=== PATIENT | female | born 1950 | race Caucasian/White ===

== ENCOUNTER 2023-08-11 07:42 | Inpatient (IN) ==
--- NOTE | 2023-07-20 14:11 | PAT Medication Instructions ---
Medication Instructions Date of Service July 20, 2023 Home Medications Medication Instructions Recorded oxycodone-acetaminophen 5 mg-325 1 tab PO Q8H PRN pain #14 tabs // mg tablet (Percocet) diclofenac sodium 1 % topical gel (Voltaren) 2 g topical QID PRN Pain losartan 50 mg-hydrochlorothiazide 12.5 mg tablet 1 tab PO HS meloxicam 15 mg tablet 15 mg PO QAM oxycodone-acetaminophen 5 mg-325 mg tablet (Percocet) 1 tab PO Q8H PRN pain acetaminophen 500 mg tablet 1,000 mg PO TID PRN taken w/pregabalin allopurinol 300 mg tablet 300 mg PO HS atorvastatin 10 mg tablet 10 mg PO HS azithromycin 500 mg tablet 500 mg PO UD berberine-herbal comb no.18 capsule 1 cap PO UD pregabalin 75 mg capsule 75 mg PO BID Continue as directed azithromycin 500 mg tablet 500 mg PO UD ASK your surgeon for instructions diclofenac sodium 1 % topical gel (Voltaren) 2 g topical QID PRN Pain meloxicam 15 mg tablet 15 mg PO QAM STOP taking 2 weeks before surgery (or as soon as possible if surgery is within 2 weeks) berberine-herbal comb no.18 capsule 1 cap PO UD Take morning of surgery With a small sip of water, OTHERWISE NOTHING TO EAT OR DRINK AFTER MIDNIGHT: oxycodone-acetaminophen 5 mg-325 mg tablet (Percocet) 1 tab PO Q8H PRN pain (if needed) acetaminophen 500 mg tablet 1,000 mg PO TID PRN taken w/pregabalin (if needed) pregabalin 75 mg capsule 75 mg PO BID Take evening before surgery losartan 50 mg-hydrochlorothiazide 12.5 mg tablet 1 tab PO HS oxycodone-acetaminophen 5 mg-325 mg tablet (Percocet) 1 tab PO Q8H PRN pain (if needed) acetaminophen 500 mg tablet 1,000 mg PO TID PRN taken w/pregabalin (if needed) allopurinol 300 mg tablet 300 mg PO HS atorvastatin 10 mg tablet 10 mg PO HS pregabalin 75 mg capsule 75 mg PO BID Other Notes If you have any questions please call us at [phone] or [phone] or [phone] or [phone]
--- NOTE | 2023-07-22 08:32 | Communication Note ---
Date of Service: July 22, 2023 - Patient contacted PAT clinic regarding errors on medication list. She states is no longer taking oxycodone-acetaminophen (Percocet) or diclofenac (Voltaren gel), I adjusted these in the EMR and will complete an updated medication instruction list. She contacted her surgeon's office regarding meloxicam. She states would also like to see an anesthesiologist at her PAT appointment. I advised an anesthesiologist can be contacted day of her PAT appointment regarding coming over from the OR and she expressed interest in that. She also wanted to clarify that she was diagnosed with diabetes, not prediabetes, several years ago and she has elected to manage this with diet. This was adjusted on her PMHx. She also inquired as to scheduling surgery and I advised that is coordinated between the surgeon's office and OR, I did relay that it is marked on her booking sheet that she has requested not being the first case. I did discuss with her that her diabetic condition can impact being one of the earlier cases and she advised that is fine from this standpoint. She plans to further discuss scheduling options with the surgeon's office at her upcoming appointment next week. She verbalized understanding and agreement, expressed appreciation for our discussion and denied additional questions or concerns.
--- NOTE | 2023-07-22 08:55 | PAT Medication Instructions ---
Medication Instructions Date of Service July 22, 2023 Home Medications losartan 50 mg-hydrochlorothiazide 12.5 mg tablet 1 tab PO HS meloxicam 15 mg tablet 15 mg PO QAM acetaminophen 500 mg tablet 1,000 mg PO TID PRN allopurinol 300 mg tablet 300 mg PO HS atorvastatin 10 mg tablet 10 mg PO HS azithromycin 500 mg tablet 500 mg PO UD berberine-herbal comb no.18 capsule 1 cap PO UD pregabalin 75 mg capsule 75 mg PO BID Continue as directed azithromycin 500 mg tablet 500 mg PO UD ASK your surgeon for instructions meloxicam 15 mg tablet 15 mg PO QAM STOP taking 2 weeks before surgery (or as soon as possible if surgery is within 2 weeks) berberine-herbal comb no.18 capsule 1 cap PO UD Take morning of surgery With a small sip of water, OTHERWISE NOTHING TO EAT OR DRINK AFTER MIDNIGHT: acetaminophen 500 mg tablet 1,000 mg PO TID PRN(if needed) pregabalin 75 mg capsule 75 mg PO BID Take evening before surgery losartan 50 mg-hydrochlorothiazide 12.5 mg tablet 1 tab PO HS acetaminophen 500 mg tablet 1,000 mg PO TID PRN(if needed) allopurinol 300 mg tablet 300 mg PO HS atorvastatin 10 mg tablet 10 mg PO HS pregabalin 75 mg capsule 75 mg PO BID Other Notes If you have any questions please call us at [phone] or [phone] or [phone] or [phone]
--- NOTE | 2023-07-28 14:39 | Anesthesiology Consultation ---
Date of Service July 28, 2023 Assessment & Plan (1) Encounter for pre-operative examination: Chart Review Chart Review: Acceptable Risk for Surgery (pending PCP clearance ) and Patient seen in Pre Admission Testing - Awaiting PCP clearance scheduled 08/03/23 (Dr Dann Salvador- SANDEE Babcock) (please send preop testing to PCP) - Check BSG AM DOS - Pt goes by [facility] - Dr. Sorto present during part of PAT appt to discuss previous anesthesia issues. Questions addressed. Per PAT appt on 07/28/23, no recent illness/disease exposures, illness related symptoms, or recent illness/disease positive tests. Will leave to surgeon's discretion if preop Covid testing needed Teaching & Discussion Pre-Anesthesia Teaching/Discussion Notes: Instructed NPO after midnight before surgery,except medications with 15 cc of water. Medication instructions provided according to the [facility] guidelines. History Surgery Operation Date: 08/11/23 07:45 Proposed Procedures p L2-L5 Decompression and Fusion, Spinal Cord Monitoring - Brian Lala, Height/Weight Height: 5 ft 3 in Weight: 107.5 kg Allergies Allergy/AdvReac Type Severity Reaction Status Date / Time red dye Allergy SWELLING Verified 07/20/23 11:11 AND ITCHING Medications Home Medications Medication Instructions Recorded Confirmed Last Taken losartan 50 mg-hydrochlorothiazide 1 tab PO HS 01/11/19 07/20/23 02/02/19 12.5 mg tablet meloxicam 15 mg tablet 15 mg PO QAM 02/17/23 07/20/23 Unknown acetaminophen 500 mg tablet 1,000 mg PO TID PRN taken 07/20/23 07/20/23 Unknown w/pregabalin allopurinol 300 mg tablet 300 mg PO HS 07/20/23 07/20/23 Unknown atorvastatin 10 mg tablet 10 mg PO HS 07/20/23 07/20/23 Unknown azithromycin 500 mg tablet 500 mg PO UD 07/20/23 07/20/23 Unknown berberine-herbal comb no.18 capsule 1 cap PO UD 07/20/23 07/20/23 Unknown pregabalin 75 mg capsule 75 mg PO BID 07/20/23 07/20/23 Unknown Past Medical History Medical History (Updated 07/29/23 @ 09:54 by OLIVER TeixeiraC) Diabetes diet controlled Per patient at PAT appt 07/28/23- did have steroid injections to bilateral knees recently History of anesthesia reaction s/p bilateral ROBYN in 2012- questionable ileus post op- resulted in longer hospital stay- no issues since History of kidney stones allopurinol currently to prevent no recent issues Hyperlipidemia Hypertension Lumbar pain with radiation down both legs Morbid obesity Exercise / Class Metabolic Activity III < 4 Walking/Shop/Light housework (no chest pain or SOB with flat surface ambulation- uses cane for support ) Past Family History Family History Father Family history of diabetes mellitus Past Surgical History Surgical History History of cataract surgery RT, LT Hx of bilateral hip replacements 07/08/12 Hx of cystoscopy FOR STONE BASKET REMOVAL Hx of foot surgery LEFT - X3 Hx of lithotripsy x3 Hx of tooth extraction S/P cystoscopy with ureteral stent placement w/laser lithotripsy S/P epidural steroid injection x2 Past Anesthesia History No Hx of Anesthesia Complications (with exception to questionable ileus in 2012 s/p bilateral ROBYN ) and No Family Hx of Anesthesia Complications (with exception to brother - disoriented/hallucinations post op (has cardiac and renal issues)) History of PONV No Hx of PONV and No Hx of Motion Sickness Social History Smoking Status: Never smoker Do You Dip or Chew Tobacco: No Hx Alcohol Use: Yes Alcohol type: wine alcohol intake frequency: holidays/special occasions only Hx Substance Use: No substance use type: does not use Review of Systems - MILLS- mild/chronic - stable - Hx of snoring - no hx of sleep study Patient denies chest pain, shortness of breath, reflux, cough, wheezing, palpitations. No hx of seizures, stroke, [place]. No hx of blood clots or blood transfusions Physical Exam Vital Signs VITALS BP 124/78 P 59 TEMP 97.8 SP02 93% RESP 16 Constitutional no acute distress ENMT Mouth: no TMJ clicking Thyromental Distance: < 3.5 Finger Breadths (3.0) Mallampati Class: III Missing molars Neck + short neck and + limited neck extension Respiratory normal respiratory effort; no respiratory distress Auscultation: lungs clear to auscultation bilaterally; no wheezes Cardiovascular Rate/Rhythm: regular rate and regular rhythm Heart Sounds: no murmur Vessels: no carotid bruit Musculoskeletal Spine: no pain with cervical ROM Extremities: extremities normal to inspection Psychiatric Orientation: alert Lab Results Anesthesia Preop Results Results Anesthesia Widget: WBC 12.70 K/ul (4.8-10.8) H 07/28/23 Hgb 12.2 g/dl (12.0-16.0) 07/28/23 Hct 38.5 % (37.0-47.0) 07/28/23 Plt 232 K/uL (130-400) 07/28/23 Na 139 mmol/L (136-145) 07/28/23 K 4.2 mmol/L (3.5-5.1) 07/28/23 Cl 106 mmol/L (98-107) 07/28/23 CO2 26 mmol/L (21-32) 07/28/23 BUN 21 mg/dl (6-23) 07/28/23 Creat 0.76 mg/dl (0.6-1.2) 07/28/23 Glucose Level 156 mg/dl (70-99(Fasting)) H 07/28/23 PT 10.3 Seconds (9.0-12.0) 07/28/23 PTT 27.4 Seconds (21.0-31.0) 07/28/23 INR 0.9 (0.9-1.1) 07/28/23 HA1c 7.3 % (4.5-5.6) H 07/28/23 Urine Color Yellow 07/28/23 Urine Appearance Clear (Clear) 07/28/23 Urine pH 5.0 (4.5-7.5) 07/28/23 Urine Specific [place] 1.023 (1.000-1.030) 07/28/23 Urine Protein Trace (Negative) H 07/28/23 Urine Glucose (UA) 1+ (Negative) H 07/28/23 Urine Ketones Negative (Negative) 07/28/23 Urine Blood Negative (Negative) 07/28/23 Urine Nitrite Negative (Negative) 07/28/23 Urine Bilirubin Negative (Negative) 07/28/23 Urine Urobilinogen Negative (Negative) 07/28/23 Urine Leukocyte Esterase 1+ (Negative) H 07/28/23 Urine WBC (Auto) 10-30 /hpf (0-5) H 07/28/23 Urine RBC (Auto) 0-4 /hpf (0-4) 07/28/23 Urine Hyaline Casts (Auto) 1-5 /lpf (0-5) 07/28/23 Urine Epithelial Cells (Auto) >30 /lpf (0-5) H 07/28/23 Urine Bacteria (Auto) Negative (Negative) 07/28/23 Blood Type O Negative 07/28/23 Antibody Screen NEGATIVE 07/28/23 Testing Laboratory Results Mild leukocytosis- no signs or symptoms of infection on exam- will send testing to PCP for review Electrocardiogram Date: 07/28/23 Sinus bradycardia with sinus arrhythmia at 56 bpm Otherwise normal EKG per cardio Chest X-Ray Date: 07/28/23 Findings: + NAD FINDINGS: The cardiac silhouette is top normal in size. There is a tortuous thoracic aorta. Mild S-shaped scoliosis of the thoracolumbar spine. No focal lung consolidations to suggest a pneumonia. No evidence for pulmonary edema. No acute fractures. Degenerative changes within the thoracic spine. Echocardiogram Date: 02/03/23 EF: 55-60% LV Function: normal RWMA: + none Other Findings: + LVH (mild/concentric ) and + diastolic dysfunction (Type I ) Mild MR. Mild AR
[~2023-08-11 07:42] MED LIST: ACETAMINOPHEN 500 MG TAB PO SCH; CeleBREX 200 MG CAP PO SCH; GABAPENTIN 300 MG CAP PO SCH; LR 15ML/HR IV SCH; LR 60ML/HR IV SCH; ceFAZolin 2000MG 2,000 MG/15 ML SYR IV SCH
[2023-08-11] MEDS ORDERED: ONDANSETRON INJ 2 MG/ML 2 ML VIAL ONE (08:38)
[2023-08-11] MEDS ORDERED: ROCURONIUM BROMIDE 10 MG/ML 5 ML VIAL IV ONE (08:38)
[2023-08-11] MEDS ORDERED: DEXAMETHASONE SOD INJ 4 MG/ML VIAL ONE ×2 (08:38→10:01)
[2023-08-11] MEDS ORDERED: LIDOCAINE 2% 2 ML VIAL/AMP(20MG/ML) INFIL ONE (08:38)
[2023-08-11] MEDS ORDERED: MIDAZOLAM HCL 1 MG/ML 2ML VIAL ONE (08:38)
[2023-08-11] MEDS ORDERED: PROPOFOL IV EMULSION 10 MG/ML 20 ML VIAL IV ONE (08:38)
[2023-08-11] MEDS ORDERED: fentaNYL citrate PF 100 MCG/2 ML VIAL ONE ×2 (08:39→11:02)
[2023-08-11] MEDS ORDERED: FLUMAZENIL 0.1 MG/1 ML 10 ML VIAL IV PRN (09:01)
[2023-08-11] MEDS ORDERED: PROMETHAZINE HCL 12.5 MG in SODIUM CHLORIDE 0.9% 50 ML IV PRN ×2 (09:01→14:06)
[2023-08-11] MEDS ORDERED: ONDANSETRON INJ 2 MG/ML 2 ML VIAL IV PRN ×2 (09:01→14:06)
[2023-08-11] MEDS ORDERED: LABETALOL HCL IV 5 MG/ML 20ML IV PRN (09:01)
[2023-08-11] MEDS ORDERED: NALOXONE HCL 0.4 MG/1 ML VIAL/CARP IV PRN ×2 (09:01→14:06)
[2023-08-11] MEDS ORDERED: ATROPINE SULFATE 0.1 MG/ML 10ML SYR IV PRN (09:01)
[2023-08-11] MEDS ORDERED: ePHEDrine sulfate 50 MG/ML AMP IV PRN (09:01)
--- NOTE | 2023-08-11 09:09 | History & Physical Bridge Note ---
Date of Service August 11, 2023 History & Physical Bridge Note I have examined the patient, reviewed the History & Physical and in the interval since the performance of the History & Physical I have noted the following changes of clinical significance: no changes noted
--- NOTE | 2023-08-11 09:10 | History & Physical Report ---
Date of Service August 11, 2023 Assessment & Plan (1) Degenerative spondylolisthesis: Plan: L2-L5 decompression and fusion History of Present Illness Chief Complaint: Back and bilateral knee pain Primary Care Provider: Dann Salvador This is a 72-year-old female who presents for chronic persistent back and leg pain and failing since course of nonoperative care is here for surgical invention. Allergies Allergy/AdvReac Type Severity Reaction Status Date / Time red dye Allergy SWELLING Verified 08/11/23 08:09 AND ITCHING Home Medications Medication Instructions Recorded Confirmed Type losartan 50 mg-hydrochlorothiazide 1 tab PO HS 01/11/19 08/11/23 History 12.5 mg tablet meloxicam 15 mg tablet 15 mg PO QAM 02/17/23 08/11/23 History acetaminophen 500 mg tablet 1,000 mg PO TID PRN taken 07/20/23 08/11/23 History w/pregabalin allopurinol 300 mg tablet 300 mg PO HS 07/20/23 08/11/23 History atorvastatin 10 mg tablet 10 mg PO HS 07/20/23 08/11/23 History azithromycin 500 mg tablet 500 mg PO UD 07/20/23 08/11/23 History berberine-herbal comb no.18 capsule 1 cap PO UD 07/20/23 08/11/23 History Past Med/Surg History Medical History (Updated 07/29/23 @ 09:54 by Zayda Stauffer PA-C) Diabetes diet controlled Per patient at PAT appt 07/28/23- did have steroid injections to bilateral knees recently History of anesthesia reaction s/p bilateral ROBYN in 2011- questionable ileus post op- resulted in longer hospital stay- no issues since Morbid obesity Lumbar pain with radiation down both legs History of kidney stones allopurinol currently to prevent no recent issues Hypertension Hyperlipidemia Surgical History S/P epidural steroid injection x2 S/P cystoscopy with ureteral stent placement w/laser lithotripsy Hx of tooth extraction History of cataract surgery RT, LT Hx of cystoscopy FOR STONE BASKET REMOVAL Hx of lithotripsy x3 Hx of foot surgery LEFT - X3 Hx of bilateral hip replacements 07/08/12 Family History Father Family history of diabetes mellitus Social History Smoking Status: Never smoker Tobacco Type: Cigarettes Smoking End Date: back in the 60's for 5 years; Second Hand Exposure: No; Do You Dip or Chew Tobacco: No; Tobacco Cessation Education Requested by Patient: No Hx Alcohol Use: Yes Alcohol type: wine Hx Substance Use: No Preferred Language: Divehi Communication Ability: Effective Child Support Specialist Required: No Beliefs That Will Affect Care: None Current Living Situation: Alone Other Information That Helps Us Care for You: No Feels Safe at Home: Yes Safety Concerns: Feels Safe At This Time Assistive Devices: Glasses and Walker Assistive Devices Comment: walker prn; reading glasses Physical Exam Physical Exam: Patient is alert and oriented Heart regular rhythm Lungs clear Results & Data Results & Data Vital Signs (Past 12 Hours) Vital Signs Temp Pulse Resp BP Pulse Ox O2 Del Method 08/11/23 08:14 36.9 C 80 18 138/102 H 96 Room Air
[2023-08-11] MEDS ORDERED: BUPIVACAINE/EPINEPHRINE 0.25% 1:200,000 30 ML VIAL ONE (09:21)
[2023-08-11] MEDS: ceFAZolin 330 MG/ML 1 GM VIAL ONE ×2 (09:45→12:20)
[2023-08-11] MEDS ORDERED: ePHEDrine sulfate 50 MG/5 ML SYR ONE (10:36)
[2023-08-11] MEDS ORDERED: SUGAMMADEX SODIUM 200 MG/2 ML VIAL IV ONE (11:36)
[2023-08-11] MEDS ORDERED: PHENYLEPHRINE HCL 10 MG/ML VIAL ONE (12:14)
[2023-08-11] MEDS ORDERED: FLOSEAL HEMOSTATIC MATRIX 10ML TOP ONE (12:17)
--- NOTE | 2023-08-11 12:30 | Fluoroscopy Report ---
FL lumbar spine 2-3V CLINICAL HISTORY: L2-5 DECOMP AND FUSION COMPARISON STUDY: Lumbar spine MRI June 21, 2023. FLUOROSCOPY TIME: 30 seconds. Ka, r: 29.76 mGy FLUOROSCOPIC IMAGES: 4 FINDINGS: Fluoroscopy was provided during posterior decompression with L2-L3, L3-L4 and L4-L5 discect omies with interbody spacer placement. There are bilateral pedicle screws at the L2-L5 levels with in terconnecting rods. Hardware is intact. IMPRESSION: Fluoroscopy during L2-L5 posterior decompression, discectomy and fusion. ACT 112: Negative or not required by law. Electronically signed by: Gilberto Dennison M.D. 08/11/2023 12:29 PM
--- NOTE | 2023-08-11 12:33 | Operative Report ---
Post Operative Report Pre & Post Diagnosis Operation Date: 08/11/23 09:15 Pre-Op Diagnosis: Lumbar Disc Herniation with Radiculopathy Lumbar spinal stenosis with neurogenic claudication Spondylolisthesis lumbar spine Morbid obesity Post-Op Diagnosis: Same I identified the patient and participated in the time-out.: Yes Procedure Operation Date: 08/11/23 09:15 Actual Procedures #1 lumbar decompression bilaterally facetectomies and foraminotomies L1-L2, L2- 3, L3-L4 and L4-5. #2 posterior spinal fusion L2-5. #3 placed posterior segmental instrumentation L2-5. #4 interbody fusion L2-3, L3-L4 L4-5. #5 placement spiral 9 x 26 mm at L2-L3, 12 x 26 mm L3-L4 and 13 x 26 mm at L4-5. #6 placement locally harvested morselized autograft and posterior gutters. #7 placement of I factor interbody space and infuse collagen sponge, mass graft in the posterior lateral gutters. Surgeon Brian Lala, DO Channel Layer Carmela Monroy Estimated Blood Loss 1,250 Findings See Below The patient is 5 foot 4 weighing over 104 kg with a BMI in excess of 39. This combined with an EBL of greater than 1000 cc created significant technical difficulty. This at least 50% increased operative time. Specimens None Indications This is a 72-year-old female who presents above-mentioned diagnosis after failing course of nonoperative care she is here for surgical invention. Description of Procedure Patient was met with identified informed consent obtained. Patient was then taken to the operative suite underwent patient placed in a prone position the [place] table top Mao frame. All bony promises well-padded I suspected to ensure no external precipice spine. This point the lumbar spine was prepped and draped in a sterile fashion. Sharp dissection with the assistance of Bovie cautery form down to and exposing the lamina transverse processes of L to L3-L4-L5 bilaterally. From caudal cephalad fashion complete laminectomy of L4 L3 L2 and partial laminectomy of L1 was performed including bilateral medial facetectomies and foraminotomies addressing severe spinal stenosis. Pedicle screws were then placed in L2-L5 bilaterally with assistance of fluoroscopy and appropriate size bruno placed. By way of transforaminal approach on the right complete discectomy of L4-5 was performed endplates guarded to subcortical bleeding bone and a 13 x 26 mm Spira cage with I factor tapped in position. Then proceeded to L3-L4 and again by way of a transforaminal approach on the right complete discectomy performed endplates guarded to subcortical bleeding bone and a 12 x 26 mm Spira cage with I factor tapped in position. Lastly proceeded L2-L3 and again by way of a transforaminal approach on the right complete discectomy performed endplates guarded to subcortical bleeding bone and a 9 x 26 mm Spira cage with I factor tapped in position. The rods were then compressed locked in final position bilaterally. Transverse processes of L2-L3 L4-5 #2 subcortical bleeding bone. Infuse collagen sponge, mass graft locally harvested morselized graft placed in the posterior gutters. 15 round DARUIS drain inserted. The incision was then closed with 1 Vicryl fascia 2-0 Vicryl subcutaneously and 4 Monocryl for final skin closure. Steri-Strips sterile dressing placed. Patient waken taken to PACU stable condition. Please note spinal cord monitoring was utilized at the procedure no changes noted. Lastly Carmela Monroy was present at the entire surgery and while the patient positioning complex portion of the surgery and final skin closure. I attest to the content of the Intraoperative Record and any orders documented therein. Any exceptions are noted below.
[2023-08-11] MEDS: fentaNYL citrate PF 100 MCG/2 ML VIAL IV PRN ×5 (12:56→13:17)
[2023-08-11] MEDS: HYDROmorphone INJ 1 MG/ML SYRINGE IV PRN ×4 (13:22→13:37)
--- NOTE | 2023-08-11 13:49 | Anesthesiology Progress Note ---
Date of Service August 11, 2023 Anesthesia Post Procedure Vital Signs Vital Signs: Temp Pulse Pulse Resp BP Pulse Ox O2 Del Method 08/11/23 13:35 74 14 94/55 L 97 Nasal Cannula 08/11/23 13:25 85 19 97/67 L 97 Nasal Cannula 08/11/23 13:15 72 11 L 92/61 L 08/11/23 13:05 72 9 L 92/62 L 98 Oxymask 08/11/23 12:55 77 14 103/64 98 Oxymask 08/11/23 12:45 36.0 C L 82 18 141/86 H 98 Oxymask 08/11/23 08:14 36.9 C 80 18 138/102 H 96 Room Air O2 Flow Rate 08/11/23 13:35 2 08/11/23 13:25 2 08/11/23 13:15 08/11/23 13:05 6 08/11/23 12:55 6 08/11/23 12:45 6 08/11/23 08:14 Pain Intensity Lower Back: Pain Intensity: 7 Transfer of Care Handoff Completed per policy Notes Mental Status: alert / awake / arousable Patient Amnestic to Procedure: Yes Nausea / Vomiting: adequately controlled Pain: adequately controlled Airway Patency, RR, SpO2: stable & adequate BP & HR: stable & adequate Hydration State: stable & adequate Anesthetic Complications: no major complications apparent
[2023-08-11] MEDS ORDERED: ACETAMINOPHEN 1,000 MG/100 ML VIAL IV PRN (14:06)
[2023-08-11] MEDS ORDERED: ALUMINUM/MAGNESIUM SUSP 30 ML UDC PO PRN (14:06)
[2023-08-11] MEDS ORDERED: HYDROmorphone INJ 1 MG/ML SYRINGE IV PRN (14:06)
[2023-08-11] MEDS ORDERED: HYDROmorphone INJ 0.5 MG/0.5 ML SYR IV PRN (14:06)
[2023-08-11] MEDS ORDERED: METOCLOPRAMIDE HCL INJ 5 MG/ML 2 ML VIAL IV PRN (14:06)
[2023-08-11] MEDS ORDERED: SOD PHOSPHATE/SOD BIPHOSPHATE ENEMA 132 ML BTL PR PRN (14:06)
[2023-08-11] MEDS ORDERED: DO NOT ADMINISTER FLU VACCINE PRN (14:06)
[2023-08-11] MEDS ORDERED: LORazepam 0.5 MG TAB PO PRN (14:06)
[2023-08-11] MEDS ORDERED: bisacodyL 10 MG SUPP PR PRN (14:06)
[2023-08-11] MEDS ORDERED: DO NOT ADMINISTER PNEUMOCOCCAL VACCINE PRN (14:06)
[2023-08-11] MEDS ORDERED: diphenhydrAMINE Capsule 25 MG CAP PO PRN (14:06)
[2023-08-11] MEDS ORDERED: LORazepam 0.5 MG in SYRINGE 0.25 ML IV PRN (14:06)
[2023-08-11] MEDS ORDERED: ACETAMINOPHEN 500 MG TAB PO PRN (14:06)
[2023-08-11] MEDS ORDERED: MAGNESIUM HYDROXIDE SUSP 30 ML UDC PO PRN (14:06)
[2023-08-11] MEDS ORDERED: oxyCODONE HCL IR 5 MG TAB (IMMEDIATE RELEASE) PO PRN (14:06)
[2023-08-11] MEDS ORDERED: FAMOTIDINE 20 MG TAB PO PRN (14:06)
[2023-08-11] MEDS ORDERED: hydrOXYzine HCl 25 MG TAB PO PRN (14:06)
[2023-08-11] MEDS ORDERED: ONDANSETRON 4 MG OD TAB PO PRN (14:06)
[2023-08-11] MEDS: LACTATED RINGER'S 1,000 ML IV SCH ×2 (15:02→20:27)
[2023-08-11] MEDS: traMADol HCL 50 MG TABLET PO PRN ×2 (15:12→20:38)
--- NOTE | 2023-08-11 15:28 | Consultation ---
Date of Consultation August 11, 2023 Assessment & Plan (1) Lumbar stenosis with neurogenic claudication: (2) Hypertension: (3) Hyperlipidemia: (4) Diabetes: (5) History of kidney stones: Plan Ms. Gross is a 72-year-old female that presented to the [facility] for an elective decompression and fusion surgery L2-L5 under the care of Dr. Lala after failed conservative management as an outpatient. Patient had an uneventful surgery.Patient is doing well post operatively, she had an intraoperative blood loss of 1,200 ml. She is AAOx4 and able to answer all questions appropriately. She has two friends visiting her at bedside. Additional past medical history includes gnk-khnzapm-fntozlywt diabetes type 2, HTN, history of kidney stones, and HLD. Patient denies headache, dizziness, peripheral neuropathy, visual or auditory changes, abdominal pain or tenderness, recent falls or trauma. We discussed her plan of care in coordination with Dr. Lala. She was able to demonstrate appropriate use of ISB. She is on 2LNC post operative. Nursing is providing spot check; no apparent distress. She has taken two Ultram postoperatively. She has not passed gas since her surgery. Patient has a history of a questionable ileus status post ROBYN 2011; discussed importance of ensuring passing gas and bowel movements postop with narcotic use. Lumbar stenosis with neurogenic claudication: Lumbar Disc Herniation with Radiculopathy Spondylolisthesis lumbar spine POD# 0 s/p decompression and fusion L2-L5 under the care of Dr. Lala. EBL: 1,200. Recheck CBC this evening. Monitor H&H, preop Hgb 12.2 on 07/28/2023; trend tonight and in a.m. Per ortho for pain control, wound care, anticoagulation and activities. continue incentive spirometry PT/OT when appropriate HTN: Chronic stable Takes losartan/hydrochlorothiazide; continue HLD: Chronic stable Takes atorvastatin; continue Dlb-sephqsp-ankaberho diabetes: Chronic stable Diet controlled History of kidney stones: Chronic stable Takes allopurinol for prevention daily; continue Disposition: PCP: Dr. Salvador CODE STATUS: Full code VTE prophylaxis: Per admitting team I spent a total of 60 minutes coordinating, documenting, and providing care for this patient excluding time spent in the performance of separately billed services. All of the aforementioned completed while collaborating with the assigned attending physician for a full treatment plan. Please see their addendum for further details. Supervising Physician Co-Signing Physician Notes I have seen and examined the patient and have discussed the case with the provider above. I agree with the assessment and plan as stated. She is having increased pain in her lower back without radiation. Tramadol is helping but oxycodone is not. She reports it makes her feel dopey. SBP is 98. Patient states she wants to stack the tramadol and the oxycodone, which is not recommended. She verbalized understanding. We decided to switch to Tramadol q4h PRN and schedule oral Tylenol 1000mg every 8 hours. She is otherwise doing well. Meds/labs/imaging reviewed. My physical exam is as noted above. Thank you for this consultation. DO Yobany History of Present Illness Requesting Physician: Dr. Lala Reason for Consultation: Postop medical management Attending Physician: Brian Lala DO History of Present Illness Ms. Gross is a 72-year-old female that presented to the [facility] for an elective decompression and fusion surgery L2-L5 under the care of Dr. Lala after failed conservative management as an outpatient. Patient had an uneventful surgery.Patient is doing well post operatively, she had an intraoperative blood loss of 1,200 ml. She is AAOx4 and able to answer all questions appropriately. She has two friends visiting her at bedside. Additional past medical history includes mhz-rafdmox-xcfutycdz diabetes type 2, HTN, history of kidney stones, and HLD. Patient denies headache, dizziness, peripheral neuropathy, visual or auditory changes, abdominal pain or tenderness, recent falls or trauma. We discussed her plan of care in coordination with Dr. Lala. She was able to demonstrate appropriate use of ISB. She is on 2LNC post operative. Nursing is providing spot check; no apparent distress. She has taken two Ultram postoperatively. She has not passed gas since her surgery. Patient has a history of a questionable ileus status post ROBYN 2011; discussed importance of ensuring passing gas and bowel movements postop with narcotic use. [facility] hospitalist service was consulted for postoperative medical management. We are available via Gist text 20/04 for any questions or concerns. Thank you kindly for this consultation. Allergies Allergy/AdvReac Type Severity Reaction Status Date / Time red dye Allergy SWELLING Verified 08/11/23 08:09 AND ITCHING Home Medications Medication Instructions Recorded Confirmed Type losartan 50 mg-hydrochlorothiazide 1 tab PO HS 01/11/19 08/11/23 History 12.5 mg tablet meloxicam 15 mg tablet 15 mg PO QAM 02/17/23 08/11/23 History acetaminophen 500 mg tablet 1,000 mg PO TID PRN taken 07/20/23 08/11/23 History w/pregabalin allopurinol 300 mg tablet 300 mg PO HS 07/20/23 08/11/23 History atorvastatin 10 mg tablet 10 mg PO HS 07/20/23 08/11/23 History azithromycin 500 mg tablet 500 mg PO UD 07/20/23 08/11/23 History berberine-herbal comb no.18 capsule 1 cap PO UD 07/20/23 08/11/23 History oxycodone 5 mg tablet 5 mg PO Q6H PRN pain #30 tabs 08/11/23 Rx tramadol 50 mg tablet 50 mg PO Q6H PRN pain, moderate 08/11/23 Rx #30 tabs Patient History Medical History Diabetes diet controlled Per patient at PAT appt 07/28/23- did have steroid injections to bilateral knees recently History of anesthesia reaction s/p bilateral ROBYN in 2011- questionable ileus post op- resulted in longer hospital stay- no issues since Morbid obesity Lumbar pain with radiation down both legs History of kidney stones allopurinol currently to prevent no recent issues Hypertension Hyperlipidemia Surgical History S/P epidural steroid injection x2 S/P cystoscopy with ureteral stent placement w/laser lithotripsy Hx of tooth extraction History of cataract surgery RT, LT Hx of cystoscopy FOR STONE BASKET REMOVAL Hx of lithotripsy x3 Hx of foot surgery LEFT - X3 Hx of bilateral hip replacements 07/08/12 Family History Father Family history of diabetes mellitus Social History Smoking Status: Never smoker Tobacco Type: Cigarettes Smoking End Date: back in the 60's for 5 years; Second Hand Exposure: No; Do You Dip or Chew Tobacco: No; Tobacco Cessation Education Requested by Patient: No Hx Alcohol Use: Yes Alcohol type: wine Hx Substance Use: No Preferred Language: Turkish Communication Ability: Effective Financial Services Specialist Required: No Beliefs That Will Affect Care: None Current Living Situation: Alone Other Information That Helps Us Care for You: No Feels Safe at Home: Yes Safety Concerns: Feels Safe At This Time Assistive Devices: Cane and Walker Assistive Devices Comment: walker prn; reading glasses Review of Systems Review of Systems: Neuro: (-) Falls, trauma, slurred speech HEENT: (-) SANDHU, dizziness, dysphagia, visual or auditory changes CV: (-) CP, palpitations, swelling Resp: (-) SOB GI: (-) appetite changes, N/V/D, bowel changes : (-) urinary changes Skin: (-) rashes Psych: (-) anxiety, depression Physical Exam Physical Exam: Neuro: AAOx4, PERRLA, no aphagia, memory changes, CNII-XII grossly intact HEENT: head normocephalic, moist mucus membranes CV: S1/S2, (-) M/G/R, (-) edema, cap refill < 3 seconds DARIUS drain x1 with angie red bloody output Resp: Lungs CTA in all woods. On RA GI: Abdomen S/NT/ND, Ax4 bowel sounds, (-) CVA tenderness Musculoskeletal: 5/5 B/L UE strength, 5/5 B/L LE strength. No gait disturbance Skin: (-) rashes , (-) erythema. Psych: euthymic mood Results & Data Vital Signs (Past 12 Hours) Vital Signs Temp Pulse Pulse Resp BP Pulse Ox O2 Del Method 08/11/23 14:45 36.3 C L 81 18 90/58 L 98 Nasal Cannula 08/11/23 14:15 36.4 C L 77 18 99/61 L 96 Nasal Cannula 08/11/23 14:06 Nasal Cannula 08/11/23 13:55 78 19 98/57 L 96 Nasal Cannula 08/11/23 13:45 36.6 C 78 16 96/52 L 93 Nasal Cannula 08/11/23 13:35 74 14 94/55 L 97 Nasal Cannula 08/11/23 13:25 85 19 97/67 L 97 Nasal Cannula 08/11/23 13:15 72 11 L 92/61 L 08/11/23 13:05 72 9 L 92/62 L 98 Oxymask 08/11/23 12:55 77 14 103/64 98 Oxymask 08/11/23 12:45 36.0 C L 82 18 141/86 H 98 Oxymask 08/11/23 08:14 36.9 C 80 18 138/102 H 96 Room Air O2 Flow Rate 08/11/23 14:45 2 08/11/23 14:15 2 08/11/23 14:06 2 08/11/23 13:55 2 08/11/23 13:45 2 08/11/23 13:35 2 08/11/23 13:25 2 08/11/23 13:15 08/11/23 13:05 6 08/11/23 12:55 6 08/11/23 12:45 6 08/11/23 08:14 Diagnostic Findings Lumbar Spine X-Ray 08/11/23 09:15 FL lumbar spine 2-3V CLINICAL HISTORY: L2-5 DECOMP AND FUSION COMPARISON STUDY: Lumbar spine MRI June 21, 2023. FLUOROSCOPY TIME: 30 seconds. Ka, r: 29.76 mGy FLUOROSCOPIC IMAGES: 4 FINDINGS: Fluoroscopy was provided during posterior decompression with L2-L3, L3-L4 and L4-L5 discectomies with interbody spacer placement. There are bilateral pedicle screws at the L2-L5 levels with interconnecting rods. Hardware is intact. IMPRESSION: Fluoroscopy during L2-L5 posterior decompression, discectomy and fusion. ACT 112: Negative or not required by law. Electronically signed by: Gilberto Dennison M.D. 08/11/2023 12:29 PM
[2023-08-11] MEDS: ceFAZolin 2000MG 2,000 MG/15 ML SYR IV SCH (18:19)
[2023-08-11 19:46] LABS: Hematocrit (blood only) 30.1 % (37.0-47.0); Mean Corpuscular Hemoglobin 27.5 pg (25.0-34.0); Mean Corpuscular Hgb Conc 33.2 g/dL (32.0-36.0); Mean Corpuscular Volume 82.7 fL (80.0-100.0); Mean Platelet Volume 9.4 fL (9.4-12.4); Platelet Count 196 K/uL (130-400); Platelet Estimate Normal (Normal); RDW Coefficient of Variation 15.6 % (11.5-14.5); RDW Standard Deviation 46.9 fL (36.4-46.3); Red Blood Count 3.64 M/uL (4.20-5.40); White Blood Count 15.17 K/ul (4.8-10.8)
[2023-08-11] MEDS: allopurinoL 300 MG TAB PO SCH (20:38)
[2023-08-11] MEDS: ATORVASTATIN 10 MG TAB PO SCH (20:38)
[2023-08-11] MEDS: DOCUSATE SODIUM/SENNA 50/8.6MG TAB PO SCH (20:38)
[2023-08-11] MEDS ORDERED: LOSARTAN/HCTZ 50/12.5MG TAB PO SCH (21:00)
[2023-08-11] MEDS: ACETAMINOPHEN 500 MG TAB PO SCH (21:54)
[2023-08-12] MEDS: ceFAZolin 2000MG 2,000 MG/15 ML SYR IV SCH (02:30)
[2023-08-12] MEDS: traMADol HCL 50 MG TABLET PO PRN ×3 (02:39→22:30)
[2023-08-12] MEDS: LACTATED RINGER'S 1,000 ML IV SCH ×4 (02:41→22:30)
[2023-08-12] MEDS: ACETAMINOPHEN 500 MG TAB PO SCH ×3 (05:57→20:41)
[2023-08-12] MEDS: POLYETHYLENE (MIRALAX) 17 GM PACK PO SCH ×4 (05:57→23:24)
[2023-08-12 06:37] LABS: Basophils # (auto) 0.02 K/uL (0.00-0.20); Basophils % (auto) 0.1 %; Hematocrit (blood only) 27.7 % (37.0-47.0); Immature Granulocytes % (auto) 0.7 %; Lymphocytes % (auto) 7.9 %; Mean Corpuscular Hemoglobin 27.5 pg (25.0-34.0); Mean Corpuscular Hgb Conc 32.5 g/dL (32.0-36.0); Mean Corpuscular Volume 84.7 fL (80.0-100.0); Mean Platelet Volume 9.1 fL (9.4-12.4); Monocytes # (auto) 0.85 K/uL (0.11-0.59); Monocytes % (auto) 5.6 %; Neutrophils % (auto) 85.7 %; Platelet Count 196 K/uL (130-400); RDW Coefficient of Variation 15.8 % (11.5-14.5); Red Blood Count 3.27 M/uL (4.20-5.40); White Blood Count 15.27 K/ul (4.8-10.8)
[2023-08-12 06:55] LABS: BUN Creatinine Ratio 22.7 (10-20); Calcium 8.7 mg/dl (8.6-10.3); Creatinine Clr Calc Pharmacy 78.6 ml/min; Est GFR (African American) 91.7 ml/min; Est GFR (Non-African American) 79.1 ml/min; Potassium 4.4 mmol/L (3.5-5.1)
[2023-08-12] MEDS: dexAMETHasone 6 MG in SYRINGE 0 ML IV SCH (08:23)
--- NOTE | 2023-08-12 08:50 | Orthopedic Progress Note ---
Date of Service August 12, 2023 Assessment & Plan (1) Lumbar stenosis with neurogenic claudication: Plan: Sarina is postoperative day 1 status post L2-5 decompression and fusion. Will check H&H tomorrow. Currently asymptomatic. Maintain DARIUS drain. DVT prophy laxis is in the form of teds and SCDs. Continue with pain control. We will start physical therapy today. Admission and Anticipated Discharge Date Admission Date: August 11, 2023 Subjective Sarina is postoperative day 1 status post L2-5 decompression and fusion. She had some back pain which she states is her chronic pain. DARIUS drain output last shift was 90 cc. H&H this morning are 9.0 and 27.7 respectively. Radicular leg pain greatly improved. Review of Systems Review of Systems: All systems reviewed & are unremarkable except as noted in HPI & below Physical Exam Physical Exam: Alert and oriented x3 no acute distress Lumbar dressing is clean dry intact with functioning DARIUS drain Strength intact bilateral lower extremities Calf soft and nontender bilaterally Results & Data Vital Signs (Past 12 Hours) Vital Signs Temp Pulse Resp BP BP Pulse Ox O2 Del Method 08/12/23 07:06 36.5 C 82 18 92/52 L 93 Room Air 08/12/23 05:55 36.8 C 91 H 18 100/63 96 Nasal Cannula 08/12/23 03:54 36.7 C 89 18 93/59 L 95 Nasal Cannula 08/12/23 00:08 36.6 C 91 H 18 102/68 97 Nasal Cannula O2 Flow Rate 08/12/23 07:06 08/12/23 05:55 2 08/12/23 03:54 1.0 08/12/23 00:08 2.0
[2023-08-12] MEDS ORDERED: GLUCAGON FOR INJ 1 MG VIAL IM PRN (13:15)
[2023-08-12] MEDS ORDERED: CARBOHYDRATES FOR HYPOGLYCEMIA PO PRN (13:15)
[2023-08-12] MEDS ORDERED: GLUCOSE 40% GEL 15 GM TUBE PO PRN (13:15)
[2023-08-12] MEDS ORDERED: GLUCOSE 10 TAB/TUBE PO PRN (13:15)
[2023-08-12] MEDS ORDERED: DEXTROSE 50% 50 ML SYRINGE IV PRN (13:15)
[2023-08-12] MEDS: INSULIN ASPART PER UNIT CHARGE SC SCH ×2 (16:58→21:06)
--- NOTE | 2023-08-12 18:11 | Hospitalist Progress Note ---
Date of Service August 12, 2023 Assessment & Plan (1) Lumbar stenosis with neurogenic claudication: (2) Hypertension: (3) Hyperlipidemia: (4) Diabetes: (5) History of kidney stones: Plan Ms. Gross is a 72-year-old female that presented to the [facility] for an elective decompression and fusion surgery L2-L5 under the care of Dr. Lala after failed conservative management as an outpatient. Patient had an uneventful surgery.Patient is doing well post operatively, she had an intraoperative blood loss of 1,200 ml. She is AAOx4 and able to answer all questions appropriately. She has two friends visiting her at bedside. Additional past medical history includes rne-fdwasfj-mdfahmrzo diabetes type 2, HTN, history of kidney stones, and HLD. Patient denies headache, dizziness, peripheral neuropathy, visual or auditory changes, abdominal pain or tenderness, recent falls or trauma. We discussed her plan of care in coordination with Dr. Lala. She was able to demonstrate appropriate use of ISB. She is on 2LNC post operative. Nursing is providing spot check; no apparent distress. She has taken two Ultram postoperatively. She has not passed gas since her surgery. Patient has a history of a questionable ileus status post ROBYN 2011; discussed importance of ensuring passing gas and bowel movements postop with narcotic use. Lumbar stenosis with neurogenic claudication: Lumbar Disc Herniation with Radiculopathy Spondylolisthesis lumbar spine POD# 1 s/p decompression and fusion L2-L5 under the care of Dr. Lala. EBL: 1,200. Recheck CBC this evening. Monitor H&H, preop Hgb 12.2 on 07/28/2023; trend tonight and in a.m. Per ortho for pain control, wound care, anticoagulation and activities. continue incentive spirometry PT/OT when appropriate HTN: Chronic stable Takes losartan/hydrochlorothiazide; hold due to concern of low normal blood pressure secondary to pain meds. Resume when able. HLD: Chronic stable Takes atorvastatin; continue Pgi-akknkmp-jxhipmgfv diabetes: Chronic stable Diet controlled History of kidney stones: Chronic stable Takes allopurinol for prevention daily; continue Disposition: PCP: Dr. Salvador CODE STATUS: Full code VTE prophylaxis: Per admitting team Admission and Anticipated Discharge Date Admission Date: August 11, 2023 Subjective Sarina is postoperative day 1 status post L2-5 decompression and fusion. Reports not being able to sleep overnight due to pain. Currently reports improvement in her radicular symptoms, he states operative pain under control at bedside exam. Reports eating okay, is moving gas. Physical Exam Physical Exam: Neuro: AAOx4, PERRLA, no aphagia, memory changes, CNII-XII grossly intact HEENT: head normocephalic, moist mucus membranes CV: S1/S2, (-) M/G/R, (-) edema, cap refill < 3 seconds DARIUS drain x1 with angie red bloody output Resp: Lungs CTA in all woods. On RA GI: Abdomen S/NT/ND, Ax4 bowel sounds, (-) CVA tenderness Musculoskeletal: 5/5 B/L UE strength, 5/5 B/L LE strength. No gait disturbance Skin: (-) rashes , (-) erythema. Psych: euthymic mood Results & Data Results & Data Vital Signs (Past 12 Hours) Vital Signs Temp Pulse Resp BP Pulse Ox O2 Del Method 08/12/23 15:31 36.8 C 82 18 106/54 L 90 Room Air 08/12/23 10:48 36.8 C 78 16 100/62 93 Room Air 08/12/23 07:06 36.5 C 82 18 92/52 L 93 Room Air
[2023-08-12] MEDS: DOCUSATE SODIUM/SENNA 50/8.6MG TAB PO SCH (20:41)
[2023-08-12] MEDS: ATORVASTATIN 10 MG TAB PO SCH (20:42)
[2023-08-12] MEDS: allopurinoL 300 MG TAB PO SCH (20:42)
--- OUTSIDE RECORDS SUMMARY | 2023-08-13 02:31 | External Medical Summary | Continuity of Care Document ---
Author Name SHARAN KIM MD Address [address], [place] [address] Phone [phone] [facility] Address [address], [place] [address] Phone [phone] Problems Active Problems Provider Date Essential hypertension Dann Salvador DO Onset: 04/06/2017 Localized, primary osteoarthritis Dann Salvador DO Onset: 04/06/2017 History of calculus of kidney Dann Salvador DO Onset: 04/06/2017 Note: Uric acid stones Mixed hyperlipidemia Dann Salvador DO Onset: 0 04/06/2017 Type 2 diabetes mellitus Dann Salvador DO Onse t: 03/04/2018 Social History Type Date Description Comments Sex Unknown Tobacco Use Start: Unknown End: Unknown Former Cigarette Smoker Quit age 24 Smoking Status Reviewed: 08/03/23 Former Cigarette Smo ker Quit age 24 Tobacco Use Reviewed: 08/03/23 Never Smoked Cigars Tobacco Use Reviewed: 08/03/23 Never Smoked A Pipe Smokeless Tobacco 08/03/2023 Never Used Smo keless Tobacco Recreational Drug Use Never Used Drugs Allergies and adverse reactions Active Allergies Criticality Reaction | Severity Comments Date Dye, Red Unable to assess criticality 12/23/2022 Inactive Allergies NKDA Unable to assess criticality 04/06/2017 Medications Active Medications SIG Qnty Indications Ordering Provider Date [id number] Capsules 1 by mouth twice a day 60caps E11.42 Dann Salvador DO 06/30/2023 M51.16 M54.16 Contour NextStrip(MCR) Test Blood Sugar Once Daily. DX:E11.9 100units E11.9 Dann Salvador DO 11/18/2021 Losartan Potassium/Hydrochlorothi -92.5mg Tablets Take 1 Tablet By Mouth Every Day 90tabs I10 Bernabe Grazyna Rosales JR, DO 10/07/2021 Trueplus Lancets [id number] Misc Test Blood Sugar Daily (DX:E11.9) 100units Dann Salvador, DO 09/12/2021 [id number] Misc test blood sugar daily (dx:e11.9) 100units E11.9 Dann Corey Salvador, DO 07/18/2020 Atorvastatin [id number] Tablets take one (1) tablet by mouth daily 90tabs E78.2 Dann Salvador, DO 08/22/2019 Contour Next One Blood Glucose StripsStrips test blood sugar once daily. dx:e11.9 100units E11.9 Dann Corey Salvador, DO 10/25/2018 [id number] Tablets Take One (1) Tablet (300 MG Total) By Mouth Daily. 90tabs Dann Nicole Madeleine, DO [id number] Tablets 1 by mouth once daily 90tabs Dann FaustoJc Madeleine, DO Berberine ES-5200mg Capsules 300 mg Unknown Medications Administered in Office Medication SIG Qnty Indications Ordering Provider Date Injection Methylprednisolone Acetate 20 MGInjection Dann Salvador, DO 01/17/2022 Injection Methylprednisolone Acetate 20 MGInjection Funmi cao MD, PhD 09/11/2018 Rocephin Inj 250 MGInjection Funmi Shaw MD, PhD 09/11/2018 Immunizations CPT Code Status Date Vaccine Lot # [id number] Given 07/23/2022 Influenza Vaccine High Do se 0.5ML Age 65 & > [id number] 80750 Given 07/27/2021 Moderna Sars-Co v-2 (Cov-19) vacc,100 mcg/ 0.5 mL 12Y+EMR Doc Only 36749 Given 07/16/2021 Influenza Vaccine High Do se 0.5ML Age 65 & > [id number] 75046 Given 11/23/2020 Moderna Sars-Co v-2 (Cov-19) vacc,100 mcg/ 0.5 mL 12Y+EMR Doc Only 79445 Given 10/25/2020 Moderna Sars-Co v-2 (Cov-19) vacc,100 mcg/ 0.5 mL 12Y+EMR Doc Only 97860 Given 08/22/2019 Influenza Vacci ne, Inactivated, Subunit, Adjuvanted, For Intrmus [id number] U-FLU Given 07/29/2018 Influenza,Unspecified 87802 Given 06/30/2018 Pneumococcal Vaccine/Pneu movax 23 [id number] 53980 Given 05/29/2017 Influenza Vacci ne-Administered at another facility 14432 Given 07/22/2016 Influenza Vacci ne-Administered at another facility 26150 Given 07/02/2015 VFC Prevnar PCV13/Pneumoc occal <5 Age 30167 Given 09/27/2010 Tdap (Tetanus, diphtheria & acel. pertussis) Adacel or Boostrix 35457 Given 09/27/2010 Zostavax Vaccine 46735 Refused 12/03/2022 Moderna Sars-Co v-2 (Covid-19) Vaccine, BiValent Booster [id number] Refused 07/23/2022 Shingrix 39816 Refused 05/22/2021 Shingrix 13685 Refused 09/08/2018 Shingrix 11393 Refused 12/21/2017 Pneumococcal Vaccine/Pneu movax 23 Vital Signs Date Vital Result Comment 08/03/2023 1:53pm BP Systolic 106 mmHg BP Diastolic 68 mmHg Body Temperature 97.9 F Heart Rate 72 /min Respiratory Rate 18 /min Weight 231.00 lb Weight 104.782 kg 04/15/2023 4:18pm BP Systolic 120 mmHg BP Diastolic 76 mmHg Body Temperature 97.6 F Heart Rate 82 /min Respiratory Rate 16 /min Weight 248.19 lb Weight 112.578 kg Results Test Acquired Date Facility Test Result H/L Range N ote Comp. Met 04/07/2023 [facility] [address] [place] [address] [phone] Glucose 138 mg/dL High 70-110 BUN 25 mg/dL 6-25 Creatinine 0.8 mg/dL 0.5-1.2 Sodium 143 mEq/L 135-145 Potassium 4.2 mEq/L 3.5-5.0 Chloride 106 mEq/L 95-107 Co-2 26 mEq/L 24-31 Alk Phos 78 IU/L 43-122 Alt(SGPT) 12 IU/L 10-40 Ast(Sgot) 13 IU/L 3-42 T.Bilirubin 0.8 mg/dL 0.1-1.3 Calcium 9.6 mg/dL 8.5-10.6 Tot.Protein 5.9 g/dL 5.8-8.0 Albumin 3.9 g/dL 3.0-5.2 Globulin 2.0 g/dL 2.0-3.4 GFR 75 ML/MIN/1.73SQM >60 Hba1c 04/07/2023 [facility] [address] [place] [address] [phone] A1c 7.50 % High 4.70-6.50 1 1 MEAN GLUCOSE IN mg/d L/A1c% POOR CONTROL FAIR CONTROL GOOD CONTROL EXCELLENT CONTROL 360-14 210-9 180-8 120-6 330-13 150-7 90-5 300-12 270-11 240-10 Procedures Date Code Description Status 06/30/2023 3051F Most Recent HG A1c > Equal T o 7.0% & <8.0% Completed 04/15/2023 3078F PVRP Diastolic BP <80 mmHg C ompleted 04/15/2023 3074F PVRP Systolic BP <130 mmHg C ompleted 04/15/2023 3051F Most Recent HG A1c > Equal T o 7.0% & <8.0% Completed 04/07/2023 95322 Venipuncture Routine Complet ed 08/29/2022 [id number] Mammogram Completed Medical Devices Description No Information Available Encounters Type Date Location Provider Dx Diagnosis Office Visit 08/03/2023 2:00p Sadiq Kim MD Z01.818 Encounter for ot her preprocedural examination M43.16 Spondylolisthesis, l umbar region M53.80 Other specified dors opathies, site unspecified M54.50 Low back pain, unspe cified Office Visit 06/30/2023 11:00a Sadiq Salvador DO M54.16 Radiculopathy, lumbar region E11.42 Type 2 diabetes elvira itus with diabetic polyneuropathy M51.16 Intervertebral disc disorders w radiculopathy, lumbar region M54.50 Low back pain, unspe cified Office Visit 04/15/2023 4:30p [place] Dann A. Marko luis, DO E11.9 Type 2 diabetes mellitus without complications E78.2 Mixed hyperlipidemia I10 Essential (primary) hypertension M15.0 Primary generalized (osteo)arthritis Assessments Date Code Description Provider 08/03/2023 Z01.818 Encounter for other preproce dural examination Sharan Kim MD 08/03/2023 M43.16 Lumbar spondylolisthesis Luis Kim MD 08/03/2023 M53.80 Herniation of nucleus pulpos us Sharan Kim MD 08/03/2023 M54.50 Acute low back pain Sharan bell MD 06/30/2023 M54.16 Radiculopathy, lumbar region Dann Salvador, 06/30/2023 E11.42 Type 2 diabetes mellitus with diabetic polyneuropathy Dann Salvador DO 06/30/2023 M51.16 Intervertebral d isc disorders with radiculopathy, lumbar region Dann Salvador, 06/30/2023 M54.50 Low back pain, unspecified T shyla Salvador, 04/15/2023 E11.9 Type 2 diabetes mellitus wit hout complications Dann Salvador, DO 04/15/2023 E78.2 Mixed hyperlipidemia Dann Salvador, 04/15/2023 I10 Essential (primary) hyperten lesley Dann Salvador, 04/15/2023 M15.0 Primary generalized (osteo)a rthritis Dann Salvador DO 04/07/2023 E11.9 Type 2 diabetes mellitus wit hout complications Dann Salvador DO 04/07/2023 E11.9 Type 2 diabetes mellitus wit hout complications Lab - [place] 04/07/2023 E78.2 Mixed hyperlipidemia Dann Salvador, 04/07/2023 E78.2 Mixed hyperlipidemia [facility] Plan of Treatment 08/03/2023 - Sharan Kim MD* Z01.818 Encounter for other preprocedural examination* Comments:* Milagro's results were reviewed and her physical exam was done today. I have examined this patient, checked all appropriate lab work and tests and feel that to the best of my knowledge, thereis not a medical contraindication for undergoing elective surgery with a general and/or regional anesthesia. From a primary care perspective, she is optimized for surgery. However, if there are any medical specialty concerns, it is recommended the patient be seen by those specialty providers. * M43.16 Lumbar spondylolisthesis * M53.80 Herniation of nucleus pulposus * M54.50 Acute low back pain Functional Status Description No Information Available Mental Status Description No Information Available Referrals Description No Information Available"
--- OUTSIDE RECORDS SUMMARY | 2023-08-13 02:31 | External Medical Summary | Continuity of Care Document ---
Author Name SHARAN KIM MD Address [address], [place] [address] Phone [phone] [facility] Address [address], [place] [address] Phone [phone] Problems Active Problems Provider Date Essential hypertension [...] Medications SIG Qnty Indications Ordering Provider Date Dtnsfzgdah50yx Capsules 1 by mouth twice a day 60caps E11.42 Dann Salvador DO 06/30/2023 M51.16 M54.16 Contour NextStrip(MCR) Test Blood Sugar Once Daily. DX:E11.9 100units E11.9 Dann Salvador DO 11/18/2021 Losartan Potassium/Hydrochlorothi lotcs63-28.5mg Tablets Take 1 Tablet By Mouth Every Day 90tabs I10 Bernabe Grazyna Rosales JR, DO 10/07/2021 Trueplus Lancets 33G33G Misc Test Blood Sugar Daily (DX:E11.9) 100units Dann Salvador, DO 09/12/2021 Clzctsz60K Misc test blood sugar daily (dx:e11.9) 100units E11.9 Dann Corey Salvador, DO 07/18/2020 Atorvastatin Jffyocu21sm Tablets take one (1) tablet by mouth daily 90tabs E78.2 Dann Salvador, DO 08/22/2019 Contour Next One Blood Glucose StripsStrips test blood sugar once daily. dx:e11.9 100units E11.9 Dann Corey Salvador, DO 10/25/2018 Iewzjirzmyl693zw Tablets Take One (1) Tablet (300 MG Total) By Mouth Daily. 90tabs Dann Nicole Madeleine, DO Efmoiutjh10xy Tablets 1 by mouth once daily 90tabs [...] CPT Code Status Date Vaccine Lot # [id number] Given 07/23/2022 Influenza Vaccine High Do se 0.5ML Age 65 & > [id number] 91836 Given 07/27/2021 Moderna Sars-Co v-2 (Cov-19) vacc,100 mcg/ 0.5 mL 12Y+EMR Doc Only 03555 Given 07/16/2021 Influenza Vaccine High Do se 0.5ML Age 65 & > 676035 64332 Given 11/23/2020 Moderna Sars-Co v-2 (Cov-19) vacc,100 mcg/ 0.5 mL 12Y+EMR Doc Only 74818 Given 10/25/2020 Moderna Sars-Co v-2 (Cov-19) vacc,100 mcg/ 0.5 mL 12Y+EMR Doc Only 97246 Given 08/22/2019 Influenza Vacci ne, Inactivated, Subunit, Adjuvanted, For Intrmus 863586 U-FLU Given 07/29/2018 Influenza,Unspecified 59814 Given 06/30/2018 Pneumococcal Vaccine/Pneu movax 23 [id number] 94735 Given 05/29/2017 Influenza Vacci ne-Administered at another facility 43307 Given 07/22/2016 Influenza Vacci ne-Administered at another facility 39641 Given 07/02/2015 VFC Prevnar PCV13/Pneumoc occal <5 Age 66422 Given 09/27/2010 Tdap (Tetanus, diphtheria & acel. pertussis) Adacel or Boostrix 32121 Given 09/27/2010 Zostavax Vaccine 55641 Refused 12/03/2022 Moderna Sars-Co v-2 (Covid-19) Vaccine, BiValent Booster 12y+ 28907 Refused 07/23/2022 Shingrix 11113 Refused 05/22/2021 Shingrix 58424 Refused 09/08/2018 Shingrix 76031 Refused 12/21/2017 Pneumococcal Vaccine/Pneu movax 23 Vital [...] H/L Range N ote Comp. Met 04/07/2023 [facility]. [address] [place] [address] [phone] Glucose 138 mg/dL High 70-110 BUN 25 [...] 2.0-3.4 GFR 75 ML/MIN/1.73SQM >60 Hba1c 04/07/2023 [facility]. [address] [place] [address] [phone] A1c 7.50 % High 4.70-6.50 1 1 [...] T o 7.0% & <8.0% Completed 04/07/2023 56880 Venipuncture Routine Complet ed 08/29/2022 [id number] Mammogram Completed Medical Devices Description No Information [...] pain, unspe cified Office Visit 04/15/2023 4:30p [place] Dann A. Marko luis, DO E11.9 Type [...] diabetes mellitus wit hout complications Lab - [place] 04/07/2023 E78.2 Mixed hyperlipidemia Dann Salvador, 04/07/2023 E78.2 [facility] 08/03/2023 - Sharan Kim [...]
--- OUTSIDE RECORDS SUMMARY | 2023-08-13 02:32 | External Medical Summary | Continuity of Care Document ---
Author Name DANN RAYO DO Address [address] [place] [address] Phone [phone] Organization [employer] Address [facility], [place] [address] Phone [phone] Problems Active Problems Provider Date Essential hypertension Dann Rayo DO Onset: 04/06/2017 Localized, primary osteoarthritis Dann Rayo DO Onset: 04/06/2017 History of calculus of kidney Dann Rayo DO Onset: 04/06/2017 Note: Uric acid stones Mixed hyperlipidemia Dann Rayo DO Onset: 0 04/06/2017 Type 2 diabetes mellitus Dann Rayo DO Onse t: 03/04/2018 Social History Type Date Description Comments Sex Unknown Tobacco Use Start: Unknown End: Unknown Former Cigarette Smoker Quit age 24 Smoking Status Reviewed: 06/30/23 Former Cigarette Smo ker Quit age 24 Tobacco Use Reviewed: 06/30/23 Never Smoked Cigars Tobacco Use Reviewed: 06/30/23 Never Smoked A Pipe Smokeless Tobacco 06/30/2023 Never Used Smo keless Tobacco Recreational Drug Use Never Used Drugs Allergies and adverse reactions Active Allergies Criticality Reaction | Severity Comments Date Dye, Red Unable to assess criticality 12/23/2022 Inactive Allergies NKDA Unable to assess criticality 04/06/2017 Medications Active Medications SIG Qnty Indications Ordering Provider Date Lbtfwhdgqy29bn Capsules 1 by mouth twice a day 60caps E11.42 Dann Rayo DO 06/30/2023 M51.16 M54.16 Contour NextStrip(MCR) Test Blood Sugar Once Daily. DX:E11.9 100units E11.9 Dann Rayo DO 11/18/2021 Losartan Potassium/Hydrochlorothi enqcw52-92.5mg Tablets Take 1 Tablet By Mouth Every Day 90tabs I10 Bernabe Grazyna Rosales JR, DO 10/07/2021 Trueplus Lancets 33G33G Misc Test Blood Sugar Daily (DX:E11.9) 100units Dann Corey Rayo, DO 09/12/2021 Fkicisf61W Misc test blood sugar daily (dx:e11.9) 100units E11.9 Dann FaustoJc Madeleine, DO 07/18/2020 Atorvastatin Pebauxn89fx Tablets take one (1) tablet by mouth daily 90tabs E78.2 Dann Corey Rayo, DO 08/22/2019 Contour Next One Blood Glucose StripsStrips test blood sugar once daily. dx:e11.9 100units E11.9 Dann FaustoJc Madeleine, DO 10/25/2018 Urllreemqye889rz Tablets Take One (1) Tablet (300 MG Total) By Mouth Daily. 90tabs Dann Rayo, DO Xajxenpai30mb Tablets 1 by mouth once daily 90tabs Dann Rayo, DO Berberine ES-5200mg Capsules 300 mg Unknown Medications Administered in Office Medication SIG Qnty Indications Ordering Provider Date Injection Methylprednisolone Acetate 20 MGInjection Dann FaustoJc Madeleine, DO 01/17/2022 Injection Methylprednisolone Acetate 20 MGInjection Funmi cao MD, PhD 09/11/2018 Rocephin Inj 250 MGInjection Funmi Shaw MD, PhD 09/11/2018 Immunizations CPT Code Status Date Vaccine Lot # [id number] Given 07/23/2022 Influenza Vaccine High Do se 0.5ML Age 65 & > [id number] 84299 Given 07/27/2021 Moderna Sars-Co v-2 (Cov-19) vacc,100 mcg/ 0.5 mL 12Y+EMR Doc Only 18956 Given 07/16/2021 Influenza Vaccine High Do se 0.5ML Age 65 & > 214634 78251 Given 11/23/2020 Moderna Sars-Co v-2 (Cov-19) vacc,100 mcg/ 0.5 mL 12Y+EMR Doc Only 51006 Given 10/25/2020 Moderna Sars-Co v-2 (Cov-19) vacc,100 mcg/ 0.5 mL 12Y+EMR Doc Only 46464 Given 08/22/2019 Influenza Vacci ne, Inactivated, Subunit, Adjuvanted, For Intrmus 650083 U-FLU Given 07/29/2018 Influenza,Unspecified 32624 Given 06/30/2018 Pneumococcal Vaccine/Pneu movax 23 [id number] 41372 Given 05/29/2017 Influenza Vacci ne-Administered at another facility 26724 Given 07/22/2016 Influenza Vacci ne-Administered at another facility 69488 Given 07/02/2015 VFC Prevnar PCV13/Pneumoc occal <5 Age 81656 Given 09/27/2010 Tdap (Tetanus, diphtheria & acel. pertussis) Adacel or Boostrix 84214 Given 09/27/2010 Zostavax Vaccine 07915 Refused 12/03/2022 Moderna Sars-Co v-2 (Covid-19) Vaccine, BiValent Booster 12y+ 01528 Refused 07/23/2022 Shingrix 86603 Refused 05/22/2021 Shingrix 44574 Refused 09/08/2018 Shingrix 27813 Refused 12/21/2017 Pneumococcal Vaccine/Pneu movax 23 Vital Signs Date Vital Result Comment 04/15/2023 4:18pm BP Systolic 120 mmHg BP Diastolic 76 mmHg Body Temperature 97.6 F Heart Rate 82 /min Respiratory Rate 16 /min Weight 248.19 lb Weight 112.578 kg 12/23/2022 10:00am BP Systolic 124 mmHg BP Diastolic 80 mmHg Body Temperature 98.9 F Heart Rate 78 /min Respiratory Rate 18 /min Weight 240.12 lb Weight 108.921 kg Results Test Acquired Date Facility Test Result H/L Range N ote Comp. Met 04/07/2023 [facility]. [address] [place] [address] [phone] Glucose 138 mg/dL High 70-110 BUN 25 [...] 2.0-3.4 GFR 75 ML/MIN/1.73SQM >60 Hba1c 04/07/2023 [facility]. [address] [place] [address] [phone] A1c 7.50 % High 4.70-6.50 1 1 [...] T o 7.0% & <8.0% Completed 04/07/2023 40188 Venipuncture Routine Complet ed 08/29/2022 [id number] Mammogram Completed Medical Devices Description No Information Available Encounters Type Date Location Provider Dx Diagnosis Office Visit 06/30/2023 11:00a Sadiq Rayo DO M54.16 Radiculopathy , lumbar region E11.42 Type 2 diabetes elvira itus with diabetic polyneuropathy M51.16 Intervertebral disc disorders w radiculopathy, lumbar region M54.50 Low back pain, unspe cified Office Visit 04/15/2023 4:30p Sadiq smith DO E11.9 Type 2 diabetes mellitus without complications E78.2 Mixed hyperlipidemia I10 Essential (primary) hypertension M15.0 Primary generalized (osteo)arthritis Assessments Date Code Description Provider 06/30/2023 M54.16 Radiculopathy, lumbar region Dann Rayo DO 06/30/2023 E11.42 Type 2 diabetes mellitus with diabetic polyneuropathy Dann Rayo, DO 06/30/2023 M51.16 Intervertebral d isc disorders with radiculopathy, lumbar region Dann Rayo, DO 06/30/2023 M54.50 Low back pain, unspecified T shyla Rayo, DO 04/15/2023 E11.9 Type 2 diabetes mellitus wit hout complications Dann Rayo, DO 04/15/2023 E78.2 Mixed hyperlipidemia Dann Rayo, DO 04/15/2023 I10 Essential (primary) hyperten lesley Dann Rayo, DO 04/15/2023 M15.0 Primary generalized (osteo)a rthritis Dann Rayo, DO 04/07/2023 E11.9 Type 2 diabetes mellitus wit hout complications Dann Rayo, DO 04/07/2023 E11.9 Type 2 diabetes mellitus wit hout complications Lab - [facility] [employer] 04/07/2023 E78.2 Mixed hyperlipidemia Dann Rayo, 04/07/2023 E78.2 Mixed hyperlipidemia Lab - [facility] Plan of Treatment Future Appointment(s):* 08/19/2023 2:30 pm - Dann Rayo DO at [facility] [employer] * 08/12/2023 10:15 am - Lab - [facility] at [facility] Functional Status Description No Information Available Mental Status Description No Information Available Referrals Description No Information Available"
--- OUTSIDE RECORDS SUMMARY | 2023-08-13 02:32 | External Medical Summary | Continuity of Care Document ---
Author Name DANN RAYO DO Address [address] [place] [address] Phone [phone] Organization [facility] Address [facility], [place] [address] Phone [phone] Problems Active Problems Provider Date Essential hypertension [...] Smoker Quit age 24 Smoking Status Reviewed: 04/15/23 Former Cigarette Smo ker Quit age 24 Tobacco Use Reviewed: 12/03/22 Never Smoked Cigars Tobacco Use Reviewed: 12/03/22 Never Smoked A Pipe Smokeless Tobacco 12/03/2022 Never Used Smo keless Tobacco Recreational Drug Use Never Used Drugs Allergies and adverse reactions Active Allergies Criticality Reaction | Severity Comments Date Dye, Red Unable to assess criticality 12/23/2022 Inactive Allergies NKDA Unable to assess criticality 04/06/2017 Medications Active Medications SIG Qnty Indications Order ing Provider Date Contour NextStrip(MCR) Test Blood Sugar Once Daily. DX:E11.9 100units E11.9 Dann Rayo DO 11/18/2021 Losartan Potassium/Hydrochlor rowdodtcj81-38.5mg Tablets Take 1 Tablet By Mouth Every Day 90tabs I10 eBrnabe Rosales JR, DO 10/07/2021 Trueplus Lancets 33G33G Misc Test Blood Sugar Daily (DX:E11.9) 100units Dann Rayo, DO 09/12/2021 Usekuyk59H Misc test blood sugar daily (dx:e11.9) 100units E11.9 Dann Rayo, DO 07/18/2020 Atorvastatin Qdxblgj23dz Tablets take one (1) tablet by mouth daily 90tabs E78.2 Dann Rayo, DO 08/22/2019 Hznqytrcuzcr706zb Tablets 1 tablet before dental procedures 4tabs Dann Rayo, DO 08/22/2019 Contour Next One Blood Glucose StripsStrips test blood sugar once daily. dx:e11.9 100units E11.9 Dann Rayo, DO 10/25/2018 Ctvitnnpaos766ke Tablets Take One (1) Tablet (300 MG Total) By Mouth Daily. 90tabs Dann Rayo, DO Wlvdrgnui61zf Tablets 1 by mouth once daily 90tabs Dann Rayo, DO Pijggfmhcc088tj Capsules take 1 capsule by mouth two times a day Unknown Berberine ES-5200mg Capsules 300 mg Unknown Voltaren Arthritis Pain1% Gel apply to affected area 2-4 g up to 3 x/day. Unknown History Medications Cazggpnnmw16os Tablets Take 1/2 tablet in the Am if needed for feet swelling 10tabs R60.0 Funmi Shaw MD, PhD 12/23/2022 - 04/15/2023 Medications Administered in Office Medication SIG Qnty Indications Ordering Provider Date Injection Methylprednisolone Acetate 20 MGInjection Dann Rayo, DO 01/17/2022 Injection Methylprednisolone Acetate 20 MGInjection Funmi cao MD, PhD 09/11/2018 Rocephin Inj 250 MGInjection Funmi Shaw MD, PhD 09/11/2018 Immunizations CPT Code Status Date Vaccine Lot # 80026 Given 07/23/2022 Influenza Vaccine High Do se 0.5ML [id number] 49744 Given 07/27/2021 Moderna Sars-Co v-2 (Covid-19) vaccine, 100 mcg/ 0.5 mL 12Y+ 21747 Given 07/16/2021 Influenza Vaccine High Do se 0.5ML 109790 04184 Given 11/23/2020 Moderna Sars-Co v-2 (Covid-19) vaccine, 100 mcg/ 0.5 mL 12Y+ 04658 Given 10/25/2020 Moderna Sars-Co v-2 (Covid-19) vaccine, 100 mcg/ 0.5 mL 12Y+ 70310 Given 08/22/2019 Influenza Vacci ne, Inactivated, Subunit, Adjuvanted, For Intrmus 074951 U-FLU Given 07/29/2018 Influenza,Unspecified 14068 Given 06/30/2018 Pneumococcal Vaccine/Pneu movax 23 [id number] 96767 Given 05/29/2017 Influenza Vacci ne-Administered at another facility 81912 Given 07/22/2016 Influenza Vacci ne-Administered at another facility 45078 Given 07/02/2015 VFC Prevnar PCV13/Pneumoc occal <5 Age 07203 Given 09/27/2010 Tdap (Tetanus, diphtheria & acel. pertussis) Adacel or Boostrix 17243 Given 09/27/2010 Zostavax Vaccine 21453 Refused 12/03/2022 Moderna Sars-Co v-2 (Covid-19) Vaccine, BiValent Booster 12y+ 02659 Refused 07/23/2022 Shingrix 16415 Refused 05/22/2021 Shingrix 12151 Refused 09/08/2018 Shingrix 46962 Refused 12/21/2017 Pneumococcal Vaccine/Pneu movax 23 Vital [...] H/L Range N ote Comp. Met 04/07/2023 [facility]. [address] [place], [place] [id number] [phone] Glucose 138 mg/dL High 70-110 BUN 25 [...] 2.0-3.4 GFR 75 ML/MIN/1.73SQM >60 Hba1c 04/07/2023 [facility]. [address] [place], [place] [id number] [phone] A1c 7.50 % High 4.70-6.50 1 Comp. Met 11/24/2022 [facility]. [address] [place] [address] [phone] Glucose 132 mg/dL High 70-110 BUN 21 mg/dL 6-25 Creatinine 0.8 mg/dL 0.5-1.2 Sodium 140 mEq/L 135-145 Potassium 4.0 mEq/L 3.5-5.0 Chloride 105 mEq/L 95-107 Co-2 27 mEq/L 24-31 Alk Phos 75 IU/L 43-122 Alt(SGPT) 14 IU/L 10-40 Ast(Sgot) 13 IU/L 3-42 T.Bilirubin 0.8 mg/dL 0.1-1.3 Calcium 9.6 mg/dL 8.5-10.6 Tot.Protein 6.1 g/dL 5.8-8.0 Albumin 4.1 g/dL 3.0-5.2 Globulin 2.0 g/dL 2.0-3.4 GFR 75 >60 Hba1c 11/24/2022 [facility]. [address] [place] [address] [phone] A1c 6.80 % High 4.70-6.50 2 Lipid 11/24/2022 [facility]. [address] [place] [address] [phone] Cholesterol 167 mg/dL 0-200 3 Triglyceride 174 mg/dL High 0-150 4 HDLD 61 mg/dL See Comment 5 Measured LDL 75 mg/dL 0-130 6 Calc VLDL 34.8 mg/dL See Comment 7 Chol/HDL 2.7 RATIO See Comment 8 Non-HDL 106 mg/dL See Comment 9 Laboratory test finding 11/24/2022 [facility]. [address] [place], [place] [id number] [phone] Uric Acid 4.1 mg/dL 2.5-7.5 1 MEAN GLUCOSE IN mg/d L/A1c% POOR CONTROL FAIR CONTROL GOOD CONTROL EXCELLENT CONTROL 360-14 210-9 180-8 120-6 330-13 150-7 90-5 300-12 270-11 240-10 2 MEAN GLUCOSE IN mg/d L/A1c% POOR CONTROL FAIR CONTROL GOOD CONTROL EXCELLENT CONTROL 360-14 210-9 180-8 120-6 330-13 150-7 90-5 300-12 270-11 240-10 3 CHOLESTEROL Less than 200mg/dl Low risk 201-239 mg/dl Borderline risk Equal to or greater 240mg/dl High risk 4 TRIGLYCERIDES Less than 150mg/dl Normal 150-199mg/dl Borderline 200-499mg/dl High Greater than 500mg/dl Very High 5 HDL <40mg/dl Elevated Risk 41-59mg/dl Risk >=60mg/dl Least Risk 6 LDL <100mg/dl Optimal 100-129mg/dl Near Optimal 130-159mg/dl Borderline High 160-189mg/dl High >=190 Very High 7 VLDL Less than 30mg/dl Normal 8 CHOL/HDL <4.0 Optimal 4.0-5.0 Borderline >6.0 High Risk 9 NON-HDL 30mg/dl higher than LDL Target Procedures Date Code Description Status 04/15/2023 3078F PVRP Diastolic BP <80 mmHg C ompleted 04/15/2023 3074F PVRP Systolic BP <130 mmHg C ompleted 04/15/2023 3051F Most Recent HG A1c > Equal T o 7.0% & <8.0% Completed 04/07/2023 59766 Venipuncture Routine Complet ed 12/03/2022 3079F PVRP Diastolic BP 80-89 MMHG Completed 12/03/2022 3074F PVRP Systolic BP <130 mmHg C ompleted 12/03/2022 3044F PVRP HGB-A1c <7.0% Completed 11/24/2022 86216 Venipuncture Routine Complet ed 08/29/2022 [id number] Mammogram Completed Medical Devices Description No Information Available Encounters Type Date Location Provider Dx Diagnosis Office Visit 04/15/2023 4:30p Sadiq Rayo DO E11.9 Type 2 diabet es mellitus without complications E78.2 Mixed hyperlipidemia I10 Essential (primary) hypertension M15.0 Primary generalized (osteo)arthritis Office Visit 12/23/2022 10:00a Sadiq Kim MD R6 0.0 Localized edema Office Visit 12/03/2022 4:30p Sadiq smith DO E11.9 Type 2 diabetes mellitus without complications I10 Essential (primary) hypertension E78.2 Mixed hyperlipidemia M15.0 Primary generalized (osteo)arthritis Assessments Date Code Description Provider 04/15/2023 E11.9 Type 2 diabetes mellitus wit hout complications Dann Rayo, 04/15/2023 E78.2 Mixed hyperlipidemia Dann Rayo DO 04/15/2023 I10 Essential (primary) hyperten lesley Rayo DO 04/15/2023 M15.0 Primary generalized (osteo)a rthritis Dann Rayo DO 04/07/2023 E11.9 Type 2 diabetes mellitus wit hout complications Dann Ryao DO 04/07/2023 E11.9 Type 2 diabetes mellitus wit hout complications Lab - [facility] 04/07/2023 E78.2 Mixed hyperlipidemia Dann Rayo DO 04/07/2023 E78.2 Mixed hyperlipidemia Lab - [facility] 12/23/2022 R60.0 Bilateral feet edema Simi roper MD 12/03/2022 E11.9 Type 2 diabetes mellitus wit hout complications Dann Rayo DO 12/03/2022 I10 Essential (primary) hyperten lesley Rayo DO 12/03/2022 E78.2 Mixed hyperlipidemia Dann Rayo DO 12/03/2022 M15.0 Primary generalized (osteo)a rthritis Dann Rayo DO 11/24/2022 E11.9 Type 2 diabetes mellitus wit hout complications Dann Rayo, 11/24/2022 E11.9 Type 2 diabetes mellitus wit hout complications Lab - [facility] 11/24/2022 I10 Essential (primary) hyperten lesley Dann Rayo, DO 11/24/2022 I10 Essential (primary) hyperten lesley Lab - [facility] 11/24/2022 E78.2 Mixed hyperlipidemia Dann Rayo, DO 11/24/2022 E78.2 Mixed hyperlipidemia Lab - [facility] 11/24/2022 M54.2 Cervicalgia Dann Rayo, DO 11/24/2022 M54.2 Cervicalgia Lab - [facility] 11/24/2022 M15.0 Primary generalized (osteo)a rthritis Dann Rayo, 11/24/2022 M15.0 Primary generalized (osteo)a rthritis Lab - [facility] Plan of Treatment Future Appointment(s):* 08/19/2023 2:30 pm - Dann Rayo DO at [facility] * 08/12/2023 10:15 am - [facility] Functional Status Description No Information Available Mental Status Description No Information Available Referrals Description No Information Available"
--- OUTSIDE RECORDS SUMMARY | 2023-08-13 02:32 | External Medical Summary | Continuity of Care Document ---
Author Name DANN RAYO DO Address [address] [place] [address] Phone [phone] Organization [facility] Address [facility] [facility], [place] [address] Phone [phone] Problems Active Problems Provider Date Essential hypertension [...] Medications SIG Qnty Indications Ordering Provider Date Pudwpbpdml56sj Capsules 1 by mouth twice a day 60caps E11.42 Dann Rayo DO 06/30/2023 M51.16 M54.16 Contour NextStrip(MCR) Test Blood Sugar Once Daily. DX:E11.9 100units E11.9 Dann Rayo DO 11/18/2021 Losartan Potassium/Hydrochlorothi becuu39-09.5mg Tablets Take 1 Tablet By Mouth Every Day 90tabs I10 Bernabe Grazyna Rosales JR, DO 10/07/2021 Trueplus Lancets 33G33G Misc Test Blood Sugar Daily (DX:E11.9) 100units Dann Corey Rayo, DO 09/12/2021 Fthqegz58E Misc test blood sugar daily (dx:e11.9) 100units E11.9 Dann FaustoJc Madeleine, DO 07/18/2020 Atorvastatin Pzcyyls52mb Tablets take one (1) tablet by mouth daily 90tabs E78.2 Dann Corey Rayo, DO 08/22/2019 Contour Next One Blood Glucose StripsStrips test blood sugar once daily. dx:e11.9 100units E11.9 Dann FaustoJc Madeleine, DO 10/25/2018 Okkfrndetvd561ac Tablets Take One (1) Tablet (300 MG Total) By Mouth Daily. 90tabs Dann Rayo, DO Mhcpxzkfd13jy Tablets 1 by mouth once daily 90tabs [...] CPT Code Status Date Vaccine Lot # 48840 Given 07/23/2022 Influenza Vaccine High Do se 0.5ML Age 65 & > [id number] 61211 Given 07/27/2021 Moderna Sars-Co v-2 (Cov-19) vacc,100 mcg/ 0.5 mL 12Y+EMR Doc Only 15415 Given 07/16/2021 Influenza Vaccine High Do se 0.5ML Age 65 & > 689620 60067 Given 11/23/2020 Moderna Sars-Co v-2 (Cov-19) vacc,100 mcg/ 0.5 mL 12Y+EMR Doc Only 31091 Given 10/25/2020 Moderna Sars-Co v-2 (Cov-19) vacc,100 mcg/ 0.5 mL 12Y+EMR Doc Only 34168 Given 08/22/2019 Influenza Vacci ne, Inactivated, Subunit, Adjuvanted, For Intrmus 337013 U-FLU Given 07/29/2018 Influenza,Unspecified 87217 Given 06/30/2018 Pneumococcal Vaccine/Pneu movax 23 [id number] 67191 Given 05/29/2017 Influenza Vacci ne-Administered at another facility 47128 Given 07/22/2016 Influenza Vacci ne-Administered at another facility 05870 Given 07/02/2015 VFC Prevnar PCV13/Pneumoc occal <5 Age 21833 Given 09/27/2010 Tdap (Tetanus, diphtheria & acel. pertussis) Adacel or Boostrix 78404 Given 09/27/2010 Zostavax Vaccine 40440 Refused 12/03/2022 Moderna Sars-Co v-2 (Covid-19) Vaccine, BiValent Booster 12y+ 42055 Refused 07/23/2022 Shingrix 81088 Refused 05/22/2021 Shingrix 32785 Refused 09/08/2018 Shingrix 80245 Refused 12/21/2017 Pneumococcal Vaccine/Pneu movax 23 Vital [...] H/L Range N ote Comp. Met 04/07/2023 [facility]. [address] [place] [address] [phone] Glucose 138 mg/dL High 70-110 BUN 25 [...] 2.0-3.4 GFR 75 ML/MIN/1.73SQM >60 Hba1c 04/07/2023 [facility]. [address] [place] [address] [phone] A1c 7.50 % High 4.70-6.50 1 1 [...] T o 7.0% & <8.0% Completed 04/07/2023 22957 Venipuncture Routine Complet ed 08/29/2022 [id number] Mammogram Completed Medical Devices Description No Information [...] diabetes mellitus wit hout complications Lab - [facility] 04/07/2023 E78.2 Mixed hyperlipidemia Dann Rayo, 04/07/2023 E78.2 Mixed hyperlipidemia Lab - [facility] Plan of Treatment Future Appointment(s):* 08/19/2023 2:30 pm - Dann Rayo DO at [facility] * 08/12/2023 10:15 am - Lab - [facility] Functional Status Description No Information Available Mental Status Description No Information Available Referrals Description No Information Available"
[2023-08-13] MEDS: ACETAMINOPHEN 500 MG TAB PO SCH ×3 (05:07→21:08)
[2023-08-13] MEDS: LACTATED RINGER'S 1,000 ML IV SCH ×3 (05:07→18:15)
[2023-08-13] MEDS: POLYETHYLENE (MIRALAX) 17 GM PACK PO SCH ×4 (05:08→23:10)
[2023-08-13] MEDS: traMADol HCL 50 MG TABLET PO PRN ×3 (05:10→21:08)
[2023-08-13] MEDS: dexAMETHasone 6 MG in SYRINGE 0 ML IV SCH (08:49)
[2023-08-13] MEDS: INSULIN ASPART PER UNIT CHARGE SC SCH ×4 (08:49→21:08)
--- NOTE | 2023-08-13 09:15 | Orthopedic Progress Note ---
Date of Service August 13, 2023 Assessment & Plan (1) Lumbar stenosis with neurogenic claudication: Plan: Sarina is postoperative day 2 status post L2-5 decompression and fusion. We will continue with pain control. Maintain DARIUS drain. DVT prophylaxis is in the form of teds and SCDs. Continue physical therapy and ambulation. She is interested in considering rehab for discharge. We will reassess Admission and Anticipated Discharge Date Admission Date: August 11, 2023 Subjective Sarina is postoperative day 2 status post L2-5 decompression and fusion. Has more back pain this morning. No radicular leg pain. DARIUS drain output last shift was 60 cc. Yesterday in physical therapy ambulating 55 feet. Review of Systems Review of Systems: All systems reviewed & are unremarkable except as noted in HPI & below Physical Exam Physical Exam: She is lying in bed in no acute distress alert and oriented x3 lumbar dressing is clean dry and intact with functioning DARIUS drain Strength intact bilateral lower extremities calf soft nontender bilaterally Results & Data Vital Signs (Past 12 Hours) Vital Signs Temp Pulse Resp BP Pulse Ox O2 Del Method 08/13/23 07:18 36.5 C 63 18 97/65 L 96 Room Air 08/13/23 07:00 Room Air
[2023-08-13 09:21] LABS: Hematocrit (blood only) 26.6 % (37.0-47.0); Hemoglobin 8.8 g/dl (12.0-16.0); Mean Corpuscular Hemoglobin 27.9 pg (25.0-34.0); Mean Corpuscular Hgb Conc 33.1 g/dL (32.0-36.0); Mean Corpuscular Volume 84.4 fL (80.0-100.0); Mean Platelet Volume 9.2 fL (9.4-12.4); Platelet Count 195 K/uL (130-400); RDW Coefficient of Variation 16.1 % (11.5-14.5); RDW Standard Deviation 48.7 fL (36.4-46.3); Red Blood Count 3.15 M/uL (4.20-5.40); White Blood Count 14.36 K/ul (4.8-10.8)
[2023-08-13 09:45] LABS: Calcium 8.9 mg/dl (8.6-10.3); Potassium 4.6 mmol/L (3.5-5.1)
[2023-08-13 09:50] LABS: BUN Creatinine Ratio 28.4 (10-20); Creatinine Clr Calc Pharmacy 79.7 ml/min; Est GFR (African American) 93.2 ml/min; Est GFR (Non-African American) 80.4 ml/min
--- NOTE | 2023-08-13 15:27 | Hospitalist Progress Note ---
Date of Service August 13, 2023 Assessment & Plan (1) Lumbar stenosis with neurogenic claudication: (2) Hypertension: (3) Hyperlipidemia: (4) Diabetes: (5) History of kidney stones: Plan Ms. Gross is a 72-year-old female that presented to the [facility] for an elective decompression and fusion surgery L2-L5 under the care of Dr. Lala after failed conservative management as an outpatient. Patient had an uneventful surgery.Patient is doing well post operatively, she had an intraoperative blood loss of 1,200 ml. She is AAOx4 and able to answer all questions appropriately. She has two friends visiting her at bedside. Additional past medical history includes tll-wikrsgz-qkaucfzka diabetes type 2, HTN, history of kidney stones, and HLD. Patient denies headache, dizziness, peripheral neuropathy, visual or auditory changes, abdominal pain or tenderness, recent falls or trauma. We discussed her plan of care in coordination with Dr. Lala. She was able to demonstrate appropriate use of ISB. She is on 2LNC post operative. Nursing is providing spot check; no apparent distress. She has taken two Ultram postoperatively. She has not passed gas since her surgery. Patient has a history of a questionable ileus status post ROBYN 2011; discussed importance of ensuring passing gas and bowel movements postop with narcotic use. Lumbar stenosis with neurogenic claudication: Lumbar Disc Herniation with Radiculopathy Spondylolisthesis lumbar spine POD# 2 s/p decompression and fusion L2-L5 under the care of Dr. Lala. EBL: 1,200. Recheck CBC this evening. Monitor H&H, preop Hgb 12.2 on 07/28/2023; trend tonight and in a.m. Per ortho for pain control, wound care, anticoagulation and activities. continue incentive spirometry PT/OT when appropriate Acute blood loss anemia: Likely secondary to perioperative blood loss. H&H down to soft 9 from above 12. Patient with no dizziness/chest pain/palpitation. We will continue to monitor. HTN: Chronic stable Takes losartan/hydrochlorothiazide; hold due to concern of low normal blood pressure secondary to pain meds. Resume when able. HLD: Chronic stable Takes atorvastatin; continue Xbx-mxoyzeh-npomhsywc diabetes: Chronic stable Diet controlled History of kidney stones: Chronic stable Takes allopurinol for prevention daily; continue Disposition: PCP: Dr. Salvador CODE STATUS: Full code VTE prophylaxis: Per admitting team Admission and Anticipated Discharge Date Admission Date: August 11, 2023 Subjective Sarina is postoperative day 2 status post L2-5 decompression and fusion. Reports operative site pain not being much controlled but appears happy with pain meds schedule now. Currently reports improvement in her radicular symptoms. Physical Exam Physical Exam: Neuro: AAOx4, PERRLA, no aphagia, memory changes, CNII-XII grossly intact HEENT: head normocephalic, moist mucus membranes CV: S1/S2, (-) M/G/R, (-) edema, cap refill < 3 seconds DARIUS drain x1 with angie red bloody output Resp: Lungs CTA in all woods. On RA GI: Abdomen S/NT/ND, Ax4 bowel sounds, (-) CVA tenderness Musculoskeletal: 5/5 B/L UE strength, 5/5 B/L LE strength. No gait disturbance Skin: (-) rashes , (-) erythema. Psych: euthymic mood Results & Data Results & Data Vital Signs (Past 12 Hours) Vital Signs Temp Pulse Resp BP BP Pulse Ox O2 Del Method 08/13/23 15:06 36.6 C 70 16 112/70 94 Room Air 08/13/23 07:18 36.5 C 63 18 97/65 L 96 Room Air 08/13/23 07:00 Room Air
[2023-08-13] MEDS: ATORVASTATIN 10 MG TAB PO SCH (21:10)
[2023-08-13] MEDS: DOCUSATE SODIUM/SENNA 50/8.6MG TAB PO SCH (21:10)
[2023-08-13] MEDS: allopurinoL 300 MG TAB PO SCH (21:10)
[2023-08-14] MEDS: ACETAMINOPHEN 500 MG TAB PO SCH ×3 (05:46→20:13)
[2023-08-14] MEDS: POLYETHYLENE (MIRALAX) 17 GM PACK PO SCH (05:46)
[2023-08-14 06:50] LABS: Calcium 8.7 mg/dl (8.6-10.3); Potassium 4.4 mmol/L (3.5-5.1)
[2023-08-14 06:56] LABS: Creatinine Clr Calc Pharmacy 78.6 ml/min; Est GFR (African American) 91.7 ml/min; Est GFR (Non-African American) 79.1 ml/min
[2023-08-14] MEDS: traMADol HCL 50 MG TABLET PO PRN ×3 (08:12→20:53)
[2023-08-14] MEDS: dexAMETHasone 6 MG in SYRINGE 0 ML IV SCH (08:14)
[2023-08-14 08:22] LABS: Hematocrit (blood only) 25.2 % (37.0-47.0); Hemoglobin 8.3 g/dl (12.0-16.0); Mean Corpuscular Hemoglobin 27.9 pg (25.0-34.0); Mean Corpuscular Hgb Conc 32.9 g/dL (32.0-36.0); Mean Corpuscular Volume 84.6 fL (80.0-100.0); Mean Platelet Volume 8.9 fL (9.4-12.4); Platelet Count 234 K/uL (130-400); RDW Coefficient of Variation 15.9 % (11.5-14.5); RDW Standard Deviation 49.1 fL (36.4-46.3); Red Blood Count 2.98 M/uL (4.20-5.40); White Blood Count 11.42 K/ul (4.8-10.8)
[2023-08-14] MEDS: INSULIN ASPART PER UNIT CHARGE SC SCH ×4 (08:53→20:48)
--- NOTE | 2023-08-14 10:09 | Orthopedic Progress Note ---
Date of Service August 14, 2023 Assessment & Plan (1) Lumbar stenosis with neurogenic claudication: Plan: At this time we will encourage ambulation with physical therapy as tolerated. This would help stimulate her bowels. We are awaiting placement for a SNF. Admission and Anticipated Discharge Date Admission Date: August 11, 2023 Subjective Patient complaining mostly of abdominal discomfort. She has cramping. She does have positive flatus. She denies any nausea or vomiting. She denies any leg pain. She has been able to ambulate to the bathroom without difficulty. Physical Exam Physical Exam: On exam patient is currently in bed. Her abdomen is distended and somewhat tense. There is nontender however. She is good strength testing lower extremities. Results & Data Vital Signs (Past 12 Hours) Vital Signs Temp Pulse Resp BP BP Pulse Ox O2 Del Method 08/14/23 07:26 36.9 C 82 17 114/71 90 Room Air 08/13/23 23:44 36.6 C 88 18 144/87 H 95 Room Air
[2023-08-14] MEDS ORDERED: DOCUSATE SODIUM/SENNA 50/8.6MG TAB PO PRN (11:52)
[2023-08-14] MEDS ORDERED: POLYETHYLENE (MIRALAX) 17 GM PACK PO PRN (11:52)
[2023-08-14] MEDS: SIMETHICONE 40 MG/0.6 ML 30ML PO PRN ×2 (12:50→18:58)
--- NOTE | 2023-08-14 15:32 | Hospitalist Progress Note ---
Date of Service August 14, 2023 Assessment & Plan (1) Lumbar stenosis with neurogenic claudication: (2) Hypertension: (3) Hyperlipidemia: (4) Diabetes: (5) History of kidney stones: Plan Ms. Gross is a 72-year-old female that presented to the [facility] for an elective decompression and fusion surgery L2-L5 under the care of Dr. Lala after failed conservative management as an outpatient. Patient had an uneventful surgery.Patient is doing well post operatively, she had an intraoperative blood loss of 1,200 ml. She is AAOx4 and able to answer all questions appropriately. She has two friends visiting her at bedside. Additional past medical history includes hto-uxliwmz-mrxzipiaf diabetes type 2, HTN, history of kidney stones, and HLD. Patient denies headache, dizziness, peripheral neuropathy, visual or auditory changes, abdominal pain or tenderness, recent falls or trauma. We discussed her plan of care in coordination with Dr. Lala. She was able to demonstrate appropriate use of ISB. She is on 2LNC post operative. Nursing is providing spot check; no apparent distress. She has taken two Ultram postoperatively. She has not passed gas since her surgery. Patient has a history of a questionable ileus status post ROBYN 2011; discussed importance of ensuring passing gas and bowel movements postop with narcotic use. Lumbar stenosis with neurogenic claudication: Lumbar Disc Herniation with Radiculopathy Spondylolisthesis lumbar spine POD# 3 s/p decompression and fusion L2-L5 under the care of Dr. Lala. EBL: 1,200. Recheck CBC this evening. Monitor H&H, preop Hgb 12.2 on 07/28/2023; trend tonight and in a.m. Per ortho for pain control, wound care, anticoagulation and activities. continue incentive spirometry PT/OT when appropriate Acute blood loss anemia: Likely secondary to perioperative blood loss. H&H down to soft 9 from above 12. Patient with no dizziness/chest pain/palpitation. We will continue to monitor. HTN: Chronic stable Takes losartan/hydrochlorothiazide; hold due to concern of low normal blood pressure secondary to pain meds. Resume when able. HLD: Chronic stable Takes atorvastatin; continue Lfg-jescwjg-qxqitypvx diabetes: Chronic stable Diet controlled History of kidney stones: Chronic stable Takes allopurinol for prevention daily; continue Disposition: PCP: Dr. Salvador CODE STATUS: Full code VTE prophylaxis: Per admitting team Admission and Anticipated Discharge Date Admission Date: August 11, 2023 Subjective Sarina is postoperative day 3 status post L2-5 decompression and fusion. Reports operative site pain under control, has gassy bowel today - will order simethicone. Currently reports improvement in her radicular symptoms. Physical Exam Physical Exam: Neuro: AAOx4, PERRLA, no aphagia, memory changes, CNII-XII grossly intact HEENT: head normocephalic, moist mucus membranes CV: S1/S2, (-) M/G/R, (-) edema, cap refill < 3 seconds DARIUS drain x1 with angie red bloody output Resp: Lungs CTA in all woods. On RA GI: Abdomen S/NT/ND, Ax4 bowel sounds, (-) CVA tenderness Musculoskeletal: 5/5 B/L UE strength, 5/5 B/L LE strength. No gait disturbance Skin: (-) rashes , (-) erythema. Psych: euthymic mood Results & Data Results & Data Vital Signs (Past 12 Hours) Vital Signs Temp Pulse Pulse Resp BP Pulse Ox O2 Del Method 08/14/23 11:50 36.9 C 88 13 142/81 H 96 Room Air 08/14/23 07:26 36.9 C 82 17 114/71 90 Room Air
[2023-08-14] MEDS: allopurinoL 300 MG TAB PO SCH (20:13)
[2023-08-14] MEDS: ATORVASTATIN 10 MG TAB PO SCH (20:13)
[2023-08-15] MEDS: traMADol HCL 50 MG TABLET PO PRN ×2 (05:05→09:59)
[2023-08-15] MEDS: ACETAMINOPHEN 500 MG TAB PO SCH (05:05)
[2023-08-15] MEDS: SIMETHICONE 40 MG/0.6 ML 30ML PO PRN (05:10)
[2023-08-15] MEDS: INSULIN ASPART PER UNIT CHARGE SC SCH (08:28)
--- NOTE | 2023-08-15 08:35 | Discharge Summary ---
Date of Service August 15, 2023 Admission HPI Per Admitting Provider This is a 72-year-old female who presents for chronic persistent back and leg pain and failing since course of nonoperative care is here for surgical invention. Principal Diagnosis Lumbar spinal stenosis with neurogenic claudication Discharge Data Allergies Allergy/AdvReac Type Severity Reaction Status Date / Time red dye Allergy SWELLING Verified 08/11/23 08:09 AND ITCHING Consultations 08/11/23 14:06 Consult Hospitalist Routine Procedures Performed Operation Date: 08/11/23 09:15 Actual Procedures p L2-L5 Decompression and Fusion with Spinal Cord Monitoring, Application of Bone Infuse(Not Applicable) - Brian Lala DO Ordered Studies 08/11/23 09:15 FL lumbar spine 2-3V Routine Hospital Course (1) Lumbar stenosis with neurogenic claudication: Patient underwent multilevel lumbar impression fusion tolerated this well was taken to the orthopedic floor postoperatively. Postoperatively she progressed appropriately. DARIUS drain decreasing probably. Excellent strength testing. Subsequently discharged to rehab. Discharge orders instructions found in chart for further review. Total Time Total Time Spent Total Time Spent (In Minutes): 20 minutes Discharge Plan Discharge Items Patient Disposition: Transfer Custodial Fac Reason For Visit: Lumbar Disc Herniation with Radiculopathy Discharge Diagnosis: Lumbar spinal stenosis with neurogenic claudication Activity: As commented below Non-emergency contact: Primary Care Provider Call non-emergency contact if: you have any medication questions Follow-up/Referrals: Dann Salvador D.O. [Primary Care Provider] - Diet: Regular Addtl Attending Provider Instructions: ACTIVITY RECOMMENDATIONS: SELF CARE INSTRUCTIONS AFTER THORACIC/LUMBAR FUSIONS 1. You may walk to your tolerance. It is good exercise for your legs and back. Expect some back and intermittent leg aches and pains. 2. You may perform "counter-top" level activities (make a sandwich, miguel angel with a project, etc.). 3. No bending or lifting of more than 10 pounds or back twisting of any nature (roll like a log when turning in bed). 4. You may ride in a car for 20-30 minutes at a time. No driving until after your first visit with your doctor. 5. Frequent changes of position and restricting sitting to 30 minutes at a time will help limit the amount of back spasms and stiffness you may experience. 6. You may discontinue the use of ambulatory aids (cane, crutches, etc.) once your strength and confidence allow. 7. You may engineering writer the shower and let water strike your incision when you arrive home at least once daily. Do not take a tub bath, sit in a hot tub or go into a swimming pool until after your first recheck in the office. SPECIAL CARE INSTRUCTIONS: VERY IMPORTANT TO READ AND REVIEW A. Your surgical incision has been closed with a cosmetic suture under the skin that will dissolve in about 6 weeks. In 14 days, you can use a pair of clean scissors and cut the suture that is left outside of the skin at the ends of your incision. 1. The small skin tapes can be removed 7 days after surgery if they have not fallen off by that point. 2. You may keep the wound open to air as much as possible to promote healing after post-op day number 5 unless told otherwise by your doctor. 3. If you think the wound looks like it is becoming infected (redness or worsening drainage) and/or you are experiencing fever, chill or worsening back pain and muscle spasms, contact the office so that we may evaluate you as soon as possible. B. Complications are uncommon, but please contact us if you have any signs or symptoms of: 1. wound infection (fever higher than 102.5 degrees F, redness, separation of wound, drainage, or increasing pain from the incision) 2. blood clots in legs (pain, swelling, redness and warmth in legs) 3. urinary tract infection (fever higher than 102.5 degrees F, burning upon urination or increased frequency of urination) 4. nerve problems (inability to walk on your toes or heels, numbness, loss of bowel or bladder control) 5. any other symptoms that concern you C. Please call the office at if you have any concerns or questions about your operation or recovery. D. No smoking! Smoking drastically decreases the chance of a solid fusion. E. Do not take any anti-inflammatory medications (Indocin, Advil, Motrin, Aspirin, Naprosyn, etc.) as these may inhibit the chance of a solid fusion. Tylenol is okay to take for pain. MANAGING PAIN AFTER SPINAL SURGERY 1. Narcotic medication is intended for short-term use and will be provided for surgical pain. Surgical pain usually lasts for a period of 4-6 weeks. Narcotic medication includes Percocet, Vicodin, Darvocet, Tylenol #3 or Lortab. 2. Longer-term pain is more appropriately treated with non-narcotic medication such as Tylenol ES. 3. Muscle spasm is not appropriately treated with narcotics. Muscle relaxers such as Soma, Flexeril or Skelaxin can be used along with Tylenol ES. 4. Remember that we all live with some "aches and pains". This is not unusual or uncommon after an injury or as we get older. a. Back pain is expected and may include muscle spasms for 4 to 6 weeks after surgery. The pain should gradually improve. If the pain worsens for no apparent reason, please contact the office. b. Intermittent leg pain may also be experienced and should not be concerned about unless it worsens for no apparent reason. If so, please contact the office. 5. We will provide appropriate medication within the normal guidelines of their prescribed use. We will also be very cautious and aware of potential abuse and extended duration of patients' medication needs. a. Pain medications are for your comfort and to assist with sleep and rest so that the tissue can heal. They are not provided in order to return to normal activity and should not be used through the day. To do so or worsening pain at night can result from ongoing tissue damage and development of tolerance to the prescribed medicine. 6. Please allow 2-3 days to process refills. Prescriptions will not be mailed but must be picked up at the office. FOLLOW UP VISIT: Keep your scheduled follow-up appointment. Any questions, please call the office at . Pending Studies at Discharge: No Stand-Alone Forms: [facility] [employer], Smoking Cessation Skilled Items Patient informed of condition?: Yes DNR: No Discharge Level of Care: Skilled Communicable Disease: No Discharge Prognosis: Improving Lines: None Urinary Catheter: No Medications and DC Order Prescriptions: New tramadol 50 mg tablet 50 mg PO Q6H PRN (Reason: pain, moderate) Qty: 30 0RF oxycodone 5 mg tablet 5 mg PO Q6H PRN (Reason: pain) Qty: 30 0RF Continued meloxicam 15 mg tablet 15 mg PO QAM losartan-hydrochlorothiazide 50-12.5 mg Tablet 1 tab PO HS atorvastatin 10 mg tablet 10 mg PO HS acetaminophen 500 mg Tablet 1,000 mg PO TID PRN (Reason: taken w/pregabalin) allopurinol 300 mg tablet 300 mg PO HS azithromycin 500 mg tablet 500 mg PO UD Rx Instructions: 1 hour prior to dental procedures berberine-herbal comb no.18 Capsule 1 cap PO UD Patient Comments: 500mg, 2-3 tablets per day for blood sugar Rx Instructions: w/meals Discharge Orders: Discharge Order (Routine); Ordered 08/15/23 Ordered By: Brian Lala Admission Data Admit Date/Time: 08/11/23 12:37 Attending Provider: Brian Lala Admit Provider: Brian Lala Primary Care Provider: Dann Salvador Other Providers: Alissa Haywood; Jin Grimm; Mono Faith
--- NOTE | 2023-08-15 13:32 | Communication Note ---
Date of Service: August 15, 2023 Chart reviewed. Pt left hospital before i was able to see her, hence no bill will be placed.
== END 2023-08-15 11:34 | DRG 454 ==
LOC: ASU 07:42 → 3W 12:37

== ENCOUNTER 2023-08-16 11:08 | Inpatient (IN) ==
[2023-08-16] MEDS ORDERED: fentaNYL citrate PF 100 MCG/2 ML VIAL IV STA (11:27)
[2023-08-16] MEDS ORDERED: SODIUM CHLORIDE 0.9% 500 ML IV ONE (11:27)
--- NOTE | 2023-08-16 11:29 | Emergency Department Note ---
Impression & Plan Perforated bowel ED Provider Note Name: SASCHA LUDWIG Age: 72 Sex: Female Arrives Via: Ambulance Informant: Patient, EMS ED Provider: Austin Padilla MD Chief Complaint: Abdominal pain Impression: As per impressions above Medical Decision Making: Pleasant 72-year-old female was admitted to the hospital over the last week for lumbar spinal surgery. She was discharged yesterday in good condition. She notes severe onset abdominal pain overnight. She had been quite constipated for some time but notes those severe pain until this evening. This morning arrives quite uncomfortable and anxious. Received multiple rounds of IV pain medications with some improvement. Chest x-ray is highly concerning for free air and she was emergently sent to CT. Patient requesting no contrast via IV thus CT Noncon was obtained. This does confirm diffuse free air. Patient is low-grade fever without white count or evidence of lactic acidosis. I do not feel she is severe septic or septic shock at this time. She was given empiric IV antibiotics for intra-abdominal infection. She was given IV Protonix as CT is concerning for perforated duodenal ulcer. I emergently consulted general surgery who evaluated the patient and feel she needs to go to the operating room. I discussed this with the patient further and she agrees to this. I consulted the hospitalist as well for management postoperatively. I discussed this with the patient multiple times and kept her aware of the findings. Patient was kept comfortable and stable at time of transfer to the OR for further management Triage/Nursing Notes reviewed by Me External Chart Review by me: External chart reviewed by me including recent discharge summary from this facility on August 15, 2023 following her lumbar spine surgery Differential:Abdominal infection, constipation, volvulus, perforation, ischemia, aortic pathology, appendicitis amongst many other pathologies considered Vital Signs: reviewed and remarkable for mild hypoxia on arrival Interventions: Fentanyl IV, Dilaudid IV, Zosyn IV, Protonix IV, normal saline bolus IV Labs:ED labs Reviewed by me and remarkable for no significant abnormalities. Patient is anemic but this is baseline for patient. Initial troponin mildly elevated at 39 Imagin view chest x-ray as per my informal interpretation there is no infiltrate or effusion. Patient has evidence of free air under the diaphragm bilaterally. CT the ab pelvis without contrast as per my informal interpretation there is an extensive amount of free air throughout the abdomen. This was discussed with the radiologist EKG:EKG. Preoperative EKG. As per my interpretation. Sinus tachycardia 110 bpm with P AC noted. There is no ischemia appreciated. QTc 446 Cardiac/Tele Monitoring: Cardiac Monitoring: An Order was placed for continuous cardiac monitoring. The monitor shows a rate of 100 with a normal sinus rhythm. Consults: Dr. Lawson of general surgery will take variation to the OR for further management. Dr. Haywood of [facility] service will manage patient postoperatively. Dr. Lala patient's spinal surgeon made aware of current emergent issues and he is on board with patient needing to go to the OR. Plan: Disposition: Taken emergently to the OR Condition: Guarded History of Present Illness: 72-year-old female arrives for evaluation of abdominal pain. Patient notes she had lumbar back surgery this last week. Since then has had significant constipation issues requiring multiple different attempts of oral and rectal medications. Notes a small bowel movement yesterday. Overnight though significant worsening in abdominal pain. Primarily in the right lower quadrant. Associated with mild nausea. States any movement makes worse. Denies any shortness of breath or chest pain. Denies any back pain, urinary symptoms. Notes mild swelling in her legs not worse than her baseline. States her back has been feeling better. No medications prior to arrival. Denies any falls or trauma. Past Medical History:See Below Home Medications:See Below Allergies:red dye Vitals:Blood Pressure: 140/80, Pulse 90, RR 20, T 37.8C, O2 92% on RA Physical Exam: GENERAL: Patient is very uncomfortable and dehydrated appearing and in moderate distress. RESPIRATORY: No dyspnea. Clear to auscultation and equal bilaterally. CARDIOVASCULAR: Regular rate and rhythm.No murmur appreciated. GASTROINTESTINAL: Significantly distended abdomen with diffuse tenderness palpation and guarding throughout the right lower quadrant. EXTREMITIES: Normal motion all extremities, no cyanosis, mild bilateral lower leg edema. NEUROLOGIC: Alert and oriented. No focal neurologic deficits appreciated SKIN: No rash, no jaundice, no diaphoresis. PSYCH: Appropriate GCS: 15 ED Course: Times/Reassessments: Many repeat evaluation. Patient does have some improvement in her pain though continues to have diffuse peritonitis. Critical Care: I have personally spent 35 minutes of critical care time in the direct management of this patient. Perforated bowel requiring rapid resuscitation/management and transfer to OR. This was a life/limb threatening event. This 35 minutes is in excess of all separately billable procedures. Austin Padilla MD Past Med/Surg History Medical History (Updated 08/16/23 @ 17:01 by Austin Padilla MD) Gout Diabetes diet controlled Per patient at [facility] appt 07/28/23- did have steroid injections to bilateral knees recently History of anesthesia reaction s/p bilateral ROBYN in 2012- questionable ileus post op- resulted in longer hospital stay- no issues since Morbid obesity Lumbar pain with radiation down both legs History of kidney stones allopurinol currently to prevent no recent issues Hypertension Hyperlipidemia Surgical History (Updated 08/16/23 @ 14:36 by Alissa Haywood DO) S/P epidural steroid injection x2 S/P cystoscopy with ureteral stent placement w/laser lithotripsy Hx of tooth extraction History of cataract surgery RT, LT Hx of cystoscopy FOR STONE BASKET REMOVAL Hx of lithotripsy x3 Hx of foot surgery LEFT - X3 Hx of bilateral hip replacements 07/08/12 Family History Father Family history of diabetes mellitus Social History Smoking Status: Former smoker Tobacco Type: Cigarettes Second Hand Exposure: No; Do You Dip or Chew Tobacco: No; Hx Alcohol Use: Yes Alcohol type: wine Hx Substance Use: No Preferred Language: Cymro Communication Ability: Effective Backhaul Driver Required: No Beliefs That Will Affect Care: None Current Living Situation: Alone Feels Safe at Home: Yes Assistive Devices: Cane and Walker Allergies Allergies Allergy/AdvReac Type Severity Reaction Status Date / Time red dye Allergy SWELLING Verified 08/11/23 08:09 AND ITCHING Home Meds Home Medications Medication Instructions Recorded Confirmed losartan 50 mg-hydrochlorothiazide 1 tab PO HS 01/11/19 08/16/23 12.5 mg tablet meloxicam 15 mg tablet 15 mg PO QAM 02/17/23 08/16/23 acetaminophen 500 mg tablet 1,000 mg PO TID PRN taken 07/20/23 08/16/23 w/pregabalin allopurinol 300 mg tablet 300 mg PO HS 07/20/23 08/16/23 atorvastatin 10 mg tablet 10 mg PO HS 07/20/23 08/16/23 azithromycin 500 mg tablet 500 mg PO UD 07/20/23 08/16/23 berberine-herbal comb no.18 capsule 3 cap PO UD 07/20/23 08/16/23 Results & Data (ED) Vital Signs Vital Signs - 24 hr 08/16/23 11:27 08/16/23 13:16 08/16/23 13:20 Temperature 37.8 C H Temperature Source Oral Pulse Rate 96 H 96 H 100 H Pulse Rate from SpO2 Sensor Respiratory Rate 20 22 Respiratory Effort / Characteristics Non-Labored Spontaneous Respiratory Depth Normal Respiratory Pattern Regular Blood Pressure 121/94 133/85 Blood Pressure Mean 103 101 Pulse Oximetry 90 Oxygen Delivery Method Room Air Oxygen Flow Rate Sepsis Recent Fever Within 48 Hours No Sepsis New/Unexplained Change in Mental Status No Sepsis Action Taken by Nursing No Action Required 08/16/23 14:30 08/16/23 15:00 Temperature Temperature Source Pulse Rate 102 H 100 H Pulse Rate from SpO2 Sensor 104 H 100 H Respiratory Rate 18 20 Respiratory Effort / Characteristics Respiratory Depth Respiratory Pattern Blood Pressure 158/82 H Blood Pressure Mean 107 Pulse Oximetry 81 L 100 Oxygen Delivery Method Oxygen Flow Rate 2 4 Sepsis Recent Fever Within 48 Hours Sepsis New/Unexplained Change in Mental Status Sepsis Action Taken by Nursing Laboratory Data 08/16/23 11:45 08/16/23 13:03 Lab Results 08/16/23 08/16/23 08/16/23 Range/Units 11:45 13:03 13:19 WBC 10.06 (4.8-10.8) K/ul RBC 3.06 L (4.20-5.40) M/uL Hgb 8.5 L (12.0-16.0) g/dl Hct 26.7 L (37.0-47.0) % MCV 87.3 (80.0-100.0) fL MCH 27.8 (25.0-34.0) pg MCHC 31.8 L (32.0-36.0) g/dL RDW Std Deviation 50.8 H (36.4-46.3) fL RDW Coeff of Samantha 16.1 H (11.5-14.5) % Plt Count 259 (130-400) K/uL MPV 8.8 L (9.4-12.4) fL Immature Gran % (Auto) 0.6 % Neut % (Auto) 78.1 % Lymph % (Auto) 11.7 % [place] % (Auto) 8.2 % Eos % (Auto) 1.2 % Baso % (Auto) 0.2 % Neut # (Auto) 7.86 H (1.40-6.50) K/uL Lymph # (Auto) 1.18 L (1.20-3.40) K/uL [place] # (Auto) 0.82 H (0.11-0.59) K/uL Eos # (Auto) 0.12 (0.00-0.50) K/uL Baso # (Auto) 0.02 (0.00-0.20) K/uL Immature Gran # (Auto) 0.06 (0.01-0.20) K/uL Absolute Nucleated RBC 0.02 (0.00-0.12) K/uL Nucleated RBC % (auto) 0.2 % Sodium 136 (136-145) mmol/L Potassium TNP 4.7 Chloride 100 (98-107) mmol/L Carbon Dioxide 30 (21-32) mmol/L Anion Gap 6 (3-11) BUN 16 (6-23) mg/dl Creatinine 0.67 (0.6-1.2) mg/dl Est Cr Clr Drug Dosing 91.6 ml/min Est GFR ( Amer) 101.1 ml/min Est GFR (Non-Af Amer) 87.2 ml/min BUN/Creatinine Ratio 23.9 H (10-20) Glucose 158 H (70-99(Fasting)) mg/dl Lactate 1.0 (0.4-2.0) mmol/L Calcium 8.7 (8.6-10.3) mg/dl Magnesium 2.0 (1.7-2.4) mg/dl Total Bilirubin 0.8 (0.2-1.0) mg/dl Direct Bilirubin TNP 0.3 H AST TNP 44 H ALT 38 (7-52) U/L Alkaline Phosphatase 185 H (34-104) U/L Troponin I High Sens 38.8 H (0-14) pg/ml Total Protein 5.8 L (6.0-8.3) gm/dl Albumin 3.0 L (3.4-5.0) gm/dl Lipase 7 L (11-82) U/L Procalcitonin 0.24 (0-0.5) ng/ml SARS-CoV-2 (PCR) NEGATIVE (Negative) Influenza Type A (PCR) Negative (Neg) Influenza Type B (PCR) Negative (Neg) RSV (RT-PCR) Negative (Neg) Blood Type Antibody Screen 08/16/23 Range/Units 14:05 WBC (4.8-10.8) K/ul RBC (4.20-5.40) M/uL Hgb (12.0-16.0) g/dl Hct (37.0-47.0) % MCV (80.0-100.0) fL MCH (25.0-34.0) pg MCHC (32.0-36.0) g/dL RDW Std Deviation (36.4-46.3) fL RDW Coeff of Samantha (11.5-14.5) % Plt Count (130-400) K/uL MPV (9.4-12.4) fL Immature Gran % (Auto) % Neut % (Auto) % Lymph % (Auto) % [place] % (Auto) % Eos % (Auto) % Baso % (Auto) % Neut # (Auto) (1.40-6.50) K/uL Lymph # (Auto) (1.20-3.40) K/uL [place] # (Auto) (0.11-0.59) K/uL Eos # (Auto) (0.00-0.50) K/uL Baso # (Auto) (0.00-0.20) K/uL Immature Gran # (Auto) (0.01-0.20) K/uL Absolute Nucleated RBC (0.00-0.12) K/uL Nucleated RBC % (auto) % Sodium (136-145) mmol/L Potassium Chloride (98-107) mmol/L Carbon Dioxide (21-32) mmol/L Anion Gap (3-11) BUN (6-23) mg/dl Creatinine (0.6-1.2) mg/dl Est Cr Clr Drug Dosing ml/min Est GFR ( Amer) ml/min Est GFR (Non-Af Amer) ml/min BUN/Creatinine Ratio (10-20) Glucose (70-99(Fasting)) mg/dl Lactate (0.4-2.0) mmol/L Calcium (8.6-10.3) mg/dl Magnesium (1.7-2.4) mg/dl Total Bilirubin (0.2-1.0) mg/dl Direct Bilirubin AST ALT (7-52) U/L Alkaline Phosphatase (34-104) U/L Troponin I High Sens 38.0 H (0-14) pg/ml Total Protein (6.0-8.3) gm/dl Albumin (3.4-5.0) gm/dl Lipase (11-82) U/L Procalcitonin (0-0.5) ng/ml SARS-CoV-2 (PCR) (Negative) Influenza Type A (PCR) (Neg) Influenza Type B (PCR) (Neg) RSV (RT-PCR) (Neg) Blood Type O Negative Antibody Screen NEGATIVE Administered Medications Discontinued Medications Fentanyl Citrate (Fentanyl Citrate Pf 100 Mcg/2 Ml Vial) 50 mcg IV NOW STA Stop: 08/16/23 11:28 Last Admin: 08/16/23 12:04 Dose: 50 mcg Documented By: WALDO Hydromorphone HCl (Hydromorphone Inj 1 Mg/Ml Syringe) 1 mg IV NOW STA Stop: 08/16/23 12:38 Last Admin: 08/16/23 13:01 Dose: 1 mg Documented By: MT Sodium Chloride (Nss) 500 mls @ 999 mls/hr IV .Q31M ONE Stop: 08/16/23 11:57 Last Infusion: 08/16/23 14:01 Dose: Infused Documented By: Admin: 08/16/23 12:05 Dose: 999 mls/hr Documented By: MT Piperacillin Sod/Tazobactam Sod (Zosyn) 4.5 gm in 100 mls @ 200 mls/hr IV NOW ONE Stop: 08/16/23 12:58 Last Infusion: 08/16/23 14:01 Dose: Infused Documented By: Admin: 08/16/23 13:01 Dose: 200 mls/hr Documented By: MT Sodium Chloride (Nss) 1,000 mls @ 999 mls/hr IV .Q1H1M ONE Stop: 08/16/23 13:37 Last Infusion: 08/16/23 14:01 Dose: Infused Documented By: Admin: 08/16/23 13:01 Dose: 999 mls/hr Documented By: MT Pantoprazole Sodium 80 mg/ (Dextrose) 120 mls @ 480 mls/hr IV ONE STA Stop: 08/16/23 13:07 Last Admin: 08/16/23 14:14 Dose: 480 mls/hr Documented By: W[place] Imaging Data Radiologist's Impression: Abdomen/Pelvis CT 08/16/23 11:[address] WITHOUT CONTRAST CT DOSE: 1479.25 mGy.cm HISTORY: RLQ pain TECHNIQUE: Multiaxial CT images of the abdomen and pelvis were performed without contrast. A dose lowering technique was utilized adhering to the principles of ALARA. COMPARISON STUDY: None. FINDINGS: Trace right pleural effusion. Mild dependent changes seen at the lung bases. Large amount of pneumoperitoneum resulting in abdominal distention. There are bilateral total hip arthroplasties. Posterior decompression fusion from L2 through L5 with pedicle screws and rods. The hardware appears intact. No acute fractures. Small amount of gas at the laminectomy sites as well as fluid favors the recent postoperative change. Small umbilical hernia containing fat and gas. There is mild body wall edema noted. Cholelithiasis. No gallbladder wall thickening. The unenhanced liver, spleen, adrenal glands, and pancreas unremarkable. Multiple bilateral peripelvic renal cysts are noted. Bilateral nephrolithiasis. No hydronephrosis. Normal caliber abdominal aorta. No retroperitoneal lymphadenopathy. No pelvic lymphadenopathy or pelvic free fluid. The bladder and uterus are not well visualized due to the metallic artifact but appear unremarkable. Extensive colonic diverticulosis. No evidence for acute diverticulitis. [id number] fecal retention most pronounced within the proximal colon. Normal appendix. No dilated loops of bowel to suggest an obstruction. There is mild circumferential thickening and fat stranding within the proximal duodenum best seen on image 123. In conjunction with the extensive pneumoperitoneum this is concerning for a perforated duodenal ulcer. IMPRESSION: 1. Extensive pneumoperitoneum. This is consistent with underlying bowel perforation. The exact location is difficult to confirm but favors a perforated duodenal ulcer as described above. 2. Colonic diverticulosis. No evidence for acute diverticulitis. 3. Bilateral nephrolithiasis. No ureteral stones. No hydronephrosis. 4. Trace right pleural effusion. 5. Cholelithiasis. 6. Additional findings as described above. ACT 112: Negative or not required by law. Electronically signed by: Gunnar Eldridge M.D. 08/16/2023 12:41 PM Chest X-Ray 08/16/23 11:27 XR chest 1V portable HISTORY: hypoxia COMPARISON: Chest 07/28/2023. FINDINGS: No pneumothorax. No pleural effusions. The heart remains enlarged. No focal lung consolidations to suggest a pneumonia. Mild interstitial thickening. This is likely chronic. There is extensive pneumoperitoneum seen within the upper abdomen. Mild scoliosis. Degenerative changes within the shoulders. There is a tortuous thoracic aorta again noted. IMPRESSION: 1. Pneumoperitoneum. This will be better assessed on the same day abdomen and pelvis CT. 2. Cardiomegaly. ACT 112: Negative or not required by law. Electronically signed by: Gunnar Eldridge M.D. 08/16/2023 11:54 AM Discharge Plan Visit Data Chief Complaint: Abdominal Pain ED Provider: Austin Padilla Discharge Problem: Perforated bowel Forms Stand Alone Forms: My [facility] Prescriptions Prescriptions: No Action meloxicam 15 mg tablet 15 mg PO QAM losartan-hydrochlorothiazide 50-12.5 mg Tablet 1 tab PO HS atorvastatin 10 mg tablet 10 mg PO HS acetaminophen 500 mg Tablet 1,000 mg PO TID PRN (Reason: taken w/pregabalin) allopurinol 300 mg tablet 300 mg PO HS azithromycin 500 mg tablet 500 mg PO UD Rx Instructions: 1 hour prior to dental procedures berberine-herbal comb no.18 Capsule 3 cap PO UD Patient Comments: 500mg, 2-3 tablets per day for blood sugar Rx Instructions: w/meals Referrals Referrals: Dann Salvador D.O. [Primary Care Provider] -
--- NOTE | 2023-08-16 11:56 | XRay Report ---
XR chest 1V portable HISTORY: hypoxia COMPARISON: Chest 07/28/2023. FINDINGS: No pneumothorax. No pleural effusions. The heart remains enlarged. No focal lung consolidat ions to suggest a pneumonia. Mild interstitial thickening. This is likely chronic. There is extensive pneumoperitoneum seen within the upper abdomen. Mild scoliosis. Degenerative changes within the shou lders. There is a tortuous thoracic aorta again noted. IMPRESSION: 1. Pneumoperitoneum. This will be better assessed on the same day abdomen and pelvis CT. 2. Cardiomegaly. ACT 112: Negative or not required by law. Electronically signed by: Gunnar Eldridge M.D. 08/16/2023 11:54 AM
[2023-08-16 12:12] LABS: Basophils # (auto) 0.02 K/uL (0.00-0.20); Basophils % (auto) 0.2 %; Eosinophils # (auto) 0.12 K/uL (0.00-0.50); Eosinophils % (auto) 1.2 %; Hematocrit (blood only) 26.7 % (37.0-47.0); Hemoglobin 8.5 g/dl (12.0-16.0); Immature Granulocytes # (auto) 0.06 K/uL (0.01-0.20); Immature Granulocytes % (auto) 0.6 %; Lymphocytes # (auto) 1.18 K/uL (1.20-3.40); Lymphocytes % (auto) 11.7 %; Mean Corpuscular Hemoglobin 27.8 pg (25.0-34.0); Mean Corpuscular Hgb Conc 31.8 g/dL (32.0-36.0); Mean Corpuscular Volume 87.3 fL (80.0-100.0); Mean Platelet Volume 8.8 fL (9.4-12.4); Monocytes # (auto) 0.82 K/uL (0.11-0.59); Monocytes % (auto) 8.2 %; Neutrophils # (auto) 7.86 K/uL (1.40-6.50); Neutrophils % (auto) 78.1 %; Nucleated RBC # (auto) 0.02 K/uL (0.00-0.12); Nucleated RBC % (auto) 0.2 %; Platelet Count 259 K/uL (130-400); RDW Coefficient of Variation 16.1 % (11.5-14.5); RDW Standard Deviation 50.8 fL (36.4-46.3); Red Blood Count 3.06 M/uL (4.20-5.40); White Blood Count 10.06 K/ul (4.8-10.8)
[2023-08-16] MEDS ORDERED: PIPERACILLIN/TAZOBACTAM 4.5 GM/100 ML BAG IV ONE (12:29)
[2023-08-16 12:33] LABS: Alanine Aminotransferase 38 U/L (7-52); Alkaline Phosphatase 185 U/L (34-104); Anion Gap 6 (3-11); BUN Creatinine Ratio 23.9 (10-20); Bilirubin,Total 0.8 mg/dl (0.2-1.0); Blood Urea Nitrogen 16 mg/dl (6-23); Calcium 8.7 mg/dl (8.6-10.3); Carbon Dioxide 30 mmol/L (21-32); Chloride 100 mmol/L (98-107); Creatinine Clr Calc Pharmacy 91.6 ml/min; Est GFR (African American) 101.1 ml/min; Est GFR (Non-African American) 87.2 ml/min; Glucose 158 mg/dl (70-99(Fasting)); Lipase 7 U/L (11-82); Sodium 136 mmol/L (136-145); Total Protein 5.8 gm/dl (6.0-8.3)
[2023-08-16 12:36] LABS: Troponin I High Sensitivity 38.8 pg/ml (0-14)
[2023-08-16] MEDS ORDERED: SODIUM CHLORIDE 0.9% 1,000 ML IV ONE (12:37)
[2023-08-16] MEDS ORDERED: HYDROmorphone INJ 1 MG/ML SYRINGE IV STA (12:37)
--- NOTE | 2023-08-16 12:43 | CT Scan Report ---
ABDOMEN AND PELVIS CT WITHOUT CONTRAST CT DOSE: 1479.25 mGy.cm HISTORY: RLQ pain TECHNIQUE: Multiaxial CT images of the abdomen and pelvis were performed without contrast. A dose lo wering technique was utilized adhering to the principles of ALARA. COMPARISON STUDY: None. FINDINGS: Trace right pleural effusion. Mild dependent changes seen at the lung bases. Large amount o f pneumoperitoneum resulting in abdominal distention. There are bilateral total hip arthroplasties. P osterior decompression fusion from L2 through L5 with pedicle screws and rods. The hardware appears i ntact. No acute fractures. Small amount of gas at the laminectomy sites as well as fluid favors the r ecent postoperative change. Small umbilical hernia containing fat and gas. There is mild body wall ed jose noted. Cholelithiasis. No gallbladder wall thickening. The unenhanced liver, spleen, adrenal glan ds, and pancreas unremarkable. Multiple bilateral peripelvic renal cysts are noted. Bilateral nephrol ithiasis. No hydronephrosis. Normal caliber abdominal aorta. No retroperitoneal lymphadenopathy. No p elvic lymphadenopathy or pelvic free fluid. The bladder and uterus are not well visualized due to the metallic artifact but appear unremarkable. Extensive colonic diverticulosis. No evidence for acute d iverticulitis. Epie-jt-[id number] fecal retention most pronounced within the proximal colon. Normal jemima endix. No dilated loops of bowel to suggest an obstruction. There is mild circumferential thickening and fat stranding within the proximal duodenum best seen on image 123. In conjunction with the extens joy pneumoperitoneum this is concerning for a perforated duodenal ulcer. IMPRESSION: 1. Extensive pneumoperitoneum. This is consistent with underlying bowel perforation. The exact locat ion is difficult to confirm but favors a perforated duodenal ulcer as described above. 2. Colonic diverticulosis. No evidence for acute diverticulitis. 3. Bilateral nephrolithiasis. No ureteral stones. No hydronephrosis. 4. Trace right pleural effusion. 5. Cholelithiasis. 6. Additional findings as described above. ACT 112: Negative or not required by law. Electronically signed by: Gunnar Eldridge M.D. 08/16/2023 12:41 PM
[2023-08-16] MEDS ORDERED: PANTOprazole 80 MG in DEXTROSE 5% 100 ML IV STA (12:53)
--- NOTE | 2023-08-16 13:26 | History & Physical Report ---
Date of Service August 16, 2023 Assessment & Plan (1) SIRS (systemic inflammatory response syndrome): Plan: Meets SIRS criteria with high risk of progressing to sepsis given bowel rupture. See care plan below. Cont hemodynamic monitoring. Lactate 1.0 and pr ocalcitonin negative. New fever. (2) Pneumoperitoneum: Plan: Appears to have ruptured duodenal ulcer on imaging. Patient has a history of long-standing Mobic use for arthritis and regularly gets steroid injections in her knees. She also just had decadron perioperatively in the last week. Minimal ETOH use reported. Avoid NSAIDs. PPI push given in ER. Will cont with PPI IV BID Consult placed to gastroenterology. General surgery planning for OR today. She is on empiric Zosyn and will cont this. Pain control/antiemetics as needed. (3) Duodenal ulcer disease: Plan: per plan above, Cont PPI, avoid NSAIDs. GI consulted. (4) Diabetes: Plan: Diet controlled. Recent A1C was 7.3. Patient is aware of this. Will given basal/bolus coverage with insulin this admission to optimize blood sugar. Will give minimal glargine qHS given she will likely be NPO for a prolonged amount of time. Adjust as needed. (5) Lumbar stenosis with neurogenic claudication: Plan: recent surgery by Dr. Lala on 08/11. No acute issues. Cont wound checks daily once she is more stabilized. (6) Post-operative state: Plan: Cont supportive care efforts as noted above after lumbar surgery (7) Morbid obesity: Plan: lifestyle changes recommended. (8) Hypertension: Plan: chronic, stable. Holding lis/HCTZ at this time. Resume post operatively once stable. (9) Hyperlipidemia: Plan: chronic, stable. Cont atorvastatin per home regimen. DVT proph: SCDs Full Code as confirmed with patient on admission. Her POC is her WHITLEY. Dispo-to PCU post operatively, however, this may change depending on operative course. I spent a total [id number] coordinating, documenting, and providing care for this patient excluding time spent in the performance of separately billed services DO Deandre Orozco Hospitalist History of Present Illness Chief Complaint: abdominal pain Primary Care Provider: Dann Salvador 72-year-old female recently hospitalized at [facility] for elective decompression and fusion surgery of L2-L5 under the care of Dr. Lala. Surgery was uneventful and she was doing well postoperatively. She was sent to rehab in stable condition on 08/15. She reports that on the way to [facility] she began feeling sharp pains in her abdomen that was generalized. She threw up and was up all night with pain. She presented today by ambulance reporting worsening abdominal pain predominantly in the right lower quadrant which then became more generalized. This was associated with mild nausea and any movement made it worse. She was unable to sit up or roll over in the bed without causing significant pain. She denies any issues with her back at this time and reports she did have a bowel movement this morning but was unable to see it given her limited mobility. She denies any falls or trauma. During this interview she is reporting being very upset with this whole situation and has difficulty giving history as a result of that. She is oriented and a good historian, otherwise. She notes taking Mobic for 5 to 6 years and has been off of Mobic preoperatively. She denies any taking of NSAIDs postoperatively. She drinks alcohol approximately 1-2 drinks per week on average. She does take steroid shots in her knees and recently had steroids with her back surgery. Work-up in the ER includes a CT scan revealing pneumoperitoneum from a possible duodenal ulcer with perforation. General surgery was consulted and plans to take her to the operating room today. She is febrile with some tachycardia and is oxygenating 97% on 2 L via nasal cannula. Allergies Allergy/AdvReac Type Severity Reaction Status Date / Time red dye Allergy SWELLING Verified 08/11/23 08:09 AND ITCHING Home Medications Medication Instructions Recorded Confirmed Type losartan 50 mg-hydrochlorothiazide 1 tab PO HS 01/11/19 08/16/23 History 12.5 mg tablet meloxicam 15 mg tablet 15 mg PO QAM 02/17/23 08/16/23 History acetaminophen 500 mg tablet 1,000 mg PO TID PRN taken 07/20/23 08/16/23 History w/pregabalin allopurinol 300 mg tablet 300 mg PO HS 07/20/23 08/16/23 History atorvastatin 10 mg tablet 10 mg PO HS 07/20/23 08/16/23 History azithromycin 500 mg tablet 500 mg PO UD 07/20/23 08/16/23 History berberine-herbal comb no.18 capsule 3 cap PO UD 07/20/23 08/16/23 History Past Med/Surg History Medical History (Updated 08/16/23 @ 14:42 by Alissa Haywood DO) Gout Diabetes diet controlled Per patient at [facility] appt 07/28/23- did have steroid injections to bilateral knees recently History of anesthesia reaction s/p bilateral ROBYN in 2012- questionable ileus post op- resulted in longer hospital stay- no issues since Morbid obesity Lumbar pain with radiation down both legs History of kidney stones allopurinol currently to prevent no recent issues Hypertension Hyperlipidemia Surgical History (Updated 08/16/23 @ 14:36 by Alissa Haywood DO) S/P epidural steroid injection x2 S/P cystoscopy with ureteral stent placement w/laser lithotripsy Hx of tooth extraction History of cataract surgery RT, LT Hx of cystoscopy FOR STONE BASKET REMOVAL Hx of lithotripsy x3 Hx of foot surgery LEFT - X3 Hx of bilateral hip replacements 07/08/12 Family History Father Family history of diabetes mellitus Social History Smoking Status: Former smoker Tobacco Type: Cigarettes Second Hand Exposure: No; Do You Dip or Chew Tobacco: No; Hx Alcohol Use: Yes Alcohol type: wine Hx Substance Use: No Preferred Language: Burundian Communication Ability: Effective Support Service Tech Required: No Beliefs That Will Affect Care: None Current Living Situation: Alone Feels Safe at Home: Yes Assistive Devices: Cane and Walker Physical Exam Physical Exam: CONSTITUTIONAL: morbid obesity, vitals as above, generally in moderate distress with any movement and emotionally overwhelmed. EYES: pupils are round and equal bilaterally, normal conjunctivae, no scleral icterus ENT: external ear and nose normal, MMM NECK: trachea midline RESPIRATORY: clear to auscultation bilaterally, no crackles, rales or wheezes, normal respiratory effort CARDIOVASCULAR: regular rate and rhythm, S1 and 2 heard without murmurs, gallops or rubs, no JVD, no peripheral edema CHEST: inspection of chest was normal GASTROINTESTINAL: severe tenderness and distension with generalized TTP. High pitched bowel sounds in the RLQ MUSCULOSKELETAL: strength 5/5 throughout, but limited movement 2/2 pain, head is normocephalic and atraumatic SKIN: warm and dry, tape over lower back incision which was unable to be visualized 2/2 limited ability to roll 2/2 pain NEUROLOGIC: CN 2-12 grossly intact, no sensory deficit, normal cognition, normal speech, no tremor PSYCHIATRIC: alert cooperative and oriented to person, place and time. Euthymic mood, makes good eye contact, language grossly intact, recent and remote memory grossly intact. Results & Data Results & Data Vital Signs (Past 12 Hours) Vital Signs Temp Pulse Resp BP Pulse Ox O2 Del Method 08/16/23 13:20 100 H 22 133/85 08/16/23 13:16 96 H 08/16/23 11:27 37.8 C H 96 H 20 121/94 90 Room Air Laboratory Results Short CBC 08/16/23 Range/Units 11:45 WBC 10.06 (4.8-10.8) K/ul Hgb 8.5 L (12.0-16.0) g/dl Hct 26.7 L (37.0-47.0) % Plt Count 259 (130-400) K/uL BMP 08/16/23 08/16/23 11:45 13:03 Sodium 136 Potassium TNP 4.7 Chloride 100 Carbon Dioxide 30 BUN 16 Creatinine 0.67 Glucose 158 H Calcium 8.7 Liver Function 08/16/23 08/16/23 Range/Units 11:45 13:03 Total Bilirubin 0.8 (0.2-1.0) mg/dl Direct Bilirubin TNP 0.3 H AST TNP 44 H ALT 38 (7-52) U/L Alkaline Phosphatase 185 H (34-104) U/L Albumin 3.0 L (3.4-5.0) gm/dl Diagnostic Findings Abdomen/Pelvis CT 08/16/23 11:[address] WITHOUT CONTRAST CT DOSE: 1479.25 mGy.cm HISTORY: RLQ pain TECHNIQUE: Multiaxial CT images of the abdomen and pelvis were performed without contrast. A dose lowering technique was utilized adhering to the principles of ALARA. COMPARISON STUDY: None. FINDINGS: Trace right pleural effusion. Mild dependent changes seen at the lung bases. Large amount of pneumoperitoneum resulting in abdominal distention. There are bilateral total hip arthroplasties. Posterior decompression fusion from L2 through L5 with pedicle screws and rods. The hardware appears intact. No acute fractures. Small amount of gas at the laminectomy sites as well as fluid favors the recent postoperative change. Small umbilical hernia containing fat and gas. There is mild body wall edema noted. Cholelithiasis. No gallbladder wall thickening. The unenhanced liver, spleen, adrenal glands, and pancreas unremarkable. Multiple bilateral peripelvic renal cysts are noted. Bilateral nephrolithiasis. No hydronephrosis. Normal caliber abdominal aorta. No retroperitoneal lymphadenopathy. No pelvic lymphadenopathy or pelvic free fluid. The bladder and uterus are not well visualized due to the metallic artifact but appear unremarkable. Extensive colonic diverticulosis. No evidence for acute diverticulitis. [id number] fecal retention most pronounced within the proximal colon. Normal appendix. No dilated loops of bowel to suggest an obstruction. There is mild circumferential thickening and fat stranding within the proximal duodenum best seen on image 123. In conjunction with the extensive pneumoperitoneum this is concerning for a perforated duodenal ulcer. IMPRESSION: 1. Extensive pneumoperitoneum. This is consistent with underlying bowel perforation. The exact location is difficult to confirm but favors a perforated duodenal ulcer as described above. 2. Colonic diverticulosis. No evidence for acute diverticulitis. 3. Bilateral nephrolithiasis. No ureteral stones. No hydronephrosis. 4. Trace right pleural effusion. 5. Cholelithiasis. 6. Additional findings as described above. ACT 112: Negative or not required by law. Electronically signed by: Gunnar Eldridge M.D. 08/16/2023 12:41 PM Chest X-Ray 08/16/23 11:27 XR chest 1V portable HISTORY: hypoxia COMPARISON: Chest 07/28/2023. FINDINGS: No pneumothorax. No pleural effusions. The heart remains enlarged. No focal lung consolidations to suggest a pneumonia. Mild interstitial thickening. This is likely chronic. There is extensive pneumoperitoneum seen within the upper abdomen. Mild scoliosis. Degenerative changes within the shoulders. There is a tortuous thoracic aorta again noted. IMPRESSION: 1. Pneumoperitoneum. This will be better assessed on the same day abdomen and pelvis CT. 2. Cardiomegaly. ACT 112: Negative or not required by law. Electronically signed by: Gunnar Eldridge M.D. 08/16/2023 11:54 AM Code Status & VTE Plan VTE Prophylaxis Plan VTE Prophylaxis will be ordered: Yes
--- NOTE | 2023-08-16 13:31 | Surgery Consultation ---
Date of Consultation August 16, 2023 Assessment & Plan (1) Pneumoperitoneum of unknown etiology: Assessment: Patient is a 72 years old female who presented to ED few days history of abdominal pain. Patient is status spinal surgery where 4 days ago. Patient had a CT diagnosis extensive pneumoperitoneum possible duodenal perforation. Plan: I reviewed the patient history and physical exam labs and CT scan finding with the patient. I recommend to do emergency exploratory laparotomy possible bowel resection and stoma. I did talk to patient about the benefit risk and alternate of the procedure. I indicated the risks may include but not limited such as a bleeding, infection, abscess, sepsis, and the most is a leak, injury or other organs, multiple organ failure, stroke, may effect spinal surgery result, . Patient understood. she agreed with the surgery. She signed informed consent. I answered all questions. Pre-op IV antibiotic. History of Present Illness Reason for Consultation: bowel perforation Requesting Physician: Austin Butt MD History of Present Illness CC: abdominal pain HPI: Patient is a 72 years old female with a past medical history of diabetes, hypertension hyperlipidemia, spinal stenosis and kidney stone. Patient presented to ED with couple day history of abdominal pain. Patient had a spinal surgery by DR Ba 4 days ago. Patient has some constipation, patient had tried multiple stool softener, patient was discharged l to a rehab center yesterday. Last night at the rehab center, patient said the she had the worst abdominal pain. Patient passed 1 small amount of stool yesterday. patient denies any nausea or vomiting. No fever, no chills. No chest pain. Patient had a CT scan done at the ER, finding large pneumoperitoneum possible bowel perforation. Allergies Allergy/AdvReac Type Severity Reaction Status Date / Time red dye Allergy SWELLING Verified 08/11/23 08:09 AND ITCHING Home Medications Medication Instructions Recorded Confirmed Type losartan 50 mg-hydrochlorothiazide 1 tab PO HS 01/11/19 08/11/23 History 12.5 mg tablet meloxicam 15 mg tablet 15 mg PO QAM 02/17/23 08/11/23 History acetaminophen 500 mg tablet 1,000 mg PO TID PRN taken 07/20/23 08/11/23 History w/pregabalin allopurinol 300 mg tablet 300 mg PO HS 07/20/23 08/11/23 History atorvastatin 10 mg tablet 10 mg PO HS 07/20/23 08/11/23 History azithromycin 500 mg tablet 500 mg PO UD 07/20/23 08/11/23 History berberine-herbal comb no.18 capsule 1 cap PO UD 07/20/23 08/11/23 History oxycodone 5 mg tablet 5 mg PO Q6H PRN pain #30 tabs 08/11/23 Rx tramadol 50 mg tablet 50 mg PO Q6H PRN pain, moderate 08/11/23 Rx #30 tabs Patient History Medical History Diabetes diet controlled Per patient at [facility] appt 07/28/23- did have steroid injections to bilateral knees recently History of anesthesia reaction s/p bilateral ROBYN in 2011- questionable ileus post op- resulted in longer hospital stay- no issues since Morbid obesity Lumbar pain with radiation down both legs History of kidney stones allopurinol currently to prevent no recent issues Hypertension Hyperlipidemia Surgical History S/P epidural steroid injection x2 S/P cystoscopy with ureteral stent placement w/laser lithotripsy Hx of tooth extraction History of cataract surgery RT, LT Hx of cystoscopy FOR STONE BASKET REMOVAL Hx of lithotripsy x3 Hx of foot surgery LEFT - X3 Hx of bilateral hip replacements 07/08/12 Family History Father Family history of diabetes mellitus Social History Smoking Status: Former smoker Tobacco Type: Cigarettes Second Hand Exposure: No; Do You Dip or Chew Tobacco: No; Hx Alcohol Use: Yes Alcohol type: wine Hx Substance Use: No Preferred Language: Tongan Communication Ability: Effective Clarifier Required: No Beliefs That Will Affect Care: None Current Living Situation: Alone Feels Safe at Home: Yes Assistive Devices: Cane and Walker Review of Systems Constitutional: as per Subjective / HPI Eyes: as per Subjective / HPI Respiratory: as per Subjective / HPI Cardiovascular: Additional Comments: Hypertension, hyperlipidemia Gastrointestinal: Gallstone Genitourinary: Kidney stone Musculoskeletal: Spinal stenosis, status spinal surgery 4 days ago, Neurologic: as per Subjective / HPI Psychiatric: as per Subjective / HPI Endocrine: as per Subjective / HPI Hematologic / Lymphatic: as per Subjective / HPI Physical Exam Constitutional: Moderate distress Eyes: PERRL, conjunctivae normal, anicteric sclerae Neck: trachea midline, no thyromegaly Respiratory: normal respiratory effort, lungs clear to auscultation Cardiovascular: RRR, no murmur, no edema Gastrointestinal (Abdomen): distend, diffuse tenderness with rebound pain, BS -. Musculoskeletal: back the dressing intact. Neurologic: patellar DTR's 2+ bilat, sensation intact Psychiatric: A+Ox3, euthymic affect Results & Data Vital Signs (Past 12 Hours) Vital Signs Temp Pulse Resp BP Pulse Ox O2 Del Method 08/16/23 13:16 96 H 08/16/23 11:27 37.8 C H 96 H 20 121/94 90 Room Air Laboratory Results Lab Results 08/16/23 Range/Units 11:45 WBC 10.06 (4.8-10.8) K/ul RBC 3.06 L (4.20-5.40) M/uL Hgb 8.5 L (12.0-16.0) g/dl Hct 26.7 L (37.0-47.0) % MCV 87.3 (80.0-100.0) fL MCH 27.8 (25.0-34.0) pg MCHC 31.8 L (32.0-36.0) g/dL RDW Std Deviation 50.8 H (36.4-46.3) fL RDW Coeff of Samantha 16.1 H (11.5-14.5) % Plt Count 259 (130-400) K/uL MPV 8.8 L (9.4-12.4) fL Immature Gran % (Auto) 0.6 % Neut % (Auto) 78.1 % Lymph % (Auto) 11.7 % Elbert % (Auto) 8.2 % Eos % (Auto) 1.2 % Baso % (Auto) 0.2 % Neut # (Auto) 7.86 H (1.40-6.50) K/uL Lymph # (Auto) 1.18 L (1.20-3.40) K/uL Elbert # (Auto) 0.82 H (0.11-0.59) K/uL Eos # (Auto) 0.12 (0.00-0.50) K/uL Baso # (Auto) 0.02 (0.00-0.20) K/uL Immature Gran # (Auto) 0.06 (0.01-0.20) K/uL Absolute Nucleated RBC 0.02 (0.00-0.12) K/uL Nucleated RBC % (auto) 0.2 % Sodium 136 (136-145) mmol/L Potassium TNP Chloride 100 (98-107) mmol/L Carbon Dioxide 30 (21-32) mmol/L Anion Gap 6 (3-11) BUN 16 (6-23) mg/dl Creatinine 0.67 (0.6-1.2) mg/dl Est Cr Clr Drug Dosing 91.6 ml/min Est GFR ( Amer) 101.1 ml/min Est GFR (Non-Af Amer) 87.2 ml/min BUN/Creatinine Ratio 23.9 H (10-20) Glucose 158 H (70-99(Fasting)) mg/dl Lactate 1.0 (0.4-2.0) mmol/L Calcium 8.7 (8.6-10.3) mg/dl Magnesium 2.0 (1.7-2.4) mg/dl Total Bilirubin 0.8 (0.2-1.0) mg/dl Direct Bilirubin TNP AST TNP ALT 38 (7-52) U/L Alkaline Phosphatase 185 H (34-104) U/L Troponin I High Sens 38.8 H (0-14) pg/ml Total Protein 5.8 L (6.0-8.3) gm/dl Albumin 3.0 L (3.4-5.0) gm/dl Lipase 7 L (11-82) U/L Procalcitonin 0.24 (0-0.5) ng/ml Diagnostic Findings ABDOMEN AND PELVIS CT WITHOUT CONTRAST CT DOSE: 1479.25 mGy.cm HISTORY: RLQ pain TECHNIQUE: Multiaxial CT images of the abdomen and pelvis were performed without contrast. A dose lowering technique was utilized adhering to the principles of ALARA. COMPARISON STUDY: None. FINDINGS: Trace right pleural effusion. Mild dependent changes seen at the lung bases. Large amount of pneumoperitoneum resulting in abdominal distention. There are bilateral total hip arthroplasties. Posterior decompression fusion from L2 through L5 with pedicle screws and rods. The hardware appears intact. No acute fractures. Small amount of gas at the laminectomy sites as well as fluid favors the recent postoperative change. Small umbilical hernia containing fat and gas. There is mild body wall edema noted. Cholelithiasis. No gallbladder wall thickening. The unenhanced liver, spleen, adrenal glands, and pancreas unremarkable. Multiple bilateral peripelvic renal cysts are noted. Bilateral nephrolithiasis. No hydronephrosis. Normal caliber abdominal aorta. No retroperitoneal lymphadenopathy. No pelvic lymphadenopathy or pelvic free fluid. The bladder and uterus are not well visualized due to the metallic artifact but appear unremarkable. Extensive colonic diverticulosis. No evidence for acute diverticulitis. [id number] fecal retention most pronounced within the proximal colon. Normal appendix. No dilated loops of bowel to suggest an obstruction. There is mild circumferential thickening and fat stranding within the proximal duodenum best seen on image 123. In conjunction with the extensive pneumoperitoneum this is concerning for a perforated duodenal ulcer. IMPRESSION: 1. Extensive pneumoperitoneum. This is consistent with underlying bowel perforation. The exact location is difficult to confirm but favors a perforated duodenal ulcer as described above. 2. Colonic diverticulosis. No evidence for acute diverticulitis. 3. Bilateral nephrolithiasis. No ureteral stones. No hydronephrosis. 4. Trace right pleural effusion. 5. Cholelithiasis. 6. Additional findings as described above. ACT 112: Negative or not required by law. Electronically signed by: Gunnar Eldridge M.D. 08/16/2023 12:41 PM
--- NOTE | 2023-08-16 13:39 | History & Physical Bridge Note ---
Date of Service August 16, 2023 History & Physical Bridge Note I have examined the patient, reviewed the History & Physical and in the interval since the performance of the History & Physical I have noted the following changes of clinical significance: no changes noted
[2023-08-16] MEDS ORDERED: ONDANSETRON INJ 2 MG/ML 2 ML VIAL IV STA (13:40)
[2023-08-16 13:41] LABS: Bilirubin Direct 0.3 mg/dl (0-0.2); Potassium 4.7 mmol/L (3.5-5.1)
[2023-08-16 14:10] LABS: Influenza A virus by PCR Negative (Neg); Influenza B virus by PCR Negative (Neg); RSV by PCR Negative (Neg); SARS CoV2 RNA(COVID-19) Ceph NEGATIVE (Negative)
[2023-08-16] MEDS ORDERED: PROPOFOL IV EMULSION 10 MG/ML 20 ML VIAL IV ONE (14:20)
[2023-08-16] MEDS ORDERED: fentaNYL citrate PF 100 MCG/2 ML VIAL ONE (14:20)
[2023-08-16] MEDS ORDERED: LIDOCAINE 2% 2 ML VIAL/AMP(20MG/ML) INFIL ONE (14:20)
[2023-08-16] MEDS ORDERED: ROCURONIUM BROMIDE 10 MG/ML 5 ML VIAL IV ONE ×3 (14:20→17:58)
[2023-08-16] MEDS ORDERED: ARTIFICIAL TEARS OP OINT 3.5 GM TUBE ONE (14:24)
[2023-08-16] MEDS ORDERED: PHENYLEPHRINE HCL 10 MG/ML VIAL ONE (14:30)
[2023-08-16] MEDS ORDERED: KETAMINE HCL 10MG/ML SYR ONE (14:31)
[2023-08-16] MEDS ORDERED: BUPIVACAINE 0.5 % 5 MG/1 ML MPF 30ML VIAL ONE (14:38)
[2023-08-16] MEDS ORDERED: LIDOCAINE 1% LOCAL 20 ML VIAL ONE (14:38)
[2023-08-16] MEDS ORDERED: BACITRACIN OINT 14 GM TUBE ONE (14:39)
--- NOTE | 2023-08-16 14:41 | Anesthesiology Consultation ---
Date of Service August 16, 2023 Assessment & Plan Chart Review Chart Review: Acceptable Risk for Surgery emergent Consults Requested none History Surgery Operation Date: 08/16/23 15:30 Proposed Procedures p Exploratory Laparotomy - July Lawson MD Height/Weight Height: 5 ft 3 in Weight: 115.3 kg Allergies Allergy/AdvReac Type Severity Reaction Status Date / Time red dye Allergy SWELLING Verified 08/11/23 08:09 AND ITCHING Medications Home Medications Medication Instructions Recorded Confirmed Last Taken losartan 50 mg-hydrochlorothiazide 1 tab PO HS 01/11/19 08/16/23 02/02/19 12.5 mg tablet meloxicam 15 mg tablet 15 mg PO QAM 02/17/23 08/16/23 Unknown acetaminophen 500 mg tablet 1,000 mg PO TID PRN taken 07/20/23 08/16/23 Unknown w/pregabalin allopurinol 300 mg tablet 300 mg PO HS 07/20/23 08/16/23 Unknown atorvastatin 10 mg tablet 10 mg PO HS 07/20/23 08/16/23 Unknown azithromycin 500 mg tablet 500 mg PO UD 07/20/23 08/16/23 Unknown berberine-herbal comb no.18 capsule 3 cap PO UD 07/20/23 08/16/23 Unknown Past Medical History Medical History (Updated 08/16/23 @ 14:37 by Alissa Haywood DO) Gout Diabetes diet controlled Per patient at [facility] appt 07/28/23- did have steroid injections to bilateral knees recently History of anesthesia reaction s/p bilateral ROBYN in 2011- questionable ileus post op- resulted in longer hospital stay- no issues since Morbid obesity Lumbar pain with radiation down both legs History of kidney stones allopurinol currently to prevent no recent issues Hypertension Hyperlipidemia Past Family History Family History Father Family history of diabetes mellitus Past Surgical History Surgical History (Updated 08/16/23 @ 14:36 by Alissa Haywood DO) S/P epidural steroid injection x2 S/P cystoscopy with ureteral stent placement w/laser lithotripsy Hx of tooth extraction History of cataract surgery RT, LT Hx of cystoscopy FOR STONE BASKET REMOVAL Hx of lithotripsy x3 Hx of foot surgery LEFT - X3 Hx of bilateral hip replacements 07/08/12 Social History Smoking Status: Former smoker Do You Dip or Chew Tobacco: No Hx Alcohol Use: Yes Alcohol type: wine alcohol intake frequency: holidays/special occasions only Hx Substance Use: No substance use type: does not use Review of Systems Constitutional: as per Subjective / HPI Eyes: as per Subjective / HPI Respiratory: as per Subjective / HPI Neurologic: as per Subjective / HPI Psychiatric: as per Subjective / HPI Endocrine: as per Subjective / HPI Hematologic / Lymphatic: as per Subjective / HPI Physical Exam Vital Signs Last Vital Signs Temp 37.8 C H 08/16/23 11:27 Pulse 100 H 08/16/23 13:20 Resp 22 08/16/23 13:20 BP 133/85 08/16/23 13:20 Pulse Ox 90 08/16/23 11:27 O2 Del Method Room Air 08/16/23 11:27 Eyes PERRL, conjunctivae normal, anicteric sclerae Neck trachea midline, no thyromegaly Respiratory normal respiratory effort, lungs clear to auscultation Cardiovascular RRR, no murmur, no edema Neurologic patellar DTR's 2+ bilat, sensation intact Psychiatric A+Ox3, euthymic affect Testing Laboratory Results 08/16/23 11:45 08/16/23 13:03
[2023-08-16] MEDS ORDERED: VASOPRESSIN 20 UNIT/ML VIAL ONE (15:00)
[2023-08-16] MEDS ORDERED: HYDROmorphone INJ 1 MG/ML SYRINGE ONE (16:45)
[2023-08-16] MEDS ORDERED: DEXAMETHASONE SOD INJ 4 MG/ML VIAL ONE (16:46)
[2023-08-16] MEDS ORDERED: SODIUM CHLORIDE 0.9% 250 ML IV PRN (17:12)
[2023-08-16] MEDS ORDERED: VANCOMYCIN HCL 1000MG/20ML VIAL ONE (17:44)
[2023-08-16] MEDS ORDERED: PROPOFOL IV EMULSION 10 MG/ML 100 ML VIAL IV ONE (17:54)
--- NOTE | 2023-08-16 18:58 | Post Operative Brief Note ---
Immediate Post Op Note v1 Date of Surgery August 16, 2023 Pre & Post Diagnosis Operation Date: 08/16/23 15:30 Pre-Op Diagnosis: Pneumoperitoneum Post-Op Diagnosis: Pneumoperitoneum , perforation ascending colon I identified the patient and participated in the time-out.: Yes Procedure Operation Date: 08/16/23 15:30 Actual Procedures p exploratory laparotomy, right hemicolectomy, Creation of ileostomy - July Lawson MD Surgeon July Lawson MD Information Architect ophthalmology surgical technician Estimated Blood Loss 30 Findings Consistent with Post-Op Diagnosis perforation ascending colon, severe contamination Fluids 1000ml, one unit RBC Specimens right colon and cecum Drains Zuleta Catheter and Sunil-Stoddard Drain Anesthesia Type General Complications none Disposition Accompanied Patient To Recovery: Yes
--- NOTE | 2023-08-16 19:32 | Operative Report ---
Post Operative Report Pre & Post Diagnosis Operation Date: 08/16/23 15:30 Pre-Op Diagnosis: Pneumoperitoneum Post-Op Diagnosis: Pneumoperitoneum , perforation ascending colon I identified the patient and participated in the time-out.: Yes Procedure Operation Date: 08/16/23 15:30 Actual Procedures Exploratory laparotomy. Right hemicolectomy, Creation of ileostomy- July Lawson MD Surgeon July Lawson MD Care Services Manager surgical services tech Estimated Blood Loss 30 Findings Consistent with Post-Op Diagnosis Perforation ascending colon Fluids 1000ml one unit RBC Specimens cecum and right colon Drains 10 mm DARIUS X 1 Anesthesia Type General Complications none Disposition Accompanied Patient To Recovery: Yes Indications Patient is a 72 years old female who presented to ED with a couple day history of severe abdominal pain. Patient had a spine surgery for 4 days ago. Patient had a CT diagnosis pneumoperitoneum possible bowel perforation. I recommend to do emergency exploratory laparotomy, possible bowel resection, possible stoma. I did talk to patient about the benefit the risk and alternate of the procedure, I indicated the risks may include but not limited such as a bleeding, infection, abscess, sepsis, multiple organ failure, anastomotic leak, stroke, DVT, incisional hernia, and . Patient understood, she agreed with the surgery, she signed informed consent. I answered all questions. pre-op iv antibiotic. Description of Procedure After we identified patient arrived for the procedure and brought patient to the OR put the patient on the supine position on the OR table. Patient received SCD on bilateral abdomen DVT. Also patient received 4.5 g Zosyn IV for prophylactic antibiotic. Patient received general anesthesia without difficulty. The abdomen was propped and dripped in routine sterile fashion. After timeout. I made a midline incision. Getting inside the abdomen without difficulty. when we opened peritoneal a lot of air come out. Smell was bad. In the exam the stomach small bowel normal finding. In January found the patient had a perforation of the ascending colon and there was leak stool. the cecum was significant dilatation, diameter about 20 cm. Severe contamination, leak stool whole abdomen cavity. Suction all the peritoneal fluid sent to culture. At this moment. I decided to do right hemicolectomy, creat ileostomy. Mobilized the cecum and descending colon uses a endovascular stable. I used 60 Endo ALICIA staple transection on the transverse colon near Hepatic flexure. The use another 616 Endo ALICIA staple transection the small bowel near the cecum. A complete removal of the stent specimen. The specimen included the appendix, cecum and right colon. The use of the warm saline 1 L +1 g vancomycin flash whole abdomen. Suction all fluid out. Up with a 10 mm DARIUS drainage on the pelvic area. 3- 0 nylon fixes DARIUS drainage on the skin. Create the ileostomy on the right side abdomen. The ileostomy prolapse circulation pink. No tension. Recheck the hemostat is obtained. Close to the abdominal fashion thereby using #1 PDS continuous running. Close subcutaneous therapy using 2-0 Vicryl continuous running, close skin by uses stable. No reported ileostomy bag given and dressing on the incision site. Patient tolerated procedure well. all instrument needle sponge count are correct x2 at end of the case. patient transferred to ICU in stable condition. the Specimen sent to pathology. I attest to the content of the Intraoperative Record and any orders documented therein. Any exceptions are noted below.
[2023-08-16] MEDS ORDERED: LACTATED RINGER'S 1,000 ML IV SCH (19:36)
[2023-08-16] MEDS ORDERED: GLUCAGON FOR INJ 1 MG VIAL SQ PRN (19:36)
[2023-08-16] MEDS ORDERED: GLUCOSE 10 TAB/TUBE PO PRN (19:36)
[2023-08-16] MEDS ORDERED: MoRPHine SULFATE 2 MG/ML CARP IV PRN (19:36)
[2023-08-16] MEDS ORDERED: VANCOMYCIN HCL 1,000 MG in SODIUM CHLORIDE 0.9% 250 ML IV SCH (19:36)
[2023-08-16] MEDS ORDERED: PIPERACILLIN/TAZOBACTAM 4.5 GM in DEXTROSE 5% MINI-B 100 ML IV SCH (19:36)
[2023-08-16] MEDS ORDERED: VANCOMYCIN CONSULT ACTIVE PRN (19:36)
[2023-08-16] MEDS ORDERED: GLUCOSE 40% GEL 15 GM TUBE PO PRN (19:36)
[2023-08-16] MEDS ORDERED: DEXTROSE 50% 50 ML SYRINGE IV PRN (19:36)
[2023-08-16] MEDS ORDERED: ACETAMINOPHEN 325 MG TAB PO PRN (19:36)
[2023-08-16] MEDS ORDERED: CARBOHYDRATES FOR HYPOGLYCEMIA PO PRN (19:36)
--- NOTE | 2023-08-16 19:37 | Anesthesiology Progress Note ---
Date of Service August 16, 2023 Anesthesia Post Procedure Vital Signs Vital Signs: Temp Pulse Pulse Resp BP BP Pulse Ox 08/16/23 19:32 101.7 F H 71 20 116/79 100 08/16/23 19:20 97.9 F 69 20 116/70 100 08/16/23 15:00 100 H 20 100 08/16/23 14:30 102 H 18 158/82 H 81 L 08/16/23 13:20 100 H 22 133/85 08/16/23 13:16 96 H 08/16/23 11:27 100.0 F H 96 H 20 121/94 90 O2 Del Method O2 Flow Rate FiO2 08/16/23 19:32 Mechanical Vent 40 08/16/23 19:20 Mechanical Vent 40 08/16/23 15:00 4 08/16/23 14:30 2 08/16/23 13:20 08/16/23 13:16 08/16/23 11:27 Room Air Transfer of Care Handoff Completed per policy Notes Mental Status: see notes below Patient Amnestic to Procedure: Yes Nausea / Vomiting: adequately controlled Pain: adequately controlled Airway Patency, RR, SpO2: stable & adequate BP & HR: stable & adequate Hydration State: stable & adequate Anesthetic Complications: no major complications apparent and Pt Satisfied with anesthetic care Notes: patient remains intubated and sedated, in stable condition in ICU
[2023-08-16] MEDS ORDERED: STAT IV Infusion **Titration per Protocol STA ×2 (20:01→20:46)
[2023-08-16] MEDS ORDERED: PROPOFOL BOLUS FROM BAG IV PRN (20:01)
[2023-08-16] MEDS: propofoL 1,000 MG/100 ML VIAL IV SCH (20:19)
--- NOTE | 2023-08-16 20:20 | Critical Care Consultation ---
Date of Consultation August 16, 2023 Assessment & Plan (1) Perforated bowel: Reason Critically Ill: 72-year-old female presents to the ICU following perforated ascending colon, requiring ex lap with ileostomy and hemicolectomy. Remains mechanically ventilated following surgery. Neuro - Sedation/analgesia: Propofol and fentanyl drips Cardiac - HTNcurrently normotensive without use of vasopressor support. We will hold antihypertensives for now as blood pressures may remain soft on sedation. Res tart when appropriate HLDcontinue statin when taking p.o. Respiratory - Mechanically ventilatedpatient left intubated postop per anesthesia recommendations. No significant hypoxia or hypercapnia on ABG. No history of pulmonary disease. Admitted to ICU for vent management. Expect can likely extubate in a.m. if no acute events overnight. Follow-up morning chest x-ray and ABG. Continuous monitoring on pulse ox and end-tidal CO2. GI - Bowel perforationstatus post ex lap with ileostomy and hemicolectomy. -N.p.o. -Continue PPI - management per general surgery RENAL/LYTES - Creatinine within normal limits. Monitor routine BMPs and replete electrolytes as indicated - Foleystrict I's and O ENDO - DM type IIcurrently euglycemic. Continue basal bolus/sliding scale. ICU hyperglycemic protocol HEME - Hemoglobin stable at baseline. Repeat H&H postop pending. Transfuse for hemoglobin less than 7. Monitor routine CBC ID - Sepsissecondary to bowel perforation. We encouraged her currently pending. Patient remains febrile postop. Continue Zosyn LINES/IV ACCESS - Peripheral IVs DVT PROPHYLAXIS - SCDs, hold anticoagulation following surgery I have personally spent 40 minutes of critical care time in the direct management of this patient. This is a life/limb threatening event. This includes time spent evaluating patient, direct bedside care, chart review, placing orders, interpretation of diagnostic studies, discussion with consultants, patient, and family members, as well as other required patient management activities. This time is exclusive of all separately billable procedures, and teaching time and separate from and in addition to any other critical care service time. Thank you for allowing us to participate in the care of this patient. Please refer to my attending physician's documentation for any further recommendations. (2) Sepsis: (3) PUD (peptic ulcer disease): (4) Pneumoperitoneum: (5) Diabetes: (6) Lumbar stenosis with neurogenic claudication: (7) Hypertension: (8) Hyperlipidemia: (9) On mechanically assisted ventilation: History of Present Illness Attending Physician: Alissa Haywood DO History of Present Illness Patient is 72-year-old female with past medical history of diabetes, HTN, H LD, spinal stenosis with neurogenic claudication with recent L2-L5 decompression and fusion and discharged yesterday. Patient reported onset of abdominal pain overnight and had been constipated. CT abdomen and pelvis showed large pneumoperitoneum with possible bowel perforation. She was taken emergently to the OR and found to have pneumoperitoneum with perforation of the ascending colon. Underwent ex lap with right hemicolectomy and creation of ileostomy with general surgery. Patient was transferred to the ICU postop and remains intubated. On arrival she is mechanically ventilated and sedated with propofol. She is not currently requiring vasopressor support. She is febrile. Plan to remain intubated overnight and further medical management in ICU for now. If patient remains stable can likely trial extubate in the morning. Allergies Allergy/AdvReac Type Severity Reaction Status Date / Time red dye Allergy SWELLING Verified 08/11/23 08:09 AND ITCHING Home Medications Medication Instructions Recorded Confirmed Type losartan 50 mg-hydrochlorothiazide 1 tab PO HS 01/11/19 08/16/23 History 12.5 mg tablet meloxicam 15 mg tablet 15 mg PO QAM 02/17/23 08/16/23 History acetaminophen 500 mg tablet 1,000 mg PO TID PRN taken 07/20/23 08/16/23 History w/pregabalin allopurinol 300 mg tablet 300 mg PO HS 07/20/23 08/16/23 History atorvastatin 10 mg tablet 10 mg PO HS 07/20/23 08/16/23 History azithromycin 500 mg tablet 500 mg PO UD 07/20/23 08/16/23 History berberine-herbal comb no.18 capsule 3 cap PO UD 07/20/23 08/16/23 History Patient History Medical History (Updated 08/16/23 @ 20:32 by IVELISSE Kaminski) Gout Diabetes diet controlled Per patient at [facility] appt 07/28/23- did have steroid injections to bilateral knees recently History of anesthesia reaction s/p bilateral ROBYN in 2011- questionable ileus post op- resulted in longer hospital stay- no issues since Morbid obesity Lumbar pain with radiation down both legs History of kidney stones allopurinol currently to prevent no recent issues Hypertension Hyperlipidemia Surgical History (Updated 08/16/23 @ 14:36 by Alissa Haywood DO) S/P epidural steroid injection x2 S/P cystoscopy with ureteral stent placement w/laser lithotripsy Hx of tooth extraction History of cataract surgery RT, LT Hx of cystoscopy FOR STONE BASKET REMOVAL Hx of lithotripsy x3 Hx of foot surgery LEFT - X3 Hx of bilateral hip replacements 07/08/12 Family History Father Family history of diabetes mellitus Social History Smoking Status: Former smoker Tobacco Type: Cigarettes Second Hand Exposure: No; Do You Dip or Chew Tobacco: No; Hx Alcohol Use: Yes Alcohol type: wine Hx Substance Use: No Preferred Language: [place]an Communication Ability: Effective Rn Gynecology Required: No Beliefs That Will Affect Care: None Current Living Situation: Alone Feels Safe at Home: Yes Assistive Devices: Cane and Walker Review of Systems Review of Systems: All systems reviewed & are unremarkable except as noted in HPI & below Physical Exam Constitutional: comfortable and + mechanically ventilated Eyes: PERRL, conjunctivae normal, anicteric sclerae ENMT: external ear and nose normal, oropharynx normal Neck: trachea midline, no thyromegaly Respiratory: normal respiratory effort, lungs clear to auscultation Cardiovascular: RRR, no murmur, no edema Heart Sounds: normal S1 and normal S2 Extremities: no edema Gastrointestinal (Abdomen): Right upper quadrant ileostomy, midline surgical incision without shadowing on dressing. Bowel sounds auscultated all 4 quadrants Musculoskeletal: No musculoskeletal deformity. Unable to assess ROM Skin: no rashes, warm and dry Neurologic: PERRLA, cough gag corneal intact. Exam limited due to sedation Psychiatric: Unable to assess due to sedation Genitourinary: Zuleta Zuleta catheter present. Urine yellow and clear in tubing Results & Data Results & Data Vital Signs (Past 12 Hours) Vital Signs Temp Pulse Pulse Resp BP BP Pulse Ox 08/16/23 19:46 38.8 C H 75 18 118/81 100 08/16/23 19:32 38.7 C H 71 20 116/79 100 08/16/23 19:20 36.6 C 69 20 116/70 100 08/16/23 15:00 100 H 20 100 08/16/23 14:30 102 H 18 158/82 H 81 L 08/16/23 13:20 100 H 22 133/85 08/16/23 13:16 96 H 08/16/23 11:27 37.8 C H 96 H 20 121/94 90 O2 Del Method O2 Flow Rate FiO2 08/16/23 19:46 Mechanical Vent 40 08/16/23 19:32 Mechanical Vent 40 08/16/23 19:20 Mechanical Vent 40 08/16/23 15:00 4 08/16/23 14:30 2 08/16/23 13:20 08/16/23 13:16 08/16/23 11:27 Room Air Coding Level of Care Code 75115 CRITICAL CARE 1ST 30-74M Diagnoses Perforated bowel K63.1 Sepsis A41.9 PUD (peptic ulcer disease) K27.9 Pneumoperitoneum K66.8 Diabetes E11.9 Lumbar stenosis with neurogenic claudication M48.062 Hypertension I10 Hyperlipidemia E78.5 On mechanically assisted ventilation Z99.11
[2023-08-16 20:28] LABS: Eosinophils # (auto) 0.02 K/uL (0.00-0.50); Eosinophils % (auto) 0.3 %; Hematocrit (blood only) 27.4 % (37.0-47.0); Hemoglobin 8.8 g/dl (12.0-16.0); Immature Granulocytes # (auto) 0.08 K/uL (0.01-0.20); Immature Granulocytes % (auto) 1.2 %; Lymphocytes # (auto) 0.39 K/uL (1.20-3.40); Lymphocytes % (auto) 5.8 %; Mean Corpuscular Hemoglobin 27.3 pg (25.0-34.0); Mean Corpuscular Hgb Conc 32.1 g/dL (32.0-36.0); Mean Corpuscular Volume 85.1 fL (80.0-100.0); Mean Platelet Volume 8.8 fL (9.4-12.4); Monocytes # (auto) 0.44 K/uL (0.11-0.59); Monocytes % (auto) 6.6 %; Neutrophils # (auto) 5.77 K/uL (1.40-6.50); Neutrophils % (auto) 86.1 %; Nucleated RBC # (auto) 0.06 K/uL (0.00-0.12); Nucleated RBC % (auto) 0.9 %; Platelet Count 222 K/uL (130-400); RDW Coefficient of Variation 15.8 % (11.5-14.5); RDW Standard Deviation 48.8 fL (36.4-46.3); Red Blood Count 3.22 M/uL (4.20-5.40)
[2023-08-16] MEDS ORDERED: VANCOMYCIN HCL 2,250 MG in SODIUM CHLORIDE 0.9% 500 ML IV ONE (20:30)
[2023-08-16] MEDS: INSULIN ASPART PER UNIT CHARGE SC SCH ×2 (20:37→21:28)
[2023-08-16] MEDS: PLASMA-LYTE A 1,000 ML IV SCH (20:39)
[2023-08-16] MEDS ORDERED: fentaNYL BOLUS from BAG IV PRN (20:46)
[2023-08-16 20:49] LABS: Albumin Globulin Ratio 1.2 (0.9-2); Albumin Level 2.7 gm/dl (3.4-5.0); BUN Creatinine Ratio 21.9 (10-20); Calcium 8.1 mg/dl (8.6-10.3); Creatinine Clr Calc Pharmacy 95.9 ml/min; Est GFR (African American) 102.6 ml/min; Est GFR (Non-African American) 88.5 ml/min; Globulin 2.3 gm/dl (2.5-4.0); Magnesium 1.8 mg/dl (1.7-2.4); Phosphorus 3.2 mg/dl (2.5-4.9); Potassium 4.2 mmol/L (3.5-5.1)
[2023-08-16 20:50] LABS: Appearance Urine Clear (Clear); Bacteria Urine Automated Negative (Negative); Bilirubin Urine Negative (Negative); Blood Urine Negative (Negative); Color Urine Dark Yellow; Glucose Urine UA 1+ (Negative); Ketones Urine 4+ (Negative); Leukocyte Esterase Urine Negative (Negative); Nitrite Urine Negative (Negative); Protein Urine 1+ (Negative); Specific Gravity Urine 1.022 (1.000-1.030); Urobilinogen Urine Negative (Negative)
[2023-08-16] MEDS: PIPERACILLIN/TAZOBACTAM 4.5 GM in DEXTROSE 5% MINI-B 100 ML IV SCH (20:53)
[2023-08-16] MEDS: ATORVASTATIN 10 MG TAB PO SCH (21:00)
[2023-08-16] MEDS: allopurinoL 300 MG TAB PO SCH (21:00)
[2023-08-16] MEDS ORDERED: fentaNYL citrate 2,500 MCG/250 ML BAG IV SCH (21:00)
[2023-08-16] MEDS: PANTOprazole 40 MG in SYRINGE 0 ML IV SCH (21:15)
[2023-08-16] MEDS: LANTUS PER UNIT CHARGE SQ SCH (21:28)
[2023-08-16] MEDS: ACETAMINOPHEN 1,000 MG/100 ML VIAL IV PRN (21:36)
[2023-08-17] MEDS ORDERED: Nursing to Pharmacy Communication SCH (00:15)
[2023-08-17] MEDS: propofoL 1,000 MG/100 ML VIAL IV SCH ×3 (00:18→07:47)
[2023-08-17] MEDS: PIPERACILLIN/TAZOBACTAM 4.5 GM in DEXTROSE 5% MINI-B 100 ML IV SCH ×3 (03:58→21:37)
[2023-08-17] MEDS: PLASMA-LYTE A 1,000 ML IV SCH ×2 (04:00→18:09)
[2023-08-17 04:42] LABS: Basophils # (auto) 0.01 K/uL (0.00-0.20); Basophils % (auto) 0.1 %; Hematocrit (blood only) 24.9 % (37.0-47.0); Hemoglobin 7.9 g/dl (12.0-16.0); Immature Granulocytes # (auto) 0.06 K/uL (0.01-0.20); Immature Granulocytes % (auto) 0.9 %; Lymphocytes # (auto) 0.53 K/uL (1.20-3.40); Lymphocytes % (auto) 7.6 %; Mean Corpuscular Hemoglobin 27.3 pg (25.0-34.0); Mean Corpuscular Hgb Conc 31.7 g/dL (32.0-36.0); Mean Corpuscular Volume 86.2 fL (80.0-100.0); Mean Platelet Volume 8.6 fL (9.4-12.4); Monocytes # (auto) 0.66 K/uL (0.11-0.59); Monocytes % (auto) 9.5 %; Neutrophils # (auto) 5.72 K/uL (1.40-6.50); Neutrophils % (auto) 81.9 %; Nucleated RBC # (auto) 0.02 K/uL (0.00-0.12); Nucleated RBC % (auto) 0.3 %; Platelet Count 185 K/uL (130-400); RDW Coefficient of Variation 15.9 % (11.5-14.5); RDW Standard Deviation 49.9 fL (36.4-46.3); Red Blood Count 2.89 M/uL (4.20-5.40); White Blood Count 6.98 K/ul (4.8-10.8)
[2023-08-17 05:06] LABS: Albumin Globulin Ratio 1.1 (0.9-2); Albumin Level 2.4 gm/dl (3.4-5.0); BUN Creatinine Ratio 18.8 (10-20); Bilirubin,Total 1.1 mg/dl (0.2-1.0); Calcium 7.6 mg/dl (8.6-10.3); Creatinine Clr Calc Pharmacy 95.9 ml/min; Est GFR (African American) 102.6 ml/min; Est GFR (Non-African American) 88.5 ml/min; Globulin 2.1 gm/dl (2.5-4.0); Magnesium 1.8 mg/dl (1.7-2.4); Phosphorus 3.9 mg/dl (2.5-4.9); Total Protein 4.5 gm/dl (6.0-8.3)
[2023-08-17 05:15] LABS: Anisocytosis Present; Polychromasia 1+
[2023-08-17] MEDS: INSULIN ASPART PER UNIT CHARGE SC SCH ×4 (05:20→23:34)
[2023-08-17] MEDS ORDERED: MAGNESIUM SULFATE / D5W 1 GM/100 ML BAG IV ONE (06:58)
--- NOTE | 2023-08-17 07:49 | Pharmacy Report ---
Pharmacy PK ABX Note - Date of Service August 17, 2023 - Assessment and Plan Assessment 72 year old F receiving vancomycin and zosyn for treatment of sepsis secondary to a perforated bowel. Pertinent microbiologic data includes: abdomen culture pending. Given BMI of 45, will monitor closely for accumulation and toxicity with vancomycin. Day # 2 of antimicrobial therapy. Plan Vancomycin * Loading dose: 2250 mg IV x 1 administered last evening * Maintenance dose: 1000 mg IV every 12 hours * Regimen is predicted to achieve target AUC/EBER of 400-600 mg/L.hr * Trough level ordered for: 08/18/23 @ 0700 Pharmacy will continue to follow and will adjust dose/frequency as necessary. Thank you. Pharmacy has transitioned to AUC monitoring for vancomycin. AUC/EBER is the preferred PK/PD target and is associated with decreased risk of nephrotoxicity compared to traditional trough targets.
--- NOTE | 2023-08-17 08:03 | Critical Care Progress Note ---
Date of Service August 17, 2023 Assessment & Plan (1) On mechanically assisted ventilation: (2) Perforated bowel: (3) Sepsis: (4) Diabetes: (5) Morbid obesity: (6) Hypertension: (7) Hyperlipidemia: Plan Reason Critically Ill: 72-year-old female presents to the ICU following perforated ascending colon, requiring ex lap with ileostomy and hemicolectomy. Remains mechanically ventilated following surgery. 24-hour events: Patient's been hemodynamically stable overnight. She is on minimal vent settings. Sedation was discontinued this morning and we will plan on proceeding with vent liberation. Recommendation Neuro -discontinue sedation. We will address pain control once liberated from mechanical ventilator. She has Dilaudid and morphine written for by the general surgery team. Cardiac -no current issues. Holding antihypertensives until blood pressure necessitates restarting. Holding oral medications until resumption of bowel function. Decrease IV fluids to 50 cc an hour and anticipate discontinuation once taking p.o. Respiratory -left intubated postop per anesthesia. Okay to extubate this morning. Will need aggressive postop pulmonary toilet including incentive spirometry. GI -bowel perforation status post ileostomy and hemicolectomy. Await resumption of bowel function. Monitor drain output. Continue twice daily Protonix. RENAL/LYTES -ICU electrolyte replacement protocol. Kidney function and urine output adequate. -can likely discontinue Zuleta catheter once the patient is up and out of bed ENDO - glycemic control per protocol HEME -mild anemia. Slight decrease from baseline. No signs of active bleeding. Continue to follow at this point time. ID -peritonitis. Continue Zosyn/vancomycin day #2. Cultures pending. Defer antifungal therapy currently. LINES/IV ACCESS -maintain central line until adequate peripheral IV DVT PROPHYLAXIS -start DVT prophylaxis with subcu heparin. Initiate physical therapy and Occupational Therapy. Out of bed to chair as tolerated. Admission and Anticipated Discharge Date Admission Date: August 16, 2023 Subjective Patient is intubated and sedated. Review of Systems Review of Systems: Unobtainable due to endotracheal tube Physical Exam Constitutional: + mechanically ventilated Obese Neck: trachea midline, no thyromegaly Respiratory: normal respiratory effort, lungs clear to auscultation Cardiovascular: RRR, no murmur, no edema Gastrointestinal (Abdomen): Midline incision with DARIUS drain in place. Bowel sounds are absent. Morbidly obese Musculoskeletal: Extremities: extremities normal to inspection Skin: no rashes, warm and dry Neurologic: Sedated on the ventilator Lymphatic: no cervical lymphadenopathy Results & Data Results & Data Vital Signs (Past 12 Hours) Vital Signs Temp Pulse Resp BP Pulse Ox O2 Del Method O2 Flow Rate 08/17/23 07:37 64 14 95 08/17/23 05:45 37.8 C H 66 14 95 08/17/23 05:30 118/78 08/17/23 05:30 37.8 C H 64 14 95 08/17/23 05:15 37.8 C H 65 17 95 08/17/23 05:00 122/79 08/17/23 05:00 37.7 C H 63 17 95 08/17/23 04:45 37.7 C H 65 16 96 08/17/23 04:30 132/75 08/17/23 04:30 37.7 C H 66 16 96 08/17/23 04:15 37.8 C H 64 16 95 08/17/23 04:00 37.8 C H 62 16 95 08/17/23 04:00 120/72 08/17/23 04:00 08/17/23 03:45 37.8 C H 63 16 95 08/17/23 03:30 121/76 08/17/23 03:30 37.8 C H 63 16 95 08/17/23 03:15 37.9 C H 62 16 96 08/17/23 03:00 65 14 95 08/17/23 03:00 114/76 08/17/23 03:00 37.9 C H 61 16 95 08/17/23 02:45 37.9 C H 65 16 96 08/17/23 02:30 119/78 08/17/23 02:30 37.9 C H 64 16 96 08/17/23 02:15 38.0 C H 62 16 96 08/17/23 02:00 116/72 08/17/23 02:00 38.0 C H 63 16 96 08/17/23 01:45 38.0 C H 65 16 96 08/17/23 01:30 38.0 C H 65 16 96 08/17/23 01:30 111/74 08/17/23 01:15 38.1 C H 65 16 96 08/17/23 01:00 38.1 C H 61 16 96 08/17/23 01:00 109/70 08/17/23 00:45 38.2 C H 61 16 96 08/17/23 00:30 117/72 08/17/23 00:30 38.2 C H 66 16 96 08/17/23 00:15 38.2 C H 65 16 96 08/17/23 00:00 110/71 08/17/23 00:00 38.3 C H 67 16 96 08/17/23 00:00 08/16/23 23:45 38.3 C H 67 16 96 08/16/23 23:30 110/72 08/16/23 23:30 38.4 C H 67 16 96 08/16/23 23:15 38.5 C H 69 16 96 08/16/23 23:00 122/78 08/16/23 23:00 38.6 C H 69 16 96 08/16/23 23:00 71 16 96 08/16/23 22:45 38.7 C H 71 16 96 08/16/23 22:30 38.8 C H 71 16 96 08/16/23 22:30 119/73 08/16/23 22:15 38.9 C H 71 16 97 08/16/23 22:00 39.0 C H 75 16 97 08/16/23 22:00 129/75 08/16/23 21:45 139/76 08/16/23 21:45 39.1 C H 75 16 97 08/16/23 21:30 39.2 C H 77 16 96 08/16/23 21:30 131/78 08/16/23 21:15 39.2 C H 75 16 96 08/16/23 21:15 132/82 08/16/23 21:00 130/83 08/16/23 21:00 39.3 C H 75 16 96 08/16/23 20:45 130/88 08/16/23 20:45 39.2 C H 73 14 96 08/16/23 20:30 119/76 08/16/23 20:30 39.2 C H 75 16 96 08/16/23 20:16 124/66 08/16/23 20:16 39.1 C H 75 16 94 08/16/23 20:15 39.1 C H 76 16 96 08/16/23 20:00 Mechanical Vent 30 08/16/23 20:00 08/16/23 20:00 132/79 08/16/23 20:00 38.9 C H 76 16 97 FiO2 08/17/23 07:37 30 08/17/23 05:45 08/17/23 05:30 08/17/23 05:30 08/17/23 05:15 08/17/23 05:00 08/17/23 05:00 08/17/23 04:45 08/17/23 04:30 08/17/23 04:30 08/17/23 04:15 08/17/23 04:00 08/17/23 04:00 08/17/23 04:00 30 08/17/23 03:45 08/17/23 03:30 08/17/23 03:30 08/17/23 03:15 08/17/23 03:00 35 08/17/23 03:00 08/17/23 03:00 08/17/23 02:45 08/17/23 02:30 08/17/23 02:30 08/17/23 02:15 08/17/23 02:00 08/17/23 02:00 08/17/23 01:45 08/17/23 01:30 08/17/23 01:30 08/17/23 01:15 08/17/23 01:00 08/17/23 01:00 08/17/23 00:45 08/17/23 00:30 08/17/23 00:30 08/17/23 00:15 08/17/23 00:00 08/17/23 00:00 08/17/23 00:00 30 08/16/23 23:45 08/16/23 23:30 08/16/23 23:30 08/16/23 23:15 08/16/23 23:00 08/16/23 23:00 08/16/23 23:00 30 08/16/23 22:45 08/16/23 22:30 08/16/23 22:30 08/16/23 22:15 08/16/23 22:00 08/16/23 22:00 08/16/23 21:45 08/16/23 21:45 08/16/23 21:30 08/16/23 21:30 08/16/23 21:15 08/16/23 21:15 08/16/23 21:00 08/16/23 21:00 08/16/23 20:45 08/16/23 20:45 08/16/23 20:30 08/16/23 20:30 08/16/23 20:16 08/16/23 20:16 08/16/23 20:15 08/16/23 20:00 08/16/23 20:00 30 08/16/23 20:00 08/16/23 20:00 Critical Care Results & Data Vital Signs (Past 12 Hours) Vital Signs Temp Pulse Resp BP Pulse Ox O2 Del Method O2 Flow Rate 08/17/23 07:37 64 14 95 08/17/23 05:45 37.8 C H 66 14 95 08/17/23 05:30 118/78 08/17/23 05:30 37.8 C H 64 14 95 08/17/23 05:15 37.8 C H 65 17 95 08/17/23 05:00 122/79 08/17/23 05:00 37.7 C H 63 17 95 08/17/23 04:45 37.7 C H 65 16 96 08/17/23 04:30 132/75 08/17/23 04:30 37.7 C H 66 16 96 08/17/23 04:15 37.8 C H 64 16 95 08/17/23 04:00 37.8 C H 62 16 95 08/17/23 04:00 120/72 08/17/23 04:00 08/17/23 03:45 37.8 C H 63 16 95 08/17/23 03:30 121/76 08/17/23 03:30 37.8 C H 63 16 95 08/17/23 03:15 37.9 C H 62 16 96 08/17/23 03:00 65 14 95 08/17/23 03:00 114/76 08/17/23 03:00 37.9 C H 61 16 95 08/17/23 02:45 37.9 C H 65 16 96 08/17/23 02:30 119/78 08/17/23 02:30 37.9 C H 64 16 96 08/17/23 02:15 38.0 C H 62 16 96 08/17/23 02:00 116/72 08/17/23 02:00 38.0 C H 63 16 96 08/17/23 01:45 38.0 C H 65 16 96 08/17/23 01:30 38.0 C H 65 16 96 08/17/23 01:30 111/74 08/17/23 01:15 38.1 C H 65 16 96 08/17/23 01:00 38.1 C H 61 16 96 08/17/23 01:00 109/70 08/17/23 00:45 38.2 C H 61 16 96 08/17/23 00:30 117/72 08/17/23 00:30 38.2 C H 66 16 96 08/17/23 00:15 38.2 C H 65 16 96 08/17/23 00:00 110/71 08/17/23 00:00 38.3 C H 67 16 96 08/17/23 00:00 08/16/23 23:45 38.3 C H 67 16 96 08/16/23 23:30 110/72 08/16/23 23:30 38.4 C H 67 16 96 08/16/23 23:15 38.5 C H 69 16 96 08/16/23 23:00 122/78 08/16/23 23:00 38.6 C H 69 16 96 08/16/23 23:00 71 16 96 08/16/23 22:45 38.7 C H 71 16 96 08/16/23 22:30 38.8 C H 71 16 96 08/16/23 22:30 119/73 08/16/23 22:15 38.9 C H 71 16 97 08/16/23 22:00 39.0 C H 75 16 97 08/16/23 22:00 129/75 08/16/23 21:45 139/76 08/16/23 21:45 39.1 C H 75 16 97 08/16/23 21:30 39.2 C H 77 16 96 08/16/23 21:30 131/78 08/16/23 21:15 39.2 C H 75 16 96 08/16/23 21:15 132/82 08/16/23 21:00 130/83 08/16/23 21:00 39.3 C H 75 16 96 08/16/23 20:45 130/88 11/19/23 20:45 39.2 C H 73 14 96 08/16/23 20:30 119/76 08/16/23 20:30 39.2 C H 75 16 96 08/16/23 20:16 124/66 08/16/23 20:16 39.1 C H 75 16 94 08/16/23 20:15 39.1 C H 76 16 96 08/16/23 20:00 Mechanical Vent 30 08/16/23 20:00 08/16/23 20:00 132/79 08/16/23 20:00 38.9 C H 76 16 97 FiO2 08/17/23 07:37 30 08/17/23 05:45 08/17/23 05:30 08/17/23 05:30 08/17/23 05:15 08/17/23 05:00 08/17/23 05:00 08/17/23 04:45 08/17/23 04:30 08/17/23 04:30 08/17/23 04:15 08/17/23 04:00 08/17/23 04:00 08/17/23 04:00 30 08/17/23 03:45 08/17/23 03:30 08/17/23 03:30 08/17/23 03:15 08/17/23 03:00 35 08/17/23 03:00 08/17/23 03:00 08/17/23 02:45 08/17/23 02:30 08/17/23 02:30 08/17/23 02:15 08/17/23 02:00 08/17/23 02:00 08/17/23 01:45 08/17/23 01:30 08/17/23 01:30 08/17/23 01:15 08/17/23 01:00 08/17/23 01:00 08/17/23 00:45 08/17/23 00:30 08/17/23 00:30 08/17/23 00:15 08/17/23 00:00 08/17/23 00:00 08/17/23 00:00 30 08/16/23 23:45 08/16/23 23:30 08/16/23 23:30 08/16/23 23:15 08/16/23 23:00 08/16/23 23:00 08/16/23 23:00 30 08/16/23 22:45 08/16/23 22:30 08/16/23 22:30 08/16/23 22:15 08/16/23 22:00 08/16/23 22:00 08/16/23 21:45 08/16/23 21:45 08/16/23 21:30 08/16/23 21:30 08/16/23 21:15 08/16/23 21:15 08/16/23 21:00 08/16/23 21:00 08/16/23 20:45 08/16/23 20:45 08/16/23 20:30 08/16/23 20:30 08/16/23 20:16 08/16/23 20:16 08/16/23 20:15 08/16/23 20:00 08/16/23 20:00 30 08/16/23 20:00 08/16/23 20:00 Lab & Micro Results (Past 24 Hours) RBC 2.89 M/uL (4.20-5.40) L 08/17/23 WBC 6.98 K/ul (4.8-10.8) 08/17/23 Hgb 7.9 g/dl (12.0-16.0) L 08/17/23 Hct 24.9 % (37.0-47.0) L 08/17/23 MCV 86.2 fL (80.0-100.0) 08/17/23 MCH 27.3 pg (25.0-34.0) 08/17/23 MCHC 31.7 g/dL (32.0-36.0) L 08/17/23 RDW Standard Deviation 49.9 fL (36.4-46.3) H 08/17/23 RDW Coefficient of Variation 15.9 % (11.5-14.5) H 08/17/23 Plt Count 185 K/uL (130-400) 08/17/23 MPV 8.6 fL (9.4-12.4) L 08/17/23 Nucleated Red Blood Cells % (auto) 0.3 % 08/17 Nucleated RBC Absolute Count (auto) 0.02 K/uL (0.00-0.12) 1 10/17/22 Neutrophils (%) (Auto) 81.9 % 08/17/23 Lymphocytes (%) (Auto) 7.6 % 08/17/23 Monocytes # (Auto) 0.66 K/uL (0.11-0.59) H 08/17/23 Eosinophils # (Auto) 0.00 K/uL (0.00-0.50) 08/17/23 Immature Granulocyte % (Auto) 0.9 % 08/17/23 Neutrophils # (Auto) 5.72 K/uL (1.40-6.50) 08/17/23 Lymphocytes # (Auto) 0.53 K/uL (1.20-3.40) L 08/17/23 Monocytes # (Auto) 0.66 K/uL (0.11-0.59) H 08/17/23 Eosinophils # (Auto) 0.00 K/uL (0.00-0.50) 08/17/23 Basophils # (Auto) 0.01 K/uL (0.00-0.20) 08/17/23 Immature Granulocyte # (Auto) 0.06 K/uL (0.01-0.20) 3 Polychromasia 1+ 08/17/23 Anisocytosis Present 08/17/23 Na 137 mmol/L (136-145) 08/17/23 K 4.0 mmol/L (3.5-5.1) 08/17/23 Cl 103 mmol/L (98-107) 08/17/23 CO2 29 mmol/L (21-32) 08/17/23 Anion Gap 5 (3-11) 08/17/23 BUN 12 mg/dl (6-23) 08/17/23 Creatinine 0.64 mg/dl (0.6-1.2) 08/17/23 Estimated GFR ( Amer) 102.6 ml/min 08/17/23 Estimated GFR (Non-Af Amer) 88.5 ml/min 08/17/23 BUN/Creatinine Ratio 18.8 (10-20) 08/17/23 Glu 194 mg/dl (70-99(Fasting)) H 08/17/23 Ca 7.6 mg/dl (8.6-10.3) L 08/17/23 Phosphorus Level 3.9 mg/dl (2.5-4.9) 08/17/23 Total Bilirubin 1.1 mg/dl (0.2-1.0) H 08/17/23 Direct Bilirubin 0.3 mg/dl (0-0.2) H 08/16/23 AST 16 U/L (13-39) 08/17/23 ALT 23 U/L (7-52) 08/17/23 Alkaline Phosphatase 131 U/L (34-104) H 08/17/23 TP 4.5 gm/dl (6.0-8.3) L 08/17/23 Albumin 2.4 gm/dl (3.4-5.0) L 08/17/23 Globulin 2.1 gm/dl (2.5-4.0) L 08/17/23 Albumin/Globulin Ratio 1.1 (0.9-2) 08/17/23 Mg 1.8 mg/dl (1.7-2.4) 08/17/23 04:11 Calcium Level 7.6 mg/dl (8.6-10.3) L 08/17/23 04:11 Microbiology 08/16/23 Unknown Gram Stain - Final Abdomen Diagnostic Findings (Past 24 Hours) Abdomen/Pelvis CT 08/16/23 11:[address] WITHOUT CONTRAST CT DOSE: 1479.25 mGy.cm HISTORY: RLQ pain TECHNIQUE: Multiaxial CT images of the abdomen and pelvis were performed without contrast. A dose lowering technique was utilized adhering to the principles of ALARA. COMPARISON STUDY: None. FINDINGS: Trace right pleural effusion. Mild dependent changes seen at the lung bases. Large amount of pneumoperitoneum resulting in abdominal distention. There are bilateral total hip arthroplasties. Posterior decompression fusion from L2 through L5 with pedicle screws and rods. The hardware appears intact. No acute fractures. Small amount of gas at the laminectomy sites as well as fluid favors the recent postoperative change. Small umbilical hernia containing fat and gas. There is mild body wall edema noted. Cholelithiasis. No gallbladder wall thickening. The unenhanced liver, spleen, adrenal glands, and pancreas unremarkable. Multiple bilateral peripelvic renal cysts are noted. Bilateral nephrolithiasis. No hydronephrosis. Normal caliber abdominal aorta. No retroperitoneal lymphadenopathy. No pelvic lymphadenopathy or pelvic free fluid. The bladder and uterus are not well visualized due to the metallic artifact but appear unremarkable. Extensive colonic diverticulosis. No evidence for acute diverticulitis. [id number] fecal retention most pronounced within the proximal colon. Normal appendix. No dilated loops of bowel to suggest an obstruction. There is mild circumferential thickening and fat stranding within the proximal duodenum best seen on image 123. In conjunction with the extensive pneumoperitoneum this is concerning for a perforated duodenal ulcer. IMPRESSION: 1. Extensive pneumoperitoneum. This is consistent with underlying bowel perforation. The exact location is difficult to confirm but favors a perforated duodenal ulcer as described above. 2. Colonic diverticulosis. No evidence for acute diverticulitis. 3. Bilateral nephrolithiasis. No ureteral stones. No hydronephrosis. 4. Trace right pleural effusion. 5. Cholelithiasis. 6. Additional findings as described above. ACT 112: Negative or not required by law. Electronically signed by: Gunnar Eldridge M.D. 08/16/2023 12:41 PM Chest X-Ray 08/16/23 11:27 XR chest 1V portable HISTORY: hypoxia COMPARISON: Chest 07/28/2023. FINDINGS: No pneumothorax. No pleural effusions. The heart remains enlarged. No focal lung consolidations to suggest a pneumonia. Mild interstitial thickening. This is likely chronic. There is extensive pneumoperitoneum seen within the upper abdomen. Mild scoliosis. Degenerative changes within the shoulders. There is a tortuous thoracic aorta again noted. IMPRESSION: 1. Pneumoperitoneum. This will be better assessed on the same day abdomen and pelvis CT. 2. Cardiomegaly. ACT 112: Negative or not required by law. Electronically signed by: Gunnar Eldridge M.D. 08/16/2023 11:54 AM I & O Totals 24 Hours 08/16/23 08/17/23 08/18/23 06:59 06:59 06:59 Intake Total 4583.47 / 4718.423 149.083 / 149.083 Output Total 1025 / 1025 Balance 3558.47 / 3693.423 149.083 / 149.083 Cumulative 08/16/23 10:49 thru 08/17/23 07:31 Intake Total 4732.553 Output Total 1025 Balance 3707.553 RT Ventilator Mngmt (Last Documented) Ventilator Ordered Settings Ventilator Support Mode Assist Control 08/17/23 07:37 Respiratory Rate 14 08/17/23 07:37 Ventilator Tidal Volume 400 08/17/23 07:37 Setting Minute Ventilation 5.6 08/17/23 07:37 Positive End Expiratory 5 08/17/23 07:37 Pressure Fraction of Inspired Oxygen 30 08/17/23 07:37 Peak Inspiratory Flow 30 08/17/23 07:37 Ventilator - PT Measurements Respiratory Rate 14 Exhaled Tidal Volume 400 Minute Ventilation 5.6 Peak Inspiratory Airway 24 Pressure Plateau Pressure 17 Respiratory Cycle Inspiratory: 1:4.4 Expiratory Ratio Inspiratory Phase Time 0.80 End-Tidal CO2 37 Static Lung Compliance 33.33 Dynamic Lung Compliance 21.05 Normal Static Lung Compliance 46.00 Patient Measurements Comment 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
[2023-08-17] MEDS: ACETAMINOPHEN 1,000 MG/100 ML VIAL IV PRN ×2 (08:07→15:11)
[2023-08-17] MEDS: VANCOMYCIN HCL 1,000 MG in SODIUM CHLORIDE 0.9% 250 ML IV SCH ×2 (08:26→20:14)
[2023-08-17] MEDS: HYDROmorphone INJ 1 MG/ML SYRINGE IV PRN ×2 (08:29→18:33)
[2023-08-17] MEDS ORDERED: COUGH DROP (SUGAR FREE) LOZ 24 LOZ/1 BOX BUCCAL PRN (08:32)
--- NOTE | 2023-08-17 08:37 | XRay Report ---
SINGLE VIEW CHEST CLINICAL HISTORY: Respiratory failure. Intubation. FINDINGS: An AP, portable, supine chest radiograph is compared to study dated 08/16/2023. The examina tion is degraded by portable technique and patient rotation. A left internal jugular central venous catheter has been placed. The tip projects over the cavoatrial junction. An enteric tube has been sandi jordan. The tip projects below the diaphragm. An endotracheal tube has been placed. The tip projects 5 c m above the gamaliel. The heart cardiac silhouette is enlarged. There is mild pulmonary vascular conges tion. A small right pleural effusion is suspected with right basilar atelectasis. No pneumothorax is seen. The skeletal structures are osteopenic. The bony thorax is grossly intact. Fusion hardware is p artially visualized and lumbar spine. IMPRESSION: 1. Line and tube placement as above. 2. Enlarged cardiac silhouette with mild pulmonary vascular congestion. 3. Small right pleural effusion. ACT 112: Negative or not required by law. Electronically signed by: Juanito Sharma M.D. 08/17/2023 8:36 AM
[2023-08-17] MEDS: ENOXAPARIN INJ 40 MG/0.4 ML SYR SQ SCH (08:58)
[2023-08-17] MEDS: PANTOprazole 40 MG in SYRINGE 0 ML IV SCH ×2 (10:42→11:30)
--- NOTE | 2023-08-17 12:15 | Surgery Progress Note ---
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 Lawson has seen and examined patient, agrees with above. Admission and Anticipated Discharge Date Admission Date: August 16, 2023 Subjective feeling okay, main complaint is throat pain due to the NGT abdominal pain controlled no n,v no chest pain or shortness of breath no fevers or chills Physical Exam Constitutional: WD/WN, vitals as above + morbidly obese, cooperative and comfortable; no acute distress and not ill appearing Neck: Left internal jugular catheter intact, no ecchymosis or edema or erythema Respiratory: normal respiratory effort; no respiratory distress, no labored breathing, no retractions and no cough Cardiovascular: RRR, no murmur, no edema Gastrointestinal (Abdomen): Inspection/Auscultation: abdomen normal to inspection, + abdomen distended (mild), + abdominal surgical incision (clean/dry/intact , robbin intact) and + hypoactive bowel sounds; + abnormal bowel sounds Percussion/Palpation: + abdomen tender (at midline incision and right abdomen) and abdomen soft; no guarding, abdomen not rigid and abdomen not firm Ileostomy pink without necrosis, some sweat and flatus in bag, no stool Skin: no rashes, warm and dry Psychiatric: Orientation: alert and oriented x 3 Results & Data Vital Signs (Past 12 Hours) Vital Signs Temp Pulse Resp BP Pulse Ox O2 Del Method O2 Flow Rate 08/17/23 09:00 142/115 H 08/17/23 09:00 37.7 C H 70 19 96 Nasal Cannula 2 08/17/23 08:31 148/94 H 08/17/23 08:31 37.7 C H 77 21 94 08/17/23 08:01 144/75 H 08/17/23 08:01 37.7 C H 85 22 95 08/17/23 08:00 Nasal Cannula 2 08/17/23 08:00 37.7 C H 82 17 96 Mechanical Vent 08/17/23 08:00 63 08/17/23 07:37 64 14 95 08/17/23 07:30 37.1 C 61 14 95 08/17/23 07:30 113/73 08/17/23 07:00 129/78 08/17/23 07:00 37.1 C 62 14 96 08/17/23 06:30 114/77 08/17/23 06:30 37.7 C H 63 14 95 08/17/23 06:00 113/72 08/17/23 06:00 37.8 C H 62 14 95 08/17/23 05:45 37.8 C H 66 14 95 08/17/23 05:30 118/78 08/17/23 05:30 37.8 C H 64 14 95 08/17/23 05:15 37.8 C H 65 17 95 08/17/23 05:00 122/79 08/17/23 05:00 37.7 C H 63 17 95 08/17/23 04:45 37.7 C H 65 16 96 08/17/23 04:30 132/75 08/17/23 04:30 37.7 C H 66 16 96 08/17/23 04:15 37.8 C H 64 16 95 08/17/23 04:00 37.8 C H 62 16 95 08/17/23 04:00 120/72 08/17/23 04:00 08/17/23 03:45 37.8 C H 63 16 95 08/17/23 03:30 121/76 08/17/23 03:30 37.8 C H 63 16 95 08/17/23 03:15 37.9 C H 62 16 96 08/17/23 03:00 65 14 95 08/17/23 03:00 114/76 08/17/23 03:00 37.9 C H 61 16 95 08/17/23 02:45 37.9 C H 65 16 96 08/17/23 02:30 119/78 08/17/23 02:30 37.9 C H 64 16 96 08/17/23 02:15 38.0 C H 62 16 96 08/17/23 02:00 116/72 08/17/23 02:00 38.0 C H 63 16 96 08/17/23 01:45 38.0 C H 65 16 96 08/17/23 01:30 38.0 C H 65 16 96 08/17/23 01:30 111/74 08/17/23 01:15 38.1 C H 65 16 96 08/17/23 01:00 38.1 C H 61 16 96 08/17/23 01:00 109/70 08/17/23 00:45 38.2 C H 61 16 96 08/17/23 00:30 117/72 08/17/23 00:30 38.2 C H 66 16 96 08/17/23 00:15 38.2 C H 65 16 96 FiO2 08/17/23 09:00 08/17/23 09:00 08/17/23 08:31 08/17/23 08:31 08/17/23 08:01 08/17/23 08:01 08/17/23 08:00 08/17/23 08:00 08/17/23 08:00 08/17/23 07:37 30 08/17/23 07:30 08/17/23 07:30 08/17/23 07:00 08/17/23 07:00 08/17/23 06:30 08/17/23 06:30 08/17/23 06:00 08/17/23 06:00 08/17/23 05:45 08/17/23 05:30 08/17/23 05:30 08/17/23 05:15 08/17/23 05:00 08/17/23 05:00 08/17/23 04:45 08/17/23 04:30 08/17/23 04:30 08/17/23 04:15 08/17/23 04:00 08/17/23 04:00 08/17/23 04:00 30 08/17/23 03:45 08/17/23 03:30 08/17/23 03:30 08/17/23 03:15 08/17/23 03:00 35 08/17/23 03:00 08/17/23 03:00 08/17/23 02:45 08/17/23 02:30 08/17/23 02:30 08/17/23 02:15 08/17/23 02:00 08/17/23 02:00 08/17/23 01:45 08/17/23 01:30 08/17/23 01:30 08/17/23 01:15 08/17/23 01:00 08/17/23 01:00 08/17/23 00:45 08/17/23 00:30 08/17/23 00:30 08/17/23 00:15 Laboratory Results 08/17/23 08/17/23 08/17/23 Range/Units 11:40 05:13 04:11 WBC (4.8-10.8) K/ul RBC (4.20-5.40) M/uL Hgb (12.0-16.0) g/dl Hct (37.0-47.0) % MCV (80.0-100.0) fL MCH (25.0-34.0) pg MCHC (32.0-36.0) g/dL RDW Std Deviation (36.4-46.3) fL RDW Coeff of Samantha (11.5-14.5) % Plt Count (130-400) K/uL MPV (9.4-12.4) fL Immature Gran % (Auto) % Neut % (Auto) % Lymph % (Auto) % [place] % (Auto) % Eos % (Auto) % Baso % (Auto) % Neut # (Auto) (1.40-6.50) K/uL Lymph # (Auto) (1.20-3.40) K/uL [place] # (Auto) (0.11-0.59) K/uL Eos # (Auto) (0.00-0.50) K/uL Baso # (Auto) (0.00-0.20) K/uL Immature Gran # (Auto) (0.01-0.20) K/uL Absolute Nucleated RBC (0.00-0.12) K/uL Nucleated RBC % (auto) % Polychromasia Anisocytosis Sodium 137 (136-145) mmol/L Potassium 4.0 Chloride 103 (98-107) mmol/L Carbon Dioxide 29 (21-32) mmol/L Anion Gap 5 (3-11) BUN 12 (6-23) mg/dl Creatinine 0.64 (0.6-1.2) mg/dl Est Cr Clr Drug Dosing 95.9 ml/min Est GFR ( Amer) 102.6 ml/min Est GFR (Non-Af Amer) 88.5 ml/min BUN/Creatinine Ratio 18.8 (10-20) Glucose 194 H (70-99(Fasting)) mg/dl POC Glucose 178 H 206 H (70-99) mg/dl Lactate (0.4-2.0) mmol/L Calcium 7.6 L (8.6-10.3) mg/dl Phosphorus 3.9 (2.5-4.9) mg/dl Magnesium 1.8 (1.7-2.4) mg/dl Total Bilirubin 1.1 H (0.2-1.0) mg/dl Direct Bilirubin AST 16 ALT 23 (7-52) U/L Alkaline Phosphatase 131 H (34-104) U/L Troponin I High Sens (0-14) pg/ml Total Protein 4.5 L (6.0-8.3) gm/dl Albumin 2.4 L (3.4-5.0) gm/dl Globulin 2.1 L (2.5-4.0) gm/dl Albumin/Globulin Ratio 1.1 (0.9-2) Lipase (11-82) U/L Procalcitonin (0-0.5) ng/ml Urine Color Urine Appearance (Clear) Urine pH (4.5-7.5) Ur Specific [place] (1.000-1.030) Urine Protein (Negative) Urine Glucose (UA) (Negative) Urine Ketones (Negative) Urine Blood (Negative) Urine Nitrite (Negative) Urine Bilirubin (Negative) Urine Urobilinogen (Negative) Ur Leukocyte Esterase (Negative) Urine WBC (Auto) (0-5) /hpf Urine RBC (Auto) (0-4) /hpf U Hyaline Cast (Auto) (0-5) /lpf U Epithel Cells (Auto) (0-5) /lpf Urine Bacteria (Auto) (Negative) Nasal Screen MRSA (PCR) (Negative) SARS-CoV-2 (PCR) (Negative) Influenza Type A (PCR) (Neg) Influenza Type B (PCR) (Neg) RSV (RT-PCR) (Neg) Blood Type Antibody Screen Crossmatch 08/17/23 08/16/23 08/16/23 Range/Units 04:10 21:19 20:30 WBC 6.98 (4.8-10.8) K/ul RBC 2.89 L (4.20-5.40) M/uL Hgb 7.9 L (12.0-16.0) g/dl Hct 24.9 L (37.0-47.0) % MCV 86.2 (80.0-100.0) fL MCH 27.3 (25.0-34.0) pg MCHC 31.7 L (32.0-36.0) g/dL RDW Std Deviation 49.9 H (36.4-46.3) fL RDW Coeff of Samantha 15.9 H (11.5-14.5) % Plt Count 185 (130-400) K/uL MPV 8.6 L (9.4-12.4) fL Immature Gran % (Auto) 0.9 % Neut % (Auto) 81.9 % Lymph % (Auto) 7.6 % [place] % (Auto) 9.5 % Eos % (Auto) 0.0 % Baso % (Auto) 0.1 % Neut # (Auto) 5.72 (1.40-6.50) K/uL Lymph # (Auto) 0.53 L (1.20-3.40) K/uL [place] # (Auto) 0.66 H (0.11-0.59) K/uL Eos # (Auto) 0.00 (0.00-0.50) K/uL Baso # (Auto) 0.01 (0.00-0.20) K/uL Immature Gran # (Auto) 0.06 (0.01-0.20) K/uL Absolute Nucleated RBC 0.02 (0.00-0.12) K/uL Nucleated RBC % (auto) 0.3 % Polychromasia 1+ Anisocytosis Present Sodium (136-145) mmol/L Potassium Chloride (98-107) mmol/L Carbon Dioxide (21-32) mmol/L Anion Gap (3-11) BUN (6-23) mg/dl Creatinine (0.6-1.2) mg/dl Est Cr Clr Drug Dosing ml/min Est GFR ( Amer) ml/min Est GFR (Non-Af Amer) ml/min BUN/Creatinine Ratio (10-20) Glucose (70-99(Fasting)) mg/dl POC Glucose 218 H (70-99) mg/dl Lactate (0.4-2.0) mmol/L Calcium (8.6-10.3) mg/dl Phosphorus (2.5-4.9) mg/dl Magnesium (1.7-2.4) mg/dl Total Bilirubin (0.2-1.0) mg/dl Direct Bilirubin AST ALT (7-52) U/L Alkaline Phosphatase (34-104) U/L Troponin I High Sens (0-14) pg/ml Total Protein (6.0-8.3) gm/dl Albumin (3.4-5.0) gm/dl Globulin (2.5-4.0) gm/dl Albumin/Globulin Ratio (0.9-2) Lipase (11-82) U/L Procalcitonin (0-0.5) ng/ml Urine Color Dark Yellow Urine Appearance Clear (Clear) Urine pH 5.0 (4.5-7.5) Ur Specific [place] 1.022 (1.000-1.030) Urine Protein 1+ H (Negative) Urine Glucose (UA) 1+ H (Negative) Urine Ketones 4+ H (Negative) Urine Blood Negative (Negative) Urine Nitrite Negative (Negative) Urine Bilirubin Negative (Negative) Urine Urobilinogen Negative (Negative) Ur Leukocyte Esterase Negative (Negative) Urine WBC (Auto) 1-5 (0-5) /hpf Urine RBC (Auto) 5-10 H (0-4) /hpf U Hyaline Cast (Auto) 1-5 (0-5) /lpf U Epithel Cells (Auto) 10-20 H (0-5) /lpf Urine Bacteria (Auto) Negative (Negative) Nasal Screen MRSA (PCR) (Negative) SARS-CoV-2 (PCR) (Negative) Influenza Type A (PCR) (Neg) Influenza Type B (PCR) (Neg) RSV (RT-PCR) (Neg) Blood Type Antibody Screen Crossmatch 08/16/23 08/16/23 08/16/23 Range/Units 20:15 20:05 19:30 WBC 6.70 (4.8-10.8) K/ul RBC 3.22 L (4.20-5.40) M/uL Hgb 8.8 L (12.0-16.0) g/dl Hct 27.4 L (37.0-47.0) % MCV 85.1 (80.0-100.0) fL MCH 27.3 (25.0-34.0) pg MCHC 32.1 (32.0-36.0) g/dL RDW Std Deviation 48.8 H (36.4-46.3) fL RDW Coeff of Samantha 15.8 H (11.5-14.5) % Plt Count 222 (130-400) K/uL MPV 8.8 L (9.4-12.4) fL Immature Gran % (Auto) 1.2 % Neut % (Auto) 86.1 % Lymph % (Auto) 5.8 % [place] % (Auto) 6.6 % Eos % (Auto) 0.3 % Baso % (Auto) 0.0 % Neut # (Auto) 5.77 (1.40-6.50) K/uL Lymph # (Auto) 0.39 L (1.20-3.40) K/uL [place] # (Auto) 0.44 (0.11-0.59) K/uL Eos # (Auto) 0.02 (0.00-0.50) K/uL Baso # (Auto) 0.00 (0.00-0.20) K/uL Immature Gran # (Auto) 0.08 (0.01-0.20) K/uL Absolute Nucleated RBC 0.06 (0.00-0.12) K/uL Nucleated RBC % (auto) 0.9 % Polychromasia Anisocytosis Sodium 136 (136-145) mmol/L Potassium 4.2 Chloride 101 (98-107) mmol/L Carbon Dioxide 28 (21-32) mmol/L Anion Gap 7 (3-11) BUN 14 (6-23) mg/dl Creatinine 0.64 (0.6-1.2) mg/dl Est Cr Clr Drug Dosing 95.9 ml/min Est GFR ( Amer) 102.6 ml/min Est GFR (Non-Af Amer) 88.5 ml/min BUN/Creatinine Ratio 21.9 H (10-20) Glucose 228 H (70-99(Fasting)) mg/dl POC Glucose (70-99) mg/dl Lactate 1.1 (0.4-2.0) mmol/L Calcium 8.1 L (8.6-10.3) mg/dl Phosphorus 3.2 (2.5-4.9) mg/dl Magnesium 1.8 (1.7-2.4) mg/dl Total Bilirubin 2.0 H D (0.2-1.0) mg/dl Direct Bilirubin AST 27 ALT 30 (7-52) U/L Alkaline Phosphatase 168 H (34-104) U/L Troponin I High Sens (0-14) pg/ml Total Protein 5.0 L (6.0-8.3) gm/dl Albumin 2.7 L (3.4-5.0) gm/dl Globulin 2.3 L (2.5-4.0) gm/dl Albumin/Globulin Ratio 1.2 (0.9-2) Lipase (11-82) U/L Procalcitonin (0-0.5) ng/ml Urine Color Urine Appearance (Clear) Urine pH (4.5-7.5) Ur Specific [place] (1.000-1.030) Urine Protein (Negative) Urine Glucose (UA) (Negative) Urine Ketones (Negative) Urine Blood (Negative) Urine Nitrite (Negative) Urine Bilirubin (Negative) Urine Urobilinogen (Negative) Ur Leukocyte Esterase (Negative) Urine WBC (Auto) (0-5) /hpf Urine RBC (Auto) (0-4) /hpf U Hyaline Cast (Auto) (0-5) /lpf U Epithel Cells (Auto) (0-5) /lpf Urine Bacteria (Auto) (Negative) Nasal Screen MRSA (PCR) Negative (Negative) SARS-CoV-2 (PCR) (Negative) Influenza Type A (PCR) (Neg) Influenza Type B (PCR) (Neg) RSV (RT-PCR) (Neg) Blood Type Antibody Screen Crossmatch 08/16/23 08/16/23 08/16/23 Range/Units 14:05 13:19 13:03 WBC (4.8-10.8) K/ul RBC (4.20-5.40) M/uL Hgb (12.0-16.0) g/dl Hct (37.0-47.0) % MCV (80.0-100.0) fL MCH (25.0-34.0) pg MCHC (32.0-36.0) g/dL RDW Std Deviation (36.4-46.3) fL RDW Coeff of Samantha (11.5-14.5) % Plt Count (130-400) K/uL MPV (9.4-12.4) fL Immature Gran % (Auto) % Neut % (Auto) % Lymph % (Auto) % [place] % (Auto) % Eos % (Auto) % Baso % (Auto) % Neut # (Auto) (1.40-6.50) K/uL Lymph # (Auto) (1.20-3.40) K/uL [place] # (Auto) (0.11-0.59) K/uL Eos # (Auto) (0.00-0.50) K/uL Baso # (Auto) (0.00-0.20) K/uL Immature Gran # (Auto) (0.01-0.20) K/uL Absolute Nucleated RBC (0.00-0.12) K/uL Nucleated RBC % (auto) % Polychromasia Anisocytosis Sodium (136-145) mmol/L Potassium 4.7 Chloride (98-107) mmol/L Carbon Dioxide (21-32) mmol/L Anion Gap (3-11) BUN (6-23) mg/dl Creatinine (0.6-1.2) mg/dl Est Cr Clr Drug Dosing ml/min Est GFR ( Amer) ml/min Est GFR (Non-Af Amer) ml/min BUN/Creatinine Ratio (10-20) Glucose (70-99(Fasting)) mg/dl POC Glucose (70-99) mg/dl Lactate (0.4-2.0) mmol/L Calcium (8.6-10.3) mg/dl Phosphorus (2.5-4.9) mg/dl Magnesium (1.7-2.4) mg/dl Total Bilirubin (0.2-1.0) mg/dl Direct Bilirubin 0.3 H AST 44 H ALT (7-52) U/L Alkaline Phosphatase (34-104) U/L Troponin I High Sens 38.0 H (0-14) pg/ml Total Protein (6.0-8.3) gm/dl Albumin (3.4-5.0) gm/dl Globulin (2.5-4.0) gm/dl Albumin/Globulin Ratio (0.9-2) Lipase (11-82) U/L Procalcitonin (0-0.5) ng/ml Urine Color Urine Appearance (Clear) Urine pH (4.5-7.5) Ur Specific [place] (1.000-1.030) Urine Protein (Negative) Urine Glucose (UA) (Negative) Urine Ketones (Negative) Urine Blood (Negative) Urine Nitrite (Negative) Urine Bilirubin (Negative) Urine Urobilinogen (Negative) Ur Leukocyte Esterase (Negative) Urine WBC (Auto) (0-5) /hpf Urine RBC (Auto) (0-4) /hpf U Hyaline Cast (Auto) (0-5) /lpf U Epithel Cells (Auto) (0-5) /lpf Urine Bacteria (Auto) (Negative) Nasal Screen MRSA (PCR) (Negative) SARS-CoV-2 (PCR) NEGATIVE (Negative) Influenza Type A (PCR) Negative (Neg) Influenza Type B (PCR) Negative (Neg) RSV (RT-PCR) Negative (Neg) Blood Type O Negative Antibody Screen NEGATIVE Crossmatch See Detail 08/16/23 Range/Units 11:45 WBC 10.06 (4.8-10.8) K/ul RBC 3.06 L (4.20-5.40) M/uL Hgb 8.5 L (12.0-16.0) g/dl Hct 26.7 L (37.0-47.0) % MCV 87.3 (80.0-100.0) fL MCH 27.8 (25.0-34.0) pg MCHC 31.8 L (32.0-36.0) g/dL RDW Std Deviation 50.8 H (36.4-46.3) fL RDW Coeff of Samantha 16.1 H (11.5-14.5) % Plt Count 259 (130-400) K/uL MPV 8.8 L (9.4-12.4) fL Immature Gran % (Auto) 0.6 % Neut % (Auto) 78.1 % Lymph % (Auto) 11.7 % [place] % (Auto) 8.2 % Eos % (Auto) 1.2 % Baso % (Auto) 0.2 % Neut # (Auto) 7.86 H (1.40-6.50) K/uL Lymph # (Auto) 1.18 L (1.20-3.40) K/uL [place] # (Auto) 0.82 H (0.11-0.59) K/uL Eos # (Auto) 0.12 (0.00-0.50) K/uL Baso # (Auto) 0.02 (0.00-0.20) K/uL Immature Gran # (Auto) 0.06 (0.01-0.20) K/uL Absolute Nucleated RBC 0.02 (0.00-0.12) K/uL Nucleated RBC % (auto) 0.2 % Polychromasia Anisocytosis Sodium 136 (136-145) mmol/L Potassium TNP Chloride 100 (98-107) mmol/L Carbon Dioxide 30 (21-32) mmol/L Anion Gap 6 (3-11) BUN 16 (6-23) mg/dl Creatinine 0.67 (0.6-1.2) mg/dl Est Cr Clr Drug Dosing 91.6 ml/min Est GFR ( Amer) 101.1 ml/min Est GFR (Non-Af Amer) 87.2 ml/min BUN/Creatinine Ratio 23.9 H (10-20) Glucose 158 H (70-99(Fasting)) mg/dl POC Glucose (70-99) mg/dl Lactate (0.4-2.0) mmol/L Calcium 8.7 (8.6-10.3) mg/dl Phosphorus (2.5-4.9) mg/dl Magnesium 2.0 (1.7-2.4) mg/dl Total Bilirubin 0.8 (0.2-1.0) mg/dl Direct Bilirubin TNP AST TNP ALT 38 (7-52) U/L Alkaline Phosphatase 185 H (34-104) U/L Troponin I High Sens 38.8 H (0-14) pg/ml Total Protein 5.8 L (6.0-8.3) gm/dl Albumin 3.0 L (3.4-5.0) gm/dl Globulin (2.5-4.0) gm/dl Albumin/Globulin Ratio (0.9-2) Lipase 7 L (11-82) U/L Procalcitonin 0.24 (0-0.5) ng/ml Urine Color Urine Appearance (Clear) Urine pH (4.5-7.5) Ur Specific [place] (1.000-1.030) Urine Protein (Negative) Urine Glucose (UA) (Negative) Urine Ketones (Negative) Urine Blood (Negative) Urine Nitrite (Negative) Urine Bilirubin (Negative) Urine Urobilinogen (Negative) Ur Leukocyte Esterase (Negative) Urine WBC (Auto) (0-5) /hpf Urine RBC (Auto) (0-4) /hpf U Hyaline Cast (Auto) (0-5) /lpf U Epithel Cells (Auto) (0-5) /lpf Urine Bacteria (Auto) (Negative) Nasal Screen MRSA (PCR) (Negative) SARS-CoV-2 (PCR) (Negative) Influenza Type A (PCR) (Neg) Influenza Type B (PCR) (Neg) RSV (RT-PCR) (Neg) Blood Type Antibody Screen Crossmatch (2) Sepsis Sepsis type: sepsis due to unspecified organism
[2023-08-17 13:46] LABS: iSTAT Creatinine 0.6 mg/dl (0.6-1.3); iSTAT Hemoglobin 8.2 g/dl (12.0-16.0); iSTAT Ionized Calcium 1.06 mmol/l (1.12-1.32)
[2023-08-17 13:55] LABS: iSTAT Allen Test Pass; iSTAT Art Bld Gas pCO2 Correct 35 mmHg (35-46); iSTAT Art Bld Gas pH Corrected 7.441 (7.35-7.45); iSTAT Arterial Blood Gas HCO3 24 meg/L (19-24); iSTAT Arterial Blood Gas pCO2 33 mmHg (35-46); iSTAT Arterial Blood Gas pH 7.47 (7.35-7.45); iSTAT Arterial Blood Gas pO2 76 mmHg (80-95); iSTAT Arterial Blood Gas pO2 C 86; iSTAT Carbon Dioxide 25 mmol/L (24-31); iSTAT FiO2 30 %; iSTAT Hematocrit 25 % (37-47); iSTAT Hemoglobin 8.5 g/dl (12.0-16.0); iSTAT Potassium 4.2 mmol/L (3.3-5.0); iSTAT Site R Radial; iSTAT Sodium 134 mmol/L (135-144)
[2023-08-17 13:55] LABS: iSTAT Allen Test Pass; iSTAT Art Bld Gas pCO2 Correct 37 mmHg (35-46); iSTAT Art Bld Gas pH Corrected 7.473 (7.35-7.45); iSTAT Arterial Blood Gas HCO3 27 meg/L (19-24); iSTAT Arterial Blood Gas pCO2 36 mmHg (35-46); iSTAT Arterial Blood Gas pH 7.49 (7.35-7.45); iSTAT Arterial Blood Gas pO2 80 mmHg (80-95); iSTAT Arterial Blood Gas pO2 C 84; iSTAT Carbon Dioxide 28 mmol/L (24-31); iSTAT FiO2 30 %; iSTAT Hematocrit 23 % (37-47); iSTAT Hemoglobin 7.8 g/dl (12.0-16.0); iSTAT Potassium 3.8 mmol/L (3.3-5.0); iSTAT Site R Radial; iSTAT Sodium 133 mmol/L (135-144)
[2023-08-17] MEDS: ICU ELECTROLYTE REPLACEMENT PROTOCOL SCH ×2 (16:56→22:54)
--- NOTE | 2023-08-17 18:31 | Hospitalist Progress Note ---
Date of Service August 17, 2023 Assessment & Plan (1) Perforated bowel: Plan: 1) Perforated bowel: Pneumoperitoneum: s/p ex lap, right hemicolectomy with ileostomy for perforated ascending colon extubated this am currently hemodynamically stable on gentle fluids on iv vanco and zosyn transferring to tele Sepsis from above on iv abx will monitor. Dm on Lantus and ISS will monitor HTN holding losartan/hctz will monitor Lumbar stenosis with neurogenic claudication s/p surgery by on 08/11 Dvt px scds Disposition transfer to tele Admission and Anticipated Discharge Date Admission Date: August 16, 2023 Subjective resting comfortably off of NG tube has some pain at surgery site and its more with coughing no chest pain no sob afebrile no headache Review of Systems Review of Systems: All systems reviewed & are unremarkable except as noted in HPI & below Physical Exam Physical Exam: General- not in distress Head- atraumatic Neck- supple, no JVD. Lungs- clear to auscultation , no wheezing or crackles. Heart- regular rhythm; no murmur, no gallop. Abdomen- sluggish bowel sounds, s/p ex lap with ileostomy and hemicolectomy Extremities- no pretibial edema, moves extremities Neuro- alert, oriented x 3; no facial palsy; no dysarthria; moves extremities. Skin- warm & dry Results & Data Results & Data Vital Signs (Past 12 Hours) Vital Signs Temp Pulse Resp BP Pulse Ox O2 Del Method O2 Flow Rate 08/17/23 16:31 38.0 C H 78 23 90 08/17/23 16:31 128/73 08/17/23 16:01 149/72 H 08/17/23 16:01 37.9 C H 79 22 08/17/23 16:00 38.0 C H 67 18 91 08/17/23 15:57 71 08/17/23 15:31 38.0 C H 76 19 96 Room Air 08/17/23 15:31 131/69 08/17/23 15:01 38.0 C H 77 14 97 08/17/23 15:01 127/81 08/17/23 15:00 38.0 C H 71 19 98 08/17/23 14:00 152/84 H 08/17/23 14:00 37.9 C H 66 18 97 08/17/23 13:00 152/93 H 08/17/23 13:00 37.7 C H 72 20 100 Nasal Cannula 2 08/17/23 12:30 141/96 H 08/17/23 12:30 37.4 C 71 18 99 08/17/23 12:01 116/61 08/17/23 12:01 37.6 C H 75 20 98 08/17/23 12:00 37.6 C H 69 20 99 08/17/23 11:31 37.8 C H 68 17 97 08/17/23 11:31 150/92 H 08/17/23 11:00 148/94 H 08/17/23 11:00 37.8 C H 71 24 97 08/17/23 10:30 143/103 H 08/17/23 10:30 37.7 C H 72 29 H 96 08/17/23 10:01 37.7 C H 68 19 97 08/17/23 10:01 140/94 08/17/23 10:00 37.7 C H 71 22 97 08/17/23 09:30 140/88 08/17/23 09:30 37.7 C H 71 22 98 08/17/23 09:00 142/115 H 08/17/23 09:00 37.7 C H 70 19 96 Nasal Cannula 2 08/17/23 08:31 148/94 H 08/17/23 08:31 37.7 C H 77 21 94 08/17/23 08:01 144/75 H 08/17/23 08:01 37.7 C H 85 22 95 08/17/23 08:00 Nasal Cannula 2 08/17/23 08:00 37.7 C H 82 17 96 Mechanical Vent 08/17/23 08:00 63 08/17/23 07:37 64 14 95 08/17/23 07:30 37.1 C 61 14 95 08/17/23 07:30 113/73 08/17/23 07:00 129/78 08/17/23 07:00 37.1 C 62 14 96 08/17/23 06:30 114/77 08/17/23 06:30 37.7 C H 63 14 95 FiO2 08/17/23 16:31 08/17/23 16:31 08/17/23 16:01 08/17/23 16:01 08/17/23 16:00 08/17/23 15:57 08/17/23 15:31 08/17/23 15:31 08/17/23 15:01 08/17/23 15:01 08/17/23 15:00 08/17/23 14:00 08/17/23 14:00 08/17/23 13:00 08/17/23 13:00 08/17/23 12:30 08/17/23 12:30 08/17/23 12:01 08/17/23 12:01 08/17/23 12:00 08/17/23 11:31 08/17/23 11:31 08/17/23 11:00 08/17/23 11:00 08/17/23 10:30 08/17/23 10:30 08/17/23 10:01 08/17/23 10:01 08/17/23 10:00 08/17/23 09:30 08/17/23 09:30 08/17/23 09:00 08/17/23 09:00 08/17/23 08:31 08/17/23 08:31 08/17/23 08:01 08/17/23 08:01 08/17/23 08:00 08/17/23 08:00 08/17/23 08:00 08/17/23 07:37 30 08/17/23 07:30 08/17/23 07:30 08/17/23 07:00 08/17/23 07:00 08/17/23 06:30 08/17/23 06:30 Diagnostic Findings Laboratory Results WBC 6.98 K/ul (4.8-10.8) 08/17/23 04:10 RBC 2.89 M/uL (4.20-5.40) L 08/17/23 04:10 Hgb 7.9 g/dl (12.0-16.0) L 08/17/23 04:10 POC Hgb 7.8 g/dl (12.0-16.0) L 08/17/23 04:14 Hct 24.9 % (37.0-47.0) L 08/17/23 04:10 POC Hct 23 % (37-47) L 08/17/23 04:14 MCV 86.2 fL (80.0-100.0) 08/17/23 04:10 MCH 27.3 pg (25.0-34.0) 08/17/23 04:10 MCHC 31.7 g/dL (32.0-36.0) L 08/17/23 04:10 RDW Std Deviation 49.9 fL (36.4-46.3) H 08/17/23 04:10 RDW Coeff of Samantha 15.9 % (11.5-14.5) H 08/17/23 04:10 Plt Count 185 K/uL (130-400) 08/17/23 04:10 MPV 8.6 fL (9.4-12.4) L 08/17/23 04:10 Immature Gran % (Auto) 0.9 % 08/17/23 04:10 Neut % (Auto) 81.9 % 08/17/23 04:10 Lymph % (Auto) 7.6 % 08/17/23 04:10 [place] % (Auto) 9.5 % 08/17/23 04:10 Eos % (Auto) 0.0 % 08/17/23 04:10 Baso % (Auto) 0.1 % 08/17/23 04:10 Neut # (Auto) 5.72 K/uL (1.40-6.50) 08/17/23 04:10 Lymph # (Auto) 0.53 K/uL (1.20-3.40) L 08/17/23 04:10 [place] # (Auto) 0.66 K/uL (0.11-0.59) H 08/17/23 04:10 Eos # (Auto) 0.00 K/uL (0.00-0.50) 08/17/23 04:10 Baso # (Auto) 0.01 K/uL (0.00-0.20) 08/17/23 04:10 Immature Gran # (Auto) 0.06 K/uL (0.01-0.20) 08/17/23 04:10 Absolute Nucleated RBC 0.02 K/uL (0.00-0.12) 08/17/23 04:10 Nucleated RBC % (auto) 0.3 % 08/17/23 04:10 Polychromasia 1+ 08/17/23 04:10 Anisocytosis Present 08/17/23 04:10 Sample Site R Radial 08/17/23 04:14 POC pH 7.49 (7.35-7.45) H 08/17/23 04:14 POC pCO2 36 mmHg (35-46) 08/17/23 04:14 POC pO2 80 mmHg (80-95) 08/17/23 04:14 POC HCO3 27 jania/L (19-24) H 08/17/23 04:14 POC Total CO2 28 mmol/L (24-31) 08/17/23 04:14 POC Base Excess 4.0 jania/L (-9-1.8) H 08/17/23 04:14 ABG pH (Temp Correct) 7.473 (7.35-7.45) H 08/17/23 04:14 ABG pCO2 (Temp Corrct 37 mmHg (35-46) 08/17/23 04:14 POC ABG pO2 at Pt Temp 84 08/17/23 04:14 POC ABG O2 Sat 97.0 % (90-95) H 08/17/23 04:14 Tomer Test Pass 08/17/23 04:14 O2 Delivery Device Ventilator 08/17/23 04:14 POC O2 Rate 16 08/17/23 04:14 POC FiO2 30 % 08/17/23 04:14 Tidal Volume 400 08/17/23 04:14 PEEP 5 08/17/23 04:14 POC Sodium 133 mmol/L (135-144) L 08/17/23 04:14 Sodium 137 mmol/L (136-145) 08/17/23 04:11 POC Potassium 3.8 mmol/L (3.3-5.0) 08/17/23 04:14 Potassium 4.0 mmol/L (3.5-5.1) 08/17/23 04:11 POC Chloride 98 mmol/L (101-112) L 08/16/23 11:51 Chloride 103 mmol/L (98-107) 08/17/23 04:11 Carbon Dioxide 29 mmol/L (21-32) 08/17/23 04:11 POC Total CO2 28 mmol/L (24-31) 08/16/23 11:51 Anion Gap 5 (3-11) 08/17/23 04:11 POC Anion Gap 14.0 mmol/L (16-25) L 08/16/23 11:51 POC BUN 15 mg/dl (7-18) 08/16/23 11:51 BUN 12 mg/dl (6-23) 08/17/23 04:11 Creatinine 0.64 mg/dl (0.6-1.2) 08/17/23 04:11 POC Creatinine 0.6 mg/dl (0.6-1.3) 08/16/23 11:51 Est Cr Clr Drug Dosing 95.9 ml/min 08/17/23 04:11 Est GFR ( Amer) 102.6 ml/min 08/17/23 04:11 Est GFR (Non-Af Amer) 88.5 ml/min 08/17/23 04:11 BUN/Creatinine Ratio 18.8 (10-20) 08/17/23 04:11 Glucose 194 mg/dl (70-99(Fasting)) H 08/17/23 04:11 POC Glucose 143 mg/dl (70-99) H 08/17/23 17:20 POC Glucose (other) 161 mg/dl (70-99) H 08/16/23 11:51 Lactate 1.1 mmol/L (0.4-2.0) 08/16/23 20:15 Calcium 7.6 mg/dl (8.6-10.3) L 08/17/23 04:11 POC Ioniz Calcium Andrey 1.06 mmol/l (1.12-1.32) L 08/16/23 11:51 Phosphorus 3.9 mg/dl (2.5-4.9) 08/17/23 04:11 Magnesium 1.8 mg/dl (1.7-2.4) 08/17/23 04:11 Total Bilirubin 1.1 mg/dl (0.2-1.0) H 08/17/23 04:11 Direct Bilirubin 0.3 mg/dl (0-0.2) H 08/16/23 13:03 AST 16 U/L (13-39) 08/17/23 04:11 ALT 23 U/L (7-52) 08/17/23 04:11 Alkaline Phosphatase 131 U/L (34-104) H 08/17/23 04:11 Troponin I High Sens 38.0 pg/ml (0-14) H 08/16/23 14:05 Total Protein 4.5 gm/dl (6.0-8.3) L 08/17/23 04:11 Albumin 2.4 gm/dl (3.4-5.0) L 08/17/23 04:11 Globulin 2.1 gm/dl (2.5-4.0) L 08/17/23 04:11 Albumin/Globulin Ratio 1.1 (0.9-2) 08/17/23 04:11 Lipase 7 U/L (11-82) L 08/16/23 11:45 Procalcitonin 0.24 ng/ml (0-0.5) 08/16/23 11:45 Urine Color Dark Yellow 08/16/23 20:30 Urine Appearance Clear (Clear) 08/16/23 20:30 Urine pH 5.0 (4.5-7.5) 08/16/23 20:30 Ur Specific [place] 1.022 (1.000-1.030) 08/16/23 20:30 Urine Protein 1+ (Negative) H 08/16/23 20:30 Urine Glucose (UA) 1+ (Negative) H 08/16/23 20:30 Urine Ketones 4+ (Negative) H 08/16/23 20:30 Urine Blood Negative (Negative) 08/16/23 20:30 Urine Nitrite Negative (Negative) 08/16/23 20: Urine Bilirubin Negative (Negative) 08/16/23 20:30 Urine Urobilinogen Negative (Negative) 08/16/23 20:30 Ur Leukocyte Esterase Negative (Negative) 08/16/23 20:30 Urine WBC (Auto) 1-5 /hpf (0-5) 08/16/23 20:30 Urine RBC (Auto) 5-10 /hpf (0-4) H 08/16/23 20:30 U Hyaline Cast (Auto) 1-5 /lpf (0-5) 08/16/23 20:30 U Epithel Cells (Auto) 10-20 /lpf (0-5) H 08/16/23 20:30 Urine Bacteria (Auto) Negative (Negative) 08/16/23 20:30 Nasal Screen MRSA (PCR) Negative (Negative) 08/16/23 19:30 SARS-CoV-2 (PCR) NEGATIVE (Negative) 08/16/23 13:19 Influenza Type A (PCR) Negative (Neg) 08/16/23 13:19 Influenza Type B (PCR) Negative (Neg) 08/16/23 13:19 RSV (RT-PCR) Negative (Neg) 08/16/23 13:19 Blood Type O Negative 08/16/23 14:05 Antibody Screen NEGATIVE 08/16/23 14:05 Crossmatch See Detail 08/16/23 14:05 Impressions Abdomen/Pelvis CT 08/16/23 11:[address] WITHOUT CONTRAST CT DOSE: 1479.25 mGy.cm HISTORY: RLQ pain TECHNIQUE: Multiaxial CT images of the abdomen and pelvis were performed without contrast. A dose lowering technique was utilized adhering to the principles of ALARA. COMPARISON STUDY: None. FINDINGS: Trace right pleural effusion. Mild dependent changes seen at the lung bases. Large amount of pneumoperitoneum resulting in abdominal distention. There are bilateral total hip arthroplasties. Posterior decompression fusion from L2 through L5 with pedicle screws and rods. The hardware appears intact. No acute fractures. Small amount of gas at the laminectomy sites as well as fluid favors the recent postoperative change. Small umbilical hernia containing fat and gas. There is mild body wall edema noted. Cholelithiasis. No gallbladder wall thickening. The unenhanced liver, spleen, adrenal glands, and pancreas unremarkable. Multiple bilateral peripelvic renal cysts are noted. Bilateral nephrolithiasis. No hydronephrosis. Normal caliber abdominal aorta. No retroperitoneal lymphadenopathy. No pelvic lymphadenopathy or pelvic free fluid. The bladder and uterus are not well visualized due to the metallic artifact but appear unremarkable. Extensive colonic diverticulosis. No evidence for acute diverticulitis. [id number] fecal retention most pronounced within the proximal colon. Normal appendix. No dilated loops of bowel to suggest an obstruction. There is mild circumferential thickening and fat stranding within the proximal duodenum best seen on image 123. In conjunction with the extensive pneumoperitoneum this is concerning for a perforated duodenal ulcer. IMPRESSION: 1. Extensive pneumoperitoneum. This is consistent with underlying bowel perforation. The exact location is difficult to confirm but favors a perforated duodenal ulcer as described above. 2. Colonic diverticulosis. No evidence for acute diverticulitis. 3. Bilateral nephrolithiasis. No ureteral stones. No hydronephrosis. 4. Trace right pleural effusion. 5. Cholelithiasis. 6. Additional findings as described above. ACT 112: Negative or not required by law. Electronically signed by: Gunnar Eldridge M.D. 08/16/2023 12:41 PM Chest X-Ray 08/16/23 20:07 SINGLE VIEW CHEST CLINICAL HISTORY: Respiratory failure. Intubation. FINDINGS: An AP, portable, supine chest radiograph is compared to study dated 08/16/2023. The examination is degraded by portable technique and patient rotation. A left internal jugular central venous catheter has been placed. The tip projects over the cavoatrial junction. An enteric tube has been placed. The tip projects below the diaphragm. An endotracheal tube has been placed. The tip projects 5 cm above the gamaliel. The heart cardiac silhouette is enlarged. There is mild pulmonary vascular congestion. A small right pleural effusion is suspected with right basilar atelectasis. No pneumothorax is seen. The skeletal structures are osteopenic. The bony thorax is grossly intact. Fusion hardware is partially visualized and lumbar spine. IMPRESSION: 1. Line and tube placement as above. 2. Enlarged cardiac silhouette with mild pulmonary vascular congestion. 3. Small right pleural effusion. ACT 112: Negative or not required by law. Electronically signed by: Juanito Sharma M.D. 08/17/2023 8:36 AM
[2023-08-17] MEDS: allopurinoL 300 MG TAB PO SCH (20:23)
[2023-08-17] MEDS: LANTUS PER UNIT CHARGE SQ SCH ×2 (20:23→23:33)
[2023-08-17] MEDS: ATORVASTATIN 10 MG TAB PO SCH (20:23)
[2023-08-18] MEDS: HYDROmorphone INJ 1 MG/ML SYRINGE IV PRN ×3 (00:28→14:45)
[2023-08-18] MEDS: PIPERACILLIN/TAZOBACTAM 4.5 GM in DEXTROSE 5% MINI-B 100 ML IV SCH ×3 (04:32→20:20)
[2023-08-18 04:45] LABS: Basophils # (auto) 0.01 K/uL (0.00-0.20); Basophils % (auto) 0.1 %; Eosinophils # (auto) 0.29 K/uL (0.00-0.50); Eosinophils % (auto) 3.3 %; Hematocrit (blood only) 25.3 % (37.0-47.0); Immature Granulocytes # (auto) 0.03 K/uL (0.01-0.20); Immature Granulocytes % (auto) 0.3 %; Lymphocytes # (auto) 0.82 K/uL (1.20-3.40); Lymphocytes % (auto) 9.4 %; Mean Corpuscular Hemoglobin 27.2 pg (25.0-34.0); Mean Corpuscular Hgb Conc 31.6 g/dL (32.0-36.0); Mean Corpuscular Volume 86.1 fL (80.0-100.0); Mean Platelet Volume 8.6 fL (9.4-12.4); Monocytes # (auto) 1.05 K/uL (0.11-0.59); Monocytes % (auto) 12.1 %; Neutrophils % (auto) 74.8 %; Nucleated RBC # (auto) 0.02 K/uL (0.00-0.12); Nucleated RBC % (auto) 0.2 %; Platelet Count 243 K/uL (130-400); RDW Coefficient of Variation 15.9 % (11.5-14.5); RDW Standard Deviation 50.4 fL (36.4-46.3); Red Blood Count 2.94 M/uL (4.20-5.40)
[2023-08-18] MEDS: INSULIN ASPART PER UNIT CHARGE SC SCH ×4 (04:53→21:50)
[2023-08-18 04:55] LABS: Calcium 8.1 mg/dl (8.6-10.3); Magnesium 2.2 mg/dl (1.7-2.4); Potassium 3.8 mmol/L (3.5-5.1)
[2023-08-18 05:01] LABS: BUN Creatinine Ratio 20.7 (10-20); Est GFR (Non-African American) 91.4 ml/min; Phosphorus 3.4 mg/dl (2.5-4.9)
[2023-08-18] MEDS: ACETAMINOPHEN 1,000 MG/100 ML VIAL IV PRN ×2 (06:16→20:41)
[2023-08-18] MEDS ORDERED: VANCOMYCIN LEVEL ONE (07:00)
[2023-08-18] MEDS: VANCOMYCIN HCL 1,000 MG in SODIUM CHLORIDE 0.9% 250 ML IV SCH (09:00)
[2023-08-18] MEDS: ENOXAPARIN INJ 40 MG/0.4 ML SYR SQ SCH (09:01)
--- NOTE | 2023-08-18 09:07 | Hospitalist Progress Note ---
Date of Service August 18, 2023 Assessment & Plan (1) Perforated bowel: Plan: 1) Perforated bowel: Plan: 1) Perforated bowel: Pneumoperitoneum: POD #2 s/p ex lap, right hemicolectomy with ileostomy for perforated ascending colon on gentle fluids on iv vanco and zosyn continue to monitor. Sepsis from above on iv abx seems stable currently.. Dm on Lantus and ISS 143/138/125 will monitor HTN holding losartan/hctz will monitor Hyperlipidemia on statin Lumbar stenosis with neurogenic claudication s/p surgery by on 08/11 Dvt px scds Disposition monitor in tele Admission and Anticipated Discharge Date Admission Date: August 16, 2023 Subjective Says feels exhausted. Did not sleep well last night no nausea no chest pain or sob no feeling of hot or cold no cough Review of Systems Review of Systems: All systems reviewed & are unremarkable except as noted in HPI & below Physical Exam Physical Exam: General- Not in distress. Head- atraumatic Neck- supple, no JVD. Lungs- clear to auscultation, no wheezing or crackles. Heart- regular rhythm; no murmur, no gallop. Abdomen- sluggish bowel sounds, s/p ex lap with ileostomy and hemicolectomy Extremities- no pretibial edema, no erythema seen. Neuro- alert, oriented x 3; no facial palsy; no dysarthria; moves extremities. Skin- warm & dry Results & Data Results & Data Vital Signs (Past 12 Hours) Vital Signs Temp Pulse Pulse Resp BP BP Pulse Ox 08/18/23 08:00 36.8 C 71 19 105/63 97 08/18/23 06:10 08/18/23 04:01 37.5 C 66 18 97 08/18/23 04:01 143/83 H 08/18/23 04:00 37.5 C 64 18 98 08/18/23 03:00 37.5 C 65 17 98 08/18/23 02:00 37.6 C H 65 16 98 08/18/23 01:49 66 08/18/23 01:00 37.7 C H 64 15 97 08/18/23 00:00 160/87 H 08/18/23 00:00 37.7 C H 66 18 98 08/17/23 23:00 37.7 C H 68 19 98 08/17/23 22:30 144/90 H 08/17/23 22:30 37.7 C H 65 19 98 08/17/23 22:01 157/83 H 08/17/23 22:01 37.6 C H 67 20 97 08/17/23 22:00 37.6 C H 63 17 98 08/17/23 21:30 151/96 H 08/17/23 21:30 37.6 C H 64 20 97 O2 Del Method O2 Flow Rate 08/18/23 08:00 Nasal Cannula 1.0 08/18/23 06:10 Room Air 08/18/23 04:01 08/18/23 04:01 08/18/23 04:00 08/18/23 03:00 08/18/23 02:00 08/18/23 01:49 08/18/23 01:00 08/18/23 00:00 08/18/23 00:00 08/17/23 23:00 08/17/23 22:30 08/17/23 22:30 08/17/23 22:01 08/17/23 22:01 08/17/23 22:00 08/17/23 21:30 08/17/23 21:30 Diagnostic Findings Laboratory Results WBC 8.70 K/ul (4.8-10.8) 08/18/23 03:52 RBC 2.94 M/uL (4.20-5.40) L 08/18/23 03:52 Hgb 8.0 g/dl (12.0-16.0) L 08/18/23 03:52 POC Hgb 7.8 g/dl (12.0-16.0) L 08/17/23 04:14 Hct 25.3 % (37.0-47.0) L 08/18/23 03:52 POC Hct 23 % (37-47) L 08/17/23 04:14 MCV 86.1 fL (80.0-100.0) 08/18/23 03:52 MCH 27.2 pg (25.0-34.0) 08/18/23 03:52 MCHC 31.6 g/dL (32.0-36.0) L 08/18/23 03:52 RDW Std Deviation 50.4 fL (36.4-46.3) H 08/18/23 03:52 RDW Coeff of Samantha 15.9 % (11.5-14.5) H 08/18/23 03:52 Plt Count 243 K/uL (130-400) 08/18/23 03:52 MPV 8.6 fL (9.4-12.4) L 08/18/23 03:52 Immature Gran % (Auto) 0.3 % 08/18/23 03:52 Neut % (Auto) 74.8 % 08/18/23 03:52 Lymph % (Auto) 9.4 % 08/18/23 03:52 [place] % (Auto) 12.1 % 08/18/23 03:52 Eos % (Auto) 3.3 % 08/18/23 03:52 Baso % (Auto) 0.1 % 08/18/23 03:52 Neut # (Auto) 6.50 K/uL (1.40-6.50) 08/18/23 03:52 Lymph # (Auto) 0.82 K/uL (1.20-3.40) L 08/18/23 03:52 [place] # (Auto) 1.05 K/uL (0.11-0.59) H 08/18/23 03:52 Eos # (Auto) 0.29 K/uL (0.00-0.50) 08/18/23 03:52 Baso # (Auto) 0.01 K/uL (0.00-0.20) 08/18/23 03:52 Immature Gran # (Auto) 0.03 K/uL (0.01-0.20) 08/18/23 03:52 Absolute Nucleated RBC 0.02 K/uL (0.00-0.12) 08/18/23 03:52 Nucleated RBC % (auto) 0.2 % 08/18/23 03:52 Polychromasia 1+ 08/17/23 04:10 Anisocytosis Present 08/17/23 04:10 Sample Site R Radial 08/17/23 04:14 POC pH 7.49 (7.35-7.45) H 08/17/23 04:14 POC pCO2 36 mmHg (35-46) 08/17/23 04:14 POC pO2 80 mmHg (80-95) 08/17/23 04:14 POC HCO3 27 jania/L (19-24) H 08/17/23 04:14 POC Total CO2 28 mmol/L (24-31) 08/17/23 04:14 POC Base Excess 4.0 jania/L (-9-1.8) H 08/17/23 04:14 ABG pH (Temp Correct) 7.473 (7.35-7.45) H 08/17/23 04:14 ABG pCO2 (Temp Corrct 37 mmHg (35-46) 08/17/23 04:14 POC ABG pO2 at Pt Temp 84 08/17/23 04:14 POC ABG O2 Sat 97.0 % (90-95) H 08/17/23 04:14 Tomer Test Pass 08/17/23 04:14 O2 Delivery Device Ventilator 08/17/23 04:14 POC O2 Rate 16 08/17/23 04:14 POC FiO2 30 % 08/17/23 04:14 Tidal Volume 400 08/17/23 04:14 PEEP 5 08/17/23 04:14 POC Sodium 133 mmol/L (135-144) L 08/17/23 04:14 Sodium 140 mmol/L (136-145) 08/18/23 03:52 POC Potassium 3.8 mmol/L (3.3-5.0) 08/17/23 04:14 Potassium 3.8 mmol/L (3.5-5.1) 08/18/23 03:52 POC Chloride 98 mmol/L (101-112) L 08/16/23 11:51 Chloride 106 mmol/L (98-107) 08/18/23 03:52 Carbon Dioxide 31 mmol/L (21-32) 08/18/23 03:52 POC Total CO2 28 mmol/L (24-31) 08/16/23 11:51 Anion Gap 3 (3-11) 08/18/23 03:52 POC Anion Gap 14.0 mmol/L (16-25) L 08/16/23 11:51 POC BUN 15 mg/dl (7-18) 08/16/23 11:51 BUN 12 mg/dl (6-23) 08/18/23 03:52 Creatinine 0.58 mg/dl (0.6-1.2) L 08/18/23 03:52 POC Creatinine 0.6 mg/dl (0.6-1.3) 08/16/23 11:51 Est Cr Clr Drug Dosing 106.0 ml/min 08/18/23 03:52 Est GFR ( Amer) 106.0 ml/min 08/18/23 03:52 Est GFR (Non-Af Amer) 91.4 ml/min 08/18/23 03:52 BUN/Creatinine Ratio 20.7 (10-20) H 08/18/23 03:52 Glucose 124 mg/dl (70-99(Fasting)) H 08/18/23 03:52 POC Glucose 125 mg/dl (70-99) H 08/18/23 03:56 POC Glucose (other) 161 mg/dl (70-99) H 08/16/23 11:51 Lactate 1.1 mmol/L (0.4-2.0) 08/16/23 20:15 Calcium 8.1 mg/dl (8.6-10.3) L 08/18/23 03:52 POC Ioniz Calcium Andrey 1.06 mmol/l (1.12-1.32) L 08/16/23 11:51 Phosphorus 3.4 mg/dl (2.5-4.9) 08/18/23 03:52 Magnesium 2.2 mg/dl (1.7-2.4) 08/18/23 03:52 Total Bilirubin 1.1 mg/dl (0.2-1.0) H 08/17/23 04:11 Direct Bilirubin 0.3 mg/dl (0-0.2) H 08/16/23 13:03 AST 16 U/L (13-39) 08/17/23 04:11 ALT 23 U/L (7-52) 08/17/23 04:11 Alkaline Phosphatase 131 U/L (34-104) H 08/17/23 04:11 Troponin I High Sens 38.0 pg/ml (0-14) H 08/16/23 14:05 Total Protein 4.5 gm/dl (6.0-8.3) L 08/17/23 04:11 Albumin 2.4 gm/dl (3.4-5.0) L 08/17/23 04:11 Globulin 2.1 gm/dl (2.5-4.0) L 08/17/23 04:11 Albumin/Globulin Ratio 1.1 (0.9-2) 08/17/23 04:11 Lipase 7 U/L (11-82) L 08/16/23 11:45 Procalcitonin 0.24 ng/ml (0-0.5) 08/16/23 11:45 Urine Color Dark Yellow 08/16/23 20:30 Urine Appearance Clear (Clear) 08/16/23 20:30 Urine pH 5.0 (4.5-7.5) 08/16/23 20:30 Ur Specific [place] 1.022 (1.000-1.030) 08/16/23 20:30 Urine Protein 1+ (Negative) H 08/16/23 20:30 Urine Glucose (UA) 1+ (Negative) H 08/16/23 20:30 Urine Ketones 4+ (Negative) H 08/16/23 20:30 Urine Blood Negative (Negative) 08/16/23 20:30 Urine Nitrite Negative (Negative) 08/16/23 20:30 Urine Bilirubin Negative (Negative) 08/16/23 20:30 Urine Urobilinogen Negative (Negative) 08/16/23 20:30 Ur Leukocyte Esterase Negative (Negative) 08/16/23 20:30 Urine WBC (Auto) 1-5 /hpf (0-5) 08/16/23 20:30 Urine RBC (Auto) 5-10 /hpf (0-4) H 08/16/23 20:30 U Hyaline Cast (Auto) 1-5 /lpf (0-5) 08/16/23 20:30 U Epithel Cells (Auto) 10-20 /lpf (0-5) H 08/16/23 20:30 Urine Bacteria (Auto) Negative (Negative) 08/16/23 20:30 Nasal Screen MRSA (PCR) Negative (Negative) 08/16/23 19:30 Random Vancomycin 8.9 mcg/ml (10-20) L 08/18/23 06:56 SARS-CoV-2 (PCR) NEGATIVE (Negative) 08/16/23 13:19 Influenza Type A (PCR) Negative (Neg) 08/16/23 13:19 Influenza Type B (PCR) Negative (Neg) 08/16/23 13:19 RSV (RT-PCR) Negative (Neg) 08/16/23 13:19 Blood Type O Negative 08/16/23 14:05 Antibody Screen NEGATIVE 08/16/23 14:05 Crossmatch See Detail 08/16/23 14:05 Impressions Abdomen/Pelvis CT 08/16/23 11:[address] WITHOUT CONTRAST CT DOSE: 1479.25 mGy.cm HISTORY: RLQ pain TECHNIQUE: Multiaxial CT images of the abdomen and pelvis were performed without contrast. A dose lowering technique was utilized adhering to the principles of ALARA. COMPARISON STUDY: None. FINDINGS: Trace right pleural effusion. Mild dependent changes seen at the lung bases. Large amount of pneumoperitoneum resulting in abdominal distention. There are bilateral total hip arthroplasties. Posterior decompression fusion from L2 through L5 with pedicle screws and rods. The hardware appears intact. No acute fractures. Small amount of gas at the laminectomy sites as well as fluid favors the recent postoperative change. Small umbilical hernia containing fat and gas. There is mild body wall edema noted. Cholelithiasis. No gallbladder wall thickening. The unenhanced liver, spleen, adrenal glands, and pancreas unremarkable. Multiple bilateral peripelvic renal cysts are noted. Bilateral nephrolithiasis. No hydronephrosis. Normal caliber abdominal aorta. No retroperitoneal lymphadenopathy. No pelvic lymphadenopathy or pelvic free fluid. The bladder and uterus are not well visualized due to the metallic artifact but appear unremarkable. Extensive colonic diverticulosis. No evidence for acute diverticulitis. [id number] fecal retention most pronounced within the proximal colon. Normal appendix. No dilated loops of bowel to suggest an obstruction. There is mild circumferential thickening and fat stranding within the proximal duodenum best seen on image 123. In conjunction with the extensive pneumoperitoneum this is concerning for a perforated duodenal ulcer. IMPRESSION: 1. Extensive pneumoperitoneum. This is consistent with underlying bowel perforation. The exact location is difficult to confirm but favors a perforated duodenal ulcer as described above. 2. Colonic diverticulosis. No evidence for acute diverticulitis. 3. Bilateral nephrolithiasis. No ureteral stones. No hydronephrosis. 4. Trace right pleural effusion. 5. Cholelithiasis. 6. Additional findings as described above. ACT 112: Negative or not required by law. Electronically signed by: Gunnar Eldridge M.D. 08/16/2023 12:41 PM Chest X-Ray 08/16/23 20:07 SINGLE VIEW CHEST CLINICAL HISTORY: Respiratory failure. Intubation. FINDINGS: An AP, portable, supine chest radiograph is compared to study dated 08/16/2023. The examination is degraded by portable technique and patient rotation. A left internal jugular central venous catheter has been placed. The tip projects over the cavoatrial junction. An enteric tube has been placed. The tip projects below the diaphragm. An endotracheal tube has been placed. The tip projects 5 cm above the gamaliel. The heart cardiac silhouette is enlarged. There is mild pulmonary vascular congestion. A small right pleural effusion is suspected with right basilar atelectasis. No pneumothorax is seen. The skeletal structures are osteopenic. The bony thorax is grossly intact. Fusion hardware is partially visualized and lumbar spine. IMPRESSION: 1. Line and tube placement as above. 2. Enlarged cardiac silhouette with mild pulmonary vascular congestion. 3. Small right pleural effusion. ACT 112: Negative or not required by law. Electronically signed by: Juanito Sharma M.D. 08/17/2023 8:36 AM
--- NOTE | 2023-08-18 09:14 | Pharmacy Report ---
Pharmacy PK ABX Note - Date of Service August 18, 2023 - Assessment and Plan Assessment 72 year old F receiving vancomycin and zosyn for treatment of sepsis secondary to a perforated bowel. Pertinent microbiologic data includes: abdomen culture- reincubating. Given BMI of 45, will monitor closely for accumulation and toxicity with vancomycin. Day # 3 of antimicrobial therapy. Plan Vancomycin * Current regimen: vanc 1gm IV q12h * Random level this AM (~11h level)- 8.9mcg/mL. Predicted to achieve ssAUC 405mg/L.hr with 55% probability. * Increase maintenance dose: 1250 mg IV every 12 hours * Regimen is predicted to achieve target AUC/EBER of 400-600 mg/L.hr * Repeat level around steady state of new regimen Pharmacy will continue to follow and will adjust dose/frequency as necessary. Thank you. Pharmacy has transitioned to AUC monitoring for vancomycin. AUC/EBER is the preferred PK/PD target and is associated with decreased risk of nephrotoxicity compared to traditional trough targets.
[2023-08-18] MEDS: PANTOprazole 40 MG in SYRINGE 0 ML IV SCH (10:39)
--- NOTE | 2023-08-18 11:23 | Surgery Progress Note ---
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 Wood has seen patient and agrees with above Admission and Anticipated Discharge Date Admission Date: August 16, 2023 Subjective very tired and fatigued, had a rough night only slept for 45 minutes abdominal pain controlled no n,v no chest pain or shortness of breath Physical Exam Constitutional: WD/WN, vitals as above + morbidly obese, cooperative and comfortable; no acute distress and not ill appearing Respiratory: normal respiratory effort; no respiratory distress, no labored breathing and no retractions Cardiovascular: Rate/Rhythm: regular rate and regular rhythm Gastrointestinal (Abdomen): Inspection/Auscultation: abdomen normal to inspection, + abdominal surgical incision (clean/dry/intact with robbin) and + hypoactive bowel sounds; abdomen not distended and + abnormal bowel sounds Percussion/Palpation: + abdomen tender (RUQ and midline incision) and abdomen soft; no guarding, abdomen not rigid and abdomen not firm RLQ ileostomy with pink stoma, liquid stool and gas present in bag Skin: no rashes, warm and dry Psychiatric: Orientation: alert and oriented x 3 Results & Data Vital Signs (Past 12 Hours) Vital Signs Temp Pulse Pulse Resp BP BP Pulse Ox 08/18/23 08:00 36.8 C 71 19 105/63 97 08/18/23 06:10 08/18/23 04:01 37.5 C 66 18 97 08/18/23 04:01 143/83 H 08/18/23 04:00 37.5 C 64 18 98 08/18/23 03:00 37.5 C 65 17 98 08/18/23 02:00 37.6 C H 65 16 98 08/18/23 01:49 66 08/18/23 01:00 37.7 C H 64 15 97 08/18/23 00:00 160/87 H 08/18/23 00:00 37.7 C H 66 18 98 O2 Del Method O2 Flow Rate 08/18/23 08:00 Nasal Cannula 1.0 08/18/23 06:10 Room Air 08/18/23 04:01 08/18/23 04:01 08/18/23 04:00 08/18/23 03:00 08/18/23 02:00 08/18/23 01:49 08/18/23 01:00 08/18/23 00:00 08/18/23 00:00 Laboratory Results 08/18/23 08/18/23 08/18/23 Range/Units 06:56 03:56 03:52 WBC 8.70 (4.8-10.8) K/ul RBC 2.94 L (4.20-5.40) M/uL Hgb 8.0 L (12.0-16.0) g/dl POC Hgb (12.0-16.0) g/dl Hct 25.3 L (37.0-47.0) % POC Hct (37-47) % MCV 86.1 (80.0-100.0) fL MCH 27.2 (25.0-34.0) pg MCHC 31.6 L (32.0-36.0) g/dL RDW Std Deviation 50.4 H (36.4-46.3) fL RDW Coeff of Samantha 15.9 H (11.5-14.5) % Plt Count 243 (130-400) K/uL MPV 8.6 L (9.4-12.4) fL Immature Gran % (Auto) 0.3 % Neut % (Auto) 74.8 % Lymph % (Auto) 9.4 % [place] % (Auto) 12.1 % Eos % (Auto) 3.3 % Baso % (Auto) 0.1 % Neut # (Auto) 6.50 (1.40-6.50) K/uL Lymph # (Auto) 0.82 L (1.20-3.40) K/uL [place] # (Auto) 1.05 H (0.11-0.59) K/uL Eos # (Auto) 0.29 (0.00-0.50) K/uL Baso # (Auto) 0.01 (0.00-0.20) K/uL Immature Gran # (Auto) 0.03 (0.01-0.20) K/uL Absolute Nucleated RBC 0.02 (0.00-0.12) K/uL Nucleated RBC % (auto) 0.2 % Sample Site POC pH (7.35-7.45) POC pCO2 (35-46) mmHg POC pO2 (80-95) mmHg POC HCO3 (19-24) jania/L POC Base Excess (-9-1.8) jania/L ABG pH (Temp Correct) (7.35-7.45) ABG pCO2 (Temp Corrct (35-46) mmHg POC ABG pO2 at Pt Temp POC ABG O2 Sat (90-95) % Tomer Test O2 Delivery Device POC O2 Rate POC FiO2 % Tidal Volume PEEP POC Sodium (135-144) mmol/L Sodium 140 (136-145) mmol/L POC Potassium (3.3-5.0) mmol/L Potassium 3.8 (3.5-5.1) mmol/L POC Chloride (101-112) mmol/L Chloride 106 (98-107) mmol/L Carbon Dioxide 31 (21-32) mmol/L POC Total CO2 (24-31) mmol/L Anion Gap 3 (3-11) POC Anion Gap (16-25) mmol/L POC BUN (7-18) mg/dl BUN 12 (6-23) mg/dl Creatinine 0.58 L (0.6-1.2) mg/dl POC Creatinine (0.6-1.3) mg/dl Est Cr Clr Drug Dosing 106.0 ml/min Est GFR ( Amer) 106.0 ml/min Est GFR (Non-Af Amer) 91.4 ml/min BUN/Creatinine Ratio 20.7 H (10-20) Glucose 124 H (70-99(Fasting)) mg/dl POC Glucose 125 H (70-99) mg/dl POC Glucose (other) (70-99) mg/dl Calcium 8.1 L (8.6-10.3) mg/dl POC Ioniz Calcium Andrey (1.12-1.32) mmol/l Phosphorus 3.4 (2.5-4.9) mg/dl Magnesium 2.2 (1.7-2.4) mg/dl Random Vancomycin 8.9 L (10-20) mcg/ml 08/17/23 08/17/23 08/17/23 Range/Units 23:30 17:20 11:40 WBC (4.8-10.8) K/ul RBC (4.20-5.40) M/uL Hgb (12.0-16.0) g/dl POC Hgb (12.0-16.0) g/dl Hct (37.0-47.0) % POC Hct (37-47) % MCV (80.0-100.0) fL MCH (25.0-34.0) pg MCHC (32.0-36.0) g/dL RDW Std Deviation (36.4-46.3) fL RDW Coeff of Samantha (11.5-14.5) % Plt Count (130-400) K/uL MPV (9.4-12.4) fL Immature Gran % (Auto) % Neut % (Auto) % Lymph % (Auto) % [place] % (Auto) % Eos % (Auto) % Baso % (Auto) % Neut # (Auto) (1.40-6.50) K/uL Lymph # (Auto) (1.20-3.40) K/uL [place] # (Auto) (0.11-0.59) K/uL Eos # (Auto) (0.00-0.50) K/uL Baso # (Auto) (0.00-0.20) K/uL Immature Gran # (Auto) (0.01-0.20) K/uL Absolute Nucleated RBC (0.00-0.12) K/uL Nucleated RBC % (auto) % Sample Site POC pH (7.35-7.45) POC pCO2 (35-46) mmHg POC pO2 (80-95) mmHg POC HCO3 (19-24) jania/L POC Base Excess (-9-1.8) jania/L ABG pH (Temp Correct) (7.35-7.45) ABG pCO2 (Temp Corrct (35-46) mmHg POC ABG pO2 at Pt Temp POC ABG O2 Sat (90-95) % Tomer Test O2 Delivery Device POC O2 Rate POC FiO2 % Tidal Volume PEEP POC Sodium (135-144) mmol/L Sodium (136-145) mmol/L POC Potassium (3.3-5.0) mmol/L Potassium (3.5-5.1) mmol/L POC Chloride (101-112) mmol/L Chloride (98-107) mmol/L Carbon Dioxide (21-32) mmol/L POC Total CO2 (24-31) mmol/L Anion Gap (3-11) POC Anion Gap (16-25) mmol/L POC BUN (7-18) mg/dl BUN (6-23) mg/dl Creatinine (0.6-1.2) mg/dl POC Creatinine (0.6-1.3) mg/dl Est Cr Clr Drug Dosing ml/min Est GFR ( Amer) ml/min Est GFR (Non-Af Amer) ml/min BUN/Creatinine Ratio (10-20) Glucose (70-99(Fasting)) mg/dl POC Glucose 138 H 143 H 178 H (70-99) mg/dl POC Glucose (other) (70-99) mg/dl Calcium (8.6-10.3) mg/dl POC Ioniz Calcium Andrey (1.12-1.32) mmol/l Phosphorus (2.5-4.9) mg/dl Magnesium (1.7-2.4) mg/dl Random Vancomycin (10-20) mcg/ml 08/17/23 08/16/23 08/16/23 Range/Units 04:14 19:49 11:51 WBC (4.8-10.8) K/ul RBC (4.20-5.40) M/uL Hgb (12.0-16.0) g/dl POC Hgb 7.8 L 8.5 L 8.2 L (12.0-16.0) g/dl Hct (37.0-47.0) % POC Hct 23 L 25 L 24 L (37-47) % MCV (80.0-100.0) fL MCH (25.0-34.0) pg MCHC (32.0-36.0) g/dL RDW Std Deviation (36.4-46.3) fL RDW Coeff of Samantha (11.5-14.5) % Plt Count (130-400) K/uL MPV (9.4-12.4) fL Immature Gran % (Auto) % Neut % (Auto) % Lymph % (Auto) % [place] % (Auto) % Eos % (Auto) % Baso % (Auto) % Neut # (Auto) (1.40-6.50) K/uL Lymph # (Auto) (1.20-3.40) K/uL [place] # (Auto) (0.11-0.59) K/uL Eos # (Auto) (0.00-0.50) K/uL Baso # (Auto) (0.00-0.20) K/uL Immature Gran # (Auto) (0.01-0.20) K/uL Absolute Nucleated RBC (0.00-0.12) K/uL Nucleated RBC % (auto) % Sample Site R Radial R Radial POC pH 7.49 H 7.47 H (7.35-7.45) POC pCO2 36 33 L (35-46) mmHg POC pO2 80 76 L (80-95) mmHg POC HCO3 27 H 24 (19-24) jania/L POC Base Excess 4.0 H 0.0 (-9-1.8) jania/L ABG pH (Temp Correct) 7.473 H 7.441 (7.35-7.45) ABG pCO2 (Temp Corrct 37 35 (35-46) mmHg POC ABG pO2 at Pt Temp 84 86 POC ABG O2 Sat 97.0 H 96.0 H (90-95) % Tomer Test Pass Pass O2 Delivery Device Ventilator Ventilator POC O2 Rate 16 28 POC FiO2 30 30 % Tidal Volume 400 400 PEEP 5 5 POC Sodium 133 L 134 L 135 (135-144) mmol/L Sodium (136-145) mmol/L POC Potassium 3.8 4.2 4.0 (3.3-5.0) mmol/L Potassium (3.5-5.1) mmol/L POC Chloride 98 L (101-112) mmol/L Chloride (98-107) mmol/L Carbon Dioxide (21-32) mmol/L POC Total CO2 28 25 28 (24-31) mmol/L Anion Gap (3-11) POC Anion Gap 14.0 L (16-25) mmol/L POC BUN 15 (7-18) mg/dl BUN (6-23) mg/dl Creatinine (0.6-1.2) mg/dl POC Creatinine 0.6 (0.6-1.3) mg/dl Est Cr Clr Drug Dosing ml/min Est GFR ( Amer) ml/min Est GFR (Non-Af Amer) ml/min BUN/Creatinine Ratio (10-20) Glucose (70-99(Fasting)) mg/dl POC Glucose (70-99) mg/dl POC Glucose (other) 161 H (70-99) mg/dl Calcium (8.6-10.3) mg/dl POC Ioniz Calcium Andrey 1.06 L (1.12-1.32) mmol/l Phosphorus (2.5-4.9) mg/dl Magnesium (1.7-2.4) mg/dl Random Vancomycin (10-20) mcg/ml (2) Sepsis Sepsis type: sepsis due to unspecified organism
[2023-08-18] MEDS: PLASMA-LYTE A 1,000 ML IV SCH (14:44)
[2023-08-18] MEDS ORDERED: HYDROmorphone INJ 0.5 MG/0.5 ML SYR IV PRN (15:02)
[2023-08-18] MEDS ORDERED: oxyCODONE/ACETAMINOPHEN 5mg/325mg TAB PO PRN ×4 (15:02→15:20)
[2023-08-18] MEDS ORDERED: HYDROmorphone INJ 1 MG/ML SYRINGE IV PRN (15:03)
[2023-08-18] MEDS ORDERED: Nursing to Pharmacy Communication SCH ×2 (15:45→16:45)
[2023-08-18] MEDS: VANCOMYCIN HCL 1,250 MG in SODIUM CHLORIDE 0.9% 250 ML IV SCH (16:59)
[2023-08-18] MEDS: ATORVASTATIN 10 MG TAB PO SCH (20:32)
[2023-08-18] MEDS: allopurinoL 300 MG TAB PO SCH (20:32)
[2023-08-18] MEDS: LANTUS PER UNIT CHARGE SQ SCH (21:50)
[2023-08-19] MEDS: PIPERACILLIN/TAZOBACTAM 4.5 GM in DEXTROSE 5% MINI-B 100 ML IV SCH ×3 (04:05→20:12)
[2023-08-19] MEDS: VANCOMYCIN HCL 1,250 MG in SODIUM CHLORIDE 0.9% 250 ML IV SCH ×2 (04:06→16:44)
--- NOTE | 2023-08-19 06:18 | Electrocardiogram Report ---
Test Reason : Blood Pressure : / mmHG Vent. Rate : 095 BPM Atrial Rate : 095 BPM P-R Int : 160 ms QRS Dur : 080 ms QT Int : 344 ms P-R-T Axes : 084 007 035 degrees QTc Int : 432 ms Sinus rhythm with Premature supraventricular complexes Otherwise normal ECG When compared with ECG of 28-JUL-2023 15:22, Premature supraventricular complexes are now Present Vent. rate has increased BY 39 BPM Confirmed by Juma Louise ([id number]) on 08/19/2023 6:18:33 AM Referred By: REFERRED SELF Confirmed By:Juma Louise
[2023-08-19] MEDS: PLASMA-LYTE A 1,000 ML IV SCH (06:42)
[2023-08-19 06:54] LABS: Basophils # (auto) 0.01 K/uL (0.00-0.20); Basophils % (auto) 0.1 %; Eosinophils # (auto) 0.42 K/uL (0.00-0.50); Eosinophils % (auto) 5.1 %; Hematocrit (blood only) 23.2 % (37.0-47.0); Hemoglobin 7.3 g/dl (12.0-16.0); Immature Granulocytes # (auto) 0.07 K/uL (0.01-0.20); Immature Granulocytes % (auto) 0.8 %; Lymphocytes # (auto) 0.86 K/uL (1.20-3.40); Lymphocytes % (auto) 10.4 %; Mean Corpuscular Hemoglobin 27.2 pg (25.0-34.0); Mean Corpuscular Hgb Conc 31.5 g/dL (32.0-36.0); Mean Corpuscular Volume 86.6 fL (80.0-100.0); Mean Platelet Volume 8.4 fL (9.4-12.4); Monocytes # (auto) 0.77 K/uL (0.11-0.59); Monocytes % (auto) 9.3 %; Neutrophils # (auto) 6.14 K/uL (1.40-6.50); Neutrophils % (auto) 74.3 %; Platelet Count 230 K/uL (130-400); RDW Coefficient of Variation 15.9 % (11.5-14.5); RDW Standard Deviation 50.5 fL (36.4-46.3); Red Blood Count 2.68 M/uL (4.20-5.40); White Blood Count 8.27 K/ul (4.8-10.8)
[2023-08-19 07:16] LABS: Hypersegmented Neutrophils 1+; Ovalocytes 1+
[2023-08-19 07:19] LABS: BUN Creatinine Ratio 17.5 (10-20); Calcium 7.7 mg/dl (8.6-10.3); Creatinine Clr Calc Pharmacy 109.8 ml/min; Est GFR (African American) 106.6 ml/min; Magnesium 2.1 mg/dl (1.7-2.4); Phosphorus 3.3 mg/dl (2.5-4.9); Potassium 3.7 mmol/L (3.5-5.1)
[2023-08-19] MEDS: ENOXAPARIN INJ 40 MG/0.4 ML SYR SQ SCH (08:33)
[2023-08-19] MEDS: INSULIN ASPART PER UNIT CHARGE SC SCH ×4 (08:40→21:11)
[2023-08-19] MEDS: PANTOprazole 40 MG in SYRINGE 0 ML IV SCH (11:15)
--- NOTE | 2023-08-19 12:55 | Surgery Progress Note ---
Date of Service August 19, 2023 Assessment & Plan (1) Perforated bowel: (2) Sepsis: (3) Pneumoperitoneum: Plan POD # 3 s/p ex lap, right hemicolectomy with ileostomy for perforated ascending colon avss postop pain controlled ileostomy with liquid stool and gas adequate urine output hemodynamically stable Plan: Continue pain management as needed Continue clear liquids for today per patient request, full liquids in am Continue lynne drain to bulb suction continue schofield catheter for today, advised patient would like to try to remove tomorrow incentive spirometry IV Protonix for GI prophylaxis Continue SCDs and lovenox for dvt prophylaxis Continue PT/OT Continue medical management Admission and Anticipated Discharge Date Admission Date: August 16, 2023 Subjective feeling okay pain moderate to severe but controlled tolerating clear liquids hearing a lot of gas coming out of ostomy , has not looked at it, "not ready for that yet" no chest pain or shortness of breath worked with PT/OT yesterday but very difficulty was able to get up and stand at bedside but that is it. A lot of back pressure due to mattress Physical Exam Constitutional: WD/WN, vitals as above + obese, cooperative and comfortable; no acute distress, not ill appearing and not in distress Respiratory: normal respiratory effort; no respiratory distress, no labored breathing and no retractions Gastrointestinal (Abdomen): Inspection/Auscultation: abdomen normal to inspection, + abdominal surgical incision (clean/dry/intact) and + abdominal surgical drain present (serous); abdomen not distended Percussion/Palpation: + abdomen tender (at midline incision and right abdomen, appropriate postop) and abdomen soft; no guarding, abdomen not rigid and abdomen not firm ileostomy with liquid stool and gas present, pink with no necrosis Skin: no rashes, warm and dry Psychiatric: Orientation: alert and oriented x 3 Results & Data Vital Signs (Past 12 Hours) Vital Signs Temp Pulse Resp BP Pulse Ox O2 Del Method 08/19/23 10:57 37.0 C 72 19 122/87 93 Room Air 08/19/23 07:12 36.5 C 60 18 135/88 98 Room Air 08/19/23 03:12 36.9 C 69 18 129/80 99 Room Air Laboratory Results 08/19/23 08/19/23 08/19/23 Range/Units 11:26 07:16 06:09 WBC 8.27 (4.8-10.8) K/ul RBC 2.68 L (4.20-5.40) M/uL Hgb 7.3 L (12.0-16.0) g/dl Hct 23.2 L (37.0-47.0) % MCV 86.6 (80.0-100.0) fL MCH 27.2 (25.0-34.0) pg MCHC 31.5 L (32.0-36.0) g/dL RDW Std Deviation 50.5 H (36.4-46.3) fL RDW Coeff of Samantha 15.9 H (11.5-14.5) % Plt Count 230 (130-400) K/uL MPV 8.4 L (9.4-12.4) fL Immature Gran % (Auto) 0.8 % Neut % (Auto) 74.3 % Lymph % (Auto) 10.4 % [place] % (Auto) 9.3 % Eos % (Auto) 5.1 % Baso % (Auto) 0.1 % Neut # (Auto) 6.14 (1.40-6.50) K/uL Lymph # (Auto) 0.86 L (1.20-3.40) K/uL [place] # (Auto) 0.77 H (0.11-0.59) K/uL Eos # (Auto) 0.42 (0.00-0.50) K/uL Baso # (Auto) 0.01 (0.00-0.20) K/uL Immature Gran # (Auto) 0.07 (0.01-0.20) K/uL Hypersegmented Neuts 1+ Ovalocytes 1+ Sodium 141 (136-145) mmol/L Potassium 3.7 (3.5-5.1) mmol/L Chloride 105 (98-107) mmol/L Carbon Dioxide 30 (21-32) mmol/L Anion Gap 6 (3-11) BUN 10 (6-23) mg/dl Creatinine 0.57 L (0.6-1.2) mg/dl Est Cr Clr Drug Dosing 109.8 ml/min Est GFR ( Amer) 106.6 ml/min Est GFR (Non-Af Amer) 92.0 ml/min BUN/Creatinine Ratio 17.5 (10-20) Glucose 114 H (70-99(Fasting)) mg/dl POC Glucose 136 H 124 H (70-99) mg/dl Calcium 7.7 L (8.6-10.3) mg/dl Phosphorus 3.3 (2.5-4.9) mg/dl Magnesium 2.1 (1.7-2.4) mg/dl Stool H. pylori Ag Crossmatch 08/19/23 08/18/23 08/18/23 Range/Units 02:52 20:37 16:15 WBC (4.8-10.8) K/ul RBC (4.20-5.40) M/uL Hgb (12.0-16.0) g/dl Hct (37.0-47.0) % MCV (80.0-100.0) fL MCH (25.0-34.0) pg MCHC (32.0-36.0) g/dL RDW Std Deviation (36.4-46.3) fL RDW Coeff of Samantha (11.5-14.5) % Plt Count (130-400) K/uL MPV (9.4-12.4) fL Immature Gran % (Auto) % Neut % (Auto) % Lymph % (Auto) % [place] % (Auto) % Eos % (Auto) % Baso % (Auto) % Neut # (Auto) (1.40-6.50) K/uL Lymph # (Auto) (1.20-3.40) K/uL [place] # (Auto) (0.11-0.59) K/uL Eos # (Auto) (0.00-0.50) K/uL Baso # (Auto) (0.00-0.20) K/uL Immature Gran # (Auto) (0.01-0.20) K/uL Hypersegmented Neuts Ovalocytes Sodium (136-145) mmol/L Potassium (3.5-5.1) mmol/L Chloride (98-107) mmol/L Carbon Dioxide (21-32) mmol/L Anion Gap (3-11) BUN (6-23) mg/dl Creatinine (0.6-1.2) mg/dl Est Cr Clr Drug Dosing ml/min Est GFR ( Amer) ml/min Est GFR (Non-Af Amer) ml/min BUN/Creatinine Ratio (10-20) Glucose (70-99(Fasting)) mg/dl POC Glucose 122 H 153 H (70-99) mg/dl Calcium (8.6-10.3) mg/dl Phosphorus (2.5-4.9) mg/dl Magnesium (1.7-2.4) mg/dl Stool H. pylori Ag Pending Crossmatch 08/16/23 Range/Units 14:05 WBC (4.8-10.8) K/ul RBC (4.20-5.40) M/uL Hgb (12.0-16.0) g/dl Hct (37.0-47.0) % MCV (80.0-100.0) fL MCH (25.0-34.0) pg MCHC (32.0-36.0) g/dL RDW Std Deviation (36.4-46.3) fL RDW Coeff of Samantha (11.5-14.5) % Plt Count (130-400) K/uL MPV (9.4-12.4) fL Immature Gran % (Auto) % Neut % (Auto) % Lymph % (Auto) % [place] % (Auto) % Eos % (Auto) % Baso % (Auto) % Neut # (Auto) (1.40-6.50) K/uL Lymph # (Auto) (1.20-3.40) K/uL [place] # (Auto) (0.11-0.59) K/uL Eos # (Auto) (0.00-0.50) K/uL Baso # (Auto) (0.00-0.20) K/uL Immature Gran # (Auto) (0.01-0.20) K/uL Hypersegmented Neuts Ovalocytes Sodium (136-145) mmol/L Potassium (3.5-5.1) mmol/L Chloride (98-107) mmol/L Carbon Dioxide (21-32) mmol/L Anion Gap (3-11) BUN (6-23) mg/dl Creatinine (0.6-1.2) mg/dl Est Cr Clr Drug Dosing ml/min Est GFR ( Amer) ml/min Est GFR (Non-Af Amer) ml/min BUN/Creatinine Ratio (10-20) Glucose (70-99(Fasting)) mg/dl POC Glucose (70-99) mg/dl Calcium (8.6-10.3) mg/dl Phosphorus (2.5-4.9) mg/dl Magnesium (1.7-2.4) mg/dl Stool H. pylori Ag Crossmatch See Detail (2) Sepsis Sepsis type: sepsis due to unspecified organism
--- NOTE | 2023-08-19 13:49 | Hospitalist Progress Note ---
Date of Service August 19, 2023 Assessment & Plan (1) Perforated bowel: Plan: 1) Perforated bowel: Plan: 1) Perforated bowel: Pneumoperitoneum: Patient presented with abdominal pain. Underwent surgery for perforated ascending colon on August 16, 2023. 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 Wound culturelow counts mixed probable skin microbiota On clear liquid diet. Will stop IV fluids. Continue vancomycin and Zosyn for now; plan to continue for 7 days PT OT evaluation Optimize pain control with Tylenol for mild pain, oxycodone for moderate pain and Dilaudid for severe pain. Type 2 diabetes mellitus on Lantus and ISS Continue to monitor. HTN Continue to hold losartan/hctz will monitor Hyperlipidemia on statin Lumbar stenosis with neurogenic claudication s/p surgery by on 08/11 Continue PT OT inpatient. Dvt px Lovenox Disposition Patient continues to be hospitalized as she had recently undergone exploratory laparotomy with right hemicolectomy with ileostomy for perforated ascending colon. Needs IV antibiotics. Possible DC to rehab once resolution of medical issues. Time spent evaluating patient, direct bedside care, chart review, placing orders, interpretation of diagnostic studies, discussion with consultants and patient, as well as other required patient management activities is 50 minutes. Admission and Anticipated Discharge Date Admission Date: August 16, 2023 Subjective Patient seen and examined at bedside. Denies fever, chills, chest pain. Urine output reassuring. Review of Systems Review of Systems: All systems reviewed & are unremarkable except as noted in Subjective Physical Exam Physical Exam: General-alert orient x 3; not in distress. Head- atraumatic Neck- supple, no JVD. Lungs- clear to auscultation, no wheezing or crackles. Heart- regular rhythm; no murmur, no gallop. Abdomen-normal bowel sound, s/p ex lap with ileostomy and hemicolectomy Extremities- no pretibial edema, no erythema seen. Neuro- alert, oriented x 3; no facial palsy; no dysarthria; moves extremities. Skin- warm & dry Results & Data Results & Data Vital Signs (Past 12 Hours) Vital Signs Temp Pulse Resp BP Pulse Ox O2 Del Method 08/19/23 10:57 37.0 C 72 19 122/87 93 Room Air 08/19/23 07:12 36.5 C 60 18 135/88 98 Room Air 08/19/23 03:12 36.9 C 69 18 129/80 99 Room Air Laboratory Results Laboratory Results WBC 8.27 K/ul (4.8-10.8) 08/19/23 06:09 RBC 2.68 M/uL (4.20-5.40) L 08/19/23 06:09 Hgb 7.3 g/dl (12.0-16.0) L 08/19/23 06:09 POC Hgb 7.8 g/dl (12.0-16.0) L 08/17/23 04:14 Hct 23.2 % (37.0-47.0) L 08/19/23 06:09 POC Hct 23 % (37-47) L 08/17/23 04:14 MCV 86.6 fL (80.0-100.0) 08/19/23 06:09 MCH 27.2 pg (25.0-34.0) 08/19/23 06:09 MCHC 31.5 g/dL (32.0-36.0) L 08/19/23 06:09 RDW Std Deviation 50.5 fL (36.4-46.3) H 08/19/23 06:09 RDW Coeff of Samantha 15.9 % (11.5-14.5) H 08/19/23 06:09 Plt Count 230 K/uL (130-400) 08/19/23 06:09 MPV 8.4 fL (9.4-12.4) L 08/19/23 06:09 Immature Gran % (Auto) 0.8 % 08/19/23 06:09 Neut % (Auto) 74.3 % 08/19/23 06:09 Lymph % (Auto) 10.4 % 08/19/23 06:09 Shannon % (Auto) 9.3 % 08/19/23 06:09 Eos % (Auto) 5.1 % 08/19/23 06:09 Baso % (Auto) 0.1 % 08/19/23 06:09 Neut # (Auto) 6.14 K/uL (1.40-6.50) 08/19/23 06:09 Lymph # (Auto) 0.86 K/uL (1.20-3.40) L 08/19/23 06:09 Shannon # (Auto) 0.77 K/uL (0.11-0.59) H 08/19/23 06:09 Eos # (Auto) 0.42 K/uL (0.00-0.50) 08/19/23 06:09 Baso # (Auto) 0.01 K/uL (0.00-0.20) 08/19/23 06:09 Immature Gran # (Auto) 0.07 K/uL (0.01-0.20) 08/19/23 06:09 Absolute Nucleated RBC 0.02 K/uL (0.00-0.12) 08/18/23 03:52 Nucleated RBC % (auto) 0.2 % 08/18/23 03:52 Hypersegmented Neuts 1+ 08/19/23 06:09 Polychromasia 1+ 08/17/23 04:10 Anisocytosis Present 08/17/23 04:10 Ovalocytes 1+ 08/19/23 06:09 Sample Site R Radial 08/17/23 04:14 POC pH 7.49 (7.35-7.45) H 08/17/23 04:14 POC pCO2 36 mmHg (35-46) 08/17/23 04:14 POC pO2 80 mmHg (80-95) 08/17/23 04:14 POC HCO3 27 jania/L (19-24) H 08/17/23 04:14 POC Total CO2 28 mmol/L (24-31) 08/17/23 04:14 POC Base Excess 4.0 jania/L (-9-1.8) H 08/17/23 04:14 ABG pH (Temp Correct) 7.473 (7.35-7.45) H 08/17/23 04:14 ABG pCO2 (Temp Corrct 37 mmHg (35-46) 08/17/23 04:14 POC ABG pO2 at Pt Temp 84 08/17/23 04:14 POC ABG O2 Sat 97.0 % (90-95) H 08/17/23 04:14 Tomer Test Pass 08/17/23 04:14 O2 Delivery Device Ventilator 08/17/23 04:14 POC O2 Rate 16 08/17/23 04:14 POC FiO2 30 % 08/17/23 04:14 Tidal Volume 400 08/17/23 04:14 PEEP 5 08/17/23 04:14 POC Sodium 133 mmol/L (135-144) L 08/17/23 04:14 Sodium 141 mmol/L (136-145) 08/19/23 06:09 POC Potassium 3.8 mmol/L (3.3-5.0) 08/17/23 04:14 Potassium 3.7 mmol/L (3.5-5.1) 08/19/23 06:09 POC Chloride 98 mmol/L (101-112) L 08/16/23 11:51 Chloride 105 mmol/L (98-107) 08/19/23 06:09 Carbon Dioxide 30 mmol/L (21-32) 08/19/23 06:09 POC Total CO2 28 mmol/L (24-31) 08/16/23 11:51 Anion Gap 6 (3-11) 08/19/23 06:09 POC Anion Gap 14.0 mmol/L (16-25) L 08/16/23 11:51 POC BUN 15 mg/dl (7-18) 08/16/23 11:51 BUN 10 mg/dl (6-23) 08/19/23 06:09 Creatinine 0.57 mg/dl (0.6-1.2) L 08/19/23 06:09 POC Creatinine 0.6 mg/dl (0.6-1.3) 08/16/23 11:51 Est Cr Clr Drug Dosing 109.8 ml/min 08/19/23 06:09 Est GFR ( Amer) 106.6 ml/min 08/19/23 06:09 Est GFR (Non-Af Amer) 92.0 ml/min 08/19/23 06:09 BUN/Creatinine Ratio 17.5 (10-20) 08/19/23 06:09 Glucose 114 mg/dl (70-99(Fasting)) H 08/19/23 06:09 POC Glucose 136 mg/dl (70-99) H 08/19/23 11:26 POC Glucose (other) 161 mg/dl (70-99) H 08/16/23 11:51 Lactate 1.1 mmol/L (0.4-2.0) 08/16/23 20:15 Calcium 7.7 mg/dl (8.6-10.3) L 08/19/23 06:09 POC Ioniz Calcium Andrey 1.06 mmol/l (1.12-1.32) L 08/16/23 11:51 Phosphorus 3.3 mg/dl (2.5-4.9) 08/19/23 06:09 Magnesium 2.1 mg/dl (1.7-2.4) 08/19/23 06:09 Total Bilirubin 1.1 mg/dl (0.2-1.0) H 08/17/23 04:11 Direct Bilirubin 0.3 mg/dl (0-0.2) H 08/16/23 13:03 AST 16 U/L (13-39) 08/17/23 04:11 ALT 23 U/L (7-52) 08/17/23 04:11 Alkaline Phosphatase 131 U/L (34-104) H 08/17/23 04:11 Troponin I High Sens 38.0 pg/ml (0-14) H 08/16/23 14:05 Total Protein 4.5 gm/dl (6.0-8.3) L 08/17/23 04:11 Albumin 2.4 gm/dl (3.4-5.0) L 08/17/23 04:11 Globulin 2.1 gm/dl (2.5-4.0) L 08/17/23 04:11 Albumin/Globulin Ratio 1.1 (0.9-2) 08/17/23 04:11 Lipase 7 U/L (11-82) L 08/16/23 11:45 Procalcitonin 0.24 ng/ml (0-0.5) 08/16/23 11:45 Urine Color Dark Yellow 08/16/23 20:30 Urine Appearance Clear (Clear) 08/16/23 20:30 Urine pH 5.0 (4.5-7.5) 08/16/23 20:30 Ur Specific [place] 1.022 (1.000-1.030) 08/16/23 20:30 Urine Protein 1+ (Negative) H 08/16/23 20:30 Urine Glucose (UA) 1+ (Negative) H 08/16/23 20:30 Urine Ketones 4+ (Negative) H 08/16/23 20:30 Urine Blood Negative (Negative) 08/16/23 20:30 Urine Nitrite Negative (Negative) 08/16/23 20:30 Urine Bilirubin Negative (Negative) 08/16/23 20:30 Urine Urobilinogen Negative (Negative) 08/16/23 20:30 Ur Leukocyte Esterase Negative (Negative) 08/16/23 20:30 Urine WBC (Auto) 1-5 /hpf (0-5) 08/16/23 20:30 Urine RBC (Auto) 5-10 /hpf (0-4) H 08/16/23 20:30 U Hyaline Cast (Auto) 1-5 /lpf (0-5) 08/16/23 20:30 U Epithel Cells (Auto) 10-20 /lpf (0-5) H 08/16/23 20:30 Urine Bacteria (Auto) Negative (Negative) 08/16/23 20:30 Nasal Screen MRSA (PCR) Negative (Negative) 08/16/23 19:30 Random Vancomycin 8.9 mcg/ml (10-20) L 08/18/23 06:56 SARS-CoV-2 (PCR) NEGATIVE (Negative) 08/16/23 13:19 Influenza Type A (PCR) Negative (Neg) 08/16/23 13:19 Influenza Type B (PCR) Negative (Neg) 08/16/23 13:19 RSV (RT-PCR) Negative (Neg) 08/16/23 13:19 Blood Type O Negative 08/16/23 14:05 Antibody Screen NEGATIVE 08/16/23 14:05 Crossmatch See Detail 08/16/23 14:05 Impressions Abdomen/Pelvis CT 08/16/23 11:[address] WITHOUT CONTRAST CT DOSE: 1479.25 mGy.cm HISTORY: RLQ pain TECHNIQUE: Multiaxial CT images of the abdomen and pelvis were performed without contrast. A dose lowering technique was utilized adhering to the principles of ALARA. COMPARISON STUDY: None. FINDINGS: Trace right pleural effusion. Mild dependent changes seen at the lung bases. Large amount of pneumoperitoneum resulting in abdominal distention. There are bilateral total hip arthroplasties. Posterior decompression fusion from L2 through L5 with pedicle screws and rods. The hardware appears intact. No acute fractures. Small amount of gas at the laminectomy sites as well as fluid favors the recent postoperative change. Small umbilical hernia containing fat and gas. There is mild body wall edema noted. Cholelithiasis. No gallbladder wall thickening. The unenhanced liver, spleen, adrenal glands, and pancreas unremarkable. Multiple bilateral peripelvic renal cysts are noted. Bilateral nephrolithiasis. No hydronephrosis. Normal caliber abdominal aorta. No retroperitoneal lymphadenopathy. No pelvic lymphadenopathy or pelvic free fluid. The bladder and uterus are not well visualized due to the metallic artifact but appear unremarkable. Extensive colonic diverticulosis. No evidence for acute diverticulitis. [id number] fecal retention most pronounced within the proximal colon. Normal appendix. No dilated loops of bowel to suggest an obstruction. There is mild circumferential thickening and fat stranding within the proximal duodenum best seen on image 123. In conjunction with the extensive pneumoperitoneum this is concerning for a perforated duodenal ulcer. IMPRESSION: 1. Extensive pneumoperitoneum. This is consistent with underlying bowel perforation. The exact location is difficult to confirm but favors a perforated duodenal ulcer as described above. 2. Colonic diverticulosis. No evidence for acute diverticulitis. 3. Bilateral nephrolithiasis. No ureteral stones. No hydronephrosis. 4. Trace right pleural effusion. 5. Cholelithiasis. 6. Additional findings as described above. ACT 112: Negative or not required by law. Electronically signed by: Gunnar Eldridge M.D. 08/16/2023 12:41 PM Chest X-Ray 08/16/23 20:07 SINGLE VIEW CHEST CLINICAL HISTORY: Respiratory failure. Intubation. FINDINGS: An AP, portable, supine chest radiograph is compared to study dated 08/16/2023. The examination is degraded by portable technique and patient rotation. A left internal jugular central venous catheter has been placed. The tip projects over the cavoatrial junction. An enteric tube has been placed. The tip projects below the diaphragm. An endotracheal tube has been placed. The tip projects 5 cm above the gamaliel. The heart cardiac silhouette is enlarged. There is mild pulmonary vascular congestion. A small right pleural effusion is suspected with right basilar atelectasis. No pneumothorax is seen. The skeletal structures are osteopenic. The bony thorax is grossly intact. Fusion hardware is partially visualized and lumbar spine. IMPRESSION: 1. Line and tube placement as above. 2. Enlarged cardiac silhouette with mild pulmonary vascular congestion. 3. Small right pleural effusion. ACT 112: Negative or not required by law. Electronically signed by: Juanito Sharma M.D. 08/17/2023 8:36 AM
[2023-08-19] MEDS: oxyCODONE HCL IR 5 MG TAB (IMMEDIATE RELEASE) PO PRN (16:45)
[2023-08-19] MEDS: allopurinoL 300 MG TAB PO SCH (20:13)
[2023-08-19] MEDS: ATORVASTATIN 10 MG TAB PO SCH (20:13)
[2023-08-19] MEDS: HYDROmorphone INJ 0.5 MG/0.5 ML SYR IV PRN (20:21)
[2023-08-19] MEDS: LANTUS PER UNIT CHARGE SQ SCH (21:11)
--- NOTE | 2023-08-19 22:53 | Electrocardiogram Report ---
Test Reason : Blood Pressure : / mmHG Vent. Rate : 110 BPM Atrial Rate : 110 BPM P-R Int : 160 ms QRS Dur : 080 ms QT Int : 330 ms P-R-T Axes : 000 -11 064 degrees QTc Int : 446 ms Sinus tachycardia with Premature ventricular complexes Premature supraventricular complexes Low voltage QRS Inferior infarct , age undetermined Abnormal ECG When compared with ECG of 16-AUG-2023 13:18, Inferior infarct is now Present Premature ventricular complexes are now Present Confirmed by Juma Louise ([id number]) on 08/19/2023 10:53:12 PM Referred By: REFERRED SELF Confirmed By:Juma Louise
[2023-08-20] MEDS: VANCOMYCIN HCL 1,250 MG in SODIUM CHLORIDE 0.9% 250 ML IV SCH ×2 (04:01→16:24)
[2023-08-20] MEDS: PIPERACILLIN/TAZOBACTAM 4.5 GM in DEXTROSE 5% MINI-B 100 ML IV SCH (04:02)
--- NOTE | 2023-08-20 06:21 | Surgery Progress Note ---
Date of Service August 20, 2023 Assessment & Plan (1) Perforated bowel: Plan: Status post right colectomy with ileostomy on 08/16/2023 (postoperative day #4) Continue current diet Continue analgesics Continue antiemetics Continue DARIUS drain to bulb suction Continue antibiotics in form of vancomycin and Zosyn Continue activity as ablePT and OT has been ordered Continue use of incentive spirometer Check a.m. labs when available Lovenox is in place for DVT prevention Admission and Anticipated Discharge Date Admission Date: August 16, 2023 Supervising Physician Co-Signing Physician Notes Patient seen and examined, labs reviewed, agree with above. Status post right hemicolectomy for perforation with end ileostomy. She is tolerating her liquid diet. She is having difficulty mobilizing due to her other orthopedic issues. On exam she is afebrile with stable vitals, ostomy with succus in bag. Incision without infection, labs unremarkable. Will keep Zuleta in for now given her lack of mobility, potential removal tomorrow. Slowly advance diet as tolerated to low fiber. Subjective Patient is resting comfortably in bed. She notes that she is tolerating full liquids. She denies any nausea or vomiting and notes her pain is presently well-controlled. Patient notes that she feels generally weak and tired and had a great deal of difficulty when trying to get out of bed yesterday. She denies any fevers, shakes, or chills. No shortness of breath. Physical Exam Gastrointestinal (Abdomen): Abdomen is soft and nondistended. DARIUS drain is in place draining serous fluid and has drained approximate 90 cc over the past shift. Patient's ostomy was examined and appeared pink and viable and had some liquid brown stool in the collection bag. Appropriate tenderness noted with palpation of patient's abdomen. Results & Data Vital Signs (Past 12 Hours) Vital Signs Temp Pulse Resp BP Pulse Ox O2 Del Method 08/20/23 05:40 36.9 C 83 18 148/85 H 90 Room Air 08/19/23 23:44 36.7 C 82 18 155/98 H 91 Room Air 08/19/23 20:07 37.2 C 75 16 149/83 H 92 Room Air 08/19/23 19:50 Room Air PG Care Time/CCT Total # of Minutes Spent Total Time Spent with Patient: Total time spent is greater than 50% in coordination of care (as documented) at patient's floor/unit and/or counseling patient: Coding Level of Care Code 28367 Post Operative Follow-Up Diagnoses Perforated bowel K63.1
[2023-08-20 07:45] LABS: Basophils # (auto) 0.02 K/uL (0.00-0.20); Basophils % (auto) 0.2 %; Eosinophils # (auto) 0.37 K/uL (0.00-0.50); Eosinophils % (auto) 4.4 %; Hematocrit (blood only) 26.7 % (37.0-47.0); Hemoglobin 8.2 g/dl (12.0-16.0); Immature Granulocytes # (auto) 0.14 K/uL (0.01-0.20); Immature Granulocytes % (auto) 1.7 %; Lymphocytes # (auto) 0.74 K/uL (1.20-3.40); Lymphocytes % (auto) 8.9 %; Mean Corpuscular Hgb Conc 30.7 g/dL (32.0-36.0); Mean Corpuscular Volume 87.8 fL (80.0-100.0); Mean Platelet Volume 7.9 fL (9.4-12.4); Monocytes # (auto) 0.84 K/uL (0.11-0.59); Monocytes % (auto) 10.1 %; Neutrophils # (auto) 6.24 K/uL (1.40-6.50); Neutrophils % (auto) 74.7 %; Platelet Count 239 K/uL (130-400); RDW Coefficient of Variation 15.9 % (11.5-14.5); RDW Standard Deviation 50.9 fL (36.4-46.3); Red Blood Count 3.04 M/uL (4.20-5.40); White Blood Count 8.35 K/ul (4.8-10.8)
[2023-08-20 08:02] LABS: BUN Creatinine Ratio 13.6 (10-20); Calcium 8.1 mg/dl (8.6-10.3); Creatinine Clr Calc Pharmacy 105.6 ml/min; Est GFR (African American) 105.4 ml/min; Est GFR (Non-African American) 90.9 ml/min; Phosphorus 3.6 mg/dl (2.5-4.9); Potassium 3.7 mmol/L (3.5-5.1)
[2023-08-20] MEDS: oxyCODONE HCL IR 5 MG TAB (IMMEDIATE RELEASE) PO PRN ×2 (08:03→16:25)
[2023-08-20] MEDS: ENOXAPARIN INJ 40 MG/0.4 ML SYR SQ SCH (08:05)
[2023-08-20] MEDS: INSULIN ASPART PER UNIT CHARGE SC SCH ×4 (08:06→20:47)
--- NOTE | 2023-08-20 09:24 | Pharmacy Report ---
Pharmacy PK ABX Note - Date of Service August 20, 2023 - Assessment and Plan Assessment 08/20: POD #4. Abdomen culture growing low counts mixed skin shanti. Continues on vancomycin/zosyn per surgery. Day 5 of antibiotics. Level today predicts therapeutic dosing. Normal WBC, afebrile. 08/18: 72 year old F receiving vancomycin and zosyn for treatment of sepsis secondary to a perforated bowel. Pertinent microbiologic data includes: abdomen culture- reincubating. Given BMI of 45, will monitor closely for accumulation and toxicity with vancomycin. Day # 3 of antimicrobial therapy. Plan Random level this AM 15.2 mcg/mL. Predicted to achieve ssAUC 538 mg/L.hr with 100% probability Continue current regimen 1250 mg IV every 12 hours Repeat level in 2-3 days or sooner with changes in renal function. Vancomycin * Current regimen: vanc 1gm IV q12h * Random level this AM (~11h level)- 8.9mcg/mL. Predicted to achieve ssAUC 405mg/L.hr with 55% probability. * Increase maintenance dose: 1250 mg IV every 12 hours * Regimen is predicted to achieve target AUC/EBER of 400-600 mg/L.hr * Repeat level around steady state of new regimen Pharmacy will continue to follow and will adjust dose/frequency as necessary. Thank you. Pharmacy has transitioned to AUC monitoring for vancomycin. AUC/EBER is the preferred PK/PD target and is associated with decreased risk of nephrotoxicity compared to traditional trough targets.
--- NOTE | 2023-08-20 12:21 | Hospitalist Progress Note ---
Date of Service August 20, 2023 Assessment & Plan (1) Perforated bowel: Plan: 1) Perforated bowel: Plan: 1) Perforated bowel: Pneumoperitoneum: Patient presented with abdominal pain. Underwent surgery for perforated ascending colon on August 16, 2023. 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 Wound culturelow counts mixed probable skin microbiota Continue full liquid diet. Advance as tolerated to low fiber diet as recommended by surgery. Drain is still in place; management as per surgery. Antibiotics switched from Zosyn to ceftriaxone and Flagyl; plan to continue for total of 7 days. Also on vancomycin. PT OT evaluation Optimize pain control with Tylenol for mild pain, oxycodone for moderate pain and Dilaudid for severe pain. Type 2 diabetes mellitus on Lantus and ISS, continue. Continue to monitor. HTN Continue to hold losartan/hctz will monitor Hyperlipidemia on statin Lumbar stenosis with neurogenic claudication s/p surgery by on 08/11 Continue PT OT inpatient. Dvt px Lovenox Disposition Patient continues to be hospitalized as she had recently undergone exploratory laparotomy with right hemicolectomy with ileostomy for perforated ascending colon. Needs IV antibiotics. Possible DC to rehab once resolution of medical issues. Time spent evaluating patient, direct bedside care, chart review, placing orders, interpretation of diagnostic studies, discussion with consultants and patient, as well as other required patient management activities is 50 minutes. Please note the above document was generated using voice recognition software. It may contain grammatical, syntax or spelling errors. Any formal questions or concerns about the content, text or information contained within the body of this dictation should be directly addressed to the provider for clarification Admission and Anticipated Discharge Date Admission Date: August 16, 2023 Subjective Patient seen and examined at bedside. She reports she is feeling slightly better than yesterday. Ileostomy with liquid output. Afebrile and vitals are stable. Review of Systems Review of Systems: All systems reviewed & are unremarkable except as noted in Subjective Physical Exam Physical Exam: General-alert orient x 3; not in distress. Head- atraumatic Neck- supple, no JVD. Lungs- clear to auscultation, no wheezing or crackles. Heart- regular rhythm; no murmur, no gallop. Abdomen-normal bowel sound, s/p ex lap with ileostomy and hemicolectomy Extremities- no pretibial edema, no erythema seen. Neuro- alert, oriented x 3; no facial palsy; no dysarthria; moves extremities. Skin- warm & dry Results & Data Results & Data Vital Signs (Past 12 Hours) Vital Signs Temp Pulse Resp BP Pulse Ox O2 Del Method 08/20/23 11:15 36.3 C L 79 18 138/86 92 Room Air 08/20/23 07:57 37.2 C 84 18 150/91 H 92 Room Air 08/20/23 05:40 36.9 C 83 18 148/85 H 90 Room Air Laboratory Results Laboratory Results WBC 8.35 K/ul (4.8-10.8) 08/20/23 07:21 RBC 3.04 M/uL (4.20-5.40) L 08/20/23 07:21 Hgb 8.2 g/dl (12.0-16.0) L 08/20/23 07:21 POC Hgb 7.8 g/dl (12.0-16.0) L 08/17/23 04:14 Hct 26.7 % (37.0-47.0) L 08/20/23 07:21 POC Hct 23 % (37-47) L 08/17/23 04:14 MCV 87.8 fL (80.0-100.0) 08/20/23 07:21 MCH 27.0 pg (25.0-34.0) 08/20/23 07:21 MCHC 30.7 g/dL (32.0-36.0) L 08/20/23 07:21 RDW Std Deviation 50.9 fL (36.4-46.3) H 08/20/23 07:21 RDW Coeff of Samantha 15.9 % (11.5-14.5) H 08/20/23 07:21 Plt Count 239 K/uL (130-400) 08/20/23 07:21 MPV 7.9 fL (9.4-12.4) L 08/20/23 07:21 Immature Gran % (Auto) 1.7 % 08/20/23 07:21 Neut % (Auto) 74.7 % 08/20/23 07:21 Lymph % (Auto) 8.9 % 08/20/23 07:21 [place] % (Auto) 10.1 % 08/20/23 07:21 Eos % (Auto) 4.4 % 08/20/23 07:21 Baso % (Auto) 0.2 % 08/20/23 07:21 Neut # (Auto) 6.24 K/uL (1.40-6.50) 08/20/23 07:21 Lymph # (Auto) 0.74 K/uL (1.20-3.40) L 08/20/23 07:21 [place] # (Auto) 0.84 K/uL (0.11-0.59) H 08/20/23 07:21 Eos # (Auto) 0.37 K/uL (0.00-0.50) 08/20/23 07:21 Baso # (Auto) 0.02 K/uL (0.00-0.20) 08/20/23 07:21 Immature Gran # (Auto) 0.14 K/uL (0.01-0.20) 08/20/23 07:21 Absolute Nucleated RBC 0.02 K/uL (0.00-0.12) 08/18/23 03:52 Nucleated RBC % (auto) 0.2 % 08/18/23 03:52 Hypersegmented Neuts 1+ 08/19/23 06:09 Polychromasia 1+ 08/17/23 04:10 Anisocytosis Present 08/17/23 04:10 Ovalocytes 1+ 08/19/23 06:09 Sample Site R Radial 08/17/23 04:14 POC pH 7.49 (7.35-7.45) H 08/17/23 04:14 POC pCO2 36 mmHg (35-46) 08/17/23 04:14 POC pO2 80 mmHg (80-95) 08/17/23 04:14 POC HCO3 27 jania/L (19-24) H 08/17/23 04:14 POC Total CO2 28 mmol/L (24-31) 08/17/23 04:14 POC Base Excess 4.0 jania/L (-9-1.8) H 08/17/23 04:14 ABG pH (Temp Correct) 7.473 (7.35-7.45) H 08/17/23 04:14 ABG pCO2 (Temp Corrct 37 mmHg (35-46) 08/17/23 04:14 POC ABG pO2 at Pt Temp 84 08/17/23 04:14 POC ABG O2 Sat 97.0 % (90-95) H 08/17/23 04:14 Tomer Test Pass 08/17/23 04:14 O2 Delivery Device Ventilator 08/17/23 04:14 POC O2 Rate 16 08/17/23 04:14 POC FiO2 30 % 08/17/23 04:14 Tidal Volume 400 08/17/23 04:14 PEEP 5 08/17/23 04:14 POC Sodium 133 mmol/L (135-144) L 08/17/23 04:14 Sodium 140 mmol/L (136-145) 08/20/23 07:21 POC Potassium 3.8 mmol/L (3.3-5.0) 08/17/23 04:14 Potassium 3.7 mmol/L (3.5-5.1) 08/20/23 07:21 POC Chloride 98 mmol/L (101-112) L 08/16/23 11:51 Chloride 105 mmol/L (98-107) 08/20/23 07:21 Carbon Dioxide 32 mmol/L (21-32) 08/20/23 07:21 POC Total CO2 28 mmol/L (24-31) 08/16/23 11:51 Anion Gap 3 (3-11) 08/20/23 07:21 POC Anion Gap 14.0 mmol/L (16-25) L 08/16/23 11:51 POC BUN 15 mg/dl (7-18) 08/16/23 11:51 BUN 8 mg/dl (6-23) 08/20/23 07:21 Creatinine 0.59 mg/dl (0.6-1.2) L 08/20/23 07:21 POC Creatinine 0.6 mg/dl (0.6-1.3) 08/16/23 11:51 Est Cr Clr Drug Dosing 105.6 ml/min 08/20/23 07:21 Est GFR ( Amer) 105.4 ml/min 08/20/23 07:21 Est GFR (Non-Af Amer) 90.9 ml/min 08/20/23 07:21 BUN/Creatinine Ratio 13.6 (10-20) 08/20/23 07:21 Glucose 105 mg/dl (70-99(Fasting)) H 08/20/23 07:21 POC Glucose 139 mg/dl (70-99) H 08/20/23 11:18 POC Glucose (other) 161 mg/dl (70-99) H 08/16/23 11:51 Lactate 1.1 mmol/L (0.4-2.0) 08/16/23 20:15 Calcium 8.1 mg/dl (8.6-10.3) L 08/20/23 07:21 POC Ioniz Calcium Andrey 1.06 mmol/l (1.12-1.32) L 08/16/23 11:51 Phosphorus 3.6 mg/dl (2.5-4.9) 08/20/23 07:21 Magnesium 2.0 mg/dl (1.7-2.4) 08/20/23 07:21 Total Bilirubin 1.1 mg/dl (0.2-1.0) H 08/17/23 04:11 Direct Bilirubin 0.3 mg/dl (0-0.2) H 08/16/23 13:03 AST 16 U/L (13-39) 08/17/23 04:11 ALT 23 U/L (7-52) 08/17/23 04:11 Alkaline Phosphatase 131 U/L (34-104) H 08/17/23 04:11 Troponin I High Sens 38.0 pg/ml (0-14) H 08/16/23 14:05 Total Protein 4.5 gm/dl (6.0-8.3) L 08/17/23 04:11 Albumin 2.4 gm/dl (3.4-5.0) L 08/17/23 04:11 Globulin 2.1 gm/dl (2.5-4.0) L 08/17/23 04:11 Albumin/Globulin Ratio 1.1 (0.9-2) 08/17/23 04:11 Lipase 7 U/L (11-82) L 08/16/23 11:45 Procalcitonin 0.24 ng/ml (0-0.5) 08/16/23 11:45 Urine Color Dark Yellow 08/16/23 20:30 Urine Appearance Clear (Clear) 08/16/23 20:30 Urine pH 5.0 (4.5-7.5) 08/16/23 20:30 Ur Specific [place] 1.022 (1.000-1.030) 08/16/23 20:30 Urine Protein 1+ (Negative) H 08/16/23 20:30 Urine Glucose (UA) 1+ (Negative) H 08/16/23 20:30 Urine Ketones 4+ (Negative) H 08/16/23 20:30 Urine Blood Negative (Negative) 08/16/23 20:30 Urine Nitrite Negative (Negative) 08/16/23 20:30 Urine Bilirubin Negative (Negative) 08/16/23 20:30 Urine Urobilinogen Negative (Negative) 08/16/23 20:30 Ur Leukocyte Esterase Negative (Negative) 08/16/23 20:30 Urine WBC (Auto) 1-5 /hpf (0-5) 08/16/23 20:30 Urine RBC (Auto) 5-10 /hpf (0-4) H 08/16/23 20:30 U Hyaline Cast (Auto) 1-5 /lpf (0-5) 08/16/23 20:30 U Epithel Cells (Auto) 10-20 /lpf (0-5) H 08/16/23 20:30 Urine Bacteria (Auto) Negative (Negative) 08/16/23 20:30 Nasal Screen MRSA (PCR) Negative (Negative) 08/16/23 19: Random Vancomycin 15.2 mcg/ml (10-20) 08/20/23 02:17 SARS-CoV-2 (PCR) NEGATIVE (Negative) 08/16/23 13:19 Influenza Type A (PCR) Negative (Neg) 08/16/23 13:19 Influenza Type B (PCR) Negative (Neg) 08/16/23 13:19 RSV (RT-PCR) Negative (Neg) 08/16/23 13:19 Blood Type O Negative 08/16/23 14:05 Antibody Screen NEGATIVE 08/16/23 14:05 Crossmatch See Detail 08/16/23 14:05 Impressions Abdomen/Pelvis CT 08/16/23 11:[address] WITHOUT CONTRAST CT DOSE: 1479.25 mGy.cm HISTORY: RLQ pain TECHNIQUE: Multiaxial CT images of the abdomen and pelvis were performed without contrast. A dose lowering technique was utilized adhering to the principles of ALARA. COMPARISON STUDY: None. FINDINGS: Trace right pleural effusion. Mild dependent changes seen at the lung bases. Large amount of pneumoperitoneum resulting in abdominal distention. There are bilateral total hip arthroplasties. Posterior decompression fusion from L2 through L5 with pedicle screws and rods. The hardware appears intact. No acute fractures. Small amount of gas at the laminectomy sites as well as fluid favors the recent postoperative change. Small umbilical hernia containing fat and gas. There is mild body wall edema noted. Cholelithiasis. No gallbladder wall thickening. The unenhanced liver, spleen, adrenal glands, and pancreas unremarkable. Multiple bilateral peripelvic renal cysts are noted. Bilateral nephrolithiasis. No hydronephrosis. Normal caliber abdominal aorta. No retroperitoneal lymphadenopathy. No pelvic lymphadenopathy or pelvic free fluid. The bladder and uterus are not well visualized due to the metallic artifact but appear unremarkable. Extensive colonic diverticulosis. No evidence for acute diverticulitis. [id number] fecal retention most pronounced within the proximal colon. Normal appendix. No dilated loops of bowel to suggest an obstruction. There is mild circumferential thickening and fat stranding within the proximal duodenum best seen on image 123. In conjunction with the extensive pneumoperitoneum this is concerning for a perforated duodenal ulcer. IMPRESSION: 1. Extensive pneumoperitoneum. This is consistent with underlying bowel perforation. The exact location is difficult to confirm but favors a perforated duodenal ulcer as described above. 2. Colonic diverticulosis. No evidence for acute diverticulitis. 3. Bilateral nephrolithiasis. No ureteral stones. No hydronephrosis. 4. Trace right pleural effusion. 5. Cholelithiasis. 6. Additional findings as described above. ACT 112: Negative or not required by law. Electronically signed by: Gunnar Eldridge M.D. 08/16/2023 12:41 PM Chest X-Ray 08/16/23 20:07 SINGLE VIEW CHEST CLINICAL HISTORY: Respiratory failure. Intubation. FINDINGS: An AP, portable, supine chest radiograph is compared to study dated 08/16/2023. The examination is degraded by portable technique and patient rotation. A left internal jugular central venous catheter has been placed. The tip projects over the cavoatrial junction. An enteric tube has been placed. The tip projects below the diaphragm. An endotracheal tube has been placed. The tip projects 5 cm above the gamaliel. The heart cardiac silhouette is enlarged. There is mild pulmonary vascular congestion. A small right pleural effusion is suspected with right basilar atelectasis. No pneumothorax is seen. The skeletal structures are osteopenic. The bony thorax is grossly intact. Fusion hardware is partially visualized and lumbar spine. IMPRESSION: 1. Line and tube placement as above. 2. Enlarged cardiac silhouette with mild pulmonary vascular congestion. 3. Small right pleural effusion. ACT 112: Negative or not required by law. Electronically signed by: Juanito Sharma M.D. 08/17/2023 8:36 AM
[2023-08-20] MEDS: cefTRIAXone SODIUM 2,000 MG in DEXTROSE 5 % MINI-B 50 ML IV SCH (12:35)
[2023-08-20] MEDS: PANTOprazole 40 MG in SYRINGE 0 ML IV SCH (12:36)
[2023-08-20] MEDS: HYDROmorphone INJ 0.5 MG/0.5 ML SYR IV PRN ×3 (12:36→22:33)
[2023-08-20] MEDS: metroNIDAZOLE 500 MG TAB PO SCH ×2 (15:05→21:04)
[2023-08-20] MEDS: LANTUS PER UNIT CHARGE SQ SCH (21:04)
[2023-08-20] MEDS: ATORVASTATIN 10 MG TAB PO SCH (21:04)
[2023-08-20] MEDS: allopurinoL 300 MG TAB PO SCH (21:04)
[2023-08-21] MEDS: VANCOMYCIN HCL 1,250 MG in SODIUM CHLORIDE 0.9% 250 ML IV SCH ×2 (03:44→17:46)
[2023-08-21] MEDS: HYDROmorphone INJ 0.5 MG/0.5 ML SYR IV PRN ×2 (03:50→15:05)
[2023-08-21] MEDS: oxyCODONE HCL IR 5 MG TAB (IMMEDIATE RELEASE) PO PRN ×3 (07:44→23:26)
[2023-08-21] MEDS: INSULIN ASPART PER UNIT CHARGE SC SCH ×4 (07:45→20:45)
[2023-08-21] MEDS: metroNIDAZOLE 500 MG TAB PO SCH ×3 (07:46→20:43)
[2023-08-21] MEDS: ENOXAPARIN INJ 40 MG/0.4 ML SYR SQ SCH (07:47)
[2023-08-21 09:57] LABS: Basophils # (auto) 0.02 K/uL (0.00-0.20); Basophils % (auto) 0.2 %; Eosinophils # (auto) 0.24 K/uL (0.00-0.50); Eosinophils % (auto) 2.3 %; Hematocrit (blood only) 26.6 % (37.0-47.0); Hemoglobin 8.3 g/dl (12.0-16.0); Immature Granulocytes # (auto) 0.19 K/uL (0.01-0.20); Immature Granulocytes % (auto) 1.9 %; Lymphocytes # (auto) 0.88 K/uL (1.20-3.40); Lymphocytes % (auto) 8.6 %; Mean Corpuscular Hemoglobin 27.2 pg (25.0-34.0); Mean Corpuscular Hgb Conc 31.2 g/dL (32.0-36.0); Mean Corpuscular Volume 87.2 fL (80.0-100.0); Mean Platelet Volume 8.3 fL (9.4-12.4); Monocytes # (auto) 0.89 K/uL (0.11-0.59); Monocytes % (auto) 8.7 %; Neutrophils % (auto) 78.3 %; Platelet Count 222 K/uL (130-400); RDW Coefficient of Variation 15.9 % (11.5-14.5); RDW Standard Deviation 50.5 fL (36.4-46.3); Red Blood Count 3.05 M/uL (4.20-5.40); White Blood Count 10.22 K/ul (4.8-10.8)
[2023-08-21 10:15] LABS: BUN Creatinine Ratio 12.1 (10-20); Calcium 8.2 mg/dl (8.6-10.3); Creatinine Clr Calc Pharmacy 107.6 ml/min; Est GFR (Non-African American) 91.4 ml/min; Magnesium 1.8 mg/dl (1.7-2.4); Phosphorus 3.4 mg/dl (2.5-4.9); Potassium 3.8 mmol/L (3.5-5.1)
[2023-08-21] MEDS: PANTOprazole 40 MG in SYRINGE 0 ML IV SCH (12:34)
[2023-08-21] MEDS: cefTRIAXone SODIUM 2,000 MG in DEXTROSE 5 % MINI-B 50 ML IV SCH (12:34)
--- NOTE | 2023-08-21 13:17 | Hospitalist Progress Note ---
Date of Service August 21, 2023 Assessment & Plan (1) Perforated bowel: Plan: 1) Perforated bowel: Plan: 1) Perforated bowel: Pneumoperitoneum: Patient presented with abdominal pain. Underwent surgery for perforated ascending colon on August 16, 2023. 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 Wound culturelow counts mixed probable skin microbiota. Bacteroides thetaiotaomicron Advance diet to low fiber. Remove [place] and trial of void today. Drain is still in place; management as per surgery. Antibiotics switched from Zosyn to ceftriaxone and Flagyl; plan to continue for total of 7 days. Also on vancomycin. Antibiotic for 2 more days PT OT evaluation Out of bed Optimize pain control with Tylenol for mild pain, oxycodone for moderate pain and Dilaudid for severe pain. Type 2 diabetes mellitus on Lantus and ISS, continue. Continue to monitor. HTN Continue to hold losartan/hctz will monitor Hyperlipidemia on statin Lumbar stenosis with neurogenic claudication s/p surgery by on 08/11 Continue PT OT inpatient. Dvt px Lovenox Disposition Patient continues to be hospitalized as she had recently undergone exploratory laparotomy with right hemicolectomy with ileostomy for perforated ascending colon. Needs IV antibiotics. Possible DC to rehab once resolution of medical issues. Time spent evaluating patient, direct bedside care, chart review, placing orders, interpretation of diagnostic studies, discussion with consultants and patient, as well as other required patient management activities is 50 minutes. Please note the above document was generated using voice recognition software. It may contain grammatical, syntax or spelling errors. Any formal questions or concerns about the content, text or information contained within the body of this dictation should be directly addressed to the provider for clarification Admission and Anticipated Discharge Date Admission Date: August 16, 2023 Subjective Patient seen and examined at bedside. She is sitting up on the bed comfortably; not in distress. She is tolerating full liquid diet without any difficulty. Review of Systems Review of Systems: All systems reviewed & are unremarkable except as noted in Subjective Physical Exam Physical Exam: General-alert orient x 3; not in distress. Head- atraumatic Neck- supple, no JVD. Lungs- clear to auscultation, no wheezing or crackles. Heart- regular rhythm; no murmur, no gallop. Abdomen-normal bowel sound, s/p ex lap with ileostomy and hemicolectomy. Ileostomy bag with dark output. Drain is still in place with clear output Extremities- no pretibial edema, no erythema seen. Neuro- alert, oriented x 3; no facial palsy; no dysarthria; moves extremities. Skin- warm & dry Results & Data Results & Data Vital Signs (Past 12 Hours) Vital Signs Temp Pulse Resp BP Pulse Ox O2 Del Method 08/21/23 11:35 36.9 C 74 19 115/73 92 Room Air 08/21/23 08:34 37.0 C 95 H 18 124/81 91 Room Air 08/21/23 03:40 36.5 C 94 H 20 121/87 90 Room Air Laboratory Results Laboratory Results WBC 10.22 K/ul (4.8-10.8) 08/21/23 09:38 RBC 3.05 M/uL (4.20-5.40) L 08/21/23 09:38 Hgb 8.3 g/dl (12.0-16.0) L 08/21/23 09:38 POC Hgb 7.8 g/dl (12.0-16.0) L 08/17/23 04:14 Hct 26.6 % (37.0-47.0) L 08/21/23 09:38 POC Hct 23 % (37-47) L 08/17/23 04:14 MCV 87.2 fL (80.0-100.0) 08/21/23 09:38 MCH 27.2 pg (25.0-34.0) 08/21/23 09:38 MCHC 31.2 g/dL (32.0-36.0) L 08/21/23 09:38 RDW Std Deviation 50.5 fL (36.4-46.3) H 08/21/23 09:38 RDW Coeff of Samantha 15.9 % (11.5-14.5) H 08/21/23 09:38 Plt Count 222 K/uL (130-400) 08/21/23 09:38 MPV 8.3 fL (9.4-12.4) L 08/21/23 09:38 Immature Gran % (Auto) 1.9 % 08/21/23 09:38 Neut % (Auto) 78.3 % 08/21/23 09:38 Lymph % (Auto) 8.6 % 08/21/23 09:38 [place] % (Auto) 8.7 % 08/21/23 09:38 Eos % (Auto) 2.3 % 08/21/23 09:38 Baso % (Auto) 0.2 % 08/21/23 09:38 Neut # (Auto) 8.00 K/uL (1.40-6.50) H 08/21/23 09:38 Lymph # (Auto) 0.88 K/uL (1.20-3.40) L 08/21/23 09:38 [place] # (Auto) 0.89 K/uL (0.11-0.59) H 08/21/23 09:38 Eos # (Auto) 0.24 K/uL (0.00-0.50) 08/21/23 09:38 Baso # (Auto) 0.02 K/uL (0.00-0.20) 08/21/23 09:38 Immature Gran # (Auto) 0.19 K/uL (0.01-0.20) 08/21/23 09:38 Absolute Nucleated RBC 0.02 K/uL (0.00-0.12) 08/18/23 03:52 Nucleated RBC % (auto) 0.2 % 08/18/23 03:52 Hypersegmented Neuts 1+ 08/19/23 06:09 Polychromasia 1+ 08/17/23 04:10 Anisocytosis Present 08/17/23 04:10 Ovalocytes 1+ 08/19/23 06:09 Sample Site R Radial 08/17/23 04:14 POC pH 7.49 (7.35-7.45) H 08/17/23 04:14 POC pCO2 36 mmHg (35-46) 08/17/23 04:14 POC pO2 80 mmHg (80-95) 08/17/23 04:14 POC HCO3 27 jania/L (19-24) H 08/17/23 04:14 POC Total CO2 28 mmol/L (24-31) 08/17/23 04:14 POC Base Excess 4.0 jania/L (-9-1.8) H 08/17/23 04:14 ABG pH (Temp Correct) 7.473 (7.35-7.45) H 08/17/23 04:14 ABG pCO2 (Temp Corrct 37 mmHg (35-46) 08/17/23 04:14 POC ABG pO2 at Pt Temp 84 08/17/23 04:14 POC ABG O2 Sat 97.0 % (90-95) H 08/17/23 04:14 Tomer Test Pass 08/17/23 04:14 O2 Delivery Device Ventilator 08/17/23 04:14 POC O2 Rate 16 08/17/23 04:14 POC FiO2 30 % 08/17/23 04:14 Tidal Volume 400 08/17/23 04:14 PEEP 5 08/17/23 04:14 POC Sodium 133 mmol/L (135-144) L 08/17/23 04:14 Sodium 141 mmol/L (136-145) 08/21/23 09:38 POC Potassium 3.8 mmol/L (3.3-5.0) 08/17/23 04:14 Potassium 3.8 mmol/L (3.5-5.1) 08/21/23 09:38 POC Chloride 98 mmol/L (101-112) L 08/16/23 11:51 Chloride 104 mmol/L (98-107) 08/21/23 09:38 Carbon Dioxide 32 mmol/L (21-32) 08/21/23 09:38 POC Total CO2 28 mmol/L (24-31) 08/16/23 11:51 Anion Gap 5 (3-11) 08/21/23 09:38 POC Anion Gap 14.0 mmol/L (16-25) L 08/16/23 11:51 POC BUN 15 mg/dl (7-18) 08/16/23 11:51 BUN 7 mg/dl (6-23) 08/21/23 09:38 Creatinine 0.58 mg/dl (0.6-1.2) L 08/21/23 09:38 POC Creatinine 0.6 mg/dl (0.6-1.3) 08/16/23 11:51 Est Cr Clr Drug Dosing 107.6 ml/min 08/21/23 09:38 Est GFR ( Amer) 106.0 ml/min 08/21/23 09:38 Est GFR (Non-Af Amer) 91.4 ml/min 08/21/23 09:38 BUN/Creatinine Ratio 12.1 (10-20) 08/21/23 09:38 Glucose 184 mg/dl (70-99(Fasting)) H 08/21/23 09:38 POC Glucose 163 mg/dl (70-99) H 08/21/23 11:34 POC Glucose (other) 161 mg/dl (70-99) H 08/16/23 11:51 Lactate 1.1 mmol/L (0.4-2.0) 08/16/23 20:15 Calcium 8.2 mg/dl (8.6-10.3) L 08/21/23 09:38 POC Ioniz Calcium Andrey 1.06 mmol/l (1.12-1.32) L 08/16/23 11:51 Phosphorus 3.4 mg/dl (2.5-4.9) 08/21/23 09:38 Magnesium 1.8 mg/dl (1.7-2.4) 08/21/23 09:38 Total Bilirubin 1.1 mg/dl (0.2-1.0) H 08/17/23 04:11 Direct Bilirubin 0.3 mg/dl (0-0.2) H 08/16/23 13:03 AST 16 U/L (13-39) 08/17/23 04:11 ALT 23 U/L (7-52) 08/17/23 04:11 Alkaline Phosphatase 131 U/L (34-104) H 08/17/23 04:11 Troponin I High Sens 38.0 pg/ml (0-14) H 08/16/23 14:05 Total Protein 4.5 gm/dl (6.0-8.3) L 08/17/23 04:11 Albumin 2.4 gm/dl (3.4-5.0) L 08/17/23 04:11 Globulin 2.1 gm/dl (2.5-4.0) L 08/17/23 04:11 Albumin/Globulin Ratio 1.1 (0.9-2) 08/17/23 04:11 Lipase 7 U/L (11-82) L 08/16/23 11:45 Procalcitonin 0.24 ng/ml (0-0.5) 08/16/23 11:45 Urine Color Dark Yellow 08/16/23 20:30 Urine Appearance Clear (Clear) 08/16/23 20:30 Urine pH 5.0 (4.5-7.5) 08/16/23 20:30 Ur Specific [place] 1.022 (1.000-1.030) 08/16/23 20:30 Urine Protein 1+ (Negative) H 08/16/23 20:30 Urine Glucose (UA) 1+ (Negative) H 08/16/23 20:30 Urine Ketones 4+ (Negative) H 08/16/23 20:30 Urine Blood Negative (Negative) 08/16/23 20:30 Urine Nitrite Negative (Negative) 08/16/23 20:30 Urine Bilirubin Negative (Negative) 08/16/23 20:30 Urine Urobilinogen Negative (Negative) 08/16/23 20:30 Ur Leukocyte Esterase Negative (Negative) 08/16/23 20:30 Urine WBC (Auto) 1-5 /hpf (0-5) 08/16/23 20:30 Urine RBC (Auto) 5-10 /hpf (0-4) H 08/16/23 20:30 U Hyaline Cast (Auto) 1-5 /lpf (0-5) 08/16/23 20:30 U Epithel Cells (Auto) 10-20 /lpf (0-5) H 08/16/23 20:30 Urine Bacteria (Auto) Negative (Negative) 08/16/23 20:30 Nasal Screen MRSA (PCR) Negative (Negative) 08/16/23 19:30 Stool H. pylori Ag SEE NOTE 08/19/23 02:52 Random Vancomycin 15.2 mcg/ml (10-20) 08/20/23 02:17 SARS-CoV-2 (PCR) NEGATIVE (Negative) 08/16/23 13:19 Influenza Type A (PCR) Negative (Neg) 08/16/23 13:19 Influenza Type B (PCR) Negative (Neg) 08/16/23 13:19 RSV (RT-PCR) Negative (Neg) 08/16/23 13:19 Blood Type O Negative 08/16/23 14:05 Antibody Screen NEGATIVE 08/16/23 14:05 Crossmatch See Detail 08/16/23 14:05 Impressions Abdomen/Pelvis CT 08/16/23 11:[address] WITHOUT CONTRAST CT DOSE: 1479.25 mGy.cm HISTORY: RLQ pain TECHNIQUE: Multiaxial CT images of the abdomen and pelvis were performed without contrast. A dose lowering technique was utilized adhering to the principles of ALARA. COMPARISON STUDY: None. FINDINGS: Trace right pleural effusion. Mild dependent changes seen at the lung bases. Large amount of pneumoperitoneum resulting in abdominal distention. There are bilateral total hip arthroplasties. Posterior decompression fusion from L2 through L5 with pedicle screws and rods. The hardware appears intact. No acute fractures. Small amount of gas at the laminectomy sites as well as fluid favors the recent postoperative change. Small umbilical hernia containing fat and gas. There is mild body wall edema noted. Cholelithiasis. No gallbladder wall thickening. The unenhanced liver, spleen, adrenal glands, and pancreas unremarkable. Multiple bilateral peripelvic renal cysts are noted. Bilateral nephrolithiasis. No hydronephrosis. Normal caliber abdominal aorta. No retroperitoneal lymphadenopathy. No pelvic lymphadenopathy or pelvic free fluid. The bladder and uterus are not well visualized due to the metallic artifact but appear unremarkable. Extensive colonic diverticulosis. No evidence for acute diverticulitis. [id number] fecal retention most pronounced within the proximal colon. Normal appendix. No dilated loops of bowel to suggest an obstruction. There is mild circumferential thickening and fat stranding within the proximal duodenum best seen on image 123. In conjunction with the extensive pneumoperitoneum this is concerning for a perforated duodenal ulcer. IMPRESSION: 1. Extensive pneumoperitoneum. This is consistent with underlying bowel perforation. The exact location is difficult to confirm but favors a perforated duodenal ulcer as described above. 2. Colonic diverticulosis. No evidence for acute diverticulitis. 3. Bilateral nephrolithiasis. No ureteral stones. No hydronephrosis. 4. Trace right pleural effusion. 5. Cholelithiasis. 6. Additional findings as described above. ACT 112: Negative or not required by law. Electronically signed by: Gunnar Eldridge M.D. 08/16/2023 12:41 PM Chest X-Ray 08/16/23 20:07 SINGLE VIEW CHEST CLINICAL HISTORY: Respiratory failure. Intubation. FINDINGS: An AP, portable, supine chest radiograph is compared to study dated 08/16/2023. The examination is degraded by portable technique and patient rotation. A left internal jugular central venous catheter has been placed. The tip projects over the cavoatrial junction. An enteric tube has been placed. The tip projects below the diaphragm. An endotracheal tube has been placed. The tip projects 5 cm above the gamaliel. The heart cardiac silhouette is enlarged. There is mild pulmonary vascular congestion. A small right pleural effusion is suspected with right basilar atelectasis. No pneumothorax is seen. The skeletal structures are osteopenic. The bony thorax is grossly intact. Fusion hardware is partially visualized and lumbar spine. IMPRESSION: 1. Line and tube placement as above. 2. Enlarged cardiac silhouette with mild pulmonary vascular congestion. 3. Small right pleural effusion. ACT 112: Negative or not required by law. Electronically signed by: Juanito Sharma M.D. 08/17/2023 8:36 AM
--- NOTE | 2023-08-21 15:51 | Surgery Progress Note ---
Date of Service August 21, 2023 Assessment & Plan (1) Perforated bowel: (2) Sepsis: (3) Pneumoperitoneum: Plan POD # 3 s/p ex lap, right hemicolectomy with ileostomy for perforated ascending colon avss postop pain controlled ileostomy with liquid stool and gas adequate urine output hemodynamically stable Plan: Continue pain management as needed Continue clear liquids for today per patient request, full liquids in am Continue lynne drain to bulb suction continue schofield catheter for today, advised patient would like to try to remove tomorrow incentive spirometry IV Protonix for GI prophylaxis Continue SCDs and lovenox for dvt prophylaxis Continue PT/OT Continue medical management 08/21/2023 3:[address] Lawson POD # 5 s/p ex lap, right hemicolectomy with ileostomy for perforated ascending colon avss postop pain controlled ileostomy with liquid stool and gas adequate urine output hemodynamically stable plan, continue treatment, PT, OP, may remove schofield on Thursday OOB electronics mechanic apprentice surgeon cover pt this weekend, Thanks. Admission and Anticipated Discharge Date Admission Date: August 16, 2023 Subjective doing better, sit on chair for 4 hours, no significant abdominal pain, no nausea, no vomiting, no fever. LYNNE 280 ml cloudy. Physical Exam Eyes: PERRL, conjunctivae normal, anicteric sclerae Neck: trachea midline, no thyromegaly Respiratory: normal respiratory effort, lungs clear to auscultation Cardiovascular: RRR, no murmur, no edema Gastrointestinal (Abdomen): soft, mild tenderness at incision site, no rebound pain, ND, the incision intact, no redness, ileostomy working. Neurologic: patellar DTR's 2+ bilat, sensation intact Psychiatric: A+Ox3, euthymic affect Results & Data Vital Signs (Past 12 Hours) Vital Signs Temp Pulse Resp BP Pulse Ox O2 Del Method 08/21/23 11:35 36.9 C 74 19 115/73 92 Room Air 08/21/23 08:34 37.0 C 95 H 18 124/81 91 Room Air Laboratory Results Abnormal lab results 08/20/23 08/20/23 08/21/23 Range/Units 16:42 20:05 06:59 RBC (4.20-5.40) M/uL Hgb (12.0-16.0) g/dl Hct (37.0-47.0) % MCHC (32.0-36.0) g/dL RDW Std Deviation (36.4-46.3) fL RDW Coeff of Samantha (11.5-14.5) % MPV (9.4-12.4) fL Neut # (Auto) (1.40-6.50) K/uL Lymph # (Auto) (1.20-3.40) K/uL Marion # (Auto) (0.11-0.59) K/uL Creatinine (0.6-1.2) mg/dl Glucose (70-99(Fasting)) mg/dl POC Glucose 137 H 129 H 127 H (70-99) mg/dl Calcium (8.6-10.3) mg/dl 08/21/23 08/21/23 Range/Units 09:38 11:34 RBC 3.05 L (4.20-5.40) M/uL Hgb 8.3 L (12.0-16.0) g/dl Hct 26.6 L (37.0-47.0) % MCHC 31.2 L (32.0-36.0) g/dL RDW Std Deviation 50.5 H (36.4-46.3) fL RDW Coeff of Samantha 15.9 H (11.5-14.5) % MPV 8.3 L (9.4-12.4) fL Neut # (Auto) 8.00 H (1.40-6.50) K/uL Lymph # (Auto) 0.88 L (1.20-3.40) K/uL Marion # (Auto) 0.89 H (0.11-0.59) K/uL Creatinine 0.58 L (0.6-1.2) mg/dl Glucose 184 H (70-99(Fasting)) mg/dl POC Glucose 163 H (70-99) mg/dl Calcium 8.2 L (8.6-10.3) mg/dl (2) Sepsis Sepsis type: sepsis due to unspecified organism
[2023-08-21] MEDS: CETIRIZINE HCL 10 MG TABLET PO SCH (16:41)
[2023-08-21] MEDS: allopurinoL 300 MG TAB PO SCH (20:43)
[2023-08-21] MEDS: ATORVASTATIN 10 MG TAB PO SCH (20:44)
[2023-08-21] MEDS: LANTUS PER UNIT CHARGE SQ SCH (20:46)
[2023-08-22] MEDS: VANCOMYCIN HCL 1,250 MG in SODIUM CHLORIDE 0.9% 250 ML IV SCH ×2 (03:22→18:31)
--- NOTE | 2023-08-22 06:09 | Surgery Progress Note ---
Date of Service August 22, 2023 Assessment & Plan (1) Perforated bowel: Plan: Status post right colectomy with ileostomy on 08/16/2023 (postoperative day #6) Continue diet as tolerated Continue analgesics as needed Continue antiemetics as needed Continue DARIUS drain to bulb suction Operative cultures have grown out Bacteroides Continue antibioticspatient is receiving Rocephin, vancomycin, and Flagyl Continue to work with PT and OT due to deconditioning Continue use of incentive spirometer Check a.m. labs when available Lovenox is in place for DVT prevention Admission and Anticipated Discharge Date Admission Date: August 16, 2023 Supervising Physician Co-Signing Physician Notes Patient seen examined, labs reviewed, agree with above. Status post right hemicolectomy and ostomy, tolerating diet. Still weak, and difficulty sleeping, otherwise no issues. On exam afebrile stable vitals, ostomy functional and healthy. Incision without infection. Labs unremarkable. Continue current management, hopeful to remove the Zuleta either tomorrow or Thursday, however she is still little weak. Subjective Patient is currently resting in bed. Patient notes that she has tolerated solid food without worsening abdominal pain or nausea or vomiting. She says that she has been out of bed to chair. She denies any shortness of breath. She does report feeling exhausted/generally fatigued. I discussed with the scene shifter nurse attending the patient who verified the above information and notes that there were no acute surgical issues overnight. They also note the patient's ostomy is functioning appropriately. Physical Exam Gastrointestinal (Abdomen): Bowel sounds are present. Abdomen is soft and nondistended. Patient's ostomy appears pink and viable and has a large amount of brown stool in the collection bag. Incision is clean, dry, and intact with robbin. DARIUS drain is in place draining serous fluid and is drained approximately 240 cc over the past 24 hours. Results & Data Vital Signs (Past 12 Hours) Vital Signs Temp Pulse Pulse Resp BP Pulse Ox O2 Del Method 08/22/23 03:20 36.9 C 87 18 117/78 91 Room Air 08/21/23 23:17 37.2 C 20 156/96 H 93 Nasal Cannula 08/21/23 22:53 97 H 08/21/23 19:56 37.4 C 93 H 18 130/86 92 Room Air O2 Flow Rate 08/22/23 03:20 08/21/23 23:17 1 08/21/23 22:53 08/21/23 19:56 PG Care Time/CCT Total # of Minutes Spent Total Time Spent with Patient: Total time spent is greater than 50% in coordination of care (as documented) at patient's floor/unit and/or counseling patient: Coding Level of Care Code 24593 Post Operative Follow-Up Diagnoses Perforated bowel K63.1
[2023-08-22 07:38] LABS: Basophils # (auto) 0.02 K/uL (0.00-0.20); Basophils % (auto) 0.2 %; Eosinophils # (auto) 0.23 K/uL (0.00-0.50); Eosinophils % (auto) 2.8 %; Hematocrit (blood only) 25.7 % (37.0-47.0); Hemoglobin 7.8 g/dl (12.0-16.0); Immature Granulocytes # (auto) 0.15 K/uL (0.01-0.20); Immature Granulocytes % (auto) 1.9 %; Lymphocytes # (auto) 1.05 K/uL (1.20-3.40); Mean Corpuscular Hemoglobin 26.7 pg (25.0-34.0); Mean Corpuscular Hgb Conc 30.4 g/dL (32.0-36.0); Mean Platelet Volume 8.4 fL (9.4-12.4); Monocytes % (auto) 8.7 %; Neutrophils # (auto) 5.93 K/uL (1.40-6.50); Neutrophils % (auto) 73.4 %; Platelet Count 251 K/uL (130-400); RDW Standard Deviation 51.7 fL (36.4-46.3); Red Blood Count 2.92 M/uL (4.20-5.40); White Blood Count 8.08 K/ul (4.8-10.8)
[2023-08-22 07:56] LABS: BUN Creatinine Ratio 14.5 (10-20); Calcium 8.2 mg/dl (8.6-10.3); Creatinine Clr Calc Pharmacy 99.6 ml/min; Est GFR (African American) 103.7 ml/min; Est GFR (Non-African American) 89.5 ml/min; Magnesium 1.8 mg/dl (1.7-2.4); Phosphorus 3.3 mg/dl (2.5-4.9); Potassium 3.6 mmol/L (3.5-5.1)
[2023-08-22 08:01] LABS: Ovalocytes 1+; Polychromasia 1+
[2023-08-22] MEDS: HYDROmorphone INJ 0.5 MG/0.5 ML SYR IV PRN ×2 (09:25→15:30)
[2023-08-22] MEDS: oxyCODONE HCL IR 5 MG TAB (IMMEDIATE RELEASE) PO PRN ×2 (09:25→20:14)
[2023-08-22] MEDS: INSULIN ASPART PER UNIT CHARGE SC SCH ×4 (09:27→20:13)
[2023-08-22] MEDS: ENOXAPARIN INJ 40 MG/0.4 ML SYR SQ SCH (09:28)
[2023-08-22] MEDS: CETIRIZINE HCL 10 MG TABLET PO SCH (09:29)
[2023-08-22] MEDS: metroNIDAZOLE 500 MG TAB PO SCH ×3 (09:29→20:49)
--- NOTE | 2023-08-22 11:23 | Hospitalist Progress Note ---
Date of Service August 22, 2023 Assessment & Plan (1) Perforated bowel: Plan: 1) Perforated bowel: Plan: 1) Perforated bowel: Pneumoperitoneum: Patient presented with abdominal pain. Underwent surgery for perforated ascending colon on August 16, 2023. 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 Wound culturelow counts mixed probable skin microbiota. Bacteroides thetaiotaomicron Continue diet; monitor ileostomy output Determination of trial of void depending on patient mobility. Drain is still in place; management as per surgery. Antibiotics switched from Zosyn to ceftriaxone and Flagyl; plan to continue for total of 7 days. Also on vancomycin. Antibiotic for 1 more day PT OT evaluation Out of bed Optimize pain control with Tylenol for mild pain, oxycodone for moderate pain and Dilaudid for severe pain. Type 2 diabetes mellitus on Lantus and ISS, continue. Continue to monitor. HTN Continue to hold losartan/hctz will monitor Hyperlipidemia on statin Lumbar stenosis with neurogenic claudication s/p surgery by on 08/11 Continue PT OT inpatient. Dvt px Lovenox Disposition Patient continues to be hospitalized as she had recently undergone exploratory laparotomy with right hemicolectomy with ileostomy for perforated ascending colon. Needs IV antibiotics. Possible DC to rehab once resolution of medical issues. Time spent evaluating patient, direct bedside care, chart review, placing orders, interpretation of diagnostic studies, discussion with consultants and patient, as well as other required patient management activities is 50 minutes. Please note the above document was generated using voice recognition software. It may contain grammatical, syntax or spelling errors. Any formal questions or concerns about the content, text or information contained within the body of this dictation should be directly addressed to the provider for clarification Admission and Anticipated Discharge Date Admission Date: August 16, 2023 Subjective Patient seen and examined at bedside. She reports that she is feeling tired. She did not get any sleep overnight due to interruptions. Ileostomy functioning well without any issue. Review of Systems Review of Systems: All systems reviewed & are unremarkable except as noted in Subjective Physical Exam Physical Exam: General-alert orient x 3; not in distress. Head- atraumatic Neck- supple, no JVD. Lungs- clear to auscultation, no wheezing or crackles. Heart- regular rhythm; no murmur, no gallop. Abdomen-normal bowel sound, s/p ex lap with ileostomy and hemicolectomy. Ileostomy bag with dark output. Drain is still in place with clear output Extremities- no pretibial edema, no erythema seen. Neuro- alert, oriented x 3; no facial palsy; no dysarthria; moves extremities. Skin- warm & dry Results & Data Results & Data Vital Signs (Past 12 Hours) Vital Signs Temp Pulse Resp BP Pulse Ox O2 Del Method 08/22/23 11:15 36.6 C 87 18 148/113 H 90 Room Air 08/22/23 08:03 37.1 C 74 18 149/88 H 90 Room Air 08/22/23 03:20 36.9 C 87 18 117/78 91 Room Air Laboratory Results Laboratory Results WBC 8.08 K/ul (4.8-10.8) 08/22/23 06:54 RBC 2.92 M/uL (4.20-5.40) L 08/22/23 06:54 Hgb 7.8 g/dl (12.0-16.0) L 08/22/23 06:54 POC Hgb 7.8 g/dl (12.0-16.0) L 08/17/23 04:14 Hct 25.7 % (37.0-47.0) L 08/22/23 06:54 POC Hct 23 % (37-47) L 08/17/23 04:14 MCV 88.0 fL (80.0-100.0) 08/22/23 06:54 MCH 26.7 pg (25.0-34.0) 08/22/23 06:54 MCHC 30.4 g/dL (32.0-36.0) L 08/22/23 06:54 RDW Std Deviation 51.7 fL (36.4-46.3) H 08/22/23 06:54 RDW Coeff of Samantha 16.0 % (11.5-14.5) H 08/22/23 06:54 Plt Count 251 K/uL (130-400) 08/22/23 06:54 MPV 8.4 fL (9.4-12.4) L 08/22/23 06:54 Immature Gran % (Auto) 1.9 % 08/22/23 06:54 Neut % (Auto) 73.4 % 08/22/23 06:54 Lymph % (Auto) 13.0 % 08/22/23 06:54 Morton % (Auto) 8.7 % 08/22/23 06:54 Eos % (Auto) 2.8 % 08/22/23 06:54 Baso % (Auto) 0.2 % 08/22/23 06:54 Neut # (Auto) 5.93 K/uL (1.40-6.50) 08/22/23 06:54 Lymph # (Auto) 1.05 K/uL (1.20-3.40) L 08/22/23 06:54 Morton # (Auto) 0.70 K/uL (0.11-0.59) H 08/22/23 06:54 Eos # (Auto) 0.23 K/uL (0.00-0.50) 08/22/23 06:54 Baso # (Auto) 0.02 K/uL (0.00-0.20) 08/22/23 06:54 Immature Gran # (Auto) 0.15 K/uL (0.01-0.20) 08/22/23 06:54 Absolute Nucleated RBC 0.02 K/uL (0.00-0.12) 08/18/23 03:52 Nucleated RBC % (auto) 0.2 % 08/18/23 03:52 Hypersegmented Neuts 1+ 08/19/23 06:09 Polychromasia 1+ 08/22/23 06:54 Anisocytosis Present 08/17/23 04:10 Ovalocytes 1+ 08/22/23 06:54 Sample Site R Radial 08/17/23 04:14 POC pH 7.49 (7.35-7.45) H 08/17/23 04:14 POC pCO2 36 mmHg (35-46) 08/17/23 04:14 POC pO2 80 mmHg (80-95) 08/17/23 04:14 POC HCO3 27 jania/L (19-24) H 08/17/23 04:14 POC Total CO2 28 mmol/L (24-31) 08/17/23 04:14 POC Base Excess 4.0 jania/L (-9-1.8) H 08/17/23 04:14 ABG pH (Temp Correct) 7.473 (7.35-7.45) H 08/17/23 04:14 ABG pCO2 (Temp Corrct 37 mmHg (35-46) 08/17/23 04:14 POC ABG pO2 at Pt Temp 84 08/17/23 04:14 POC ABG O2 Sat 97.0 % (90-95) H 08/17/23 04:14 Tomer Test Pass 08/17/23 04:14 O2 Delivery Device Ventilator 08/17/23 04:14 POC O2 Rate 16 08/17/23 04:14 POC FiO2 30 % 08/17/23 04:14 Tidal Volume 400 08/17/23 04:14 PEEP 5 08/17/23 04:14 POC Sodium 133 mmol/L (135-144) L 08/17/23 04:14 Sodium 142 mmol/L (136-145) 08/22/23 06:54 POC Potassium 3.8 mmol/L (3.3-5.0) 08/17/23 04:14 Potassium 3.6 mmol/L (3.5-5.1) 08/22/23 06:54 POC Chloride 98 mmol/L (101-112) L 08/16/23 11:51 Chloride 106 mmol/L (98-107) 08/22/23 06:54 Carbon Dioxide 33 mmol/L (21-32) H 08/22/23 06:54 POC Total CO2 28 mmol/L (24-31) 08/16/23 11:51 Anion Gap 3 (3-11) 08/22/23 06:54 POC Anion Gap 14.0 mmol/L (16-25) L 08/16/23 11:51 POC BUN 15 mg/dl (7-18) 08/16/23 11:51 BUN 9 mg/dl (6-23) 08/22/23 06:54 Creatinine 0.62 mg/dl (0.6-1.2) 08/22/23 06:54 POC Creatinine 0.6 mg/dl (0.6-1.3) 08/16/23 11:51 Est Cr Clr Drug Dosing 99.6 ml/min 08/22/23 06:54 Est GFR ( Amer) 103.7 ml/min 08/22/23 06:54 Est GFR (Non-Af Amer) 89.5 ml/min 08/22/23 06:54 BUN/Creatinine Ratio 14.5 (10-20) 08/22/23 06:54 Glucose 120 mg/dl (70-99(Fasting)) H 08/22/23 06:54 POC Glucose 154 mg/dl (70-99) H 08/22/23 11:13 POC Glucose (other) 161 mg/dl (70-99) H 08/16/23 11:51 Lactate 1.1 mmol/L (0.4-2.0) 08/16/23 20:15 Calcium 8.2 mg/dl (8.6-10.3) L 08/22/23 06:54 POC Ioniz Calcium Andrey 1.06 mmol/l (1.12-1.32) L 08/16/23 11:51 Phosphorus 3.3 mg/dl (2.5-4.9) 08/22/23 06:54 Magnesium 1.8 mg/dl (1.7-2.4) 08/22/23 06:54 Total Bilirubin 1.1 mg/dl (0.2-1.0) H 08/17/23 04:11 Direct Bilirubin 0.3 mg/dl (0-0.2) H 08/16/23 13:03 AST 16 U/L (13-39) 08/17/23 04:11 ALT 23 U/L (7-52) 08/17/23 04:11 Alkaline Phosphatase 131 U/L (34-104) H 08/17/23 04:11 Troponin I High Sens 38.0 pg/ml (0-14) H 08/16/23 14:05 Total Protein 4.5 gm/dl (6.0-8.3) L 08/17/23 04:11 Albumin 2.4 gm/dl (3.4-5.0) L 08/17/23 04:11 Globulin 2.1 gm/dl (2.5-4.0) L 08/17/23 04:11 Albumin/Globulin Ratio 1.1 (0.9-2) 08/17/23 04:11 Lipase 7 U/L (11-82) L 08/16/23 11:45 Procalcitonin 0.24 ng/ml (0-0.5) 08/16/23 11:45 Urine Color Dark Yellow 08/16/23 20:30 Urine Appearance Clear (Clear) 08/16/23 20:30 Urine pH 5.0 (4.5-7.5) 08/16/23 20:30 Ur Specific Elba 1.022 (1.000-1.030) 08/16/23 20:30 Urine Protein 1+ (Negative) H 08/16/23 20:30 Urine Glucose (UA) 1+ (Negative) H 08/16/23 20:30 Urine Ketones 4+ (Negative) H 08/16/23 20:30 Urine Blood Negative (Negative) 08/16/23 20:30 Urine Nitrite Negative (Negative) 08/16/23 20:30 Urine Bilirubin Negative (Negative) 08/16/23 20:30 Urine Urobilinogen Negative (Negative) 08/16/23 20:30 Ur Leukocyte Esterase Negative (Negative) 08/16/23 20:30 Urine WBC (Auto) 1-5 /hpf (0-5) 08/16/23 20:30 Urine RBC (Auto) 5-10 /hpf (0-4) H 08/16/23 20:30 U Hyaline Cast (Auto) 1-5 /lpf (0-5) 08/16/23 20:30 U Epithel Cells (Auto) 10-20 /lpf (0-5) H 08/16/23 20:30 Urine Bacteria (Auto) Negative (Negative) 08/16/23 20:30 Nasal Screen MRSA (PCR) Negative (Negative) 08/16/23 19:30 Stool H. pylori Ag SEE NOTE 08/19/23 02:52 Random Vancomycin 15.2 mcg/ml (10-20) 08/20/23 02:17 SARS-CoV-2 (PCR) NEGATIVE (Negative) 08/16/23 13:19 Influenza Type A (PCR) Negative (Neg) 08/16/23 13:19 Influenza Type B (PCR) Negative (Neg) 08/16/23 13:19 RSV (RT-PCR) Negative (Neg) 08/16/23 13:19 Blood Type O Negative 08/16/23 14:05 Antibody Screen NEGATIVE 08/16/23 14:05 Crossmatch See Detail 08/16/23 14:05 Impressions Abdomen/Pelvis CT 08/16/23 11:[address] WITHOUT CONTRAST CT DOSE: 1479.25 mGy.cm HISTORY: RLQ pain TECHNIQUE: Multiaxial CT images of the abdomen and pelvis were performed without contrast. A dose lowering technique was utilized adhering to the principles of ALARA. COMPARISON STUDY: None. FINDINGS: Trace right pleural effusion. Mild dependent changes seen at the lung bases. Large amount of pneumoperitoneum resulting in abdominal distention. There are bilateral total hip arthroplasties. Posterior decompression fusion from L2 through L5 with pedicle screws and rods. The hardware appears intact. No acute fractures. Small amount of gas at the laminectomy sites as well as fluid favors the recent postoperative change. Small umbilical hernia containing fat and gas. There is mild body wall edema noted. Cholelithiasis. No gallbladder wall thickening. The unenhanced liver, spleen, adrenal glands, and pancreas unremarkable. Multiple bilateral peripelvic renal cysts are noted. Bilateral nephrolithiasis. No hydronephrosis. Normal caliber abdominal aorta. No retroperitoneal lymphadenopathy. No pelvic lymphadenopathy or pelvic free fluid. The bladder and uterus are not well visualized due to the metallic artifact but appear unremarkable. Extensive colonic diverticulosis. No evidence for acute diverticulitis. [id number] fecal retention most pronounced within the proximal colon. Normal appendix. No dilated loops of bowel to suggest an obstruction. There is mild circumferential thickening and fat stranding within the proximal duodenum best seen on image 123. In conjunction with the extensive pneumoperitoneum this is concerning for a perforated duodenal ulcer. IMPRESSION: 1. Extensive pneumoperitoneum. This is consistent with underlying bowel perforation. The exact location is difficult to confirm but favors a perforated duodenal ulcer as described above. 2. Colonic diverticulosis. No evidence for acute diverticulitis. 3. Bilateral nephrolithiasis. No ureteral stones. No hydronephrosis. 4. Trace right pleural effusion. 5. Cholelithiasis. 6. Additional findings as described above. ACT 112: Negative or not required by law. Electronically signed by: Gunnar Eldridge M.D. 08/16/2023 12:41 PM Chest X-Ray 08/16/23 20:07 SINGLE VIEW CHEST CLINICAL HISTORY: Respiratory failure. Intubation. FINDINGS: An AP, portable, supine chest radiograph is compared to study dated 08/16/2023. The examination is degraded by portable technique and patient rotation. A left internal jugular central venous catheter has been placed. The tip projects over the cavoatrial junction. An enteric tube has been placed. The tip projects below the diaphragm. An endotracheal tube has been placed. The tip projects 5 cm above the gamaliel. The heart cardiac silhouette is enlarged. There is mild pulmonary vascular congestion. A small right pleural effusion is suspected with right basilar atelectasis. No pneumothorax is seen. The skeletal structures are osteopenic. The bony thorax is grossly intact. Fusion hardware is partially visualized and lumbar spine. IMPRESSION: 1. Line and tube placement as above. 2. Enlarged cardiac silhouette with mild pulmonary vascular congestion. 3. Small right pleural effusion. ACT 112: Negative or not required by law. Electronically signed by: Juanito Sharma M.D. 08/17/2023 8:36 AM
[2023-08-22] MEDS: cefTRIAXone SODIUM 2,000 MG in DEXTROSE 5 % MINI-B 50 ML IV SCH (11:56)
[2023-08-22] MEDS: PANTOprazole 40 MG in SYRINGE 0 ML IV SCH (11:56)
[2023-08-22] MEDS: LANTUS PER UNIT CHARGE SQ SCH (20:13)
[2023-08-22] MEDS: allopurinoL 300 MG TAB PO SCH (20:15)
[2023-08-22] MEDS: ATORVASTATIN 10 MG TAB PO SCH (20:15)
[2023-08-23] MEDS: VANCOMYCIN HCL 1,250 MG in SODIUM CHLORIDE 0.9% 250 ML IV SCH ×2 (05:10→16:19)
--- NOTE | 2023-08-23 05:24 | Surgery Progress Note ---
Date of Service August 23, 2023 Assessment & Plan (1) Perforated bowel: Plan: Status post right colectomy with ileostomy on 08/16/2023 (postoperative day #7) Continue diet as tolerated Continue analgesics as needed Continue antiemetics as needed Continue DARIUS drain to bulb suction Operative cultures have grown out Bacteroides Continue antibioticspatient is receiving Rocephin, vancomycin, and Flagyl As patient is deconditioned she will need continued PT and OT Continue use of incentive spirometer Check a.m. labs when available Lovenox is in place for DVT prevention Admission and Anticipated Discharge Date Admission Date: August 16, 2023 Supervising Physician Co-Signing Physician Notes Patient discussed with Luisito Lopez, labs reviewed, agree with above. Patient was resting and has asked to not be disturbed, therefore not examined today. Overall doing well. Still feels weak and has difficulty sleeping. Tolerating low fiber diet and ostomy functioning. Subjective Patient is resting comfortably in bed at this time. She notes that she is tolerating solid food without any nausea, vomiting, worsening abdominal pain. Her main complaint is just some generalized fatigue. I discussed with the shift superintendent caustic cresylate nurse attending the patient and no acute issues have been noted. Physical Exam Gastrointestinal (Abdomen): Abdomen is soft and nondistended. Incision is clean, dry, and intact. DARIUS drain is in place draining serous fluid. Ostomy appears viable and has a large amount of loose brown stool in the collection bag. Results & Data Vital Signs (Past 12 Hours) Vital Signs Temp Pulse Pulse Resp BP Pulse Ox O2 Del Method 08/23/23 05:13 37.2 C 85 18 138/88 92 Room Air 08/22/23 23:00 90 08/22/23 19:37 37.1 C 86 16 128/70 92 Room Air PG Care Time/CCT Total # of Minutes Spent Total Time Spent with Patient: Total time spent is greater than 50% in coordination of care (as documented) at patient's floor/unit and/or counseling patient: Coding Level of Care Code None Diagnoses Perforated bowel K63.1
[2023-08-23] MEDS: INSULIN ASPART PER UNIT CHARGE SC SCH ×4 (08:04→21:31)
[2023-08-23] MEDS: CETIRIZINE HCL 10 MG TABLET PO SCH ×2 (08:06→08:15)
[2023-08-23] MEDS: metroNIDAZOLE 500 MG TAB PO SCH ×3 (08:06→21:28)
[2023-08-23] MEDS: ENOXAPARIN INJ 40 MG/0.4 ML SYR SQ SCH (08:06)
[2023-08-23] MEDS: HYDROmorphone INJ 0.5 MG/0.5 ML SYR IV PRN (10:38)
[2023-08-23] MEDS ORDERED: CALAMINE/PRAMOXINE LOTION 180 APPLN/180 ML BTL EXT PRN (11:26)
[2023-08-23] MEDS: PANTOprazole 40 MG in SYRINGE 0 ML IV SCH (11:33)
[2023-08-23] MEDS: cefTRIAXone SODIUM 2,000 MG in DEXTROSE 5 % MINI-B 50 ML IV SCH (11:40)
[2023-08-23 12:42] LABS: Basophils # (auto) 0.03 K/uL (0.00-0.20); Basophils % (auto) 0.3 %; Eosinophils # (auto) 0.21 K/uL (0.00-0.50); Eosinophils % (auto) 1.9 %; Hematocrit (blood only) 29.3 % (37.0-47.0); Hemoglobin 8.9 g/dl (12.0-16.0); Immature Granulocytes # (auto) 0.19 K/uL (0.01-0.20); Immature Granulocytes % (auto) 1.7 %; Lymphocytes # (auto) 1.15 K/uL (1.20-3.40); Lymphocytes % (auto) 10.2 %; Mean Corpuscular Hemoglobin 27.1 pg (25.0-34.0); Mean Corpuscular Hgb Conc 30.4 g/dL (32.0-36.0); Mean Corpuscular Volume 89.3 fL (80.0-100.0); Mean Platelet Volume 8.5 fL (9.4-12.4); Monocytes # (auto) 0.73 K/uL (0.11-0.59); Monocytes % (auto) 6.5 %; Neutrophils # (auto) 8.96 K/uL (1.40-6.50); Neutrophils % (auto) 79.4 %; Platelet Count 337 K/uL (130-400); RDW Coefficient of Variation 16.4 % (11.5-14.5); RDW Standard Deviation 53.4 fL (36.4-46.3); Red Blood Count 3.28 M/uL (4.20-5.40); White Blood Count 11.27 K/ul (4.8-10.8)
[2023-08-23 12:58] LABS: BUN Creatinine Ratio 18.9 (10-20); Calcium 8.9 mg/dl (8.6-10.3); Creatinine Clr Calc Pharmacy 83.5 ml/min; Est GFR (African American) 93.2 ml/min; Est GFR (Non-African American) 80.4 ml/min; Magnesium 1.8 mg/dl (1.7-2.4); Phosphorus 3.3 mg/dl (2.5-4.9)
--- NOTE | 2023-08-23 13:21 | Hospitalist Progress Note ---
Date of Service August 23, 2023 Assessment & Plan (1) Perforated bowel: Plan: 1) Perforated bowel: Plan: 1) Perforated bowel: Pneumoperitoneum: Patient presented with abdominal pain. Underwent surgery for perforated ascending colon on August 16, 2023. 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 Wound culturelow counts mixed probable skin microbiota. Bacteroides thetaiotaomicron Continue diet; monitor ileostomy output Trial of void depending on patient mobility. Drain is still in place; management as per surgery. Antibiotics switched from Zosyn to ceftriaxone and Flagyl; plan to continue for total of 7 days. Also on vancomycin. Antibiotic for 1 more day PT OT evaluation Out of bed Optimize pain control with Tylenol for mild pain, oxycodone for moderate pain and Dilaudid for severe pain. Type 2 diabetes mellitus on Lantus and ISS, continue. Continue to monitor. HTN Continue to hold losartan/hctz will monitor Hyperlipidemia on statin Lumbar stenosis with neurogenic claudication s/p surgery by on 08/11 Continue PT OT inpatient. Dvt px Lovenox Disposition Patient continues to be hospitalized as she had recently undergone exploratory laparotomy with right hemicolectomy with ileostomy for perforated ascending colon. Needs IV antibiotics. Possible DC to rehab once resolution of medical issues. Please note the above document was generated using voice recognition software. It may contain grammatical, syntax or spelling errors. Any formal questions or concerns about the content, text or information contained within the body of this dictation should be directly addressed to the provider for clarification Admission and Anticipated Discharge Date Admission Date: August 16, 2023 Subjective Patient seen and examined at bedside. She reports that she was able to finally get some rest. She feels better today. She did not want to remove Zuleta. DARIUS drain in place draining serous output. Review of Systems Review of Systems: All systems reviewed & are unremarkable except as noted in Subjective Physical Exam Physical Exam: General-alert orient x 3; not in distress. Head- atraumatic Neck- supple, no JVD. Lungs- clear to auscultation, no wheezing or crackles. Heart- regular rhythm; no murmur, no gallop. Abdomen-normal bowel sound, s/p ex lap with ileostomy and hemicolectomy. Ileostomy bag with dark output. Drain is still in place with clear output Extremities- no pretibial edema, no erythema seen. Neuro- alert, oriented x 3; no facial palsy; no dysarthria; moves extremities. Skin- warm & dry Results & Data Results & Data Vital Signs (Past 12 Hours) Vital Signs Temp Pulse Resp BP Pulse Ox O2 Del Method 08/23/23 11:06 36.9 C 80 20 111/76 95 Room Air 08/23/23 07:13 36.9 C 80 20 169/93 H 90 Room Air 08/23/23 05:13 37.2 C 85 18 138/88 92 Room Air Laboratory Results Laboratory Results WBC 11.27 K/ul (4.8-10.8) H 08/23/23 11:34 RBC 3.28 M/uL (4.20-5.40) L 08/23/23 11:34 Hgb 8.9 g/dl (12.0-16.0) L 08/23/23 11:34 POC Hgb 7.8 g/dl (12.0-16.0) L 08/17/23 04:14 Hct 29.3 % (37.0-47.0) L 08/23/23 11:34 POC Hct 23 % (37-47) L 08/17/23 04:14 MCV 89.3 fL (80.0-100.0) 08/23/23 11:34 MCH 27.1 pg (25.0-34.0) 08/23/23 11:34 MCHC 30.4 g/dL (32.0-36.0) L 08/23/23 11:34 RDW Std Deviation 53.4 fL (36.4-46.3) H 08/23/23 11:34 RDW Coeff of Samantha 16.4 % (11.5-14.5) H 08/23/23 11:34 Plt Count 337 K/uL (130-400) 08/23/23 11:34 MPV 8.5 fL (9.4-12.4) L 08/23/23 11:34 Immature Gran % (Auto) 1.7 % 08/23/23 11:34 Neut % (Auto) 79.4 % 08/23/23 11:34 Lymph % (Auto) 10.2 % 08/23/23 11:34 [place] % (Auto) 6.5 % 08/23/23 11:34 Eos % (Auto) 1.9 % 08/23/23 11:34 Baso % (Auto) 0.3 % 08/23/23 11:34 Neut # (Auto) 8.96 K/uL (1.40-6.50) H 08/23/23 11:34 Lymph # (Auto) 1.15 K/uL (1.20-3.40) L 08/23/23 11:34 [place] # (Auto) 0.73 K/uL (0.11-0.59) H 08/23/23 11:34 Eos # (Auto) 0.21 K/uL (0.00-0.50) 08/23/23 11:34 Baso # (Auto) 0.03 K/uL (0.00-0.20) 08/23/23 11:34 Immature Gran # (Auto) 0.19 K/uL (0.01-0.20) 08/23/23 11:34 Absolute Nucleated RBC 0.02 K/uL (0.00-0.12) 08/18/23 03:52 Nucleated RBC % (auto) 0.2 % 08/18/23 03:52 Hypersegmented Neuts 1+ 08/19/23 06:09 Polychromasia 1+ 08/22/23 06:54 Anisocytosis Present 08/17/23 04:10 Ovalocytes 1+ 08/22/23 06:54 Sample Site R Radial 08/17/23 04:14 POC pH 7.49 (7.35-7.45) H 08/17/23 04:14 POC pCO2 36 mmHg (35-46) 08/17/23 04:14 POC pO2 80 mmHg (80-95) 08/17/23 04:14 POC HCO3 27 jania/L (19-24) H 08/17/23 04:14 POC Total CO2 28 mmol/L (24-31) 08/17/23 04:14 POC Base Excess 4.0 jania/L (-9-1.8) H 08/17/23 04:14 ABG pH (Temp Correct) 7.473 (7.35-7.45) H 08/17/23 04:14 ABG pCO2 (Temp Corrct 37 mmHg (35-46) 08/17/23 04:14 POC ABG pO2 at Pt Temp 84 08/17/23 04:14 POC ABG O2 Sat 97.0 % (90-95) H 08/17/23 04:14 Tomer Test Pass 08/17/23 04:14 O2 Delivery Device Ventilator 08/17/23 04:14 POC O2 Rate 16 08/17/23 04:14 POC FiO2 30 % 08/17/23 04:14 Tidal Volume 400 08/17/23 04:14 PEEP 5 08/17/23 04:14 POC Sodium 133 mmol/L (135-144) L 08/17/23 04:14 Sodium 143 mmol/L (136-145) 08/23/23 11:34 POC Potassium 3.8 mmol/L (3.3-5.0) 08/17/23 04:14 Potassium 4.0 mmol/L (3.5-5.1) 08/23/23 11:34 POC Chloride 98 mmol/L (101-112) L 08/16/23 11:51 Chloride 105 mmol/L (98-107) 08/23/23 11:34 Carbon Dioxide 32 mmol/L (21-32) 08/23/23 11:34 POC Total CO2 28 mmol/L (24-31) 08/16/23 11:51 Anion Gap 6 (3-11) 08/23/23 11:34 POC Anion Gap 14.0 mmol/L (16-25) L 08/16/23 11:51 POC BUN 15 mg/dl (7-18) 08/16/23 11:51 BUN 14 mg/dl (6-23) 08/23/23 11:34 Creatinine 0.74 mg/dl (0.6-1.2) 08/23/23 11:34 POC Creatinine 0.6 mg/dl (0.6-1.3) 08/16/23 11:51 Est Cr Clr Drug Dosing 83.5 ml/min 08/23/23 11:34 Est GFR ( Amer) 93.2 ml/min 08/23/23 11:34 Est GFR (Non-Af Amer) 80.4 ml/min 08/23/23 11:34 BUN/Creatinine Ratio 18.9 (10-20) 08/23/23 11:34 Glucose 149 mg/dl (70-99(Fasting)) H 08/23/23 11:34 POC Glucose 140 mg/dl (70-99) H 08/23/23 11:23 POC Glucose (other) 161 mg/dl (70-99) H 08/16/23 11:51 Lactate 1.1 mmol/L (0.4-2.0) 08/16/23 20:15 Calcium 8.9 mg/dl (8.6-10.3) 08/23/23 11:34 POC Ioniz Calcium Andrey 1.06 mmol/l (1.12-1.32) L 08/16/23 11:51 Phosphorus 3.3 mg/dl (2.5-4.9) 08/23/23 11:34 Magnesium 1.8 mg/dl (1.7-2.4) 08/23/23 11:34 Total Bilirubin 1.1 mg/dl (0.2-1.0) H 08/17/23 04:11 Direct Bilirubin 0.3 mg/dl (0-0.2) H 08/16/23 13:03 AST 16 U/L (13-39) 08/17/23 04:11 ALT 23 U/L (7-52) 08/17/23 04:11 Alkaline Phosphatase 131 U/L (34-104) H 08/17/23 04:11 Troponin I High Sens 38.0 pg/ml (0-14) H 08/16/23 14:05 Total Protein 4.5 gm/dl (6.0-8.3) L 08/17/23 04:11 Albumin 2.4 gm/dl (3.4-5.0) L 08/17/23 04:11 Globulin 2.1 gm/dl (2.5-4.0) L 08/17/23 04:11 Albumin/Globulin Ratio 1.1 (0.9-2) 08/17/23 04:11 Lipase 7 U/L (11-82) L 08/16/23 11:45 Procalcitonin 0.24 ng/ml (0-0.5) 08/16/23 11:45 Urine Color Dark Yellow 08/16/23 20:30 Urine Appearance Clear (Clear) 08/16/23 20:30 Urine pH 5.0 (4.5-7.5) 08/16/23 20:30 Ur Specific [place] 1.022 (1.000-1.030) 08/16/23 20:30 Urine Protein 1+ (Negative) H 08/16/23 20:30 Urine Glucose (UA) 1+ (Negative) H 08/16/23 20:30 Urine Ketones 4+ (Negative) H 08/16/23 20:30 Urine Blood Negative (Negative) 08/16/23 20:30 Urine Nitrite Negative (Negative) 08/16/23 20:30 Urine Bilirubin Negative (Negative) 08/16/23 20:30 Urine Urobilinogen Negative (Negative) 08/16/23 20:30 Ur Leukocyte Esterase Negative (Negative) 08/16/23 20:30 Urine WBC (Auto) 1-5 /hpf (0-5) 08/16/23 20:30 Urine RBC (Auto) 5-10 /hpf (0-4) H 08/16/23 20:30 U Hyaline Cast (Auto) 1-5 /lpf (0-5) 08/16/23 20:30 U Epithel Cells (Auto) 10-20 /lpf (0-5) H 08/16/23 20:30 Urine Bacteria (Auto) Negative (Negative) 08/16/23 20:30 Nasal Screen MRSA (PCR) Negative (Negative) 08/16/23 19:30 Stool H. pylori Ag SEE NOTE 08/19/23 02:52 Random Vancomycin 15.2 mcg/ml (10-20) 08/20/23 02:17 SARS-CoV-2 (PCR) NEGATIVE (Negative) 08/16/23 13:19 Influenza Type A (PCR) Negative (Neg) 08/16/23 13:19 Influenza Type B (PCR) Negative (Neg) 08/16/23 13:19 RSV (RT-PCR) Negative (Neg) 08/16/23 13:19 Blood Type O Negative 08/16/23 14:05 Antibody Screen NEGATIVE 08/16/23 14:05 Crossmatch See Detail 08/16/23 14:05 Impressions Abdomen/Pelvis CT 08/16/23 11:[address] WITHOUT CONTRAST CT DOSE: 1479.25 mGy.cm HISTORY: RLQ pain TECHNIQUE: Multiaxial CT images of the abdomen and pelvis were performed without contrast. A dose lowering technique was utilized adhering to the principles of ALARA. COMPARISON STUDY: None. FINDINGS: Trace right pleural effusion. Mild dependent changes seen at the lung bases. Large amount of pneumoperitoneum resulting in abdominal distention. There are bilateral total hip arthroplasties. Posterior decompression fusion from L2 through L5 with pedicle screws and rods. The hardware appears intact. No acute fractures. Small amount of gas at the laminectomy sites as well as fluid favors the recent postoperative change. Small umbilical hernia containing fat and gas. There is mild body wall edema noted. Cholelithiasis. No gallbladder wall thickening. The unenhanced liver, spleen, adrenal glands, and pancreas unrem arkable. Multiple bilateral peripelvic renal cysts are noted. Bilateral nephrolithiasis. No hydronephrosis. Normal caliber abdominal aorta. No retroperitoneal lymphadenopathy. No pelvic lymphadenopathy or pelvic free fluid. The bladder and uterus are not well visualized due to the metallic artifact but appear unremarkable. Extensive colonic diverticulosis. No evidence for acute diverticulitis. Gaap-fj-[id number] fecal retention most pronounced within the proximal colon. Normal appendix. No dilated loops of bowel to suggest an obstruction. There is mild circumferential thickening and fat stranding within the proximal duodenum best seen on image 123. In conjunction with the extensive pneumoperitoneum this is concerning for a perforated duodenal ulcer. IMPRESSION: 1. Extensive pneumoperitoneum. This is consistent with underlying bowel perforation. The exact location is difficult to confirm but favors a perforated duodenal ulcer as described above. 2. Colonic diverticulosis. No evidence for acute diverticulitis. 3. Bilateral nephrolithiasis. No ureteral stones. No hydronephrosis. 4. Trace right pleural effusion. 5. Cholelithiasis. 6. Additional findings as described above. ACT 112: Negative or not required by law. Electronically signed by: Gunnar Eldridge M.D. 08/16/2023 12:41 PM Chest X-Ray 08/16/23 20:07 SINGLE VIEW CHEST CLINICAL HISTORY: Respiratory failure. Intubation. FINDINGS: An AP, portable, supine chest radiograph is compared to study dated 08/16/2023. The examination is degraded by portable technique and patient ro tation. A left internal jugular central venous catheter has been placed. The tip projects over the cavoatrial junction. An enteric tube has been placed. The tip projects below the diaphragm. An endotracheal tube has been placed. The tip projects 5 cm above the gamaliel. The heart cardiac silhouette is enlarged. There is mild pulmonary vascular congestion. A small right pleural effusion is suspected with right basilar atelectasis. No pneumothorax is seen. The skeletal structures are osteopenic. The bony thorax is grossly intact. Fusion hardware is partially visualized and lumbar spine. IMPRESSION: 1. Line and tube placement as above. 2. Enlarged cardiac silhouette with mild pulmonary vascular congestion. 3. Small right pleural effusion. ACT 112: Negative or not required by law. Electronically signed by: Juanito Sharma M.D. 08/17/2023 8:36 AM
[2023-08-23] MEDS: oxyCODONE HCL IR 5 MG TAB (IMMEDIATE RELEASE) PO PRN ×2 (15:04→21:30)
[2023-08-23] MEDS: ATORVASTATIN 10 MG TAB PO SCH (21:29)
[2023-08-23] MEDS: allopurinoL 300 MG TAB PO SCH (21:29)
[2023-08-23] MEDS: LANTUS PER UNIT CHARGE SQ SCH (21:31)
[2023-08-24] MEDS: HYDROmorphone INJ 0.5 MG/0.5 ML SYR IV PRN ×5 (06:09→21:50)
[2023-08-24 08:15] LABS: Basophils # (auto) 0.03 K/uL (0.00-0.20); Basophils % (auto) 0.4 %; Eosinophils # (auto) 0.21 K/uL (0.00-0.50); Eosinophils % (auto) 2.5 %; Hematocrit (blood only) 26.2 % (37.0-47.0); Hemoglobin 7.9 g/dl (12.0-16.0); Immature Granulocytes % (auto) 1.2 %; Lymphocytes # (auto) 1.04 K/uL (1.20-3.40); Lymphocytes % (auto) 12.3 %; Mean Corpuscular Hemoglobin 26.8 pg (25.0-34.0); Mean Corpuscular Hgb Conc 30.2 g/dL (32.0-36.0); Mean Corpuscular Volume 88.8 fL (80.0-100.0); Mean Platelet Volume 8.4 fL (9.4-12.4); Monocytes # (auto) 0.76 K/uL (0.11-0.59); Neutrophils # (auto) 6.34 K/uL (1.40-6.50); Neutrophils % (auto) 74.6 %; Platelet Count 303 K/uL (130-400); RDW Coefficient of Variation 16.3 % (11.5-14.5); RDW Standard Deviation 52.9 fL (36.4-46.3); Red Blood Count 2.95 M/uL (4.20-5.40); White Blood Count 8.48 K/ul (4.8-10.8)
[2023-08-24 08:30] LABS: BUN Creatinine Ratio 16.9 (10-20); Calcium 8.6 mg/dl (8.6-10.3); Creatinine Clr Calc Pharmacy 95.3 ml/min; Est GFR (African American) 102.1 ml/min; Est GFR (Non-African American) 88.1 ml/min; Magnesium 1.8 mg/dl (1.7-2.4); Phosphorus 3.6 mg/dl (2.5-4.9); Potassium 4.2 mmol/L (3.5-5.1)
[2023-08-24 08:38] LABS: Polychromasia 1+
[2023-08-24] MEDS: INSULIN ASPART PER UNIT CHARGE SC SCH ×4 (09:48→21:31)
[2023-08-24] MEDS: CETIRIZINE HCL 10 MG TABLET PO SCH (09:57)
[2023-08-24] MEDS: ENOXAPARIN INJ 40 MG/0.4 ML SYR SQ SCH (10:27)
[2023-08-24] MEDS: metroNIDAZOLE 500 MG TAB PO SCH ×3 (10:27→21:31)
[2023-08-24] MEDS: PANTOprazole 40 MG in SYRINGE 0 ML IV SCH (10:27)
--- NOTE | 2023-08-24 12:26 | Hospitalist Progress Note ---
Date of Service August 24, 2023 Assessment & Plan (1) Perforated bowel: Plan: 1) Perforated bowel: Plan: 1) Perforated bowel: Pneumoperitoneum: Patient presented with abdominal pain. Underwent surgery for perforated ascending colon on August 16, 2023. 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 Wound culturelow counts mixed probable skin microbiota. Bacteroides thetaiotaomicron Continue diet; monitor ileostomy output Trial of void depending on patient mobility. Patient does not want to take Zuleta out Drain is still in place; management as per surgery. Patient completed 7 days of antibiotic postoperatively. PT OT evaluation Out of bed Optimize pain control with Tylenol for mild pain, oxycodone for moderate pain and Dilaudid for severe pain. Type 2 diabetes mellitus on Lantus and ISS, continue. Continue to monitor. HTN Continue to hold losartan/hctz will monitor Hyperlipidemia on statin Lumbar stenosis with neurogenic claudication s/p surgery by on 08/11 Continue PT OT inpatient. Patient has an appointment with Dr. Lala on August 25. Dr. Lala informed regarding patient hospitalization Dvt px Lovenox Disposition Patient continues to be hospitalized as she had recently undergone exploratory laparotomy with right hemicolectomy with ileostomy for perforated ascending colon. Patient surgical drain is still in place. Possible DC to rehab once resolution of medical issues. Please note the above document was generated using voice recognition software. It may contain grammatical, syntax or spelling errors. Any formal questions or concerns about the content, text or information contained within the body of this dictation should be directly addressed to the provider for clarification Admission and Anticipated Discharge Date Admission Date: August 16, 2023 Subjective Patient seen and examined at bedside. She is comfortable; not in any distress. She is tolerating diet without any difficulty. Urine output of 1.8 L overnight. Review of Systems Review of Systems: All systems reviewed & are unremarkable except as noted in Subjective Physical Exam Physical Exam: General-alert orient x 3; not in distress. Head- atraumatic Neck- supple, no JVD. Lungs- clear to auscultation, no wheezing or crackles. Heart- regular rhythm; no murmur, no gallop. Abdomen-normal bowel sound, s/p ex lap with ileostomy and hemicolectomy. Ileostomy bag with dark output. Drain is still in place with clear output Extremities- no pretibial edema, no erythema seen. Neuro- alert, oriented x 3; no facial palsy; no dysarthria; moves extremities. Skin- warm & dry Results & Data Results & Data Vital Signs (Past 12 Hours) Vital Signs Temp Pulse Pulse Resp BP Pulse Ox O2 Del Method 08/24/23 11:39 36.8 C 75 18 108/67 91 Room Air 08/24/23 11:15 97 H 08/24/23 08:07 Room Air 08/24/23 07:32 36.3 C L 79 18 129/78 90 Room Air 08/24/23 06:38 36.4 C L 80 20 171/97 H 92 Room Air Laboratory Results Laboratory Results WBC 8.48 K/ul (4.8-10.8) 08/24/23 07:47 RBC 2.95 M/uL (4.20-5.40) L 08/24/23 07:47 Hgb 7.9 g/dl (12.0-16.0) L 08/24/23 07:47 POC Hgb 7.8 g/dl (12.0-16.0) L 08/17/23 04:14 Hct 26.2 % (37.0-47.0) L 08/24/23 07:47 POC Hct 23 % (37-47) L 08/17/23 04:14 MCV 88.8 fL (80.0-100.0) 08/24/23 07:47 MCH 26.8 pg (25.0-34.0) 08/24/23 07:47 MCHC 30.2 g/dL (32.0-36.0) L 08/24/23 07:47 RDW Std Deviation 52.9 fL (36.4-46.3) H 08/24/23 07:47 RDW Coeff of Samantha 16.3 % (11.5-14.5) H 08/24/23 07:47 Plt Count 303 K/uL (130-400) 08/24/23 07:47 MPV 8.4 fL (9.4-12.4) L 08/24/23 07:47 Immature Gran % (Auto) 1.2 % 08/24/23 07:47 Neut % (Auto) 74.6 % 08/24/23 07:47 Lymph % (Auto) 12.3 % 08/24/23 07:47 [place] % (Auto) 9.0 % 08/24/23 07:47 Eos % (Auto) 2.5 % 08/24/23 07:47 Baso % (Auto) 0.4 % 08/24/23 07:47 Neut # (Auto) 6.34 K/uL (1.40-6.50) 08/24/23 07:47 Lymph # (Auto) 1.04 K/uL (1.20-3.40) L 08/24/23 07:47 [place] # (Auto) 0.76 K/uL (0.11-0.59) H 08/24/23 07:47 Eos # (Auto) 0.21 K/uL (0.00-0.50) 08/24/23 07:47 Baso # (Auto) 0.03 K/uL (0.00-0.20) 08/24/23 07:47 Immature Gran # (Auto) 0.10 K/uL (0.01-0.20) 08/24/23 07:47 Absolute Nucleated RBC 0.02 K/uL (0.00-0.12) 08/18/23 03:52 Nucleated RBC % (auto) 0.2 % 08/18/23 03:52 Hypersegmented Neuts 1+ 08/19/23 06:09 Polychromasia 1+ 08/24/23 07:47 Anisocytosis Present 08/17/23 04:10 Ovalocytes 1+ 08/22/23 06:54 Sample Site R Radial 08/17/23 04:14 POC pH 7.49 (7.35-7.45) H 08/17/23 04:14 POC pCO2 36 mmHg (35-46) 08/17/23 04:14 POC pO2 80 mmHg (80-95) 08/17/23 04:14 POC HCO3 27 jania/L (19-24) H 08/17/23 04:14 POC Total CO2 28 mmol/L (24-31) 08/17/23 04:14 POC Base Excess 4.0 jania/L (-9-1.8) H 08/17/23 04:14 ABG pH (Temp Correct) 7.473 (7.35-7.45) H 08/17/23 04:14 ABG pCO2 (Temp Corrct 37 mmHg (35-46) 08/17/23 04:14 POC ABG pO2 at Pt Temp 84 08/17/23 04:14 POC ABG O2 Sat 97.0 % (90-95) H 08/17/23 04:14 Tomer Test Pass 08/17/23 04:14 O2 Delivery Device Ventilator 08/17/23 04:14 POC O2 Rate 16 08/17/23 04:14 POC FiO2 30 % 08/17/23 04:14 Tidal Volume 400 08/17/23 04:14 PEEP 5 08/17/23 04:14 POC Sodium 133 mmol/L (135-144) L 08/17/23 04:14 Sodium 142 mmol/L (136-145) 08/24/23 07:47 POC Potassium 3.8 mmol/L (3.3-5.0) 08/17/23 04:14 Potassium 4.2 mmol/L (3.5-5.1) 08/24/23 07:47 POC Chloride 98 mmol/L (101-112) L 08/16/23 11:51 Chloride 107 mmol/L (98-107) 08/24/23 07:47 Carbon Dioxide 33 mmol/L (21-32) H 08/24/23 07:47 POC Total CO2 28 mmol/L (24-31) 08/16/23 11:51 Anion Gap 2 (3-11) L 08/24/23 07:47 POC Anion Gap 14.0 mmol/L (16-25) L 08/16/23 11:51 POC BUN 15 mg/dl (7-18) 08/16/23 11:51 BUN 11 mg/dl (6-23) 08/24/23 07:47 Creatinine 0.65 mg/dl (0.6-1.2) 08/24/23 07:47 POC Creatinine 0.6 mg/dl (0.6-1.3) 08/16/23 11:51 Est Cr Clr Drug Dosing 95.3 ml/min 08/24/23 07:47 Est GFR ( Amer) 102.1 ml/min 08/24/23 07:47 Est GFR (Non-Af Amer) 88.1 ml/min 08/24/23 07:47 BUN/Creatinine Ratio 16.9 (10-20) 08/24/23 07:47 Glucose 124 mg/dl (70-99(Fasting)) H 08/24/23 07:47 POC Glucose 143 mg/dl (70-99) H 08/24/23 11:35 POC Glucose (other) 161 mg/dl (70-99) H 08/16/23 11:51 Lactate 1.1 mmol/L (0.4-2.0) 08/16/23 20:15 Calcium 8.6 mg/dl (8.6-10.3) 08/24/23 07:47 POC Ioniz Calcium Andrey 1.06 mmol/l (1.12-1.32) L 08/16/23 11:51 Phosphorus 3.6 mg/dl (2.5-4.9) 08/24/23 07:47 Magnesium 1.8 mg/dl (1.7-2.4) 08/24/23 07:47 Total Bilirubin 1.1 mg/dl (0.2-1.0) H 08/17/23 04:11 Direct Bilirubin 0.3 mg/dl (0-0.2) H 08/16/23 13:03 AST 16 U/L (13-39) 08/17/23 04:11 ALT 23 U/L (7-52) 08/17/23 04:11 Alkaline Phosphatase 131 U/L (34-104) H 08/17/23 04:11 Troponin I High Sens 38.0 pg/ml (0-14) H 08/16/23 14:05 Total Protein 4.5 gm/dl (6.0-8.3) L 08/17/23 04:11 Albumin 2.4 gm/dl (3.4-5.0) L 08/17/23 04:11 Globulin 2.1 gm/dl (2.5-4.0) L 08/17/23 04:11 Albumin/Globulin Ratio 1.1 (0.9-2) 08/17/23 04:11 Lipase 7 U/L (11-82) L 08/16/23 11:45 Procalcitonin 0.24 ng/ml (0-0.5) 08/16/23 11:45 Urine Color Dark Yellow 08/16/23 20:30 Urine Appearance Clear (Clear) 08/16/23 20:30 Urine pH 5.0 (4.5-7.5) 08/16/23 20:30 Ur Specific [place] 1.022 (1.000-1.030) 08/16/23 20:30 Urine Protein 1+ (Negative) H 08/16/23 20:30 Urine Glucose (UA) 1+ (Negative) H 08/16/23 20:30 Urine Ketones 4+ (Negative) H 08/16/23 20:30 Urine Blood Negative (Negative) 08/16/23 20:30 Urine Nitrite Negative (Negative) 08/16/23 20:30 Urine Bilirubin Negative (Negative) 08/16/23 20:30 Urine Urobilinogen Negative (Negative) 08/16/23 20:30 Ur Leukocyte Esterase Negative (Negative) 08/16/23 20:30 Urine WBC (Auto) 1-5 /hpf (0-5) 08/16/23 20:30 Urine RBC (Auto) 5-10 /hpf (0-4) H 08/16/23 20:30 U Hyaline Cast (Auto) 1-5 /lpf (0-5) 08/16/23 20:30 U Epithel Cells (Auto) 10-20 /lpf (0-5) H 08/16/23 20:30 Urine Bacteria (Auto) Negative (Negative) 08/16/23 20:30 Nasal Screen MRSA (PCR) Negative (Negative) 08/16/23 19:30 Stool H. pylori Ag SEE NOTE 08/19/23 02:52 Random Vancomycin 15.2 mcg/ml (10-20) 08/20/23 02:17 SARS-CoV-2 (PCR) NEGATIVE (Negative) 08/16/23 13:19 Influenza Type A (PCR) Negative (Neg) 08/16/23 13:19 Influenza Type B (PCR) Negative (Neg) 08/16/23 13:19 RSV (RT-PCR) Negative (Neg) 08/16/23 13:19 Blood Type O Negative 08/16/23 14:05 Antibody Screen NEGATIVE 08/16/23 14:05 Crossmatch See Detail 08/16/23 14:05 Impressions Abdomen/Pelvis CT 08/16/23 11:[address] WITHOUT CONTRAST CT DOSE: 1479.25 mGy.cm HISTORY: RLQ pain TECHNIQUE: Multiaxial CT images of the abdomen and pelvis were performed without contrast. A dose lowering technique was utilized adhering to the principles of ALARA. COMPARISON STUDY: None. FINDINGS: Trace right pleural effusion. Mild dependent changes seen at the lung bases. Large amount of pneumoperitoneum resulting in abdominal distention. There are bilateral total hip arthroplasties. Posterior decompression fusion from L2 through L5 with pedicle screws and rods. The hardware appears intact. No acute fractures. Small amount of gas at the laminectomy sites as well as fluid favors the recent postoperative change. Small umbilical hernia containing fat and gas. There is mild body wall edema noted. Cholelithiasis. No gallbladder wall thickening. The unenhanced liver, spleen, adrenal glands, and pancreas unremarkable. Multiple bilateral peripelvic renal cysts are noted. Bilateral nephrolithiasis. No hydronephrosis. Normal caliber abdominal aorta. No retroperitoneal lymphadenopathy. No pelvic lymphadenopathy or pelvic free fluid. The bladder and uterus are not well visualized due to the metallic artifact but appear unremarkable. Extensive colonic diverticulosis. No evidence for acute diverticulitis. [id number] fecal retention most pronounced within the proximal colon. Normal appendix. No dilated loops of bowel to suggest an obstruction. There is mild circumferential thickening and fat stranding within the proximal duodenum best seen on image 123. In conjunction with the extensive pneumoperitoneum this is concerning for a perforated duodenal ulcer. IMPRESSION: 1. Extensive pneumoperitoneum. This is consistent with underlying bowel perforation. The exact location is difficult to confirm but favors a perforated duodenal ulcer as described above. 2. Colonic diverticulosis. No evidence for acute diverticulitis. 3. Bilateral nephrolithiasis. No ureteral stones. No hydronephrosis. 4. Trace right pleural effusion. 5. Cholelithiasis. 6. Additional findings as described above. ACT 112: Negative or not required by law. Electronically signed by: Gunnar Eldridge M.D. 08/16/2023 12:41 PM Chest X-Ray 08/16/23 20:07 SINGLE VIEW CHEST CLINICAL HISTORY: Respiratory failure. Intubation. FINDINGS: An AP, portable, supine chest radiograph is compared to study dated 08/16/2023. The examination is degraded by portable technique and patient rotation. A left internal jugular central venous catheter has been placed. The tip projects over the cavoatrial junction. An enteric tube has been placed. The tip projects below the diaphragm. An endotracheal tube has been placed. The tip projects 5 cm above the gamaliel. The heart cardiac silhouette is enlarged. There is mild pulmonary vascular congestion. A small right pleural effusion is suspected with right basilar atelectasis. No pneumothorax is seen. The skeletal structures are osteopenic. The bony thorax is grossly intact. Fusion hardware is partially visualized and lumbar spine. IMPRESSION: 1. Line and tube placement as above. 2. Enlarged cardiac silhouette with mild pulmonary vascular congestion. 3. Small right pleural effusion. ACT 112: Negative or not required by law. Electronically signed by: Juanito Sharma M.D. 08/17/2023 8:36 AM
--- NOTE | 2023-08-24 13:05 | Surgery Progress Note ---
Date of Service August 24, 2023 Assessment & Plan (1) Perforated bowel: Plan: 08/24/2023 3:[address] 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 Admission and Anticipated Discharge Date Admission Date: August 16, 2023 Subjective pt is doing better, remove schofield today, no fever, LYNNE 40 ml clear color. Physical Exam Eyes: PERRL, conjunctivae normal, anicteric sclerae Neck: trachea midline, no thyromegaly Respiratory: normal respiratory effort, lungs clear to auscultation Cardiovascular: RRR, no murmur, no edema Gastrointestinal (Abdomen): soft, mild tenderness at incision site, incision intact, no redness, ileostomy working well, no distend, BS +. Neurologic: patellar DTR's 2+ bilat, sensation intact Psychiatric: A+Ox3, euthymic affect Results & Data Vital Signs (Past 12 Hours) Vital Signs Temp Pulse Pulse Resp BP Pulse Ox O2 Del Method 08/24/23 11:39 36.8 C 75 18 108/67 91 Room Air 08/24/23 11:15 97 H 08/24/23 08:07 Room Air 08/24/23 07:32 36.3 C L 79 18 129/78 90 Room Air 08/24/23 06:38 36.4 C L 80 20 171/97 H 92 Room Air Laboratory Results Lab Results 08/16/23 08/16/23 08/16/23 Range/Units 11:45 11:51 13:03 WBC 10.06 (4.8-10.8) K/ul RBC 3.06 L (4.20-5.40) M/uL Hgb 8.5 L (12.0-16.0) g/dl POC Hgb 8.2 L (12.0-16.0) g/dl Hct 26.7 L (37.0-47.0) % POC Hct 24 L (37-47) % MCV 87.3 (80.0-100.0) fL MCH 27.8 (25.0-34.0) pg MCHC 31.8 L (32.0-36.0) g/dL RDW Std Deviation 50.8 H (36.4-46.3) fL RDW Coeff of Samantha 16.1 H (11.5-14.5) % Plt Count 259 (130-400) K/uL MPV 8.8 L (9.4-12.4) fL Immature Gran % (Auto) 0.6 % Neut % (Auto) 78.1 % Lymph % (Auto) 11.7 % Bullock % (Auto) 8.2 % Eos % (Auto) 1.2 % Baso % (Auto) 0.2 % Neut # (Auto) 7.86 H (1.40-6.50) K/uL Lymph # (Auto) 1.18 L (1.20-3.40) K/uL Bullock # (Auto) 0.82 H (0.11-0.59) K/uL Eos # (Auto) 0.12 (0.00-0.50) K/uL Baso # (Auto) 0.02 (0.00-0.20) K/uL Immature Gran # (Auto) 0.06 (0.01-0.20) K/uL Absolute Nucleated RBC 0.02 (0.00-0.12) K/uL Nucleated RBC % (auto) 0.2 % Hypersegmented Neuts Polychromasia Anisocytosis Ovalocytes Sample Site POC pH (7.35-7.45) POC pCO2 (35-46) mmHg POC pO2 (80-95) mmHg POC HCO3 (19-24) jania/L POC Base Excess (-9-1.8) jania/L ABG pH (Temp Correct) (7.35-7.45) ABG pCO2 (Temp Corrct (35-46) mmHg POC ABG pO2 at Pt Temp POC ABG O2 Sat (90-95) % Tomer Test O2 Delivery Device POC O2 Rate POC FiO2 % Tidal Volume PEEP POC Sodium 135 (135-144) mmol/L Sodium 136 (136-145) mmol/L POC Potassium 4.0 (3.3-5.0) mmol/L Potassium TNP 4.7 POC Chloride 98 L (101-112) mmol/L Chloride 100 (98-107) mmol/L Carbon Dioxide 30 (21-32) mmol/L POC Total CO2 28 (24-31) mmol/L Anion Gap 6 (3-11) POC Anion Gap 14.0 L (16-25) mmol/L POC BUN 15 (7-18) mg/dl BUN 16 (6-23) mg/dl Creatinine 0.67 (0.6-1.2) mg/dl POC Creatinine 0.6 (0.6-1.3) mg/dl Est Cr Clr Drug Dosing 91.6 ml/min Est GFR ( Amer) 101.1 ml/min Est GFR (Non-Af Amer) 87.2 ml/min BUN/Creatinine Ratio 23.9 H (10-20) Glucose 158 H (70-99(Fasting)) mg/dl POC Glucose (70-99) mg/dl POC Glucose (other) 161 H (70-99) mg/dl Lactate 1.0 (0.4-2.0) mmol/L Calcium 8.7 (8.6-10.3) mg/dl POC Ioniz Calcium Andrey 1.06 L (1.12-1.32) mmol/l Phosphorus (2.5-4.9) mg/dl Magnesium 2.0 (1.7-2.4) mg/dl Total Bilirubin 0.8 (0.2-1.0) mg/dl Direct Bilirubin TNP 0.3 H AST TNP 44 H ALT 38 (7-52) U/L Alkaline Phosphatase 185 H (34-104) U/L Troponin I High Sens 38.8 H (0-14) pg/ml Total Protein 5.8 L (6.0-8.3) gm/dl Albumin 3.0 L (3.4-5.0) gm/dl Globulin (2.5-4.0) gm/dl Albumin/Globulin Ratio (0.9-2) Lipase 7 L (11-82) U/L Procalcitonin 0.24 (0-0.5) ng/ml Urine Color Urine Appearance (Clear) Urine pH (4.5-7.5) Ur Specific [place] (1.000-1.030) Urine Protein (Negative) Urine Glucose (UA) (Negative) Urine Ketones (Negative) Urine Blood (Negative) Urine Nitrite (Negative) Urine Bilirubin (Negative) Urine Urobilinogen (Negative) Ur Leukocyte Esterase (Negative) Urine WBC (Auto) (0-5) /hpf Urine RBC (Auto) (0-4) /hpf U Hyaline Cast (Auto) (0-5) /lpf U Epithel Cells (Auto) (0-5) /lpf Urine Bacteria (Auto) (Negative) Nasal Screen MRSA (PCR) (Negative) Stool H. pylori Ag Random Vancomycin (10-20) mcg/ml SARS-CoV-2 (PCR) (Negative) Influenza Type A (PCR) (Neg) Influenza Type B (PCR) (Neg) RSV (RT-PCR) (Neg) Blood Type Antibody Screen Crossmatch 08/16/23 08/16/23 08/16/23 Range/Units 13:19 14:05 19:30 WBC (4.8-10.8) K/ul RBC (4.20-5.40) M/uL Hgb (12.0-16.0) g/dl POC Hgb (12.0-16.0) g/dl Hct (37.0-47.0) % POC Hct (37-47) % MCV (80.0-100.0) fL MCH (25.0-34.0) pg MCHC (32.0-36.0) g/dL RDW Std Deviation (36.4-46.3) fL RDW Coeff of Samantha (11.5-14.5) % Plt Count (130-400) K/uL MPV (9.4-12.4) fL Immature Gran % (Auto) % Neut % (Auto) % Lymph % (Auto) % Bullock % (Auto) % Eos % (Auto) % Baso % (Auto) % Neut # (Auto) (1.40-6.50) K/uL Lymph # (Auto) (1.20-3.40) K/uL Bullock # (Auto) (0.11-0.59) K/uL Eos # (Auto) (0.00-0.50) K/uL Baso # (Auto) (0.00-0.20) K/uL Immature Gran # (Auto) (0.01-0.20) K/uL Absolute Nucleated RBC (0.00-0.12) K/uL Nucleated RBC % (auto) % Hypersegmented Neuts Polychromasia Anisocytosis Ovalocytes Sample Site POC pH (7.35-7.45) POC pCO2 (35-46) mmHg POC pO2 (80-95) mmHg POC HCO3 (19-24) jania/L POC Base Excess (-9-1.8) jania/L ABG pH (Temp Correct) (7.35-7.45) ABG pCO2 (Temp Corrct (35-46) mmHg POC ABG pO2 at Pt Temp POC ABG O2 Sat (90-95) % Tomer Test O2 Delivery Device POC O2 Rate POC FiO2 % Tidal Volume PEEP POC Sodium (135-144) mmol/L Sodium (136-145) mmol/L POC Potassium (3.3-5.0) mmol/L Potassium POC Chloride (101-112) mmol/L Chloride (98-107) mmol/L Carbon Dioxide (21-32) mmol/L POC Total CO2 (24-31) mmol/L Anion Gap (3-11) POC Anion Gap (16-25) mmol/L POC BUN (7-18) mg/dl BUN (6-23) mg/dl Creatinine (0.6-1.2) mg/dl POC Creatinine (0.6-1.3) mg/dl Est Cr Clr Drug Dosing ml/min Est GFR ( Amer) ml/min Est GFR (Non-Af Amer) ml/min BUN/Creatinine Ratio (10-20) Glucose (70-99(Fasting)) mg/dl POC Glucose (70-99) mg/dl POC Glucose (other) (70-99) mg/dl Lactate (0.4-2.0) mmol/L Calcium (8.6-10.3) mg/dl POC Ioniz Calcium Andrey (1.12-1.32) mmol/l Phosphorus (2.5-4.9) mg/dl Magnesium (1.7-2.4) mg/dl Total Bilirubin (0.2-1.0) mg/dl Direct Bilirubin AST ALT (7-52) U/L Alkaline Phosphatase (34-104) U/L Troponin I High Sens 38.0 H (0-14) pg/ml Total Protein (6.0-8.3) gm/dl Albumin (3.4-5.0) gm/dl Globulin (2.5-4.0) gm/dl Albumin/Globulin Ratio (0.9-2) Lipase (11-82) U/L Procalcitonin (0-0.5) ng/ml Urine Color Urine Appearance (Clear) Urine pH (4.5-7.5) Ur Specific [place] (1.000-1.030) Urine Protein (Negative) Urine Glucose (UA) (Negative) Urine Ketones (Negative) Urine Blood (Negative) Urine Nitrite (Negative) Urine Bilirubin (Negative) Urine Urobilinogen (Negative) Ur Leukocyte Esterase (Negative) Urine WBC (Auto) (0-5) /hpf Urine RBC (Auto) (0-4) /hpf U Hyaline Cast (Auto) (0-5) /lpf U Epithel Cells (Auto) (0-5) /lpf Urine Bacteria (Auto) (Negative) Nasal Screen MRSA (PCR) Negative (Negative) Stool H. pylori Ag Random Vancomycin (10-20) mcg/ml SARS-CoV-2 (PCR) NEGATIVE (Negative) Influenza Type A (PCR) Negative (Neg) Influenza Type B (PCR) Negative (Neg) RSV (RT-PCR) Negative (Neg) Blood Type O Negative Antibody Screen NEGATIVE Crossmatch See Detail 08/16/23 08/16/23 08/16/23 Range/Units 19:49 20:05 20:15 WBC 6.70 (4.8-10.8) K/ul RBC 3.22 L (4.20-5.40) M/uL Hgb 8.8 L (12.0-16.0) g/dl POC Hgb 8.5 L (12.0-16.0) g/dl Hct 27.4 L (37.0-47.0) % POC Hct 25 L (37-47) % MCV 85.1 (80.0-100.0) fL MCH 27.3 (25.0-34.0) pg MCHC 32.1 (32.0-36.0) g/dL RDW Std Deviation 48.8 H (36.4-46.3) fL RDW Coeff of Samantha 15.8 H (11.5-14.5) % Plt Count 222 (130-400) K/uL MPV 8.8 L (9.4-12.4) fL Immature Gran % (Auto) 1.2 % Neut % (Auto) 86.1 % Lymph % (Auto) 5.8 % Bullock % (Auto) 6.6 % Eos % (Auto) 0.3 % Baso % (Auto) 0.0 % Neut # (Auto) 5.77 (1.40-6.50) K/uL Lymph # (Auto) 0.39 L (1.20-3.40) K/uL Bullock # (Auto) 0.44 (0.11-0.59) K/uL Eos # (Auto) 0.02 (0.00-0.50) K/uL Baso # (Auto) 0.00 (0.00-0.20) K/uL Immature Gran # (Auto) 0.08 (0.01-0.20) K/uL Absolute Nucleated RBC 0.06 (0.00-0.12) K/uL Nucleated RBC % (auto) 0.9 % Hypersegmented Neuts Polychromasia Anisocytosis Ovalocytes Sample Site R Radial POC pH 7.47 H (7.35-7.45) POC pCO2 33 L (35-46) mmHg POC pO2 76 L (80-95) mmHg POC HCO3 24 (19-24) jania/L POC Base Excess 0.0 (-9-1.8) jania/L ABG pH (Temp Correct) 7.441 (7.35-7.45) ABG pCO2 (Temp Corrct 35 (35-46) mmHg POC ABG pO2 at Pt Temp 86 POC ABG O2 Sat 96.0 H (90-95) % Tomer Test Pass O2 Delivery Device Ventilator POC O2 Rate 28 POC FiO2 30 % Tidal Volume 400 PEEP 5 POC Sodium 134 L (135-144) mmol/L Sodium 136 (136-145) mmol/L POC Potassium 4.2 (3.3-5.0) mmol/L Potassium 4.2 POC Chloride (101-112) mmol/L Chloride 101 (98-107) mmol/L Carbon Dioxide 28 (21-32) mmol/L POC Total CO2 25 (24-31) mmol/L Anion Gap 7 (3-11) POC Anion Gap (16-25) mmol/L POC BUN (7-18) mg/dl BUN 14 (6-23) mg/dl Creatinine 0.64 (0.6-1.2) mg/dl POC Creatinine (0.6-1.3) mg/dl Est Cr Clr Drug Dosing 95.9 ml/min Est GFR ( Amer) 102.6 ml/min Est GFR (Non-Af Amer) 88.5 ml/min BUN/Creatinine Ratio 21.9 H (10-20) Glucose 228 H (70-99(Fasting)) mg/dl POC Glucose (70-99) mg/dl POC Glucose (other) (70-99) mg/dl Lactate 1.1 (0.4-2.0) mmol/L Calcium 8.1 L (8.6-10.3) mg/dl POC Ioniz Calcium Andrey (1.12-1.32) mmol/l Phosphorus 3.2 (2.5-4.9) mg/dl Magnesium 1.8 (1.7-2.4) mg/dl Total Bilirubin 2.0 H D (0.2-1.0) mg/dl Direct Bilirubin AST 27 ALT 30 (7-52) U/L Alkaline Phosphatase 168 H (34-104) U/L Troponin I High Sens (0-14) pg/ml Total Protein 5.0 L (6.0-8.3) gm/dl Albumin 2.7 L (3.4-5.0) gm/dl Globulin 2.3 L (2.5-4.0) gm/dl Albumin/Globulin Ratio 1.2 (0.9-2) Lipase (11-82) U/L Procalcitonin (0-0.5) ng/ml Urine Color Urine Appearance (Clear) Urine pH (4.5-7.5) Ur Specific [place] (1.000-1.030) Urine Protein (Negative) Urine Glucose (UA) (Negative) Urine Ketones (Negative) Urine Blood (Negative) Urine Nitrite (Negative) Urine Bilirubin (Negative) Urine Urobilinogen (Negative) Ur Leukocyte Esterase (Negative) Urine WBC (Auto) (0-5) /hpf Urine RBC (Auto) (0-4) /hpf U Hyaline Cast (Auto) (0-5) /lpf U Epithel Cells (Auto) (0-5) /lpf Urine Bacteria (Auto) (Negative) Nasal Screen MRSA (PCR) (Negative) Stool H. pylori Ag Random Vancomycin (10-20) mcg/ml SARS-CoV-2 (PCR) (Negative) Influenza Type A (PCR) (Neg) Influenza Type B (PCR) (Neg) RSV (RT-PCR) (Neg) Blood Type Antibody Screen Crossmatch 08/16/23 08/16/23 08/17/23 Range/Units 20:30 21:19 04:10 WBC 6.98 (4.8-10.8) K/ul RBC 2.89 L (4.20-5.40) M/uL Hgb 7.9 L (12.0-16.0) g/dl POC Hgb (12.0-16.0) g/dl Hct 24.9 L (37.0-47.0) % POC Hct (37-47) % MCV 86.2 (80.0-100.0) fL MCH 27.3 (25.0-34.0) pg MCHC 31.7 L (32.0-36.0) g/dL RDW Std Deviation 49.9 H (36.4-46.3) fL RDW Coeff of Samantha 15.9 H (11.5-14.5) % Plt Count 185 (130-400) K/uL MPV 8.6 L (9.4-12.4) fL Immature Gran % (Auto) 0.9 % Neut % (Auto) 81.9 % Lymph % (Auto) 7.6 % Bullock % (Auto) 9.5 % Eos % (Auto) 0.0 % Baso % (Auto) 0.1 % Neut # (Auto) 5.72 (1.40-6.50) K/uL Lymph # (Auto) 0.53 L (1.20-3.40) K/uL Bullock # (Auto) 0.66 H (0.11-0.59) K/uL Eos # (Auto) 0.00 (0.00-0.50) K/uL Baso # (Auto) 0.01 (0.00-0.20) K/uL Immature Gran # (Auto) 0.06 (0.01-0.20) K/uL Absolute Nucleated RBC 0.02 (0.00-0.12) K/uL Nucleated RBC % (auto) 0.3 % Hypersegmented Neuts Polychromasia 1+ Anisocytosis Present Ovalocytes Sample Site POC pH (7.35-7.45) POC pCO2 (35-46) mmHg POC pO2 (80-95) mmHg POC HCO3 (19-24) jania/L POC Base Excess (-9-1.8) jania/L ABG pH (Temp Correct) (7.35-7.45) ABG pCO2 (Temp Corrct (35-46) mmHg POC ABG pO2 at Pt Temp POC ABG O2 Sat (90-95) % Tomer Test O2 Delivery Device POC O2 Rate POC FiO2 % Tidal Volume PEEP POC Sodium (135-144) mmol/L Sodium (136-145) mmol/L POC Potassium (3.3-5.0) mmol/L Potassium POC Chloride (101-112) mmol/L Chloride (98-107) mmol/L Carbon Dioxide (21-32) mmol/L POC Total CO2 (24-31) mmol/L Anion Gap (3-11) POC Anion Gap (16-25) mmol/L POC BUN (7-18) mg/dl BUN (6-23) mg/dl Creatinine (0.6-1.2) mg/dl POC Creatinine (0.6-1.3) mg/dl Est Cr Clr Drug Dosing ml/min Est GFR ( Amer) ml/min Est GFR (Non-Af Amer) ml/min BUN/Creatinine Ratio (10-20) Glucose (70-99(Fasting)) mg/dl POC Glucose 218 H (70-99) mg/dl POC Glucose (other) (70-99) mg/dl Lactate (0.4-2.0) mmol/L Calcium (8.6-10.3) mg/dl POC Ioniz Calcium Andrey (1.12-1.32) mmol/l Phosphorus (2.5-4.9) mg/dl Magnesium (1.7-2.4) mg/dl Total Bilirubin (0.2-1.0) mg/dl Direct Bilirubin AST ALT (7-52) U/L Alkaline Phosphatase (34-104) U/L Troponin I High Sens (0-14) pg/ml Total Protein (6.0-8.3) gm/dl Albumin (3.4-5.0) gm/dl Globulin (2.5-4.0) gm/dl Albumin/Globulin Ratio (0.9-2) Lipase (11-82) U/L Procalcitonin (0-0.5) ng/ml Urine Color Dark Yellow Urine Appearance Clear (Clear) Urine pH 5.0 (4.5-7.5) Ur Specific [place] 1.022 (1.000-1.030) Urine Protein 1+ H (Negative) Urine Glucose (UA) 1+ H (Negative) Urine Ketones 4+ H (Negative) Urine Blood Negative (Negative) Urine Nitrite Negative (Negative) Urine Bilirubin Negative (Negative) Urine Urobilinogen Negative (Negative) Ur Leukocyte Esterase Negative (Negative) Urine WBC (Auto) 1-5 (0-5) /hpf Urine RBC (Auto) 5-10 H (0-4) /hpf U Hyaline Cast (Auto) 1-5 (0-5) /lpf U Epithel Cells (Auto) 10-20 H (0-5) /lpf Urine Bacteria (Auto) Negative (Negative) Nasal Screen MRSA (PCR) (Negative) Stool H. pylori Ag Random Vancomycin (10-20) mcg/ml SARS-CoV-2 (PCR) (Negative) Influenza Type A (PCR) (Neg) Influenza Type B (PCR) (Neg) RSV (RT-PCR) (Neg) Blood Type Antibody Screen Crossmatch 08/17/23 08/17/23 08/17/23 Range/Units 04:11 04:14 05:13 WBC (4.8-10.8) K/ul RBC (4.20-5.40) M/uL Hgb (12.0-16.0) g/dl POC Hgb 7.8 L (12.0-16.0) g/dl Hct (37.0-47.0) % POC Hct 23 L (37-47) % MCV (80.0-100.0) fL MCH (25.0-34.0) pg MCHC (32.0-36.0) g/dL RDW Std Deviation (36.4-46.3) fL RDW Coeff of Samantha (11.5-14.5) % Plt Count (130-400) K/uL MPV (9.4-12.4) fL Immature Gran % (Auto) % Neut % (Auto) % Lymph % (Auto) % Bullock % (Auto) % Eos % (Auto) % Baso % (Auto) % Neut # (Auto) (1.40-6.50) K/uL Lymph # (Auto) (1.20-3.40) K/uL Bullock # (Auto) (0.11-0.59) K/uL Eos # (Auto) (0.00-0.50) K/uL Baso # (Auto) (0.00-0.20) K/uL Immature Gran # (Auto) (0.01-0.20) K/uL Absolute Nucleated RBC (0.00-0.12) K/uL Nucleated RBC % (auto) % Hypersegmented Neuts Polychromasia Anisocytosis Ovalocytes Sample Site R Radial POC pH 7.49 H (7.35-7.45) POC pCO2 36 (35-46) mmHg POC pO2 80 (80-95) mmHg POC HCO3 27 H (19-24) jania/L POC Base Excess 4.0 H (-9-1.8) jania/L ABG pH (Temp Correct) 7.473 H (7.35-7.45) ABG pCO2 (Temp Corrct 37 (35-46) mmHg POC ABG pO2 at Pt Temp 84 POC ABG O2 Sat 97.0 H (90-95) % Tomer Test Pass O2 Delivery Device Ventilator POC O2 Rate 16 POC FiO2 30 % Tidal Volume 400 PEEP 5 POC Sodium 133 L (135-144) mmol/L Sodium 137 (136-145) mmol/L POC Potassium 3.8 (3.3-5.0) mmol/L Potassium 4.0 POC Chloride (101-112) mmol/L Chloride 103 (98-107) mmol/L Carbon Dioxide 29 (21-32) mmol/L POC Total CO2 28 (24-31) mmol/L Anion Gap 5 (3-11) POC Anion Gap (16-25) mmol/L POC BUN (7-18) mg/dl BUN 12 (6-23) mg/dl Creatinine 0.64 (0.6-1.2) mg/dl POC Creatinine (0.6-1.3) mg/dl Est Cr Clr Drug Dosing 95.9 ml/min Est GFR ( Amer) 102.6 ml/min Est GFR (Non-Af Amer) 88.5 ml/min BUN/Creatinine Ratio 18.8 (10-20) Glucose 194 H (70-99(Fasting)) mg/dl POC Glucose 206 H (70-99) mg/dl POC Glucose (other) (70-99) mg/dl Lactate (0.4-2.0) mmol/L Calcium 7.6 L (8.6-10.3) mg/dl POC Ioniz Calcium Andrey (1.12-1.32) mmol/l Phosphorus 3.9 (2.5-4.9) mg/dl Magnesium 1.8 (1.7-2.4) mg/dl Total Bilirubin 1.1 H (0.2-1.0) mg/dl Direct Bilirubin AST 16 ALT 23 (7-52) U/L Alkaline Phosphatase 131 H (34-104) U/L Troponin I High Sens (0-14) pg/ml Total Protein 4.5 L (6.0-8.3) gm/dl Albumin 2.4 L (3.4-5.0) gm/dl Globulin 2.1 L (2.5-4.0) gm/dl Albumin/Globulin Ratio 1.1 (0.9-2) Lipase (11-82) U/L Procalcitonin (0-0.5) ng/ml Urine Color Urine Appearance (Clear) Urine pH (4.5-7.5) Ur Specific [place] (1.000-1.030) Urine Protein (Negative) Urine Glucose (UA) (Negative) Urine Ketones (Negative) Urine Blood (Negative) Urine Nitrite (Negative) Urine Bilirubin (Negative) Urine Urobilinogen (Negative) Ur Leukocyte Esterase (Negative) Urine WBC (Auto) (0-5) /hpf Urine RBC (Auto) (0-4) /hpf U Hyaline Cast (Auto) (0-5) /lpf U Epithel Cells (Auto) (0-5) /lpf Urine Bacteria (Auto) (Negative) Nasal Screen MRSA (PCR) (Negative) Stool H. pylori Ag Random Vancomycin (10-20) mcg/ml SARS-CoV-2 (PCR) (Negative) Influenza Type A (PCR) (Neg) Influenza Type B (PCR) (Neg) RSV (RT-PCR) (Neg) Blood Type Antibody Screen Crossmatch 08/17/23 08/17/23 08/17/23 Range/Units 11:40 17:20 23:30 WBC (4.8-10.8) K/ul RBC (4.20-5.40) M/uL Hgb (12.0-16.0) g/dl POC Hgb (12.0-16.0) g/dl Hct (37.0-47.0) % POC Hct (37-47) % MCV (80.0-100.0) fL MCH (25.0-34.0) pg MCHC (32.0-36.0) g/dL RDW Std Deviation (36.4-46.3) fL RDW Coeff of Samantha (11.5-14.5) % Plt Count (130-400) K/uL MPV (9.4-12.4) fL Immature Gran % (Auto) % Neut % (Auto) % Lymph % (Auto) % Bullock % (Auto) % Eos % (Auto) % Baso % (Auto) % Neut # (Auto) (1.40-6.50) K/uL Lymph # (Auto) (1.20-3.40) K/uL Bullock # (Auto) (0.11-0.59) K/uL Eos # (Auto) (0.00-0.50) K/uL Baso # (Auto) (0.00-0.20) K/uL Immature Gran # (Auto) (0.01-0.20) K/uL Absolute Nucleated RBC (0.00-0.12) K/uL Nucleated RBC % (auto) % Hypersegmented Neuts Polychromasia Anisocytosis Ovalocytes Sample Site POC pH (7.35-7.45) POC pCO2 (35-46) mmHg POC pO2 (80-95) mmHg POC HCO3 (19-24) jania/L POC Base Excess (-9-1.8) jania/L ABG pH (Temp Correct) (7.35-7.45) ABG pCO2 (Temp Corrct (35-46) mmHg POC ABG pO2 at Pt Temp POC ABG O2 Sat (90-95) % Tomer Test O2 Delivery Device POC O2 Rate POC FiO2 % Tidal Volume PEEP POC Sodium (135-144) mmol/L Sodium (136-145) mmol/L POC Potassium (3.3-5.0) mmol/L Potassium POC Chloride (101-112) mmol/L Chloride (98-107) mmol/L Carbon Dioxide (21-32) mmol/L POC Total CO2 (24-31) mmol/L Anion Gap (3-11) POC Anion Gap (16-25) mmol/L POC BUN (7-18) mg/dl BUN (6-23) mg/dl Creatinine (0.6-1.2) mg/dl POC Creatinine (0.6-1.3) mg/dl Est Cr Clr Drug Dosing ml/min Est GFR ( Amer) ml/min Est GFR (Non-Af Amer) ml/min BUN/Creatinine Ratio (10-20) Glucose (70-99(Fasting)) mg/dl POC Glucose 178 H 143 H 138 H (70-99) mg/dl POC Glucose (other) (70-99) mg/dl Lactate (0.4-2.0) mmol/L Calcium (8.6-10.3) mg/dl POC Ioniz Calcium Andrey (1.12-1.32) mmol/l Phosphorus (2.5-4.9) mg/dl Magnesium (1.7-2.4) mg/dl Total Bilirubin (0.2-1.0) mg/dl Direct Bilirubin AST ALT (7-52) U/L Alkaline Phosphatase (34-104) U/L Troponin I High Sens (0-14) pg/ml Total Protein (6.0-8.3) gm/dl Albumin (3.4-5.0) gm/dl Globulin (2.5-4.0) gm/dl Albumin/Globulin Ratio (0.9-2) Lipase (11-82) U/L Procalcitonin (0-0.5) ng/ml Urine Color Urine Appearance (Clear) Urine pH (4.5-7.5) Ur Specific [place] (1.000-1.030) Urine Protein (Negative) Urine Glucose (UA) (Negative) Urine Ketones (Negative) Urine Blood (Negative) Urine Nitrite (Negative) Urine Bilirubin (Negative) Urine Urobilinogen (Negative) Ur Leukocyte Esterase (Negative) Urine WBC (Auto) (0-5) /hpf Urine RBC (Auto) (0-4) /hpf U Hyaline Cast (Auto) (0-5) /lpf U Epithel Cells (Auto) (0-5) /lpf Urine Bacteria (Auto) (Negative) Nasal Screen MRSA (PCR) (Negative) Stool H. pylori Ag Random Vancomycin (10-20) mcg/ml SARS-CoV-2 (PCR) (Negative) Influenza Type A (PCR) (Neg) Influenza Type B (PCR) (Neg) RSV (RT-PCR) (Neg) Blood Type Antibody Screen Crossmatch 08/18/23 08/18/23 08/18/23 Range/Units 03:52 03:56 06:56 WBC 8.70 (4.8-10.8) K/ul RBC 2.94 L (4.20-5.40) M/uL Hgb 8.0 L (12.0-16.0) g/dl POC Hgb (12.0-16.0) g/dl Hct 25.3 L (37.0-47.0) % POC Hct (37-47) % MCV 86.1 (80.0-100.0) fL MCH 27.2 (25.0-34.0) pg MCHC 31.6 L (32.0-36.0) g/dL RDW Std Deviation 50.4 H (36.4-46.3) fL RDW Coeff of Samantha 15.9 H (11.5-14.5) % Plt Count 243 (130-400) K/uL MPV 8.6 L (9.4-12.4) fL Immature Gran % (Auto) 0.3 % Neut % (Auto) 74.8 % Lymph % (Auto) 9.4 % Bullock % (Auto) 12.1 % Eos % (Auto) 3.3 % Baso % (Auto) 0.1 % Neut # (Auto) 6.50 (1.40-6.50) K/uL Lymph # (Auto) 0.82 L (1.20-3.40) K/uL Bullock # (Auto) 1.05 H (0.11-0.59) K/uL Eos # (Auto) 0.29 (0.00-0.50) K/uL Baso # (Auto) 0.01 (0.00-0.20) K/uL Immature Gran # (Auto) 0.03 (0.01-0.20) K/uL Absolute Nucleated RBC 0.02 (0.00-0.12) K/uL Nucleated RBC % (auto) 0.2 % Hypersegmented Neuts Polychromasia Anisocytosis Ovalocytes Sample Site POC pH (7.35-7.45) POC pCO2 (35-46) mmHg POC pO2 (80-95) mmHg POC HCO3 (19-24) jania/L POC Base Excess (-9-1.8) jania/L ABG pH (Temp Correct) (7.35-7.45) ABG pCO2 (Temp Corrct (35-46) mmHg POC ABG pO2 at Pt Temp POC ABG O2 Sat (90-95) % Tomer Test O2 Delivery Device POC O2 Rate POC FiO2 % Tidal Volume PEEP POC Sodium (135-144) mmol/L Sodium 140 (136-145) mmol/L POC Potassium (3.3-5.0) mmol/L Potassium 3.8 POC Chloride (101-112) mmol/L Chloride 106 (98-107) mmol/L Carbon Dioxide 31 (21-32) mmol/L POC Total CO2 (24-31) mmol/L Anion Gap 3 (3-11) POC Anion Gap (16-25) mmol/L POC BUN (7-18) mg/dl BUN 12 (6-23) mg/dl Creatinine 0.58 L (0.6-1.2) mg/dl POC Creatinine (0.6-1.3) mg/dl Est Cr Clr Drug Dosing 106.0 ml/min Est GFR ( Amer) 106.0 ml/min Est GFR (Non-Af Amer) 91.4 ml/min BUN/Creatinine Ratio 20.7 H (10-20) Glucose 124 H (70-99(Fasting)) mg/dl POC Glucose 125 H (70-99) mg/dl POC Glucose (other) (70-99) mg/dl Lactate (0.4-2.0) mmol/L Calcium 8.1 L (8.6-10.3) mg/dl POC Ioniz Calcium Andrey (1.12-1.32) mmol/l Phosphorus 3.4 (2.5-4.9) mg/dl Magnesium 2.2 (1.7-2.4) mg/dl Total Bilirubin (0.2-1.0) mg/dl Direct Bilirubin AST ALT (7-52) U/L Alkaline Phosphatase (34-104) U/L Troponin I High Sens (0-14) pg/ml Total Protein (6.0-8.3) gm/dl Albumin (3.4-5.0) gm/dl Globulin (2.5-4.0) gm/dl Albumin/Globulin Ratio (0.9-2) Lipase (11-82) U/L Procalcitonin (0-0.5) ng/ml Urine Color Urine Appearance (Clear) Urine pH (4.5-7.5) Ur Specific [place] (1.000-1.030) Urine Protein (Negative) Urine Glucose (UA) (Negative) Urine Ketones (Negative) Urine Blood (Negative) Urine Nitrite (Negative) Urine Bilirubin (Negative) Urine Urobilinogen (Negative) Ur Leukocyte Esterase (Negative) Urine WBC (Auto) (0-5) /hpf Urine RBC (Auto) (0-4) /hpf U Hyaline Cast (Auto) (0-5) /lpf U Epithel Cells (Auto) (0-5) /lpf Urine Bacteria (Auto) (Negative) Nasal Screen MRSA (PCR) (Negative) Stool H. pylori Ag Random Vancomycin 8.9 L (10-20) mcg/ml SARS-CoV-2 (PCR) (Negative) Influenza Type A (PCR) (Neg) Influenza Type B (PCR) (Neg) RSV (RT-PCR) (Neg) Blood Type Antibody Screen Crossmatch 08/18/23 08/18/23 08/18/23 Range/Units 11:36 16:15 20:37 WBC (4.8-10.8) K/ul RBC (4.20-5.40) M/uL Hgb (12.0-16.0) g/dl POC Hgb (12.0-16.0) g/dl Hct (37.0-47.0) % POC Hct (37-47) % MCV (80.0-100.0) fL MCH (25.0-34.0) pg MCHC (32.0-36.0) g/dL RDW Std Deviation (36.4-46.3) fL RDW Coeff of Samantha (11.5-14.5) % Plt Count (130-400) K/uL MPV (9.4-12.4) fL Immature Gran % (Auto) % Neut % (Auto) % Lymph % (Auto) % Bullock % (Auto) % Eos % (Auto) % Baso % (Auto) % Neut # (Auto) (1.40-6.50) K/uL Lymph # (Auto) (1.20-3.40) K/uL Bullock # (Auto) (0.11-0.59) K/uL Eos # (Auto) (0.00-0.50) K/uL Baso # (Auto) (0.00-0.20) K/uL Immature Gran # (Auto) (0.01-0.20) K/uL Absolute Nucleated RBC (0.00-0.12) K/uL Nucleated RBC % (auto) % Hypersegmented Neuts Polychromasia Anisocytosis Ovalocytes Sample Site POC pH (7.35-7.45) POC pCO2 (35-46) mmHg POC pO2 (80-95) mmHg POC HCO3 (19-24) jania/L POC Base Excess (-9-1.8) jania/L ABG pH (Temp Correct) (7.35-7.45) ABG pCO2 (Temp Corrct (35-46) mmHg POC ABG pO2 at Pt Temp POC ABG O2 Sat (90-95) % Tomer Test O2 Delivery Device POC O2 Rate POC FiO2 % Tidal Volume PEEP POC Sodium (135-144) mmol/L Sodium (136-145) mmol/L POC Potassium (3.3-5.0) mmol/L Potassium POC Chloride (101-112) mmol/L Chloride (98-107) mmol/L Carbon Dioxide (21-32) mmol/L POC Total CO2 (24-31) mmol/L Anion Gap (3-11) POC Anion Gap (16-25) mmol/L POC BUN (7-18) mg/dl BUN (6-23) mg/dl Creatinine (0.6-1.2) mg/dl POC Creatinine (0.6-1.3) mg/dl Est Cr Clr Drug Dosing ml/min Est GFR ( Amer) ml/min Est GFR (Non-Af Amer) ml/min BUN/Creatinine Ratio (10-20) Glucose (70-99(Fasting)) mg/dl POC Glucose 112 H 153 H 122 H (70-99) mg/dl POC Glucose (other) (70-99) mg/dl Lactate (0.4-2.0) mmol/L Calcium (8.6-10.3) mg/dl POC Ioniz Calcium Andrey (1.12-1.32) mmol/l Phosphorus (2.5-4.9) mg/dl Magnesium (1.7-2.4) mg/dl Total Bilirubin (0.2-1.0) mg/dl Direct Bilirubin AST ALT (7-52) U/L Alkaline Phosphatase (34-104) U/L Troponin I High Sens (0-14) pg/ml Total Protein (6.0-8.3) gm/dl Albumin (3.4-5.0) gm/dl Globulin (2.5-4.0) gm/dl Albumin/Globulin Ratio (0.9-2) Lipase (11-82) U/L Procalcitonin (0-0.5) ng/ml Urine Color Urine Appearance (Clear) Urine pH (4.5-7.5) Ur Specific [place] (1.000-1.030) Urine Protein (Negative) Urine Glucose (UA) (Negative) Urine Ketones (Negative) Urine Blood (Negative) Urine Nitrite (Negative) Urine Bilirubin (Negative) Urine Urobilinogen (Negative) Ur Leukocyte Esterase (Negative) Urine WBC (Auto) (0-5) /hpf Urine RBC (Auto) (0-4) /hpf U Hyaline Cast (Auto) (0-5) /lpf U Epithel Cells (Auto) (0-5) /lpf Urine Bacteria (Auto) (Negative) Nasal Screen MRSA (PCR) (Negative) Stool H. pylori Ag Random Vancomycin (10-20) mcg/ml SARS-CoV-2 (PCR) (Negative) Influenza Type A (PCR) (Neg) Influenza Type B (PCR) (Neg) RSV (RT-PCR) (Neg) Blood Type Antibody Screen Crossmatch 08/19/23 08/19/23 08/19/23 Range/Units 02:52 06:09 07:16 WBC 8.27 (4.8-10.8) K/ul RBC 2.68 L (4.20-5.40) M/uL Hgb 7.3 L (12.0-16.0) g/dl POC Hgb (12.0-16.0) g/dl Hct 23.2 L (37.0-47.0) % POC Hct (37-47) % MCV 86.6 (80.0-100.0) fL MCH 27.2 (25.0-34.0) pg MCHC 31.5 L (32.0-36.0) g/dL RDW Std Deviation 50.5 H (36.4-46.3) fL RDW Coeff of Samantha 15.9 H (11.5-14.5) % Plt Count 230 (130-400) K/uL MPV 8.4 L (9.4-12.4) fL Immature Gran % (Auto) 0.8 % Neut % (Auto) 74.3 % Lymph % (Auto) 10.4 % Bullock % (Auto) 9.3 % Eos % (Auto) 5.1 % Baso % (Auto) 0.1 % Neut # (Auto) 6.14 (1.40-6.50) K/uL Lymph # (Auto) 0.86 L (1.20-3.40) K/uL Bullock # (Auto) 0.77 H (0.11-0.59) K/uL Eos # (Auto) 0.42 (0.00-0.50) K/uL Baso # (Auto) 0.01 (0.00-0.20) K/uL Immature Gran # (Auto) 0.07 (0.01-0.20) K/uL Absolute Nucleated RBC (0.00-0.12) K/uL Nucleated RBC % (auto) % Hypersegmented Neuts 1+ Polychromasia Anisocytosis Ovalocytes 1+ Sample Site POC pH (7.35-7.45) POC pCO2 (35-46) mmHg POC pO2 (80-95) mmHg POC HCO3 (19-24) jania/L POC Base Excess (-9-1.8) jania/L ABG pH (Temp Correct) (7.35-7.45) ABG pCO2 (Temp Corrct (35-46) mmHg POC ABG pO2 at Pt Temp POC ABG O2 Sat (90-95) % Tomer Test O2 Delivery Device POC O2 Rate POC FiO2 % Tidal Volume PEEP POC Sodium (135-144) mmol/L Sodium 141 (136-145) mmol/L POC Potassium (3.3-5.0) mmol/L Potassium 3.7 POC Chloride (101-112) mmol/L Chloride 105 (98-107) mmol/L Carbon Dioxide 30 (21-32) mmol/L POC Total CO2 (24-31) mmol/L Anion Gap 6 (3-11) POC Anion Gap (16-25) mmol/L POC BUN (7-18) mg/dl BUN 10 (6-23) mg/dl Creatinine 0.57 L (0.6-1.2) mg/dl POC Creatinine (0.6-1.3) mg/dl Est Cr Clr Drug Dosing 109.8 ml/min Est GFR ( Amer) 106.6 ml/min Est GFR (Non-Af Amer) 92.0 ml/min BUN/Creatinine Ratio 17.5 (10-20) Glucose 114 H (70-99(Fasting)) mg/dl POC Glucose 124 H (70-99) mg/dl POC Glucose (other) (70-99) mg/dl Lactate (0.4-2.0) mmol/L Calcium 7.7 L (8.6-10.3) mg/dl POC Ioniz Calcium Andrey (1.12-1.32) mmol/l Phosphorus 3.3 (2.5-4.9) mg/dl Magnesium 2.1 (1.7-2.4) mg/dl Total Bilirubin (0.2-1.0) mg/dl Direct Bilirubin AST ALT (7-52) U/L Alkaline Phosphatase (34-104) U/L Troponin I High Sens (0-14) pg/ml Total Protein (6.0-8.3) gm/dl Albumin (3.4-5.0) gm/dl Globulin (2.5-4.0) gm/dl Albumin/Globulin Ratio (0.9-2) Lipase (11-82) U/L Procalcitonin (0-0.5) ng/ml Urine Color Urine Appearance (Clear) Urine pH (4.5-7.5) Ur Specific [place] (1.000-1.030) Urine Protein (Negative) Urine Glucose (UA) (Negative) Urine Ketones (Negative) Urine Blood (Negative) Urine Nitrite (Negative) Urine Bilirubin (Negative) Urine Urobilinogen (Negative) Ur Leukocyte Esterase (Negative) Urine WBC (Auto) (0-5) /hpf Urine RBC (Auto) (0-4) /hpf U Hyaline Cast (Auto) (0-5) /lpf U Epithel Cells (Auto) (0-5) /lpf Urine Bacteria (Auto) (Negative) Nasal Screen MRSA (PCR) (Negative) Stool H. pylori Ag SEE NOTE Random Vancomycin (10-20) mcg/ml SARS-CoV-2 (PCR) (Negative) Influenza Type A (PCR) (Neg) Influenza Type B (PCR) (Neg) RSV (RT-PCR) (Neg) Blood Type Antibody Screen Crossmatch 08/19/23 08/19/23 08/19/23 Range/Units 11:26 16:16 20:29 WBC (4.8-10.8) K/ul RBC (4.20-5.40) M/uL Hgb (12.0-16.0) g/dl POC Hgb (12.0-16.0) g/dl Hct (37.0-47.0) % POC Hct (37-47) % MCV (80.0-100.0) fL MCH (25.0-34.0) pg MCHC (32.0-36.0) g/dL RDW Std Deviation (36.4-46.3) fL RDW Coeff of Samantha (11.5-14.5) % Plt Count (130-400) K/uL MPV (9.4-12.4) fL Immature Gran % (Auto) % Neut % (Auto) % Lymph % (Auto) % Bullock % (Auto) % Eos % (Auto) % Baso % (Auto) % Neut # (Auto) (1.40-6.50) K/uL Lymph # (Auto) (1.20-3.40) K/uL Bullock # (Auto) (0.11-0.59) K/uL Eos # (Auto) (0.00-0.50) K/uL Baso # (Auto) (0.00-0.20) K/uL Immature Gran # (Auto) (0.01-0.20) K/uL Absolute Nucleated RBC (0.00-0.12) K/uL Nucleated RBC % (auto) % Hypersegmented Neuts Polychromasia Anisocytosis Ovalocytes Sample Site POC pH (7.35-7.45) POC pCO2 (35-46) mmHg POC pO2 (80-95) mmHg POC HCO3 (19-24) jania/L POC Base Excess (-9-1.8) jania/L ABG pH (Temp Correct) (7.35-7.45) ABG pCO2 (Temp Corrct (35-46) mmHg POC ABG pO2 at Pt Temp POC ABG O2 Sat (90-95) % Tomer Test O2 Delivery Device POC O2 Rate POC FiO2 % Tidal Volume PEEP POC Sodium (135-144) mmol/L Sodium (136-145) mmol/L POC Potassium (3.3-5.0) mmol/L Potassium POC Chloride (101-112) mmol/L Chloride (98-107) mmol/L Carbon Dioxide (21-32) mmol/L POC Total CO2 (24-31) mmol/L Anion Gap (3-11) POC Anion Gap (16-25) mmol/L POC BUN (7-18) mg/dl BUN (6-23) mg/dl Creatinine (0.6-1.2) mg/dl POC Creatinine (0.6-1.3) mg/dl Est Cr Clr Drug Dosing ml/min Est GFR ( Amer) ml/min Est GFR (Non-Af Amer) ml/min BUN/Creatinine Ratio (10-20) Glucose (70-99(Fasting)) mg/dl POC Glucose 136 H 115 H 115 H (70-99) mg/dl POC Glucose (other) (70-99) mg/dl Lactate (0.4-2.0) mmol/L Calcium (8.6-10.3) mg/dl POC Ioniz Calcium Andrey (1.12-1.32) mmol/l Phosphorus (2.5-4.9) mg/dl Magnesium (1.7-2.4) mg/dl Total Bilirubin (0.2-1.0) mg/dl Direct Bilirubin AST ALT (7-52) U/L Alkaline Phosphatase (34-104) U/L Troponin I High Sens (0-14) pg/ml Total Protein (6.0-8.3) gm/dl Albumin (3.4-5.0) gm/dl Globulin (2.5-4.0) gm/dl Albumin/Globulin Ratio (0.9-2) Lipase (11-82) U/L Procalcitonin (0-0.5) ng/ml Urine Color Urine Appearance (Clear) Urine pH (4.5-7.5) Ur Specific [place] (1.000-1.030) Urine Protein (Negative) Urine Glucose (UA) (Negative) Urine Ketones (Negative) Urine Blood (Negative) Urine Nitrite (Negative) Urine Bilirubin (Negative) Urine Urobilinogen (Negative) Ur Leukocyte Esterase (Negative) Urine WBC (Auto) (0-5) /hpf Urine RBC (Auto) (0-4) /hpf U Hyaline Cast (Auto) (0-5) /lpf U Epithel Cells (Auto) (0-5) /lpf Urine Bacteria (Auto) (Negative) Nasal Screen MRSA (PCR) (Negative) Stool H. pylori Ag Random Vancomycin (10-20) mcg/ml SARS-CoV-2 (PCR) (Negative) Influenza Type A (PCR) (Neg) Influenza Type B (PCR) (Neg) RSV (RT-PCR) (Neg) Blood Type Antibody Screen Crossmatch 08/20/23 08/20/23 08/20/23 Range/Units 02:17 07:21 07:45 WBC 8.35 (4.8-10.8) K/ul RBC 3.04 L (4.20-5.40) M/uL Hgb 8.2 L (12.0-16.0) g/dl POC Hgb (12.0-16.0) g/dl Hct 26.7 L (37.0-47.0) % POC Hct (37-47) % MCV 87.8 (80.0-100.0) fL MCH 27.0 (25.0-34.0) pg MCHC 30.7 L (32.0-36.0) g/dL RDW Std Deviation 50.9 H (36.4-46.3) fL RDW Coeff of Samantha 15.9 H (11.5-14.5) % Plt Count 239 (130-400) K/uL MPV 7.9 L (9.4-12.4) fL Immature Gran % (Auto) 1.7 % Neut % (Auto) 74.7 % Lymph % (Auto) 8.9 % Bullock % (Auto) 10.1 % Eos % (Auto) 4.4 % Baso % (Auto) 0.2 % Neut # (Auto) 6.24 (1.40-6.50) K/uL Lymph # (Auto) 0.74 L (1.20-3.40) K/uL Bullock # (Auto) 0.84 H (0.11-0.59) K/uL Eos # (Auto) 0.37 (0.00-0.50) K/uL Baso # (Auto) 0.02 (0.00-0.20) K/uL Immature Gran # (Auto) 0.14 (0.01-0.20) K/uL Absolute Nucleated RBC (0.00-0.12) K/uL Nucleated RBC % (auto) % Hypersegmented Neuts Polychromasia Anisocytosis Ovalocytes Sample Site POC pH (7.35-7.45) POC pCO2 (35-46) mmHg POC pO2 (80-95) mmHg POC HCO3 (19-24) jania/L POC Base Excess (-9-1.8) jania/L ABG pH (Temp Correct) (7.35-7.45) ABG pCO2 (Temp Corrct (35-46) mmHg POC ABG pO2 at Pt Temp POC ABG O2 Sat (90-95) % Tomer Test O2 Delivery Device POC O2 Rate POC FiO2 % Tidal Volume PEEP POC Sodium (135-144) mmol/L Sodium 140 (136-145) mmol/L POC Potassium (3.3-5.0) mmol/L Potassium 3.7 POC Chloride (101-112) mmol/L Chloride 105 (98-107) mmol/L Carbon Dioxide 32 (21-32) mmol/L POC Total CO2 (24-31) mmol/L Anion Gap 3 (3-11) POC Anion Gap (16-25) mmol/L POC BUN (7-18) mg/dl BUN 8 (6-23) mg/dl Creatinine 0.59 L (0.6-1.2) mg/dl POC Creatinine (0.6-1.3) mg/dl Est Cr Clr Drug Dosing 105.6 ml/min Est GFR ( Amer) 105.4 ml/min Est GFR (Non-Af Amer) 90.9 ml/min BUN/Creatinine Ratio 13.6 (10-20) Glucose 105 H (70-99(Fasting)) mg/dl POC Glucose 101 H (70-99) mg/dl POC Glucose (other) (70-99) mg/dl Lactate (0.4-2.0) mmol/L Calcium 8.1 L (8.6-10.3) mg/dl POC Ioniz Calcium Andrey (1.12-1.32) mmol/l Phosphorus 3.6 (2.5-4.9) mg/dl Magnesium 2.0 (1.7-2.4) mg/dl Total Bilirubin (0.2-1.0) mg/dl Direct Bilirubin AST ALT (7-52) U/L Alkaline Phosphatase (34-104) U/L Troponin I High Sens (0-14) pg/ml Total Protein (6.0-8.3) gm/dl Albumin (3.4-5.0) gm/dl Globulin (2.5-4.0) gm/dl Albumin/Globulin Ratio (0.9-2) Lipase (11-82) U/L Procalcitonin (0-0.5) ng/ml Urine Color Urine Appearance (Clear) Urine pH (4.5-7.5) Ur Specific [place] (1.000-1.030) Urine Protein (Negative) Urine Glucose (UA) (Negative) Urine Ketones (Negative) Urine Blood (Negative) Urine Nitrite (Negative) Urine Bilirubin (Negative) Urine Urobilinogen (Negative) Ur Leukocyte Esterase (Negative) Urine WBC (Auto) (0-5) /hpf Urine RBC (Auto) (0-4) /hpf U Hyaline Cast (Auto) (0-5) /lpf U Epithel Cells (Auto) (0-5) /lpf Urine Bacteria (Auto) (Negative) Nasal Screen MRSA (PCR) (Negative) Stool H. pylori Ag Random Vancomycin 15.2 (10-20) mcg/ml SARS-CoV-2 (PCR) (Negative) Influenza Type A (PCR) (Neg) Influenza Type B (PCR) (Neg) RSV (RT-PCR) (Neg) Blood Type Antibody Screen Crossmatch 08/20/23 08/20/23 08/20/23 Range/Units 11:18 16:42 20:05 WBC (4.8-10.8) K/ul RBC (4.20-5.40) M/uL Hgb (12.0-16.0) g/dl POC Hgb (12.0-16.0) g/dl Hct (37.0-47.0) % POC Hct (37-47) % MCV (80.0-100.0) fL MCH (25.0-34.0) pg MCHC (32.0-36.0) g/dL RDW Std Deviation (36.4-46.3) fL RDW Coeff of Samantha (11.5-14.5) % Plt Count (130-400) K/uL MPV (9.4-12.4) fL Immature Gran % (Auto) % Neut % (Auto) % Lymph % (Auto) % Bullock % (Auto) % Eos % (Auto) % Baso % (Auto) % Neut # (Auto) (1.40-6.50) K/uL Lymph # (Auto) (1.20-3.40) K/uL Bullock # (Auto) (0.11-0.59) K/uL Eos # (Auto) (0.00-0.50) K/uL Baso # (Auto) (0.00-0.20) K/uL Immature Gran # (Auto) (0.01-0.20) K/uL Absolute Nucleated RBC (0.00-0.12) K/uL Nucleated RBC % (auto) % Hypersegmented Neuts Polychromasia Anisocytosis Ovalocytes Sample Site POC pH (7.35-7.45) POC pCO2 (35-46) mmHg POC pO2 (80-95) mmHg POC HCO3 (19-24) jania/L POC Base Excess (-9-1.8) jania/L ABG pH (Temp Correct) (7.35-7.45) ABG pCO2 (Temp Corrct (35-46) mmHg POC ABG pO2 at Pt Temp POC ABG O2 Sat (90-95) % Tomer Test O2 Delivery Device POC O2 Rate POC FiO2 % Tidal Volume PEEP POC Sodium (135-144) mmol/L Sodium (136-145) mmol/L POC Potassium (3.3-5.0) mmol/L Potassium POC Chloride (101-112) mmol/L Chloride (98-107) mmol/L Carbon Dioxide (21-32) mmol/L POC Total CO2 (24-31) mmol/L Anion Gap (3-11) POC Anion Gap (16-25) mmol/L POC BUN (7-18) mg/dl BUN (6-23) mg/dl Creatinine (0.6-1.2) mg/dl POC Creatinine (0.6-1.3) mg/dl Est Cr Clr Drug Dosing ml/min Est GFR ( Amer) ml/min Est GFR (Non-Af Amer) ml/min BUN/Creatinine Ratio (10-20) Glucose (70-99(Fasting)) mg/dl POC Glucose 139 H 137 H 129 H (70-99) mg/dl POC Glucose (other) (70-99) mg/dl Lactate (0.4-2.0) mmol/L Calcium (8.6-10.3) mg/dl POC Ioniz Calcium Andrey (1.12-1.32) mmol/l Phosphorus (2.5-4.9) mg/dl Magnesium (1.7-2.4) mg/dl Total Bilirubin (0.2-1.0) mg/dl Direct Bilirubin AST ALT (7-52) U/L Alkaline Phosphatase (34-104) U/L Troponin I High Sens (0-14) pg/ml Total Protein (6.0-8.3) gm/dl Albumin (3.4-5.0) gm/dl Globulin (2.5-4.0) gm/dl Albumin/Globulin Ratio (0.9-2) Lipase (11-82) U/L Procalcitonin (0-0.5) ng/ml Urine Color Urine Appearance (Clear) Urine pH (4.5-7.5) Ur Specific [place] (1.000-1.030) Urine Protein (Negative) Urine Glucose (UA) (Negative) Urine Ketones (Negative) Urine Blood (Negative) Urine Nitrite (Negative) Urine Bilirubin (Negative) Urine Urobilinogen (Negative) Ur Leukocyte Esterase (Negative) Urine WBC (Auto) (0-5) /hpf Urine RBC (Auto) (0-4) /hpf U Hyaline Cast (Auto) (0-5) /lpf U Epithel Cells (Auto) (0-5) /lpf Urine Bacteria (Auto) (Negative) Nasal Screen MRSA (PCR) (Negative) Stool H. pylori Ag Random Vancomycin (10-20) mcg/ml SARS-CoV-2 (PCR) (Negative) Influenza Type A (PCR) (Neg) Influenza Type B (PCR) (Neg) RSV (RT-PCR) (Neg) Blood Type Antibody Screen Crossmatch 08/21/23 08/21/23 08/21/23 Range/Units 06:59 09:38 11:34 WBC 10.22 (4.8-10.8) K/ul RBC 3.05 L (4.20-5.40) M/uL Hgb 8.3 L (12.0-16.0) g/dl POC Hgb (12.0-16.0) g/dl Hct 26.6 L (37.0-47.0) % POC Hct (37-47) % MCV 87.2 (80.0-100.0) fL MCH 27.2 (25.0-34.0) pg MCHC 31.2 L (32.0-36.0) g/dL RDW Std Deviation 50.5 H (36.4-46.3) fL RDW Coeff of Samantha 15.9 H (11.5-14.5) % Plt Count 222 (130-400) K/uL MPV 8.3 L (9.4-12.4) fL Immature Gran % (Auto) 1.9 % Neut % (Auto) 78.3 % Lymph % (Auto) 8.6 % Bullock % (Auto) 8.7 % Eos % (Auto) 2.3 % Baso % (Auto) 0.2 % Neut # (Auto) 8.00 H (1.40-6.50) K/uL Lymph # (Auto) 0.88 L (1.20-3.40) K/uL Bullock # (Auto) 0.89 H (0.11-0.59) K/uL Eos # (Auto) 0.24 (0.00-0.50) K/uL Baso # (Auto) 0.02 (0.00-0.20) K/uL Immature Gran # (Auto) 0.19 (0.01-0.20) K/uL Absolute Nucleated RBC (0.00-0.12) K/uL Nucleated RBC % (auto) % Hypersegmented Neuts Polychromasia Anisocytosis Ovalocytes Sample Site POC pH (7.35-7.45) POC pCO2 (35-46) mmHg POC pO2 (80-95) mmHg POC HCO3 (19-24) jania/L POC Base Excess (-9-1.8) jania/L ABG pH (Temp Correct) (7.35-7.45) ABG pCO2 (Temp Corrct (35-46) mmHg POC ABG pO2 at Pt Temp POC ABG O2 Sat (90-95) % Tomer Test O2 Delivery Device POC O2 Rate POC FiO2 % Tidal Volume PEEP POC Sodium (135-144) mmol/L Sodium 141 (136-145) mmol/L POC Potassium (3.3-5.0) mmol/L Potassium 3.8 POC Chloride (101-112) mmol/L Chloride 104 (98-107) mmol/L Carbon Dioxide 32 (21-32) mmol/L POC Total CO2 (24-31) mmol/L Anion Gap 5 (3-11) POC Anion Gap (16-25) mmol/L POC BUN (7-18) mg/dl BUN 7 (6-23) mg/dl Creatinine 0.58 L (0.6-1.2) mg/dl POC Creatinine (0.6-1.3) mg/dl Est Cr Clr Drug Dosing 107.6 ml/min Est GFR ( Amer) 106.0 ml/min Est GFR (Non-Af Amer) 91.4 ml/min BUN/Creatinine Ratio 12.1 (10-20) Glucose 184 H (70-99(Fasting)) mg/dl POC Glucose 127 H 163 H (70-99) mg/dl POC Glucose (other) (70-99) mg/dl Lactate (0.4-2.0) mmol/L Calcium 8.2 L (8.6-10.3) mg/dl POC Ioniz Calcium Andrey (1.12-1.32) mmol/l Phosphorus 3.4 (2.5-4.9) mg/dl Magnesium 1.8 (1.7-2.4) mg/dl Total Bilirubin (0.2-1.0) mg/dl Direct Bilirubin AST ALT (7-52) U/L Alkaline Phosphatase (34-104) U/L Troponin I High Sens (0-14) pg/ml Total Protein (6.0-8.3) gm/dl Albumin (3.4-5.0) gm/dl Globulin (2.5-4.0) gm/dl Albumin/Globulin Ratio (0.9-2) Lipase (11-82) U/L Procalcitonin (0-0.5) ng/ml Urine Color Urine Appearance (Clear) Urine pH (4.5-7.5) Ur Specific [place] (1.000-1.030) Urine Protein (Negative) Urine Glucose (UA) (Negative) Urine Ketones (Negative) Urine Blood (Negative) Urine Nitrite (Negative) Urine Bilirubin (Negative) Urine Urobilinogen (Negative) Ur Leukocyte Esterase (Negative) Urine WBC (Auto) (0-5) /hpf Urine RBC (Auto) (0-4) /hpf U Hyaline Cast (Auto) (0-5) /lpf U Epithel Cells (Auto) (0-5) /lpf Urine Bacteria (Auto) (Negative) Nasal Screen MRSA (PCR) (Negative) Stool H. pylori Ag Random Vancomycin (10-20) mcg/ml SARS-CoV-2 (PCR) (Negative) Influenza Type A (PCR) (Neg) Influenza Type B (PCR) (Neg) RSV (RT-PCR) (Neg) Blood Type Antibody Screen Crossmatch 08/21/23 08/21/23 08/22/23 Range/Units 16:40 20:28 06:54 WBC 8.08 (4.8-10.8) K/ul RBC 2.92 L (4.20-5.40) M/uL Hgb 7.8 L (12.0-16.0) g/dl POC Hgb (12.0-16.0) g/dl Hct 25.7 L (37.0-47.0) % POC Hct (37-47) % MCV 88.0 (80.0-100.0) fL MCH 26.7 (25.0-34.0) pg MCHC 30.4 L (32.0-36.0) g/dL RDW Std Deviation 51.7 H (36.4-46.3) fL RDW Coeff of Samantha 16.0 H (11.5-14.5) % Plt Count 251 (130-400) K/uL MPV 8.4 L (9.4-12.4) fL Immature Gran % (Auto) 1.9 % Neut % (Auto) 73.4 % Lymph % (Auto) 13.0 % Bullock % (Auto) 8.7 % Eos % (Auto) 2.8 % Baso % (Auto) 0.2 % Neut # (Auto) 5.93 (1.40-6.50) K/uL Lymph # (Auto) 1.05 L (1.20-3.40) K/uL Bullock # (Auto) 0.70 H (0.11-0.59) K/uL Eos # (Auto) 0.23 (0.00-0.50) K/uL Baso # (Auto) 0.02 (0.00-0.20) K/uL Immature Gran # (Auto) 0.15 (0.01-0.20) K/uL Absolute Nucleated RBC (0.00-0.12) K/uL Nucleated RBC % (auto) % Hypersegmented Neuts Polychromasia 1+ Anisocytosis Ovalocytes 1+ Sample Site POC pH (7.35-7.45) POC pCO2 (35-46) mmHg POC pO2 (80-95) mmHg POC HCO3 (19-24) jania/L POC Base Excess (-9-1.8) jania/L ABG pH (Temp Correct) (7.35-7.45) ABG pCO2 (Temp Corrct (35-46) mmHg POC ABG pO2 at Pt Temp POC ABG O2 Sat (90-95) % Tomer Test O2 Delivery Device POC O2 Rate POC FiO2 % Tidal Volume PEEP POC Sodium (135-144) mmol/L Sodium 142 (136-145) mmol/L POC Potassium (3.3-5.0) mmol/L Potassium 3.6 POC Chloride (101-112) mmol/L Chloride 106 (98-107) mmol/L Carbon Dioxide 33 H (21-32) mmol/L POC Total CO2 (24-31) mmol/L Anion Gap 3 (3-11) POC Anion Gap (16-25) mmol/L POC BUN (7-18) mg/dl BUN 9 (6-23) mg/dl Creatinine 0.62 (0.6-1.2) mg/dl POC Creatinine (0.6-1.3) mg/dl Est Cr Clr Drug Dosing 99.6 ml/min Est GFR ( Amer) 103.7 ml/min Est GFR (Non-Af Amer) 89.5 ml/min BUN/Creatinine Ratio 14.5 (10-20) Glucose 120 H (70-99(Fasting)) mg/dl POC Glucose 113 H 162 H (70-99) mg/dl POC Glucose (other) (70-99) mg/dl Lactate (0.4-2.0) mmol/L Calcium 8.2 L (8.6-10.3) mg/dl POC Ioniz Calcium Andrey (1.12-1.32) mmol/l Phosphorus 3.3 (2.5-4.9) mg/dl Magnesium 1.8 (1.7-2.4) mg/dl Total Bilirubin (0.2-1.0) mg/dl Direct Bilirubin AST ALT (7-52) U/L Alkaline Phosphatase (34-104) U/L Troponin I High Sens (0-14) pg/ml Total Protein (6.0-8.3) gm/dl Albumin (3.4-5.0) gm/dl Globulin (2.5-4.0) gm/dl Albumin/Globulin Ratio (0.9-2) Lipase (11-82) U/L Procalcitonin (0-0.5) ng/ml Urine Color Urine Appearance (Clear) Urine pH (4.5-7.5) Ur Specific [place] (1.000-1.030) Urine Protein (Negative) Urine Glucose (UA) (Negative) Urine Ketones (Negative) Urine Blood (Negative) Urine Nitrite (Negative) Urine Bilirubin (Negative) Urine Urobilinogen (Negative) Ur Leukocyte Esterase (Negative) Urine WBC (Auto) (0-5) /hpf Urine RBC (Auto) (0-4) /hpf U Hyaline Cast (Auto) (0-5) /lpf U Epithel Cells (Auto) (0-5) /lpf Urine Bacteria (Auto) (Negative) Nasal Screen MRSA (PCR) (Negative) Stool H. pylori Ag Random Vancomycin (10-20) mcg/ml SARS-CoV-2 (PCR) (Negative) Influenza Type A (PCR) (Neg) Influenza Type B (PCR) (Neg) RSV (RT-PCR) (Neg) Blood Type Antibody Screen Crossmatch 08/22/23 08/22/23 08/22/23 Range/Units 07:26 11:13 16:17 WBC (4.8-10.8) K/ul RBC (4.20-5.40) M/uL Hgb (12.0-16.0) g/dl POC Hgb (12.0-16.0) g/dl Hct (37.0-47.0) % POC Hct (37-47) % MCV (80.0-100.0) fL MCH (25.0-34.0) pg MCHC (32.0-36.0) g/dL RDW Std Deviation (36.4-46.3) fL RDW Coeff of Samantha (11.5-14.5) % Plt Count (130-400) K/uL MPV (9.4-12.4) fL Immature Gran % (Auto) % Neut % (Auto) % Lymph % (Auto) % Bullock % (Auto) % Eos % (Auto) % Baso % (Auto) % Neut # (Auto) (1.40-6.50) K/uL Lymph # (Auto) (1.20-3.40) K/uL Bullock # (Auto) (0.11-0.59) K/uL Eos # (Auto) (0.00-0.50) K/uL Baso # (Auto) (0.00-0.20) K/uL Immature Gran # (Auto) (0.01-0.20) K/uL Absolute Nucleated RBC (0.00-0.12) K/uL Nucleated RBC % (auto) % Hypersegmented Neuts Polychromasia Anisocytosis Ovalocytes Sample Site POC pH (7.35-7.45) POC pCO2 (35-46) mmHg POC pO2 (80-95) mmHg POC HCO3 (19-24) jania/L POC Base Excess (-9-1.8) jania/L ABG pH (Temp Correct) (7.35-7.45) ABG pCO2 (Temp Corrct (35-46) mmHg POC ABG pO2 at Pt Temp POC ABG O2 Sat (90-95) % Tomer Test O2 Delivery Device POC O2 Rate POC FiO2 % Tidal Volume PEEP POC Sodium (135-144) mmol/L Sodium (136-145) mmol/L POC Potassium (3.3-5.0) mmol/L Potassium POC Chloride (101-112) mmol/L Chloride (98-107) mmol/L Carbon Dioxide (21-32) mmol/L POC Total CO2 (24-31) mmol/L Anion Gap (3-11) POC Anion Gap (16-25) mmol/L POC BUN (7-18) mg/dl BUN (6-23) mg/dl Creatinine (0.6-1.2) mg/dl POC Creatinine (0.6-1.3) mg/dl Est Cr Clr Drug Dosing ml/min Est GFR ( Amer) ml/min Est GFR (Non-Af Amer) ml/min BUN/Creatinine Ratio (10-20) Glucose (70-99(Fasting)) mg/dl POC Glucose 126 H 154 H 148 H (70-99) mg/dl POC Glucose (other) (70-99) mg/dl Lactate (0.4-2.0) mmol/L Calcium (8.6-10.3) mg/dl POC Ioniz Calcium Andrey (1.12-1.32) mmol/l Phosphorus (2.5-4.9) mg/dl Magnesium (1.7-2.4) mg/dl Total Bilirubin (0.2-1.0) mg/dl Direct Bilirubin AST ALT (7-52) U/L Alkaline Phosphatase (34-104) U/L Troponin I High Sens (0-14) pg/ml Total Protein (6.0-8.3) gm/dl Albumin (3.4-5.0) gm/dl Globulin (2.5-4.0) gm/dl Albumin/Globulin Ratio (0.9-2) Lipase (11-82) U/L Procalcitonin (0-0.5) ng/ml Urine Color Urine Appearance (Clear) Urine pH (4.5-7.5) Ur Specific [place] (1.000-1.030) Urine Protein (Negative) Urine Glucose (UA) (Negative) Urine Ketones (Negative) Urine Blood (Negative) Urine Nitrite (Negative) Urine Bilirubin (Negative) Urine Urobilinogen (Negative) Ur Leukocyte Esterase (Negative) Urine WBC (Auto) (0-5) /hpf Urine RBC (Auto) (0-4) /hpf U Hyaline Cast (Auto) (0-5) /lpf U Epithel Cells (Auto) (0-5) /lpf Urine Bacteria (Auto) (Negative) Nasal Screen MRSA (PCR) (Negative) Stool H. pylori Ag Random Vancomycin (10-20) mcg/ml SARS-CoV-2 (PCR) (Negative) Influenza Type A (PCR) (Neg) Influenza Type B (PCR) (Neg) RSV (RT-PCR) (Neg) Blood Type Antibody Screen Crossmatch 08/22/23 08/23/23 08/23/23 Range/Units 20:05 07:10 11:23 WBC (4.8-10.8) K/ul RBC (4.20-5.40) M/uL Hgb (12.0-16.0) g/dl POC Hgb (12.0-16.0) g/dl Hct (37.0-47.0) % POC Hct (37-47) % MCV (80.0-100.0) fL MCH (25.0-34.0) pg MCHC (32.0-36.0) g/dL RDW Std Deviation (36.4-46.3) fL RDW Coeff of Samantha (11.5-14.5) % Plt Count (130-400) K/uL MPV (9.4-12.4) fL Immature Gran % (Auto) % Neut % (Auto) % Lymph % (Auto) % Bullock % (Auto) % Eos % (Auto) % Baso % (Auto) % Neut # (Auto) (1.40-6.50) K/uL Lymph # (Auto) (1.20-3.40) K/uL Bullock # (Auto) (0.11-0.59) K/uL Eos # (Auto) (0.00-0.50) K/uL Baso # (Auto) (0.00-0.20) K/uL Immature Gran # (Auto) (0.01-0.20) K/uL Absolute Nucleated RBC (0.00-0.12) K/uL Nucleated RBC % (auto) % Hypersegmented Neuts Polychromasia Anisocytosis Ovalocytes Sample Site POC pH (7.35-7.45) POC pCO2 (35-46) mmHg POC pO2 (80-95) mmHg POC HCO3 (19-24) jania/L POC Base Excess (-9-1.8) jania/L ABG pH (Temp Correct) (7.35-7.45) ABG pCO2 (Temp Corrct (35-46) mmHg POC ABG pO2 at Pt Temp POC ABG O2 Sat (90-95) % Tomer Test O2 Delivery Device POC O2 Rate POC FiO2 % Tidal Volume PEEP POC Sodium (135-144) mmol/L Sodium (136-145) mmol/L POC Potassium (3.3-5.0) mmol/L Potassium POC Chloride (101-112) mmol/L Chloride (98-107) mmol/L Carbon Dioxide (21-32) mmol/L POC Total CO2 (24-31) mmol/L Anion Gap (3-11) POC Anion Gap (16-25) mmol/L POC BUN (7-18) mg/dl BUN (6-23) mg/dl Creatinine (0.6-1.2) mg/dl POC Creatinine (0.6-1.3) mg/dl Est Cr Clr Drug Dosing ml/min Est GFR ( Amer) ml/min Est GFR (Non-Af Amer) ml/min BUN/Creatinine Ratio (10-20) Glucose (70-99(Fasting)) mg/dl POC Glucose 183 H 140 H 140 H (70-99) mg/dl POC Glucose (other) (70-99) mg/dl Lactate (0.4-2.0) mmol/L Calcium (8.6-10.3) mg/dl POC Ioniz Calcium Andrey (1.12-1.32) mmol/l Phosphorus (2.5-4.9) mg/dl Magnesium (1.7-2.4) mg/dl Total Bilirubin (0.2-1.0) mg/dl Direct Bilirubin AST ALT (7-52) U/L Alkaline Phosphatase (34-104) U/L Troponin I High Sens (0-14) pg/ml Total Protein (6.0-8.3) gm/dl Albumin (3.4-5.0) gm/dl Globulin (2.5-4.0) gm/dl Albumin/Globulin Ratio (0.9-2) Lipase (11-82) U/L Procalcitonin (0-0.5) ng/ml Urine Color Urine Appearance (Clear) Urine pH (4.5-7.5) Ur Specific [place] (1.000-1.030) Urine Protein (Negative) Urine Glucose (UA) (Negative) Urine Ketones (Negative) Urine Blood (Negative) Urine Nitrite (Negative) Urine Bilirubin (Negative) Urine Urobilinogen (Negative) Ur Leukocyte Esterase (Negative) Urine WBC (Auto) (0-5) /hpf Urine RBC (Auto) (0-4) /hpf U Hyaline Cast (Auto) (0-5) /lpf U Epithel Cells (Auto) (0-5) /lpf Urine Bacteria (Auto) (Negative) Nasal Screen MRSA (PCR) (Negative) Stool H. pylori Ag Random Vancomycin (10-20) mcg/ml SARS-CoV-2 (PCR) (Negative) Influenza Type A (PCR) (Neg) Influenza Type B (PCR) (Neg) RSV (RT-PCR) (Neg) Blood Type Antibody Screen Crossmatch 08/23/23 08/23/23 08/23/23 Range/Units 11:34 16:13 20:08 WBC 11.27 H (4.8-10.8) K/ul RBC 3.28 L (4.20-5.40) M/uL Hgb 8.9 L (12.0-16.0) g/dl POC Hgb (12.0-16.0) g/dl Hct 29.3 L (37.0-47.0) % POC Hct (37-47) % MCV 89.3 (80.0-100.0) fL MCH 27.1 (25.0-34.0) pg MCHC 30.4 L (32.0-36.0) g/dL RDW Std Deviation 53.4 H (36.4-46.3) fL RDW Coeff of Samantha 16.4 H (11.5-14.5) % Plt Count 337 (130-400) K/uL MPV 8.5 L (9.4-12.4) fL Immature Gran % (Auto) 1.7 % Neut % (Auto) 79.4 % Lymph % (Auto) 10.2 % Bullock % (Auto) 6.5 % Eos % (Auto) 1.9 % Baso % (Auto) 0.3 % Neut # (Auto) 8.96 H (1.40-6.50) K/uL Lymph # (Auto) 1.15 L (1.20-3.40) K/uL Bullock # (Auto) 0.73 H (0.11-0.59) K/uL Eos # (Auto) 0.21 (0.00-0.50) K/uL Baso # (Auto) 0.03 (0.00-0.20) K/uL Immature Gran # (Auto) 0.19 (0.01-0.20) K/uL Absolute Nucleated RBC (0.00-0.12) K/uL Nucleated RBC % (auto) % Hypersegmented Neuts Polychromasia Anisocytosis Ovalocytes Sample Site POC pH (7.35-7.45) POC pCO2 (35-46) mmHg POC pO2 (80-95) mmHg POC HCO3 (19-24) jania/L POC Base Excess (-9-1.8) jania/L ABG pH (Temp Correct) (7.35-7.45) ABG pCO2 (Temp Corrct (35-46) mmHg POC ABG pO2 at Pt Temp POC ABG O2 Sat (90-95) % Tomer Test O2 Delivery Device POC O2 Rate POC FiO2 % Tidal Volume PEEP POC Sodium (135-144) mmol/L Sodium 143 (136-145) mmol/L POC Potassium (3.3-5.0) mmol/L Potassium 4.0 POC Chloride (101-112) mmol/L Chloride 105 (98-107) mmol/L Carbon Dioxide 32 (21-32) mmol/L POC Total CO2 (24-31) mmol/L Anion Gap 6 (3-11) POC Anion Gap (16-25) mmol/L POC BUN (7-18) mg/dl BUN 14 (6-23) mg/dl Creatinine 0.74 (0.6-1.2) mg/dl POC Creatinine (0.6-1.3) mg/dl Est Cr Clr Drug Dosing 83.5 ml/min Est GFR ( Amer) 93.2 ml/min Est GFR (Non-Af Amer) 80.4 ml/min BUN/Creatinine Ratio 18.9 (10-20) Glucose 149 H (70-99(Fasting)) mg/dl POC Glucose 160 H 136 H (70-99) mg/dl POC Glucose (other) (70-99) mg/dl Lactate (0.4-2.0) mmol/L Calcium 8.9 (8.6-10.3) mg/dl POC Ioniz Calcium Andrey (1.12-1.32) mmol/l Phosphorus 3.3 (2.5-4.9) mg/dl Magnesium 1.8 (1.7-2.4) mg/dl Total Bilirubin (0.2-1.0) mg/dl Direct Bilirubin AST ALT (7-52) U/L Alkaline Phosphatase (34-104) U/L Troponin I High Sens (0-14) pg/ml Total Protein (6.0-8.3) gm/dl Albumin (3.4-5.0) gm/dl Globulin (2.5-4.0) gm/dl Albumin/Globulin Ratio (0.9-2) Lipase (11-82) U/L Procalcitonin (0-0.5) ng/ml Urine Color Urine Appearance (Clear) Urine pH (4.5-7.5) Ur Specific [place] (1.000-1.030) Urine Protein (Negative) Urine Glucose (UA) (Negative) Urine Ketones (Negative) Urine Blood (Negative) Urine Nitrite (Negative) Urine Bilirubin (Negative) Urine Urobilinogen (Negative) Ur Leukocyte Esterase (Negative) Urine WBC (Auto) (0-5) /hpf Urine RBC (Auto) (0-4) /hpf U Hyaline Cast (Auto) (0-5) /lpf U Epithel Cells (Auto) (0-5) /lpf Urine Bacteria (Auto) (Negative) Nasal Screen MRSA (PCR) (Negative) Stool H. pylori Ag Random Vancomycin (10-20) mcg/ml SARS-CoV-2 (PCR) (Negative) Influenza Type A (PCR) (Neg) Influenza Type B (PCR) (Neg) RSV (RT-PCR) (Neg) Blood Type Antibody Screen Crossmatch 08/24/23 08/24/23 08/24/23 Range/Units 07:31 07:47 11:35 WBC 8.48 (4.8-10.8) K/ul RBC 2.95 L (4.20-5.40) M/uL Hgb 7.9 L (12.0-16.0) g/dl POC Hgb (12.0-16.0) g/dl Hct 26.2 L (37.0-47.0) % POC Hct (37-47) % MCV 88.8 (80.0-100.0) fL MCH 26.8 (25.0-34.0) pg MCHC 30.2 L (32.0-36.0) g/dL RDW Std Deviation 52.9 H (36.4-46.3) fL RDW Coeff of Samantha 16.3 H (11.5-14.5) % Plt Count 303 (130-400) K/uL MPV 8.4 L (9.4-12.4) fL Immature Gran % (Auto) 1.2 % Neut % (Auto) 74.6 % Lymph % (Auto) 12.3 % Bullock % (Auto) 9.0 % Eos % (Auto) 2.5 % Baso % (Auto) 0.4 % Neut # (Auto) 6.34 (1.40-6.50) K/uL Lymph # (Auto) 1.04 L (1.20-3.40) K/uL [place] # (Auto) 0.76 H (0.11-0.59) K/uL Eos # (Auto) 0.21 (0.00-0.50) K/uL Baso # (Auto) 0.03 (0.00-0.20) K/uL Immature Gran # (Auto) 0.10 (0.01-0.20) K/uL Absolute Nucleated RBC (0.00-0.12) K/uL Nucleated RBC % (auto) % Hypersegmented Neuts Polychromasia 1+ Anisocytosis Ovalocytes Sample Site POC pH (7.35-7.45) POC pCO2 (35-46) mmHg POC pO2 (80-95) mmHg POC HCO3 (19-24) jania/L POC Base Excess (-9-1.8) jania/L ABG pH (Temp Correct) (7.35-7.45) ABG pCO2 (Temp Corrct (35-46) mmHg POC ABG pO2 at Pt Temp POC ABG O2 Sat (90-95) % Tomer Test O2 Delivery Device POC O2 Rate POC FiO2 % Tidal Volume PEEP POC Sodium (135-144) mmol/L Sodium 142 (136-145) mmol/L POC Potassium (3.3-5.0) mmol/L Potassium 4.2 POC Chloride (101-112) mmol/L Chloride 107 (98-107) mmol/L Carbon Dioxide 33 H (21-32) mmol/L POC Total CO2 (24-31) mmol/L Anion Gap 2 L (3-11) POC Anion Gap (16-25) mmol/L POC BUN (7-18) mg/dl BUN 11 (6-23) mg/dl Creatinine 0.65 (0.6-1.2) mg/dl POC Creatinine (0.6-1.3) mg/dl Est Cr Clr Drug Dosing 95.3 ml/min Est GFR ( Amer) 102.1 ml/min Est GFR (Non-Af Amer) 88.1 ml/min BUN/Creatinine Ratio 16.9 (10-20) Glucose 124 H (70-99(Fasting)) mg/dl POC Glucose 138 H 143 H (70-99) mg/dl POC Glucose (other) (70-99) mg/dl Lactate (0.4-2.0) mmol/L Calcium 8.6 (8.6-10.3) mg/dl POC Ioniz Calcium Andrey (1.12-1.32) mmol/l Phosphorus 3.6 (2.5-4.9) mg/dl Magnesium 1.8 (1.7-2.4) mg/dl Total Bilirubin (0.2-1.0) mg/dl Direct Bilirubin AST ALT (7-52) U/L Alkaline Phosphatase (34-104) U/L Troponin I High Sens (0-14) pg/ml Total Protein (6.0-8.3) gm/dl Albumin (3.4-5.0) gm/dl Globulin (2.5-4.0) gm/dl Albumin/Globulin Ratio (0.9-2) Lipase (11-82) U/L Procalcitonin (0-0.5) ng/ml Urine Color Urine Appearance (Clear) Urine pH (4.5-7.5) Ur Specific [place] (1.000-1.030) Urine Protein (Negative) Urine Glucose (UA) (Negative) Urine Ketones (Negative) Urine Blood (Negative) Urine Nitrite (Negative) Urine Bilirubin (Negative) Urine Urobilinogen (Negative) Ur Leukocyte Esterase (Negative) Urine WBC (Auto) (0-5) /hpf Urine RBC (Auto) (0-4) /hpf U Hyaline Cast (Auto) (0-5) /lpf U Epithel Cells (Auto) (0-5) /lpf Urine Bacteria (Auto) (Negative) Nasal Screen MRSA (PCR) (Negative) Stool H. pylori Ag Random Vancomycin (10-20) mcg/ml SARS-CoV-2 (PCR) (Negative) Influenza Type A (PCR) (Neg) Influenza Type B (PCR) (Neg) RSV (RT-PCR) (Neg) Blood Type Antibody Screen Crossmatch (2) Sepsis Sepsis type: sepsis due to unspecified organism
[2023-08-24 19:08] VITALS: RESP 18
[2023-08-24] MEDS: allopurinoL 300 MG TAB PO SCH (21:31)
[2023-08-24] MEDS: LANTUS PER UNIT CHARGE SQ SCH (21:31)
[2023-08-24] MEDS: ATORVASTATIN 10 MG TAB PO SCH (21:31)
[2023-08-25] MEDS: HYDROmorphone INJ 0.5 MG/0.5 ML SYR IV PRN ×4 (04:11→23:31)
[2023-08-25] MEDS: CETIRIZINE HCL 10 MG TABLET PO SCH (09:13)
[2023-08-25] MEDS: INSULIN ASPART PER UNIT CHARGE SC SCH ×4 (09:33→21:37)
[2023-08-25] MEDS: ENOXAPARIN INJ 40 MG/0.4 ML SYR SQ SCH (09:33)
[2023-08-25] MEDS: metroNIDAZOLE 500 MG TAB PO SCH (09:33)
[2023-08-25] MEDS: PANTOprazole 40 MG in SYRINGE 0 ML IV SCH (11:06)
--- NOTE | 2023-08-25 13:26 | Hospitalist Progress Note ---
Date of Service August 25, 2023 Assessment & Plan (1) Perforated bowel: Plan: 1) Perforated bowel: Plan: 1) Perforated bowel: Pneumoperitoneum: Patient presented with abdominal pain. Underwent surgery for perforated ascending colon on August 16, 2023. 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 Wound culturelow counts mixed probable skin microbiota. Bacteroides thetaiotaomicron Continue diet; monitor ileostomy output Drain is still in place; management as per surgery. As per , plan to continue drain postoperatively for 2 weeks. Patient completed 7 days of antibiotic(cefepime, Flagyl and vancomycin) postoperatively. Bladder scan every 8 hours. PT OT evaluation Out of bed Optimize pain control with Tylenol for mild pain, oxycodone for moderate pain and Dilaudid for severe pain. Type 2 diabetes mellitus on Lantus and ISS, continue. Continue to monitor. HTN Continue to hold losartan/hctz will monitor Hyperlipidemia on statin Lumbar stenosis with neurogenic claudication s/p surgery by on 08/11 Continue PT OT inpatient. Patient has an appointment with Dr. Lala on August 25. Dr. Lala informed regarding patient hospitalization on July. Xray lumbar ordered as per patient's request Dvt px Lovenox Disposition Patient continues to be hospitalized as she had recently undergone exploratory laparotomy with right hemicolectomy with ileostomy for perforated ascending colon. Patient surgical drain is still in place. dc to rehab when placement available. Please note the above document was generated using voice recognition software. It may contain grammatical, syntax or spelling errors. Any formal questions or concerns about the content, text or information contained within the body of this dictation should be directly addressed to the provider for clarification Admission and Anticipated Discharge Date Admission Date: August 16, 2023 Subjective Patient seen and examined at bedside. She is comfortably lying in the bed; not in any distress. She reports back discomfort. Review of Systems Review of Systems: All systems reviewed & are unremarkable except as noted in Subjective Physical Exam Physical Exam: General-alert orient x 3; not in distress. Head- atraumatic Neck- supple, no JVD. Lungs- clear to auscultation, no wheezing or crackles. Heart- regular rhythm; no murmur, no gallop. Abdomen-normal bowel sound, s/p ex lap with ileostomy and hemicolectomy. Ileostomy bag with dark output. Drain is still in place with clear output Extremities- no pretibial edema, no erythema seen. Neuro- alert, oriented x 3; no facial palsy; no dysarthria; moves extremities. Skin- warm & dry Results & Data Results & Data Vital Signs (Past 12 Hours) Vital Signs Temp Pulse Pulse Resp BP Pulse Ox O2 Del Method 08/25/23 08:00 68 08/25/23 07:30 Room Air 08/25/23 07:16 37 C 82 18 129/91 91 Room Air 08/25/23 03:45 36.8 C 70 18 137/76 92 Room Air Laboratory Results Laboratory Results WBC 8.48 K/ul (4.8-10.8) 08/24/23 07:47 RBC 2.95 M/uL (4.20-5.40) L 08/24/23 07:47 Hgb 7.9 g/dl (12.0-16.0) L 08/24/23 07:47 POC Hgb 7.8 g/dl (12.0-16.0) L 08/17/23 04:14 Hct 26.2 % (37.0-47.0) L 08/24/23 07:47 POC Hct 23 % (37-47) L 08/17/23 04:14 MCV 88.8 fL (80.0-100.0) 08/24/23 07:47 MCH 26.8 pg (25.0-34.0) 08/24/23 07:47 MCHC 30.2 g/dL (32.0-36.0) L 08/24/23 07:47 RDW Std Deviation 52.9 fL (36.4-46.3) H 08/24/23 07:47 RDW Coeff of Samantha 16.3 % (11.5-14.5) H 08/24/23 07:47 Plt Count 303 K/uL (130-400) 08/24/23 07:47 MPV 8.4 fL (9.4-12.4) L 08/24/23 07:47 Immature Gran % (Auto) 1.2 % 08/24/23 07:47 Neut % (Auto) 74.6 % 08/24/23 07:47 Lymph % (Auto) 12.3 % 08/24/23 07:47 [place] % (Auto) 9.0 % 08/24/23 07:47 Eos % (Auto) 2.5 % 08/24/23 07:47 Baso % (Auto) 0.4 % 08/24/23 07:47 Neut # (Auto) 6.34 K/uL (1.40-6.50) 08/24/23 07:47 Lymph # (Auto) 1.04 K/uL (1.20-3.40) L 08/24/23 07:47 [place] # (Auto) 0.76 K/uL (0.11-0.59) H 08/24/23 07:47 Eos # (Auto) 0.21 K/uL (0.00-0.50) 08/24/23 07:47 Baso # (Auto) 0.03 K/uL (0.00-0.20) 08/24/23 07:47 Immature Gran # (Auto) 0.10 K/uL (0.01-0.20) 08/24/23 07:47 Absolute Nucleated RBC 0.02 K/uL (0.00-0.12) 08/18/23 03:52 Nucleated RBC % (auto) 0.2 % 08/18/23 03:52 Hypersegmented Neuts 1+ 08/19/23 06:09 Polychromasia 1+ 08/24/23 07:47 Anisocytosis Present 08/17/23 04:10 Ovalocytes 1+ 08/22/23 06:54 Sample Site R Radial 08/17/23 04:14 POC pH 7.49 (7.35-7.45) H 08/17/23 04:14 POC pCO2 36 mmHg (35-46) 08/17/23 04:14 POC pO2 80 mmHg (80-95) 08/17/23 04:14 POC HCO3 27 jania/L (19-24) H 08/17/23 04:14 POC Total CO2 28 mmol/L (24-31) 08/17/23 04:14 POC Base Excess 4.0 jania/L (-9-1.8) H 08/17/23 04:14 ABG pH (Temp Correct) 7.473 (7.35-7.45) H 08/17/23 04:14 ABG pCO2 (Temp Corrct 37 mmHg (35-46) 08/17/23 04:14 POC ABG pO2 at Pt Temp 84 08/17/23 04:14 POC ABG O2 Sat 97.0 % (90-95) H 08/17/23 04:14 Tomer Test Pass 08/17/23 04:14 O2 Delivery Device Ventilator 08/17/23 04:14 POC O2 Rate 16 08/17/23 04:14 POC FiO2 30 % 08/17/23 04:14 Tidal Volume 400 08/17/23 04:14 PEEP 5 08/17/23 04:14 POC Sodium 133 mmol/L (135-144) L 08/17/23 04:14 Sodium 142 mmol/L (136-145) 08/24/23 07:47 POC Potassium 3.8 mmol/L (3.3-5.0) 08/17/23 04:14 Potassium 4.2 mmol/L (3.5-5.1) 08/24/23 07:47 POC Chloride 98 mmol/L (101-112) L 08/16/23 11:51 Chloride 107 mmol/L (98-107) 08/24/23 07:47 Carbon Dioxide 33 mmol/L (21-32) H 08/24/23 07:47 POC Total CO2 28 mmol/L (24-31) 08/16/23 11:51 Anion Gap 2 (3-11) L 08/24/23 07:47 POC Anion Gap 14.0 mmol/L (16-25) L 08/16/23 11:51 POC BUN 15 mg/dl (7-18) 08/16/23 11:51 BUN 11 mg/dl (6-23) 08/24/23 07:47 Creatinine 0.65 mg/dl (0.6-1.2) 08/24/23 07:47 POC Creatinine 0.6 mg/dl (0.6-1.3) 08/16/23 11:51 Est Cr Clr Drug Dosing 95.3 ml/min 08/24/23 07:47 Est GFR ( Amer) 102.1 ml/min 08/24/23 07:47 Est GFR (Non-Af Amer) 88.1 ml/min 08/24/23 07:47 BUN/Creatinine Ratio 16.9 (10-20) 08/24/23 07:47 Glucose 124 mg/dl (70-99(Fasting)) H 08/24/23 07:47 POC Glucose 144 mg/dl (70-99) H 08/25/23 11:21 POC Glucose (other) 161 mg/dl (70-99) H 08/16/23 11:51 Lactate 1.1 mmol/L (0.4-2.0) 08/16/23 20:15 Calcium 8.6 mg/dl (8.6-10.3) 08/24/23 07:47 POC Ioniz Calcium Andrey 1.06 mmol/l (1.12-1.32) L 08/16/23 11:51 Phosphorus 3.6 mg/dl (2.5-4.9) 08/24/23 07:47 Magnesium 1.8 mg/dl (1.7-2.4) 08/24/23 07:47 Total Bilirubin 1.1 mg/dl (0.2-1.0) H 08/17/23 04:11 Direct Bilirubin 0.3 mg/dl (0-0.2) H 08/16/23 13:03 AST 16 U/L (13-39) 08/17/23 04:11 ALT 23 U/L (7-52) 08/17/23 04:11 Alkaline Phosphatase 131 U/L (34-104) H 08/17/23 04:11 Troponin I High Sens 38.0 pg/ml (0-14) H 08/16/23 14:05 Total Protein 4.5 gm/dl (6.0-8.3) L 08/17/23 04:11 Albumin 2.4 gm/dl (3.4-5.0) L 08/17/23 04:11 Globulin 2.1 gm/dl (2.5-4.0) L 08/17/23 04:11 Albumin/Globulin Ratio 1.1 (0.9-2) 08/17/23 04:11 Lipase 7 U/L (11-82) L 08/16/23 11:45 Procalcitonin 0.24 ng/ml (0-0.5) 08/16/23 11:45 Urine Color Dark Yellow 08/16/23 20:30 Urine Appearance Clear (Clear) 08/16/23 20:30 Urine pH 5.0 (4.5-7.5) 08/16/23 20:30 Ur Specific [place] 1.022 (1.000-1.030) 08/16/23 20:30 Urine Protein 1+ (Negative) H 08/16/23 20:30 Urine Glucose (UA) 1+ (Negative) H 08/16/23 20:30 Urine Ketones 4+ (Negative) H 08/16/23 20:30 Urine Blood Negative (Negative) 08/16/23 20:30 Urine Nitrite Negative (Negative) 08/16/23 20:30 Urine Bilirubin Negative (Negative) 08/16/23 20:30 Urine Urobilinogen Negative (Negative) 08/16/23 20:30 Ur Leukocyte Esterase Negative (Negative) 08/16/23 20:30 Urine WBC (Auto) 1-5 /hpf (0-5) 08/16/23 20:30 Urine RBC (Auto) 5-10 /hpf (0-4) H 08/16/23 20:30 U Hyaline Cast (Auto) 1-5 /lpf (0-5) 08/16/23 20:30 U Epithel Cells (Auto) 10-20 /lpf (0-5) H 08/16/23 20:30 Urine Bacteria (Auto) Negative (Negative) 08/16/23 20:30 Nasal Screen MRSA (PCR) Negative (Negative) 08/16/23 19:30 Stool H. pylori Ag SEE NOTE 08/19/23 02:52 Random Vancomycin 15.2 mcg/ml (10-20) 08/20/23 02:17 SARS-CoV-2 (PCR) NEGATIVE (Negative) 08/16/23 13:19 Influenza Type A (PCR) Negative (Neg) 08/16/23 13:19 Influenza Type B (PCR) Negative (Neg) 08/16/23 13:19 RSV (RT-PCR) Negative (Neg) 08/16/23 13:19 Blood Type O Negative 08/16/23 14:05 Antibody Screen NEGATIVE 08/16/23 14:05 Crossmatch See Detail 08/16/23 14:05 Impressions Abdomen/Pelvis CT 08/16/23 11:[address] WITHOUT CONTRAST CT DOSE: 1479.25 mGy.cm HISTORY: RLQ pain TECHNIQUE: Multiaxial CT images of the abdomen and pelvis were performed without contrast. A dose lowering technique was utilized adhering to the principles of ALARA. COMPARISON STUDY: None. FINDINGS: Trace right pleural effusion. Mild dependent changes seen at the lung bases. Large amount of pneumoperitoneum resulting in abdominal distention. There are bilateral total hip arthroplasties. Posterior decompression fusion from L2 through L5 with pedicle screws and rods. The hardware appears intact. No acute fractures. Small amount of gas at the laminectomy sites as well as fluid favors the recent postoperative change. Small umbilical hernia containing fat and gas. There is mild body wall edema noted. Cholelithiasis. No gallbladder wall thickening. The unenhanced liver, spleen, adrenal glands, and pancreas unremarkable. Multiple bilateral peripelvic renal cysts are noted. Bilateral nephrolithiasis. No hydronephrosis. Normal caliber abdominal aorta. No retroperitoneal lymphadenopathy. No pelvic lymphadenopathy or pelvic free fluid. The bladder and uterus are not well visualized due to the metallic artifact but appear unremarkable. Extensive colonic diverticulosis. No evidence for acute diverticulitis. [id number] fecal retention most pronounced within the proximal colon. Normal appendix. No dilated loops of bowel to suggest an obstruction. There is mild circumferential thickening and fat stranding within the proximal duodenum best seen on image 123. In conjunction with the extensive pneumoperitoneum this is concerning for a perforated duodenal ulcer. IMPRESSION: 1. Extensive pneumoperitoneum. This is consistent with underlying bowel perforation. The exact location is difficult to confirm but favors a perforated duodenal ulcer as described above. 2. Colonic diverticulosis. No evidence for acute diverticulitis. 3. Bilateral nephrolithiasis. No ureteral stones. No hydronephrosis. 4. Trace right pleural effusion. 5. Cholelithiasis. 6. Additional findings as described above. ACT 112: Negative or not required by law. Electronically signed by: Gunnar Eldridge M.D. 08/16/2023 12:41 PM Chest X-Ray 08/16/23 20:07 SINGLE VIEW CHEST CLINICAL HISTORY: Respiratory failure. Intubation. FINDINGS: An AP, portable, supine chest radiograph is compared to study dated 08/16/2023. The examination is degraded by portable technique and patient rotation. A left internal jugular central venous catheter has been placed. The tip projects over the cavoatrial junction. An enteric tube has been placed. The tip projects below the diaphragm. An endotracheal tube has been placed. The tip projects 5 cm above the gamaliel. The heart cardiac silhouette is enlarged. There is mild pulmonary vascular congestion. A small right pleural effusion is suspected with right basilar atelectasis. No pneumothorax is seen. The skeletal structures are osteopenic. The bony thorax is grossly intact. Fusion hardware is partially visualized and lumbar spine. IMPRESSION: 1. Line and tube placement as above. 2. Enlarged cardiac silhouette with mild pulmonary vascular congestion. 3. Small right pleural effusion. ACT 112: Negative or not required by law. Electronically signed by: Juanito Sharma M.D. 08/17/2023 8:36 AM
--- NOTE | 2023-08-25 15:18 | Surgery Progress Note ---
Date of Service August 25, 2023 Assessment & Plan (1) Perforated bowel: Plan: 08/24/2023 3:[address] Lawson POD # 8 s/p ex lap, right hemicolectomy with ileostomy for perforated ascending colon avss postop pain controlled ileostomy with liquid stool and gas adequate urine output hemodynamically stable plan, continue treatment, PT, OP, OOB consult case packer and sealer for plan to Discharge to long-term. 08/25/2023 3:[address] Lawson POD # 9 s/p ex lap, right hemicolectomy with ileostomy for perforated ascending colon vss postop pain controlled ileostomy with liquid stool and gas hemodynamically stable plan, continue treatment, PT, OP, OOB consult case packer and sealer for plan to Discharge to long-term. pt can be discharged to long-term from surgical point. keep the LYNNE drainage until F/U me 2 weeks, I will remove the LYNNE drainage at my clinic, record LYNNE out put once a day. do not remove staplers until POD 4 weeks sign off, please call with questions or concerns. Thanks. 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 Lawson POD # 5 s/p ex lap, right hemicolectomy with ileostomy for perforated ascending colon avss postop pain controlled ileostomy with liquid stool and gas adequate urine output hemodynamically stable plan, continue treatment, PT, OP, may remove schofield on Thursday OOB continuous improvement consultant surgeon cover pt this weekend, Thanks. Admission and Anticipated Discharge Date Admission Date: August 16, 2023 Subjective pt is stable, tolerated diet, no nausea, no vomiting, no fever, normal WBC, LYNNE 50ml clear output. Review of Systems Constitutional: as per Subjective / HPI Eyes: as per Subjective / HPI Respiratory: as per Subjective / HPI Cardiovascular: Additional Comments: Hypertension, hyperlipidemia Gastrointestinal: Gallstone Genitourinary: Kidney stone Musculoskeletal: Spinal stenosis, status spinal surgery 4 days ago, Neurologic: as per Subjective / HPI Psychiatric: as per Subjective / HPI Endocrine: as per Subjective / HPI Hematologic / Lymphatic: as per Subjective / HPI Physical Exam Eyes: PERRL, conjunctivae normal, anicteric sclerae Neck: trachea midline, no thyromegaly Respiratory: normal respiratory effort, lungs clear to auscultation Cardiovascular: RRR, no murmur, no edema Gastrointestinal (Abdomen): soft, no significant tenderness at abdomen, incision intact, no redness, ileostomy working well. BS +. Neurologic: patellar DTR's 2+ bilat, sensation intact Psychiatric: A+Ox3, euthymic affect Results & Data Vital Signs (Past 12 Hours) Vital Signs Temp Pulse Pulse Resp BP Pulse Ox O2 Del Method 08/25/23 08:00 68 08/25/23 07:30 Room Air 08/25/23 07:16 37 C 82 18 129/91 91 Room Air 08/25/23 03:45 36.8 C 70 18 137/76 92 Room Air (2) Sepsis Sepsis type: sepsis due to unspecified organism
--- NOTE | 2023-08-25 16:53 | XRay Report ---
XR lumbar spine min 4V routine HISTORY: 72 years-old Female Back pain, recent surgery . Pain with recent abdominal surgery COMPARISON: CT abdomen and pelvis 08/16/2023 TECHNIQUE: 5 views of the lumbar spine FINDINGS: Bilateral hip arthroplasties. Abdominal drainage catheter. Anterior midline skin robbin with right m id abdominal surgical suture material. Posterior bilateral bruno and screw fusion hardware with discect pooja changes are noted at L2-L5. The hardware appears intact. Mild multilevel degenerative disc space narrowing and spondylotic spurring with moderate facet arthrosis. No acute fracture identified. IMPRESSION: 1. No acute fracture identified. 2. Postoperative changes as above. No evidence of hardware complication. ACT 112: Negative or not required by law. The above report was generated using voice recognition software. It may contain grammatical, syntax o r spelling errors. Electronically signed by: Damon Bates M.D. 08/25/2023 4:52 PM
[2023-08-25] MEDS: ATORVASTATIN 10 MG TAB PO SCH (21:37)
[2023-08-25] MEDS: LANTUS PER UNIT CHARGE SQ SCH (21:37)
[2023-08-25] MEDS: allopurinoL 300 MG TAB PO SCH (21:37)
[2023-08-26] MEDS: HYDROmorphone INJ 0.5 MG/0.5 ML SYR IV PRN (02:31)
--- NOTE | 2023-08-26 07:12 | Hospitalist Progress Note ---
Date of Service August 26, 2023 Assessment & Plan (1) Perforated bowel: Plan: 1) Perforated bowel: Plan: 1) Perforated bowel: Pneumoperitoneum: Patient presented with abdominal pain. Underwent surgery for perforated ascending colon on August 16, 2023. 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 Wound culturelow counts mixed probable skin microbiota. Bacteroides thetaiotaomicron Continue diet; monitor ileostomy output Drain is still in place; management as per surgery. As per , plan to continue drain postoperatively for 2 weeks. Patient completed 7 days of antibiotic(cefepime, Flagyl and vancomycin) postoperatively. Bladder scan every 8 hours. PT OT evaluation Out of bed Optimize pain control with Tylenol for mild pain, oxycodone for moderate pain and Dilaudid for severe pain. Type 2 diabetes mellitus on Lantus and ISS, continue. Continue to monitor. HTN Continue to hold losartan/hctz will monitor Hyperlipidemia on statin Lumbar stenosis with neurogenic claudication s/p surgery by on 08/11 Continue PT OT inpatient. Patient has an appointment with Dr. Lala on August 25. Dr. Lala informed regarding patient hospitalization on July. Xray lumbar ordered as per patient's request Dvt px Lovenox Disposition Patient continues to be hospitalized as she had recently undergone exploratory laparotomy with right hemicolectomy with ileostomy for perforated ascending colon. Patient surgical drain is still in place. dc to rehab when placement available. Please note the above document was generated using voice recognition software. It may contain grammatical, syntax or spelling errors. Any formal questions or concerns about the content, text or information contained within the body of this dictation should be directly addressed to the provider for clarification Admission and Anticipated Discharge Date Admission Date: August 16, 2023 Physical Exam Physical Exam: CONSTITUTIONAL: morbid obesity, vitals as above, generally in moderate distress with any movement and emotionally overwhelmed. EYES: pupils are round and equal bilaterally, normal conjunctivae, no scleral icterus ENT: external ear and nose normal, MMM NECK: trachea midline RESPIRATORY: clear to auscultation bilaterally, no crackles, rales or wheezes, normal respiratory effort CARDIOVASCULAR: regular rate and rhythm, S1 and 2 heard without murmurs, gallops or rubs, no JVD, no peripheral edema CHEST: inspection of chest was normal GASTROINTESTINAL: severe tenderness and distension with generalized TTP. High pitched bowel sounds in the RLQ MUSCULOSKELETAL: strength 5/5 throughout, but limited movement 2/2 pain, head is normocephalic and atraumatic SKIN: warm and dry, tape over lower back incision which was unable to be visualized 2/2 limited ability to roll 2/2 pain NEUROLOGIC: CN 2-12 grossly intact, no sensory deficit, normal cognition, normal speech, no tremor PSYCHIATRIC: alert cooperative and oriented to person, place and time. Euthymic mood, makes good eye contact, language grossly intact, recent and remote memory grossly intact. Results & Data Results & Data Vital Signs (Past 12 Hours) Vital Signs Temp Pulse Pulse Resp BP Pulse Ox O2 Del Method 08/26/23 02:40 36.6 C 75 18 127/82 93 Room Air 08/25/23 23:01 77 08/25/23 21:50 Room Air 08/25/23 21:47 36.6 C 62 18 130/80 93 Room Air Medications Administered Current Inpatient Medications Allopurinol (Allopurinol 300 Mg Tab) 300 mg PO HS SHAI Stop: 09/15/23 20:59 Last Admin: 08/25/23 21:37 Dose: 300 mg Atorvastatin Calcium (Atorvastatin 10 Mg Tab) 10 mg PO HS SHAI Stop: 09/15/23 20:59 Last Admin: 08/25/23 21:37 Dose: 10 mg Calamine/Pramoxine (Calamine/Pramoxine Lotion 180 Appln/180 Ml Btl) 1 appln EXT BID PRN PRN Reason: Itching Stop: 09/22/23 11:25 Last Admin: 08/23/23 18:16 Dose: 1 appln Cetirizine HCl (Cetirizine Hcl 10 Mg Tablet) 10 mg PO QAM SHAI Stop: 09/20/23 15:59 Last Admin: 08/25/23 09:13 Dose: Not Given Dextrose (Dextrose 50% 50 Ml Syringe) 25 - 50 ml IV UD PRN; Protocol PRN Reason: Hypoglycemia Protocol Stop: 09/15/23 19:35 Enoxaparin Sodium (Enoxaparin Inj 40 Mg/0.4 Ml Syr) 40 mg SQ QAM SHAI Stop: 09/16/23 08:59 Last Admin: 08/25/23 09:33 Dose: 40 mg Glucagon (Glucagon For Inj 1 Mg Vial) 1 mg SQ UD PRN; Protocol PRN Reason: Hypoglycemia Protocol Stop: 09/15/23 19:35 Glucose (Glucose 10 Tab/Tube) 4 - 8 tab PO UD PRN; Protocol PRN Reason: Hypoglycemia Treatment Stop: 09/15/23 19:35 Glucose (Glucose 40% Gel 15 Gm Tube) 15 - 30 gm PO UD PRN; Protocol PRN Reason: Hypoglycemia Protocol Stop: 09/15/23 19:35 Hydromorphone HCl (Hydromorphone Inj 0.5 Mg/0.5 Ml Syr) 0.5 mg IV Q3H PRN PRN Reason: Severe Pain (Scale 7, 8, 9,10) Stop: 09/01/23 15:01 Last Admin: 08/26/23 02:31 Dose: 0.5 mg Pantoprazole Sodium 40 mg/ (Syringe) 10 mls @ 5 mls/min IV DAILY@1100 [facility] Stop: 09/16/23 10:59 Last Admin: 08/25/23 11:06 Dose: 5 mls/min Insulin Aspart (Insulin Aspart Per Unit Charge) 0 units SC ACHS [facility] Stop: 09/17/23 16:29 Last Admin: 08/25/23 21:37 Dose: 2 units Insulin Glargine (Lantus Per Unit Charge) 10 units SQ HS [facility] Stop: 09/15/23 20:59 Last Admin: 08/25/23 21:37 Dose: 10 units Menthol (Cough Drop (Sugar Free) Justin 24 Justin/1 Box) 1 justin BUCCAL Q8H PRN PRN Reason: Sore Throat Stop: 09/16/23 08:31 Last Admin: 08/17/23 08:52 Dose: 1 justin Miscellaneous (Carbohydrates For Hypoglycemia ) 15 - 30 gm PO UD PRN PRN Reason: Hypoglycemia Protocol Stop: 09/15/23 19:35 Oxycodone HCl (Oxycodone Hcl Ir 5 Mg Tab (Immediate Release)) 5 mg PO Q6H PRN PRN Reason: Moderate Pain (Scale 4, 5, 6) Stop: 09/02/23 11:33 Last Admin: 08/23/23 21:30 Dose: 5 mg
[2023-08-26] MEDS: oxyCODONE HCL IR 5 MG TAB (IMMEDIATE RELEASE) PO PRN ×2 (08:12→14:08)
[2023-08-26] MEDS ORDERED: LIDOCAINE 5% 1 PATCH TD SCH (09:30)
[2023-08-26] MEDS: INSULIN ASPART PER UNIT CHARGE SC SCH ×2 (09:32→12:15)
[2023-08-26] MEDS: ENOXAPARIN INJ 40 MG/0.4 ML SYR SQ SCH (09:54)
[2023-08-26] MEDS: CETIRIZINE HCL 10 MG TABLET PO SCH (09:55)
[2023-08-26] MEDS: PANTOprazole 40 MG in SYRINGE 0 ML IV SCH (10:17)
[2023-08-26 11:55] VITALS: TEMP 99; O2SAT 94
[2023-08-26] MEDS ORDERED: LIDOCAINE 5% 1 PATCH TD STA (12:32)
--- NOTE | 2023-08-26 12:43 | Discharge Summary ---
Discharge Summary Date of Service August 26, 2023 Notes For Next Care Provider Wound care, activity restrictions per general surgery Please follow-up with Dr. Lawson from general surgery in 2 weeks time. DARIUS drain to be removed at postop visit. Medication Changes From Visit Please see [facility] rec Admission HPI Per Admitting Provider 72-year-old female recently hospitalized at [facility] for elective decompression and fusion surgery of L2-L5 under the care of Dr. Lala. Surgery was uneventful and she was doing well postoperatively. She was sent to rehab in stable condition on 08/15. She reports that on the way to [facility] she began feeling sharp pains in her abdomen that was generalized. She threw up and was up all night with pain. She presented today by ambulance reporting worsening abdominal pain predominantly in the right lower quadrant which then became more generalized. This was associated with mild nausea and any movement made it worse. She was unable to sit up or roll over in the bed without causing significant pain. She denies any issues with her back at this time and reports she did have a bowel movement this morning but was unable to see it given her limited mobility. She denies any falls or trauma. During this interview she is reporting being very upset with this whole situation and has difficulty giving history as a result of that. She is oriented and a good historian, otherwise. She notes taking Mobic for 5 to 6 years and has been off of Mobic preoperatively. She denies any taking of NSAIDs postoperatively. She drinks alcohol approximately 1-2 drinks per week on average. She does take steroid shots in her knees and recently had steroids with her back surgery. Work-up in the ER includes a CT scan revealing pneumoperitoneum from a possible duodenal ulcer with perforation. General surgery was consulted and plans to take her to the operating room today. She is febrile with some tachycardia and is oxygenating 97% on 2 L via nasal cannula. Admission Exam Per Admitting Provider CONSTITUTIONAL: morbid obesity, vitals as above, generally in moderate distress with any movement and emotionally overwhelmed. EYES: pupils are round and equal bilaterally, normal conjunctivae, no scleral icterus ENT: external ear and nose normal, MMM NECK: trachea midline RESPIRATORY: clear to auscultation bilaterally, no crackles, rales or wheezes, normal respiratory effort CARDIOVASCULAR: regular rate and rhythm, S1 and 2 heard without murmurs, gallops or rubs, no JVD, no peripheral edema CHEST: inspection of chest was normal GASTROINTESTINAL: severe tenderness and distension with generalized TTP. High pitched bowel sounds in the RLQ MUSCULOSKELETAL: strength 5/5 throughout, but limited movement 2/2 pain, head is normocephalic and atraumatic SKIN: warm and dry, tape over lower back incision which was unable to be visualized 2/2 limited ability to roll 2/2 pain NEUROLOGIC: CN 2-12 grossly intact, no sensory deficit, normal cognition, normal speech, no tremor PSYCHIATRIC: alert cooperative and oriented to person, place and time. Euthymic mood, makes good eye contact, language grossly intact, recent and remote memory grossly intact. Principal Dx & Hospital Course #1 = Principal Diagnosis (1) Perforated bowel: (2) Pneumoperitoneum: (3) Duodenal ulcer disease: (4) Sepsis: (5) Post-operative state: (6) Diabetes: (7) Lumbar stenosis with neurogenic claudication: (8) Hypertension: (9) Hyperlipidemia: (10) Morbid obesity: (11) Acute urinary retention: Plan The patient was resuscitated from a sepsis standpoint and placed on broad- spectrum antibiotics. She was taken from the ER on 08/16 directly to the operating room and underwent an ex lap with right hemicolectomy with ileostomy for perforated ascending colon. Pathology from the colon of right hemicolectomy revealed acute necrotizing colitis consistent with ischemia. Culture revealed Bacteroides. She was recovered in the ICU on mechanical ventilation. She was extubated in approximately 24 hours and transitioned out of the ICU. She continued to recover. Small amount of liquid stool was present in the ileostomy with adequate urine output. Zosyn was de-escalated to ceftriaxone and Flagyl to complete the course of antibiotics. On 08/25 she failed a trial of void and Zuleta catheter was replaced. At time of discharge she was hemodynamically stable and afebrile, ambulating with assistance using a walker, mentating at baseline, tolerating p.o. She has been afebrile for greater than 48 hours. Repeat trial of void is recommended at rehab center. She was very reliant on consistent intravenous Dilaudid for postoperative pain management. We continue with aggressive bowel regimen and physical therapy prior to another trial of void as outpatient. Close follow-up with primary care and surgical follow-up with activity restrictions/wound care recommended. Updated Medication List Medication Instructions Recorded Confirmed Type losartan 50 mg-hydrochlorothiazide 1 tab PO HS 01/11/19 08/16/23 History 12.5 mg tablet meloxicam 15 mg tablet 15 mg PO QAM 02/17/23 08/16/23 History acetaminophen 500 mg tablet 1,000 mg PO TID PRN Pain 07/20/23 08/16/23 History allopurinol 300 mg tablet 300 mg PO HS 07/20/23 08/16/23 History atorvastatin 10 mg tablet 10 mg PO HS 07/20/23 08/16/23 History azithromycin 500 mg tablet 500 mg PO UD 07/20/23 08/16/23 History berberine-herbal comb no.18 capsule 3 cap PO UD 07/20/23 08/16/23 History oxycodone 5 mg tablet 5 mg PO Q6H PRN pain #10 tabs 08/26/23 Rx Hospital Stay Data Consultations 08/16/23 13:21 Consult General Surgery Stat ED Decision to Admit Stat 08/16/23 21:15 Consult Security Threat Analyst Routine Procedures Performed Operation Date: 08/16/23 15:30 Actual Procedures p Open Bowel Resection, Creation of Ostomy - July Lawson MD Diagnostic Imagining Performed 08/16/23 11:27 CT abd pelvis wo con Stat Pending Results Patient Have Any Pending Studies at Discharge: No Discharge Instructions Given to Patient (Per Discharging Provider) Please take all medications as instructed on discharge as below. DARIUS drain to stay in place until follow-up in 2 weeks with general surgery. General surgeon plans to remove DARIUS drain at the clinic. Please record DARIUS drain output once daily. Do not remove robbin until 4 weeks postop. Please follow- up with Dr. Lawson in the general surgery clinic in 2 weeks time. Outpatient primary care follow-up is recommended within a week of discharge from the hospital. Please follow-up with Dr. Lala regarding your recent back surgery as inst ructed. Wound care and activity restrictions per general surgery. It was a pleasure taking care of you! Please call if you have any questions or problems. You can reach a [facility] hospitalist on duty at [facility] 24 hours a day by calling [phone]. Take care of yourself. Alissa Haywood, [employer] Hospitalist Total Time Total Time Spent Total Time Spent (In Minutes): 60
[2023-08-26 14:31] VITALS: BP 120/70; PULSE 70
== END 2023-08-26 15:12 | DRG 853 ==
LOC: ED 11:08 → 1E 13:25 → SUATTDRO 13:25 → 1E 13:45 → 2E 08-18 06:09
DX: K63.1 Perforation of intestine (nontraumatic); Z87.891 Personal history of nicotine dependence; K65.0 Generalized (acute) peritonitis; I10 Essential (primary) hypertension; Z83.3 Family history of diabetes mellitus; Z96.643 Presence of artificial hip joint, bilateral; Z93.2 Ileostomy status; A41.9 Sepsis, unspecified organism; Z79.52 Long term (current) use of systemic steroids; M19.90 Unspecified osteoarthritis, unspecified site; G95.89 Other specified diseases of spinal cord; E66.01 Morbid (severe) obesity due to excess calories; E11.9 Type 2 diabetes mellitus without complications; K55.069 Acute infarction of intestine, part and extent unspecified; M48.062 Spinal stenosis, lumbar region with neurogenic claudication; Z68.41 Body mass index [BMI] 40.0-44.9, adult